=== PATIENT | female | born 1985 | race Hispanic/Latino ===

== ENCOUNTER 2019-06-25 11:54 | Emergency (ER) | payer OTHER ==
--- OUTSIDE RECORDS SUMMARY | 2019-06-25 11:56 | XMS REPORT | Summary of Care ---
:1985 Author Organization [facility] - [facility] Address [address] [place] [address] Care Team Providers Name Role Phone Doctor Unassigned, [place] Insurance Hmo Unavailable Ashley Calderon Primary Care Provider Encounter Details Date Type Department Care Team Description 10/22/2018 Orders Only [facility] Doctor Unassigned, No [address] [place] [address] Name [place] [phone] [place] [address] Allergies No Known Allergiesdocumented as of this encounter (statuses as of 10/22/2018) Medications Medication Sig Dispensed Refills Start Date End Date Status VIT Take by mouth. 0 A ctive W-CA,FE,FA,<1 MG, ( VITAMIN ORAL) ibuprofen (MOTRIN) Take 1 tablet by 60 tablet 1 01/06/2016 Active 600 mg tablet mouth every 6 (six) hours as needed for Pain (scale 1-3). Take with food or milk. terconazole (TERAZOL Insert 1 Applicator 20 g 0 6 Active 3) 0.8 % vaginal into vagina at creamIndications: bedtime. Vaginal yeast infection documented as of this encounter (statuses as of 10/22/2018) Active Problems Patient Care Coordination Note IOL 01-04-16 Problem Noted Date Well woman exam 02/18/2016 Other general counseling and advice for contraceptive management 02/18/2016 Obese 02/18/2016 Vaginal yeast infection 02/18/2016 documented as of this encounter (statuses as of 10/22/2018) Resolved Problems Problem Noted Date Resolved Date Routine follow-up 01/28/2016 02/18/2016 Obstetrical laceration, second degree 01/06/2016 Labor and delivery indication for care or intervention 01/0301/28/2016 39 weeks gestation of 01/04/2016 01/28/20 16 Flu vaccine need 12/14/2015 01/28/2016 Overview: Received flu vac today Round ligament pain 12/07/2015 01/28/2016 Nausea and vomiting during prior to 22 weeks 06/1801/28/2016 gestation History of miscarriage, currently 05/22/2015 01/28/2016 Supervision of high risk , antepartum 05/22/2015 01/28/2016 Overview: Delivery plan at 38w3d. Indications: elective by: labor inductio n at 39 weeks gestation approved by n/a. Other: n/a Vaginal bleeding during , antepartum 10/11/2014 05/22/2015 Obesity affecting 10/11/2014 01/28/2016 Overview: ICD10 Diagnosis Term Sizer Machine Utility documented as of this encounter (statuses as of 10/22/2018) Immunizations Name Administration Dates Next Due Influenza Virus Vaccine Quad IM 3+ YRS 12/14/2015, 6 Tdap 10/26/2015 documented as of this encounter Social History Tobacco Use Types Packs/Day Years Used Date Never Smoker Smokeless Tobacco: Never Used Alcohol Use Drinks/Week oz/Week Comments No Sex Assigned at Date Recorded Not on file Job Start Date Occupation Industry Not on file Not on file Not on file Travel History Travel Start Travel End No recent travel history available. documented as of this encounter Last Filed Vital Signs Not on filedocumented in this encounter Plan of Treatment Health Maintenance Due Date Last Done Comments PAP SMEAR 10/11/2017 10/11/2014 INFLUENZA VACCINE 11/14/2018 12/14/2015, 05/22/2015 DTaP,Tdap,and Td Vaccines (2 10/25/2025 10/26/2015 - Td) PNEUMOCOCCAL 0-64 YEARS Aged Out No longe r eligible based COMBINED SERIES on patient's age to complete this to [facility] documented as of this encounter Procedures Procedure Name Priority Date/Time Associated Diagnosis Comme nts ASSIGNMENT OF BENEFITS Routine 10/22/2018 9:07 AM CDT documented in this encounter Results Not on filedocumented in this encounter Insurance Payer Benefit Plan / Subscriber ID Effective Phone Address T ype Group Dates MEDICAID MEDICAID PENDING 2018-[address] Pending [place] [address] documented as of this encounter
--- OUTSIDE RECORDS SUMMARY | 2019-06-25 11:56 | XMS REPORT | Summary of Care ---
:1985 Author Organization [facility] Address [address] [place] [address] Care Team Providers Name Role Phone Doctor Unassigned, [place] Insurance Hmo Unavailable Ashley Calderon Primary Care Provider Reason for Visit Reason Comments New OB Visit Encounter Details Date Type Department Care Team Description 10/22/2018 [facility] Calderon gh-risk in first trimester (Primary Dx); Visit JUAN Marte BMI 36.0-36.9,adult; [address] Multiparity; [place], [place] Obesity affecting in first tri mester [address] [place], [place] [phone] [address] Allergies No Known Allergiesdocumented as of this encounter (statuses as of 10/22/2018) Medications Medication Sig Dispensed Refills Start Date End Date Status VIT Take by mouth. 0 A ctive W-CA,FE,FA,<1 MG, ( VITAMIN ORAL) ibuprofen Take 1 tablet by 60 tablet 1 01/06/2016 10/22/2018 D iscontinued (MOTRIN) 600 mg mouth every 6 tablet (six) hours as needed for Pain (scale 1-3). Take with food or milk. terconazole Insert 1 20 g 0 02/18/2016 10/22/2018 Discon tinued (TERAZOL 3) 0.8 % Applicator into vaginal vagina at creamIndications: bedtime. Vaginal yeast infection documented as of this encounter (statuses as of 10/22/2018) Active Problems Patient Care Coordination Note IOL 01-04-16 Problem Noted Date High risk , antepartum 10/22/2018 Obesity affecting in first trimester 019 Estimated Date of Delivery Comments Yes 06/12/2019 Based on last menstr ual period of 09/05/2018 (Approximate) documented as of this encounter (statuses as of 10/22/2018) Resolved Problems Problem Noted Date Resolved Date Well woman exam 02/18/2016 10/22/2018 Other general counseling and advice for contraceptive 201510/22/2018 management Obese 02/18/2016 10/22/2018 Vaginal yeast infection 02/18/2016 10/22/2018 Routine follow-up 01/28/2016 02/18/2016 Obstetrical laceration, second [...] affecting 10/11/2014 01/28/2016 Overview: ICD10 Diagnosis Term Stapler Machine Utility documented as of this encounter (statuses as of 10/22/2018) Immunizations Name Administration Dates Next Due Influenza Virus Vaccine Quad IM 3+ YRS 12/14/2015, 6 Tdap 10/26/2015 documented as of this encounter Social History Tobacco Use Types Packs/Day Years Used Date Never Smoker Smokeless Tobacco: Never Used Alcohol Use Drinks/Week oz/Week Comments No Estimated Date of Delivery Comments Yes 06/12/2019 Based on last menstr ual period of 09/05/2018 (Approximate) Sex Assigned at Date Recorded Not on file Job Start Date Occupation Industry Not on file Not on file Not on file Travel History Travel Start Travel End No recent travel history available. documented as of this encounter Last Filed Vital Signs Vital Sign Reading Time Taken Comments Blood Pressure 120/84 10/22/2018 9:35 AM CDT Pulse 67 10/22/2018 9:35 AM CDT Temperature 37.2 C (99 F) 10/22/2018 9:35 AM CDT Respiratory Rate 18 10/22/2018 9:35 AM CDT Oxygen Saturation - - Inhaled Oxygen Concentration - - Weight 97.1 kg (214 lb) 10/22/2018 9:35 AM CDT Height 162.6 cm (5' 4") 10/22/2018 9:35 AM CDT Body Mass Index 36.73 10/22/2018 9:35 AM CDT documented in this encounter Progress Notes Alicia Veliz RN - 10/22/2018 9:00 AM CDTPatient is 33 year old female here for current . Patient is . 1) Previous delivery methods Vaginal 2) Patient is experiencing cramping 3) Patient is not experiencing bleeding. 4) LMP 09/05/2018 5) Last Pap was:10/11/2014 Results: Negative 6) Have you had a flu vaccine this season? No 7) PPD candidate? No 8) Patient complains of Mild cramping 9) Patient denies history of physical, emotional, or sexual abuse. Patient states she currently feels safe at home. New ob packet given and and discussed with patient. ALICIA VELIZ RN 10/22/2018 9:45 AM Juani Calderon FNP - 10/22/2018 9:00 AM CDT Chief complaint: Chief Complaint Patient presents with New OB Visit CC: Initial Visit Suzanne Edwards is a 33 year old, , /White female. Patient's last menstrual period was09/05/2018 (approximate). She is 6w5d with a suspected intrauterine . Her Estimated Date of Delivery: 06/12/19. She is being seen today for her first obstetrical visit. She has no complaints today. Denies current physical, emotional or sexual abuse. Patient denies recent foreign travel. OB History T1 L1 SAB1 TAB0 Ectopic0 Multiple0 Live Births1 Name of Baby 1: Not recorded Date: 2014 GA: 4w0d Delivery: Not recorded Apgar1: Not recorded Apgar5: Not recorded Living: Not recorded Name of Baby 2: Not recorded Date: 01/05/16 GA: 39w1d Delivery: Vaginal Apgar1: 8 Apgar5: 9 Living: Living Name of Baby 3: Not recorded Date: Not recorded GA: Not recorded Delivery: Not recorded Apgar1: Not recorded Apgar5: Not recorded Living: Not recorded Histories OB History Para Term AB Living 3 1 1 0 1 1 SAB TAB Ectopic Multiple Live Births 1 0 0 0 1 # Outcome Date GA Lbr Zhen/2nd Weight Sex Delivery Anes PTL Lv 3 Current 2 Term 01/05/16 39w1d 8 lb 0.4 oz (3.64 kg) M VAGINAL EPI ASHLEY Comments: Maternal Age: 28; :2; Parity:1 Mother's Blood Type:O pos Baby's Blood Type:O pos Maternal Serological Test:normal Maternal Group B Strep Screening:negative; Adequate Treatment:not applicable Complications:no Labor Complications: thin meconium OAE: passed - 01/06/16 Hepatitis B Vaccine:yes - 01/05/16 Problems:no 1st screen collected on 01/06/16 showed normal. mg 1 2014 4w0d Past Medical History: Diagnosis Date Vaginal yeast infection 02/18/2016 Family History Problem Relation Age of Onset Diabetes Mother Hypertension Mother High cholesterol Mother Hypertension Sister Arthritis NoFHx Asthma NoFHx defects NoFHx Breast Cancer NoFHx Colon Cancer NoFHx Ovarian Cancer NoFHx Uterine Cancer NoFHx Cancer NoFHx Depression NoFHx Psychiatry NoFHx Genetic NoFHx Heart NoFHx Mental retardation NoFHx Neurological NoFHx Osteoporosis NoFHx Family Status Relation Name Status Mo Alive Fa Alive Sis (Not Specified) NoFHx (Not Specified) History reviewed. No pertinent surgical history. Social History Socioeconomic History Marital status: Spouse name: Not on file Number of children: 0 Years of education: 12+ Highest education level: Not on file Occupational History Occupation: Unemployed Social Needs Financial resource strain: Not on file Food insecurity: Worry: Not on file Inability: Not on file Transportation needs: Medical: Not on file Non-medical: Not on file Tobacco Use Smoking status: Never Smoker Smokeless tobacco: Never Used Substance and Sexual Activity Alcohol use: No Drug use: No Sexual activity: Yes control/protection: None Comment: last intercourse: Lifestyle Physical activity: Days per week: Not on file Minutes per session: Not on file Stress: Not on file Relationships Social connections: Talks on phone: Not on file Gets together: Not on file Attends taoism service: Not on file Active member of club or organization: Not on file Attends meetings of clubs or organizations: Not on file Relationship status: Not on file Intimate partner violence: Fear of current or ex partner: Not on file Emotionally abused: Not on file Physically abused: Not on file Forced sexual activity: Not on file Other Topics Concern Service Not Asked Blood Transfusions No Caffeine Concern Not Asked Occupational Exposure Not Asked Hobby Hazards Not Asked Sleep Concern Not Asked Stress Concern Not Asked Weight Concern Not Asked Special Diet Not Asked Back Care Not Asked Exercise Not Asked Bike Helmet Not Asked Seat Belt Not Asked Self-Exams Not Asked Social History Narrative Denies domestic violence or abuse No exposure to cats No taoism preference Social History Substance and Sexual Activity Sexual Activity Yes control/protection: None Comment: last intercourse: Genetic Screen Autism / Mental Retardation: No Meri Disease: No Congenital Heart Defect: No Cystic Fibrosis: No Down Syndrome: No Familial Dysautonomia: No Hemophilia or other Blood Disorders: No Herreid Chorea: No Maternal Metabolic Disorder--specify (eg. Type 1 Diabetes, PKU): No Muscular Dystrophy: No Neural Tube Defect: No Recurrent Loss or a Stillbirth: No Sickle Cell Disease or Trait: No Travon Sachs: No Teratological Substances (specify type & strength/dose) since LMP: No Thalassemia: No Other Inherited Genetic or Chromosomal Disorder (specify): No No Significant History of Genetic Disorders: No Significant History of Genetic Disorders Labs Labs are pending. Radiology Radiology pending. Allergies Suzanne has No Known Allergies. Medications Suzanne has a current medication list which includes the following prescription(s): vit calc,iron,folic. Review of Systems Constitutional: Negative. Negative for appetite change, fatigue and fever. HENT: Negative. Eyes: Negative. Negative for visual disturbance. Respiratory: Negative. Breasts: Negative. Cardiovascular: Negative. Negative for palpitations and leg swelling. Gastrointestinal: Negative. Negative for abdominal pain, constipation, diarrhea, nausea and vomiting. Genitourinary: Negative. Negative for dysuria, vaginal bleeding, vaginal discharge and pelvic pain. Musculoskeletal: Negative. Skin: Negative. Negative for rash. Neurological: Negative. Negative for dizziness, light-headedness and headaches. Psychiatric/Behavioral: Negative. Endocrine: Endocrine negative BP 120/84 (BP Location: Right arm, Patient Position: Sitting, BP CUFF SIZE: Adult Small) | Pulse 67 | Temp 37.2 C (99 F) (Oral) | Resp 18 | Ht 5' 4" (1.626 m) | Wt 214 lb (97.1 kg) | LMP 09/05/2018 (Approximate) | BMI 36.73 kg/m Pregravid BMI: 36.0 Physical Exam Vitals reviewed. Constitutional: She is oriented to person, place, and time. She appears well- developed and well-nourished. Her body habitus is normal. See flowsheet Neck: No thyroid nodules and no thyromegaly palpated. Cardiovascular: Regular rate and rhythm. No murmur auscultated. No peripheral edema present. Pulmonary/Chest: Breath sounds clear to auscultation. Normal inspiratory effort. Abdominal: Abdomen is soft. No mass palpated. No tenderness present. There is no hepatosplenomegaly. Neuro/Psychiatric: She has a normal mood and affect. She is oriented to person, place, and time. Skin: Skin normal. No lesion and no rash present. Breast: Right breast exhibits no mass, no nipple discharge and no tenderness. Left breast exhibits no mass, no nipple discharge and no tenderness. Normal left breast and normal right breast External genitalia: Normal external genitalia appropriate for age. No labial lesion. Bladder: No tenderness. Normal bladder Vagina:Normal vagina. No lesion inspected. No abnormal vaginal discharge found. Cervix: Normal cervix. No lesion. No tenderness and no discharge present. Uterus: Uterus is normal size, normal position and non-tender. Normal uterus Adnexa: Right adnexa without tenderness. Left adnexa without tenderness. Normal left adnexa and normal right adnexa PHYSICAL: General Exam: HEENT: Normal Thyroid: Normal Lymph Node: Normal Neurological: Normal Heart: Normal Lungs: Normal Breasts: Normal Abdomen: Normal Skin: Normal Extremities: Normal Pelvic Exam: Vulva: Normal Vagina: Normal Cervix: Normal SVE closed/thick/high Membrane status: Intact Uterus: 6 Weeks Adnexa: Normal Rectum: Normal Spines: Average Subpubic Arch: Normal Assessment/Plan 1. High-risk in first trimester 6w5d by LMP TWG discussed Discussed use of Deet Repellent Initiate Vitamins Increase Fluid Intake. Minimum of 8 water bottles daily. - POCT TEST - POCT URINALYSIS W/O SPECIFIC GRAVITY - GLUCOSE 1 HOUR POST PRANDIAL - CBC WITH DIFF - HEPATITIS B SURFACE ANTIGEN - HIV 1/2 AG-AB WITH REFLEX - WORKUP, BLOOD BANK - RUBELLA SCREEN ([place]UCIA[place]) IGG - GALV ONLY - SYPHILIS IGG/IGM - URINE CULTURE - VZV ANTIBODY SCREEN - POCT URINALYSIS W/O SPECIFIC GRAVITY; Standing - PAP Smear-Liquid Based - HIGH RISK HPV-THIN PREP - GC & CHLAMYDIA AMPLIFIED ASSAY - CBC WITH DIFFERENTIAL 2. BMI 36.0-36.9,adult The patient is asked to make an attempt to improve diet and exercise patterns to aid in medical management of this problem. 3. Multiparity 4. Obesity affecting in first trimester The patient is asked to make an attempt to improve diet and exercise patterns to aid in medical management of this problem. Return to clinic in 4 weeks. Discussed treatment options. Reviewed patient instructions and provided printed copy. at 6w5d This visit did not involve counseling and coordination that comprised more than 50% of the visit time. documented in this encounter Plan of Treatment Date Type Specialty Care Team Description 11/19/2018 Routine Visit OB Satellites Juani Calderon FNP [address] [place], [place] [address] [phone] Name Type Priority Associated Diagnoses Date/Ti me URINE CULTURE LAB Routine High-risk in 11/2018 10:15 AM CDT first trimester PAP Smear-Liquid Based LAB Routine High-risk pregnanc y in 10/22/2018 10:13 AM CDT first trimester HIGH RISK HPV-THIN PREP LAB Routine High-risk pregnan cy in 10/22/2018 10:13 AM CDT first trimester GC & CHLAMYDIA AMPLIFIED LAB Routine High-risk pregna ncy in 10/22/2018 10:13 AM CDT ASSAY first trimester Name Type Priority Associated Diagnoses Order S chedule GLUCOSE 1 HOUR POST LAB Routine High-risk i n Ordered: 10/22/2018 PRANDIAL first trimester CBC WITH DIFF LAB Routine High-risk in Orde red: 10/22/2018 first trimester HEPATITIS B SURFACE LAB Routine High-risk i n Ordered: 10/22/2018 ANTIGEN first trimester HIV 1/2 AG-AB WITH REFLEX LAB Routine High-risk pregn danielle in Ordered: 10/22/2018 first trimester WORKUP, BLOOD LAB Routine High-risk pregnanc y in Ordered: 10/22/2018 BANK first trimester RUBELLA SCREEN (LUCIANA) LAB Routine High-risk pregnanc y in Ordered: 10/22/2018 IGG first trimester GALV ONLY - SYPHILIS LAB Routine High-risk in Ordered: 10/22/2018 IGG/IGM first trimester VZV ANTIBODY SCREEN LAB Routine High-risk i n Ordered: 10/22/2018 first trimester POCT URINALYSIS W/O LAB Routine High-risk i n 20 Occurrences starting SPECIFIC GRAVITY first trimester 10/23/19 19 until 10/23/2019 CBC WITH DIFFERENTIAL LAB Routine High-risk in Ordered: 10/22/2018 first trimester Health Maintenance Due Date Last Done Comments PAP SMEAR 10/11/2017 10/11/2014 INFLUENZA VACCINE 11/14/2018 12/14/2015, 05/22/2015 DTaP,Tdap,and Td Vaccines (2 10/25/2025 10/26/2015 - Td) PNEUMOCOCCAL 0-64 YEARS Aged Out No longe r eligible based COMBINED SERIES on patient's age to complete this to [facility] documented as of this encounter Procedures Procedure Name Priority Date/Time Associated Comments Diagnosis POCT URINALYSIS W/O Routine 10/22/2018 9:29 AM High-risk preg divya Results for this SPECIFIC GRAVITY CDT in first trimester proce dure are in the results section. POCT TEST Routine 10/22/2018 9:29 AM High-risk preg divya Results for this CDT in first trimester procedure are in the results section. documented in this encounter Results POCT URINALYSIS W/O SPECIFIC GRAVITY (10/22/2018 9:29 AM CDT) Pathologist Sig nature POCT PH U 5 5 - 8 mg/dl POCT U LEUK EST 2+ Negative - Negative POCT U NIT neg Negative - Negative POCT U PROT trace Negative - Negative POCT U GLU neg Negative - Negative POCT U KETONE neg Negative - Negative POCT U BLD neg Negative - Negative Specimen Urine - URINE, CLEAN CATCH POCT TEST (10/22/2018 9:29 AM CDT) Pathologist Sig nature POCT PREG Positive On board controls acceptable Yes with C Line POCT PREG LOT # POCT PREG TEST DATE Specimen Urine - URINE, CLEAN CATCH documented in this encounter Visit Diagnoses Diagnosis High-risk in first trimester - Primary BMI 36.0-36.9,adult Body Mass Index 36.0-36.9, adult Multiparity Obesity affecting in first tri mester documented in this encounter Insurance Payer Benefit Plan / Subscriber ID Effective Phone Address T ype Group Dates MEDICAID MEDICAID PENDING 2018-[address]ending [place] [address] documented as of this encounter
--- OUTSIDE RECORDS SUMMARY | 2019-06-25 11:57 | XMS REPORT | Summary of Care ---
:1985 Author Organization [facility] Address [address] [place] [address] Care Team Providers Name Role Phone Doctor Unassigned, [place] Insurance Hmo Unavailable Ashley Calderon Primary Care Provider Reason for Visit Reason Comments Lab Results Encounter Details Date Type Department Care Team Description 10/25/2018 Telephone [facility] Juani Zazueta, JUAN Lab Results [address] [place] [address] [address] [phone] [place], [place] [address] [phone] Allergies No Known Allergiesdocumented as of this encounter (statuses as of 10/25/2018) Medications Medication Sig Dispensed Refills Start Date End Date Status VIT Take by mouth. 0 A ctive W-CA,FE,FA,<1 MG, ( VITAMIN ORAL) documented as of this encounter (statuses as of 10/25/2018) Active Problems Patient Care Coordination Note IOL 01-04-16 Problem Noted Date Abnormal maternal glucose tolerance, antepartum 2018 High risk , antepartum 10/22/2018 Obesity affecting in first trimester 019 Estimated Date of Delivery Comments Yes 06/12/2019 Based on last menstr ual period of 09/05/2018 (Approximate) documented as of this encounter (statuses as of 10/25/2018) Resolved Problems Problem Noted Date Resolved Date [...] affecting 10/11/2014 01/28/2016 Overview: ICD10 Diagnosis Term Systems Coordinator Utility documented as of this encounter (statuses as of 10/25/2018) Immunizations Name Administration Dates Next Due Influenza [...] filedocumented in this encounter Plan of Treatment Date Type Specialty Care Team Description 10/26/2018 Commodities Trader Visit [facility] 11/19/2018 Routine Visit OB Satellites Juani Calderon, NURSE WOUND CARE [address] [place], [place] [address] [phone] Name Type Priority Associated Diagnoses Order S chedule 3 HR GLUCOSE TOLERANCE LAB Routine Abnormal maternal 1 Occurrences starting PANEL glucose tolerance, 9 until antepartum 12/25/2018 Health Maintenance Due Date Last Done Comments PAP SMEAR 10/11/2017 10/11/2014 INFLUENZA VACCINE 11/14/2018 12/14/2015, 05/22/2015 DTaP,Tdap,and Td Vaccines (2 10/25/2025 10/26/2015 - Td) PNEUMOCOCCAL 0-64 YEARS Aged Out No longe r eligible based COMBINED SERIES on patient's age to complete this to [facility] documented as of this encounter Results Not on filedocumented in this encounter Visit Diagnoses Diagnosis Abnormal maternal glucose tolerance, ant epartum - Primary documented in this encounter Insurance Payer Benefit Plan / Subscriber ID Effective Phone Address T ype Group Dates MEDICAID MEDICAID PENDING 2018-[address] [place] [address] documented as of this encounter
--- OUTSIDE RECORDS SUMMARY | 2019-06-25 11:57 | XMS REPORT | Summary of Care ---
:1985 Author Organization [facility] Address [address] [place] [address] Care Team Providers Name Role Phone Doctor Unassigned, [place] Insurance Hmo Unavailable Ashley Calderon Primary Care Provider Reason for Visit Reason Comments LAB Encounter Details Date Type Department Care Team Description 10/27/2018 Assembler Bicycle Visit [facility]- Gale Calderon, INTEGRATION SPECIALIST [address] [place] [address] [phone] Supervision of high risk , ante ; [place] [facility], [facility] Abnormal maternal glucose tolerance, ant epartum [address] [place] [phone] Allergies No Known Allergiesdocumented as of this encounter (statuses as of 10/27/2018) Medications Medication Sig Dispensed Refills Start Date End Date Status VIT Take by mouth. 0 A ctive W-CA,FE,FA,<1 MG, ( VITAMIN ORAL) documented as of this encounter (statuses as of 10/27/2018) Active Problems Patient Care Coordination Note IOL 01-04-16 Problem Noted Date Abnormal maternal glucose tolerance, antepartum 2018 High risk , antepartum 10/22/2018 Obesity affecting in first trimester 019 Estimated Date of Delivery Comments Yes 06/12/2019 Based on last menstr ual period of 09/05/2018 (Approximate) documented as of this encounter (statuses as of 10/27/2018) Resolved Problems Problem Noted Date Resolved Date [...] affecting 10/11/2014 01/28/2016 Overview: ICD10 Diagnosis Term Sex Crimes Detective Utility documented as of this encounter (statuses as of 10/27/2018) Immunizations Name Administration Dates Next Due Influenza [...] Description 11/19/2018 Routine Visit OB Satellites Juani Calderon, INTEGRATION SPECIALIST [address] [place], [place] [address] [phone] Name Type Priority Associated Diagnoses Order S chedule GLUCOSE FASTING LAB Routine Abnormal maternal glucose Ordered: 10/27/2018 tolerance, antepartum 1 HR GLUCOSE TOLERANCE LAB Routine Abnormal maternal glucose Ordered: 10/27/2018 TEST tolerance, antepartum 2 HR GLUCOSE TOLERANCE LAB Routine Abnormal maternal glucose Ordered: 10/27/2018 TEST tolerance, antepartum 3 HR GLUCOSE TOLERANCE LAB Routine Abnormal maternal glucose Ordered: 10/27/2018 TEST tolerance, antepartum Health Maintenance Due Date Last Done Comments INFLUENZA VACCINE 11/14/2018 12/14/2015, 05/22/2015 PAP SMEAR 10/22/2021 10/22/2018, 10/11/2014 DTaP,Tdap,and Td Vaccines (2 10/25/2025 10/26/2015 - Td) PNEUMOCOCCAL 0-64 YEARS Aged Out No longe r eligible based COMBINED SERIES on patient's age to complete this to pic documented as of this encounter Results Not on filedocumented in this encounter Visit Diagnoses Diagnosis Supervision of high risk , ante Abnormal maternal glucose tolerance, ant epartum documented in this encounter Insurance Payer Benefit Plan / Subscriber ID Effective Phone Address T ype Group Dates MEDICAID MEDICAID PENDING 2018-[address] [place] [address] documented as of this encounter
--- OUTSIDE RECORDS SUMMARY | 2019-06-25 11:57 | XMS REPORT | Summary of Care ---
:1985 Author Organization [facility] Address [address] [place] [address] Care Team Providers Name Role Phone Doctor Unassigned, [place] Insurance Hmo Unavailable Aslhey Calderon Primary Care Provider Reason for Visit Reason Comments LAB Encounter Details Date Type Department Care Team Description 10/27/2018 Creche Attendant Visit [facility]- Gale Calderon, JUTE BAG SEWER [address] [place] [address] [phone] Supervision of high risk , ante ; [place] [facility], [facility] Abnormal maternal glucose tolerance, ant epartum [address] [place] [phone] Allergies No Known Allergiesdocumented as of this [...] affecting 10/11/2014 01/28/2016 Overview: ICD10 Diagnosis Term Woven Wood Shade Assembler Utility documented as of this encounter (statuses [...] 11/19/2018 Routine Visit OB Satellites Juani Calderon, JUTE BAG SEWER [address] [place], [place] [address] [phone] Name Type Priority Associated Diagnoses Order S [...] T ype Group Dates MEDICAID MEDICAID PENDING 2018-[address] [place] [address] documented as of this encounter
--- OUTSIDE RECORDS SUMMARY | 2019-06-25 11:57 | XMS REPORT | Summary of Care ---
:1985 Author Organization [facility] Address [address] [place] [address] Care Team Providers Name Role Phone Doctor Unassigned, [place] Insurance Hmo Unavailable Ashley Calderon Primary Care Provider Reason for Visit Reason Comments LAB Encounter Details Date Type Department Care Team Description 10/27/2018 Public Transit Bus Driver Visit [facility]- Gale Calderon, DEAN OF GRADUATE STUDIES [address] [place], [place] [address] Supervision of [facility], [facility] risk , [address] [facility] [place] [phone] Allergies No Known Allergiesdocumented as of this [...] affecting 10/11/2014 01/28/2016 Overview: ICD10 Diagnosis Term Coil Shaper Utility documented as of this encounter (statuses [...] 11/19/2018 Routine Visit OB Satellites Juani Calderon, DEAN OF GRADUATE STUDIES [address] [place], [place] [address] [phone] Health Maintenance Due Date Last Done Comments [...] Diagnosis Supervision of high risk , ante documented in this encounter Insurance Payer Benefit Plan / Subscriber ID Effective Phone Address T ype Group Dates MEDICAID MEDICAID PENDING 2018-[address] [place] [address] documented as of this encounter
--- OUTSIDE RECORDS SUMMARY | 2019-06-25 11:58 | XMS REPORT | Summary of Care ---
:1985 Author Organization [facility] Address [address] [place] [address] Care Team Providers Name Role Phone Doctor Unassigned, [place] Insurance Hmo Unavailable Ashley Calderon Primary Care Provider Reason for Visit Reason Comments LAB Encounter Details Date Type Department Care Team Description 10/27/2018 Tie Loader Visit [facility]- Gale Calderon, DIESEL AUTOMOTIVE TECHNICIAN [address] [place] [address] [phone] Supervision of high risk , ante ; [place] [facility], [facility] Abnormal maternal glucose tolerance, ant epartum [address] [place] [phone] Allergies No Known Allergiesdocumented as of this [...] affecting 10/11/2014 01/28/2016 Overview: ICD10 Diagnosis Term Director Of Employer Services Utility documented as of this encounter (statuses [...] 11/19/2018 Routine Visit OB Satellites Juani Calderon, DIESEL AUTOMOTIVE TECHNICIAN [address] [place], [place] [address] [phone] Name Type Priority Associated Diagnoses Order S [...] T ype Group Dates MEDICAID MEDICAID PENDING 2018-[address] [place] [address] documented as of this encounter
--- OUTSIDE RECORDS SUMMARY | 2019-06-25 11:58 | XMS REPORT | Summary of Care ---
:1985 Author Organization [facility] Address [address] [place] [address] Care Team Providers Name Role Phone Doctor Unassigned, [place] Insurance Hmo Unavailable Ashley Calderon Primary Care Provider Reason for Referral (Routine) Status Reason Specialty Diagnoses / Referred By Referred To Procedures Contact Contact New Request Maternal Diagnoses High risk , antepartum Juani Calderon Medicine Procedures CONSULT MATERNAL MEDICINE ULTRASOUND Preferred Location: JUAN Marte [address] [place] [address] Reason for Visit Reason Comments Talk To Nurse Pt calling stating she recei dami Medicaid Encounter Details Date Type Department Care Team Description 11/08/2018 [facility] Tal k To Nurse (Pt [facility] calling stating she [address] received Medicaid) [facility] [place] [address] [place] [address] [phone] Allergies No Known Allergiesdocumented as of this encounter (statuses as of 11/08/2018) Medications Medication Sig Dispensed Refills Start Date End Date Status PNV 67-iron Take 1 capsule 30 capsule 11 11/08/2018 A ctive ps-folate by mouth no.1-dha (VITAFOL daily. ULTRA) 29 mg iron- 1 mg-200 mg CapIndications: High risk , antepartum VIT Take by 0 11/08/2018 Discon tinued W-CA,FE,FA,<1 MG, mouth. ( VITAMIN ORAL) documented as of this encounter (statuses as of 11/08/2018) Active Problems Patient Care Coordination Note IOL 01-04-16 Problem Noted Date Abnormal maternal glucose tolerance, antepartum 2018 High risk , antepartum 10/22/2018 Obesity affecting in first trimester 019 Estimated Date of Delivery Comments Yes 06/12/2019 Based on last menstr ual period of 09/05/2018 (Approximate) documented as of this encounter (statuses as of 11/08/2018) Resolved Problems Problem Noted Date Resolved Date [...] affecting 10/11/2014 01/28/2016 Overview: ICD10 Diagnosis Term Field Technical Specialist Utility documented as of this encounter (statuses as of 11/08/2018) Immunizations Name Administration Dates Next Due Influenza [...] 11/19/2018 Routine Visit OB Satellites Juani Calderon, CHILD CARE GROUP LEADER [address] [place], [place] [address] [phone] Health Maintenance Due Date Last Done Comments INFLUENZA VACCINE (#1) 2018 12/14/2015, 05/22/2015 PAP SMEAR 10/22/2021 10/22/2018, 10/11/2014 DTaP,Tdap,and Td Vaccines (2 10/25/2025 10/26/2015 - Td) PNEUMOCOCCAL 0-64 YEARS Aged Out No longe r eligible based COMBINED SERIES on patient's age [facility] documented as of this encounter Results Not on filedocumented in this encounter Visit Diagnoses Diagnosis High risk , antepartum - Primar y documented in this encounter Insurance Payer Benefit Plan / Subscriber ID Effective Dates Phone Addre ss Type Group [employer] MEDICAID OF xxxxxxxxx 2018-Present [phone] [address] Medicaid [place] [id number] [place] [phone] documented as of this encounter
--- OUTSIDE RECORDS SUMMARY | 2019-06-25 11:58 | XMS REPORT | Summary of Care ---
:1985 Author Organization [facility] Address [address] [place] [address] Care Team Providers Name Role Phone Doctor Unassigned, [place] Insurance Hmo Unavailable Ashley Calderon Primary Care Provider Reason for Visit Reason Comments Care Encounter Details Date Type Department Care Team Description 11/19/2018 Routine [facility]- Juani Calderon gh-risk in first trimester (Primary Dx); Visit JUAN Marte Obesity affecting in first tri mester; [address] Abnormal maternal glucose tolerance, ant epartum [place] [address] [address] [place], [place] [phone] [address] Allergies No Known Allergiesdocumented as of this encounter (statuses as of 11/19/2018) Medications Medication Sig Dispensed Refills Start Date End Date Status PNV 67-iron ps-folate Take 1 capsule by 30 capsule 11 9 Active no.1-dha (VITAFOL mouth daily. ULTRA) 29 mg iron- 1 mg-200 mg CapIndications: High risk , antepartum documented as of this encounter (statuses as of 11/19/2018) Active Problems Patient Care Coordination Note IOL 01-04-16 Problem Noted Date Abnormal maternal glucose tolerance, antepartum 2018 High risk , antepartum 10/22/2018 Obesity affecting in first trimester 019 Estimated Date of Delivery Comments Yes 06/12/2019 Based on last menstr ual period of 09/05/2018 (Approximate) documented as of this encounter (statuses as of 11/19/2018) Resolved Problems Problem Noted Date Resolved Date [...] affecting 10/11/2014 01/28/2016 Overview: ICD10 Diagnosis Term Cloud Architect Utility documented as of this encounter (statuses as of 11/19/2018) Immunizations Name Administration Dates Next Due Influenza [...] Sign Reading Time Taken Comments Blood Pressure 128/89 11/19/2018 9:00 AM CDT Pulse 64 11/19/2018 9:00 AM CDT Temperature 36.8 C (98.2 F) 11/19/2018 9:00 AM CDT Respiratory Rate 16 11/19/2018 9:00 AM CDT Oxygen Saturation - - Inhaled Oxygen Concentration - - Weight 94.8 kg (209 lb 1 oz) 11/19/2018 9:00 AM CDT Height 162.6 cm (5' 4") 11/19/2018 9:00 AM CDT Body Mass Index 35.89 11/19/2018 9:00 AM CDT documented in this encounter Progress Notes Juani Calderon, NURSE RN BSN - 11/19/2018 8:30 AM CDT Chief complaint: Chief Complaint Patient presents with Care HPI Suzanne Edwards is a 33 year old female is a @ 10w5d here for visit. Patient's last menstrual period was 09/05/2018 (approximate). Estimated Date of Delivery: 06/12/19 Today she denies any complaints or concerns. She is taking PNV. She does not yet endorse FM. She denies any ctx/cramping, VB, LOF, DICKSON, visual disturbance, vaginal discharge or dysuria. She denies any foreign travel. She also denies any physical, sexual or emotional abuse. Histories OB History Para Term AB Living [...] collected on 01/06/16 showed normal. mg 1 SAB 2014 4w0d Past Medical History: Diagnosis Date Abnormal maternal glucose tolerance, antepartum 10/25/2018 Vaginal yeast infection 02/18/2016 Family History Problem [...] Alive Sis (Not Specified) NoFHx (Not Specified) No past surgical history on file. Social History Socioeconomic History Marital status: Spouse [...] Sexual activity: Yes control/protection: None Comment: last intercourse:10/18/2018 Lifestyle Physical activity: Days per week: Not on file Minutes per session: Not on file Stress: Not on file Relationships Social connections: Talks on phone: Not on file Gets together: Not on file Attends islam service: Not on file Active member of [...] Social History Narrative Denies domestic violence or abuse, patient feels safe at home. No exposure to cats No islam preference Social History Substance and Sexual Activity Sexual Activity Yes control/protection: None Comment: last intercourse:10/18/2018 Labs No new labs and I have reviewed the patient's labs. Radiology Radiology pending. Allergies Suzanne has No Known Allergies. Medications Suzanne has a current medication list which includes the following prescription(s): pnv 67-iron ps-folate no.1-dha. Review of Systems Constitutional: Negative for appetite change, fatigue and fever. Eyes: Negative for visual disturbance. Respiratory: Negative. Cardiovascular: Negative for palpitations and leg swelling. Gastrointestinal: Negative for abdominal pain, constipation, diarrhea, nausea and vomiting. Genitourinary: Negative. Negative for dysuria, vaginal bleeding, vaginal discharge and pelvic pain. Musculoskeletal: Negative. Skin: Negative for rash. Neurological: Negative for dizziness, light-headedness and headaches. Psychiatric/Behavioral: Negative. BP 128/89 (BP Location: Right arm, Patient Position: Sitting, BP CUFF SIZE: Adult Large) | Pulse 64 | Temp 36.8 C (98.2 F) (Oral) | Resp 16 | Ht 5' 4" (1.626 m) | Wt 209 lb 1 oz (94.8 kg) | LMP 09/05/2018 (Approximate) | BMI 35.89 kg/m Pregravid BMI: 36.0 Physical Exam Vitals reviewed. Constitutional: She is oriented to person, place, and time. She appears well- developed and well-nourished. See flowsheet Cardiovascular: No peripheral edema present. Pulmonary/Chest: Normal inspiratory effort. Abdominal: Abdomen is soft. Neuro/Psychiatric: She has a normal mood and affect. She is oriented to person, place, and time. Skin: Skin normal. Assessment/Plan 1. High-risk in first trimester 10w5d Dating US scheduled for 11/23 - POCT URINALYSIS W/O SPECIFIC GRAVITY 2. Obesity affecting in first trimester The patient is asked to make an attempt to improve diet and exercise patterns to aid in medical management of this problem. 3. Abnormal maternal glucose tolerance, antepartum Early 1hr GTT 166, passed 3 hr GTT. Repeat 3hr GTT at 26w Return to clinic in 4 weeks. Reviewed patient instructions and provided printed copy. at 10w5d This visit did not involve counseling and coordination that comprised more than 50% of the visit time. documented in this encounter Plan of Treatment Date Type Specialty Care Team Description 11/23/2018 Sports Attorney Visit Maternal Medicine 12/17/2018 Routine Visit OB Satellites Juani Calderon FNP [address] [place], [place] [address] Health Maintenance Due Date Last Done Comments INFLUENZA VACCINE (#1) 2018 12/14/2015, 05/22/2015 PAP SMEAR 10/22/2021 10/22/2018, 10/11/2014 DTaP,Tdap,and Td Vaccines (2 10/25/2025 10/26/2015 - Td) PNEUMOCOCCAL 0-64 YEARS Aged Out No longe r eligible based COMBINED SERIES on patient's age to complete this to [facility] documented as of this encounter Procedures Procedure Name Priority Date/Time Associated Comments Diagnosis POCT URINALYSIS W/O Routine 11/19/2018 11:31 AM High-risk preg divya Results for this SPECIFIC GRAVITY CDT in first trimester proce dure are in the results section. documented in this encounter Results POCT URINALYSIS W/O SPECIFIC GRAVITY (11/19/2018 11:31 AM CDT) Pathologist Sig nature POCT PH U . 5 - 8 mg/dl POCT U LEUK EST . Negative - Negative POCT U NIT . Negative - Negative POCT U PROT Trace Negative - Negative POCT U GLU Neg Negative - Negative POCT U KETONE . Negative - Negative POCT U BLD . Negative - Negative Specimen Urine - URINE, CLEAN CATCH documented in this encounter Visit Diagnoses Diagnosis High-risk in first trimester - Primary Obesity affecting in first tri mester Abnormal maternal glucose tolerance, ant epartum documented in this encounter Insurance Payer Benefit Plan / Subscriber ID Effective Dates Phone Addre ss Type Group [facility] MEDICAID OF xxxxxxxxx 2018-Present [phone] [address] Medicaid [place] [id number] [place] [phone] documented as of this encounter
--- OUTSIDE RECORDS SUMMARY | 2019-06-25 11:58 | XMS REPORT | Summary of Care ---
:1985 Author Organization [facility] Address [address] [place] [address] Care Team Providers Name Role Phone Doctor Unassigned, [place] Insurance Hmo Unavailable Ashley Calderon Primary Care Provider Reason for Visit Reason Comments ULTRASOUND (Routine) Status Reason Specialty Diagnoses / Referred By Referred To Procedures Contact Contact Closed Maternal Diagnoses High risk , antepartum Juani Calderon Medicine Procedures CONSULT MATERNAL MEDICINE ULTRASOUND Preferred Location: JUAN Marte [address] [place] [address] Encounter Details Date Type Department Care Team Description 11/23/2018 Field Contact Technician Visit [facility] RMP Remy Puente Uterine size-date Ultrasound- [address] discrepancy in first [id number] [place] [phone] Allergies No Known Allergiesdocumented as of this encounter (statuses as of 11/23/2018) Medications Medication Sig Dispensed Refills Start Date End Date Status PNV 67-iron ps-folate Take 1 capsule by 30 capsule 9 Active no.1-dha (VITAFOL mouth daily. ULTRA) 29 mg iron- 1 mg-200 mg CapIndications: High risk , antepartum documented as of this encounter (statuses as of 11/23/2018) Active Problems Patient Care Coordination Note IOL 01-04-16 Problem Noted Date Abnormal maternal glucose tolerance, antepartum 2018 High risk , antepartum 10/22/2018 Obesity affecting in first trimester 019 Estimated Date of Delivery Comments Yes 06/12/2019 Based on last menstr ual period of 09/05/2018 (Approximate) documented as of this encounter (statuses as of 11/23/2018) Resolved Problems Problem Noted Date Resolved Date [...] affecting 10/11/2014 01/28/2016 Overview: ICD10 Diagnosis Term [place] Utility documented as of this encounter (statuses as of 11/23/2018) Immunizations Name Administration Dates Next Due Influenza [...] Treatment Date Type Specialty Care Team Description 12/17/2018 Routine Visit OB Satellites Juani Calderon, CONTACT LENS POLISHER [address] [place], [place] [address] [phone] Health Maintenance Due Date Last Done Comments INFLUENZA VACCINE (#1) 2018 12/14/2015, 05/22/2015 PAP SMEAR 10/22/2021 10/22/2018, 10/11/2014 DTaP,Tdap,and Td Vaccines (2 10/25/2025 10/26/2015 - Td) PNEUMOCOCCAL 0-64 YEARS Aged Out No longe r eligible based COMBINED SERIES on patient's age to complete this to [facility] documented as of this encounter Results Not on filedocumented in this encounter Visit Diagnoses Diagnosis Uterine size-date discrepancy in first t rimester Uterine size date discrepancy, antepartu m condition or complication documented in this encounter Insurance Payer Benefit Plan / Subscriber ID Effective Dates Phone Addre ss Type Group [facility] MEDICAID OF xxxxxxxxx 2018-Present [phone] [address] Medicaid [place] [id number] [place] [phone] documented as of this encounter
--- OUTSIDE RECORDS SUMMARY | 2019-06-25 11:58 | XMS REPORT | Summary of Care ---
:[address] [facility] Address [address] [place] [address] Care Team Providers Name Role Phone Doctor Unassigned, [place] Insurance Hmo Unavailable Ashley Calderon Primary Care Provider Reason for Visit Reason Comments LAB Encounter Details Date Type Department Care Team Description 10/27/2018 Charge Gang Weigher Visit [facility]- Gale Calderon, DE IONIZER OPERATOR [address] [place] [address] [phone] Supervision of high risk , ante ; [facility], [facility] Abnormal maternal glucose tolerance, ant epartum [address] [place] [phone] Allergies No Known Allergiesdocumented as of this [...] affecting 10/11/2014 01/28/2016 Overview: ICD10 Diagnosis Term Podiatric Technician Utility documented as of this encounter (statuses [...] 11/19/2018 Routine Visit OB Satellites Juani Calderon, DE IONIZER OPERATOR [address] [place], [place] [address] [phone] Name Type Priority Associated Diagnoses Date/Ti me 3 HR GLUCOSE TOLERANCE LAB Routine Abnormal maternal 10/27/2018 8:00 AM CDT PANEL glucose tolerance, antepartum GLUCOSE FASTING LAB Routine Abnormal maternal 019 8:00 AM CDT glucose tolerance, antepartum Name Type Priority Associated Diagnoses Order S chedule 1 HR GLUCOSE TOLERANCE LAB Routine Abnormal [...] on patient's age to complete this to [facility] documented as of this encounter Results Not on filedocumented in this encounter Visit Diagnoses Diagnosis Supervision of high risk , ante Abnormal maternal glucose tolerance, ant epartum documented in this encounter Insurance Payer Benefit Plan / Subscriber ID Effective Phone Address T ype Group Dates MEDICAID MEDICAID PENDING 2018-[address] [place] [address] documented as of this encounter
--- OUTSIDE RECORDS SUMMARY | 2019-06-25 11:59 | XMS REPORT | Summary of Care ---
:1985 Author Organization [facility] Address [address] [place] [address] Care Team Providers Name Role Phone Doctor Unassigned, [place] Insurance Hmo Unavailable Ashley Calderon Primary Care Provider Reason for Visit Reason Comments ULTRASOUND Encounter Details Date Type Department Care Team Description 11/23/2018 Case Management [facility]- Juani Calderon, ULTRASOUND [facility] [address] [place], [place] [address] [place] [address] [phone] Allergies No Known Allergiesdocumented as of this [...] 019 Estimated Date of Delivery Comments Yes 06/22/2019 Based on Ultrasound documented as of this encounter (statuses as of 11/23/2018) Resolved Problems Problem Noted Date Resolved Date Well woman exam 02/18/2016 10/22/2018 Other general counseling and advice for contraceptive 12/05/ 2016 10/22/2018 management Obese 02/18/2016 10/22/2018 Vaginal yeast infection [...] affecting 10/11/2014 01/28/2016 Overview: ICD10 Diagnosis Term Frame Trimmer Utility documented as of this encounter (statuses as of 11/23/2018) Immunizations Name Administration Dates Next Due Influenza Virus Vaccine Quad IM 3+ YRS 12/14/2015, 6 Tdap 10/26/2015 documented as of this encounter Social History Tobacco Use Types Packs/Day Years Used Date Never Smoker Smokeless Tobacco: Never Used Alcohol Use Drinks/Week oz/Week Comments No Estimated Date of Delivery Comments Yes 06/22/2019 Based on Ultrasound Sex Assigned at Date Recorded Not on [...] 12/17/2018 Routine Visit OB Satellites Juani Calderon, COURT ADVOCATE [address] [place], [place] [address] [phone] Health Maintenance Due Date Last Done Comments [...] Type Group TMHP MEDICAID OF xxxxxxxxx 2018-Present [phone] [address] Medicaid [place] [id number] [place] [phone] documented as of this encounter
--- OUTSIDE RECORDS SUMMARY | 2019-06-25 11:59 | XMS REPORT ---
:1985 Author Organization [facility] t Address [address] [place] [address] [place] [address] Care Team Providers Name Role Phone Unavailable Unavailable Unavailable Problems This patient has no known problems. Allergies, Adverse Reactions, Alerts This patient has no known allergies or adverse reactions. Medications This patient has no known medications.
--- OUTSIDE RECORDS SUMMARY | 2019-06-25 11:59 | XMS REPORT | Summary of Care ---
:1985 Author Organization [facility] Address [address] [place] [address] Care Team Providers Name Role Phone Doctor Unassigned, [place] Insurance Hmo Unavailable Ashley Calderon Primary Care Provider Reason for Visit Reason Comments ULTRASOUND (Routine) Status Reason Specialty Diagnoses / Referred By Referred To Procedures Contact Contact Closed Maternal Diagnoses High risk , antepartum Juani Calderon Medicine Procedures CONSULT MATERNAL MEDICINE ULTRASOUND Preferred Location: JUAN Marte [address] [place] [address] Encounter Details Date Type Department Care Team Description 11/23/2018 Public Health Policy Analyst Visit [facility] RMP Remy Puente Uterine size-date Ultrasound- [address] discrepancy in first [id number] [place] [address] [id number] Allergies No Known Allergiesdocumented as of this [...] affecting 10/11/2014 01/28/2016 Overview: ICD10 Diagnosis Term Utility Locate Technician Utility documented as of this encounter [...] 12/17/2018 Routine Visit OB Satellites Juani Calderon, FAMILY SERVICES COORDINATOR [address] [place], [place] [address] [phone] Health Maintenance Due Date Last Done Comments INFLUENZA VACCINE (#1) 2018 12/14/2015, 05/22/2015 PAP SMEAR 10/22/2021 10/22/2018, 10/11/2014 DTaP,Tdap,and Td Vaccines (2 10/25/2025 10/26/2015 - Td) PNEUMOCOCCAL 0-64 YEARS Aged Out No longe r eligible based COMBINED SERIES on patient's age to complete this to [facility] documented as of this encounter Results Not on filedocumented in this encounter Visit Diagnoses Diagnosis Uterine size-date discrepancy in first t rimester Uterine size date discrepancy, antepartu m condition or complication documented in this encounter Insurance Payer Benefit Plan / Subscriber ID Effective Dates Phone Addre ss Type Group [facility] MEDICAID OF xxxxxxxxx 2018-Present [phone] [address] Medicaid [place] [id number] [place] [phone] documented as of this encounter
--- OUTSIDE RECORDS SUMMARY | 2019-06-25 11:59 | XMS REPORT | Summary of Care ---
:1985 Author Organization [facility] Address [address] [place] [address] Care Team Providers Name Role Phone Doctor Unassigned, [place] Insurance Hmo Unavailable Ashley Calderon Primary Care Provider Reason for Visit Reason Comments Assessment Encounter Details Date Type Department Care Team Description 11/30/2018 Telephone [facility]- A Juani Zazueta, SUPERVISOR INTERNATIONAL RESERVATIONS Assessment [address] [place] [address] [facility] A [phone] [place], [place] [address] Allergies No Known Allergiesdocumented as of this encounter (statuses as of 11/30/2018) Medications Medication Sig Dispensed Refills Start Date End Date Status PNV 67-iron ps-folate Take 1 capsule by 30 capsule 11 9 Active no.1-dha (VITAFOL mouth daily. ULTRA) 29 mg iron- 1 mg-200 mg CapIndications: High risk , antepartum documented as of this encounter (statuses as of 11/30/2018) Active Problems Patient Care Coordination Note IOL 01-04-16 Problem Noted Date Abnormal maternal glucose tolerance, antepartum 2018 High risk , antepartum 10/22/2018 Obesity affecting in first trimester 019 Estimated Date of Delivery Comments Yes 06/22/2019 Based on Ultrasound documented as of this encounter (statuses as of 11/30/2018) Resolved Problems Problem Noted Date Resolved Date [...] affecting 10/11/2014 01/28/2016 Overview: ICD10 Diagnosis Term Child Specialist Utility documented as of this encounter (statuses as of 11/30/2018) Immunizations Name Administration Dates Next Due Influenza [...] 12/17/2018 Routine Visit OB Satellites Juani Calderon, SUPERVISOR INTERNATIONAL RESERVATIONS [address] [place], [place] [address] [phone] Health Maintenance Due Date Last Done Comments [...] Type Group TMHP MEDICAID OF xxxxxxxxx 2018-Present [phone] [address] Medicaid [place] [id number] [place] [phone] documented as of this encounter
--- OUTSIDE RECORDS SUMMARY | 2019-06-25 11:59 | XMS REPORT | Summary of Care ---
:1985 Author Organization [facility] Address [address] [place] [address] Care Team Providers Name Role Phone Doctor Unassigned, [place] Insurance Hmo Unavailable Ashley Calderon Primary Care Provider Reason for Visit Reason Comments Talk To Nurse Encounter Details Date Type Department Care Team Description 04/07/2019 Telephone [facility]- Lee Ann Alatorre, Talk To Nurse [facility] [address] [facility] [address] [place] [address] [facility] [phone] [place], [place] [address] [phone] Allergies No Known Allergiesdocumented as of this encounter (statuses as of 04/07/2019) Medications Medication Sig Dispensed Refills Start Date End Date Status PNV 67-iron ps-folate Take 1 capsule by 30 capsule 11 9 Active no.1-dha (VITAFOL mouth daily. ULTRA) 29 mg iron- 1 mg-200 mg CapIndications: High risk , antepartum documented as of this encounter (statuses as of 04/07/2019) Active Problems Patient Care Coordination Note IOL 01-04-16 Problem Noted Date Nausea and vomiting in prior to 22 weeks ges tation 12/17/2018 Abnormal maternal glucose tolerance, antepartum 2018 High risk , antepartum 10/22/2018 Obesity affecting in second trimester 2018 Estimated Date of Delivery Comments Yes 06/22/2019 Based on Ultrasound documented as of this encounter (statuses as of 04/07/2019) Resolved Problems Problem Noted Date Resolved Date [...] affecting 10/11/2014 01/28/2016 Overview: ICD10 Diagnosis Term Reinforced Concrete Inspector Utility documented as of this encounter (statuses as of 04/07/2019) Immunizations Name Administration Dates Next Due Influenza Virus Vaccine Quad .5 mL IM 6+ MO 04/06/2019 Influenza Virus Vaccine Quad IM 3+ YRS 12/14/2015, 6 Tdap 04/06/2019, 10/26/2015 documented as of this encounter Social [...] Treatment Date Type Specialty Care Team Description 04/20/2019 Routine Visit OB Satellites Celi, Christine cartwright C, WHCNP [address] [place], [place] [address] [phone] Health Maintenance Due Date Last Done Comments PAP SMEAR 10/22/2021 10/22/2018, 10/11/2014 DTaP,Tdap,and Td Vaccines (3 04/06/2029 04/06/2019, - Td) 10/26/2015 INFLUENZA VACCINE Completed 04/06/2019, 12/14/2015, 05/22/2015 PNEUMOCOCCAL 0-64 YEARS Aged Out No longe r eligible based COMBINED SERIES on patient's age to complete this to [facility] documented as of this encounter Results Not on filedocumented in this encounter Insurance Payer Benefit Plan / Subscriber ID Effective Phone Address T [facility] Group [facility] xxxxxxxxx 2018-Pres [address] Medic aid HEALTH CHOICE - HEALTH CHOICE ent [id number] [facility] MEDICAID [place], [place] MEDICAID [phone] documented as of this encounter
--- OUTSIDE RECORDS SUMMARY | 2019-06-25 11:59 | XMS REPORT | Summary of Care ---
:1985 Author Organization [facility] Address [address] [place] [address] Care Team Providers Name Role Phone Doctor Unassigned, [place] Insurance Hmo Unavailable Ashley Calderon Primary Care Provider Reason for Visit Reason Comments Care Encounter Details Date Type Department Care Team Description 04/06/[address] [facility]- [place], High- risk in second trimester (Primary Dx); Visit [place] KARON Mathias Need for Tdap vaccination; [address] Obesity affecting in second trimester; [facility] Need for influenza vaccination [phone] [facility] A [phone] [place], [place] [phone] Allergies No Known Allergiesdocumented as of this encounter (statuses as of 04/06/2019) Medications Medication Sig Dispensed Refills Start Date End Date Status PNV 67-iron ps-folate Take 1 capsule by 30 capsule 9 Active no.1-dha (VITAFOL mouth daily. ULTRA) 29 mg iron- 1 mg-200 mg CapIndications: High risk , antepartum documented as of this encounter (statuses as of 04/06/2019) Active Problems Patient Care Coordination Note IOL 01-04-16 Problem Noted Date Nausea and vomiting in prior to 22 weeks ges tation 12/17/2018 Abnormal maternal glucose tolerance, antepartum 2018 High risk , antepartum 10/22/2018 Obesity affecting in second trimester 2018 Estimated Date of Delivery Comments Yes 06/22/2019 Based on Ultrasound documented as of this encounter (statuses as of 04/06/2019) Resolved Problems Problem Noted Date Resolved Date [...] affecting 10/11/2014 01/28/2016 Overview: ICD10 Diagnosis Term Project Landscape Architect Utility documented as of this encounter (statuses as of 04/06/2019) Immunizations Name Administration Dates Next Due Influenza [...] Sign Reading Time Taken Comments Blood Pressure 118/71 04/06/2019 8:49 AM ARCHITECTURAL INTERN Pulse 74 04/06/2019 8:49 AM ARCHITECTURAL INTERN Temperature 36.2 C (97.1 F) 04/06/2019 8:49 AM ARCHITECTURAL INTERN Respiratory Rate 16 04/06/2019 8:49 AM ARCHITECTURAL INTERN Oxygen Saturation - - Inhaled Oxygen Concentration - - Weight 92.8 kg (204 lb 9 oz) 04/06/2019 8:49 AM ARCHITECTURAL INTERN Height 162.6 cm (5' 4") 04/06/2019 8:49 AM ARCHITECTURAL INTERN Body Mass Index 35.11 04/06/2019 8:49 AM ARCHITECTURAL INTERN documented in this encounter Progress Notes Lee Ann Alatorre, WHCNP - 04/06/2019 8:15 AM CST Chief complaint: No chief complaint on file. HPI CC: Follow Up Visit Suzanne Edwards is a 34 year old, , /White female. Patient's last menstrual period was09/05/2018 (approximate). She is 29w0d with an intrauterine . Her estimated date of delivery is 06/22/2019, by Ultrasound. She has no complaints today. She reports +FM and denies contractions, LOF and bleeding today. Histories OB History Para Term AB Living [...] file Gets together: Not on file Attends gnosticism service: Not on file Active member of [...] at home. No exposure to cats No gnosticism preference Social History Substance and Sexual Activity Sexual Activity Yes control/protection: None Comment: last intercourse:10/18/2018 Labs Labs are pending. and Routine Visit on 03/21/2019 Component Date Value WBC 03/21/2019 7.18 RBC 03/21/2019 4.17 HGB 03/21/2019 11.2* HCT 03/21/2019 35.0* MCV 03/21/2019 83.9 MCH 03/21/2019 26.9 MCHC 03/21/2019 32.0 RDW-SD 03/21/2019 41.7 RDW-CV 03/21/2019 13.6 PLT 03/21/2019 214 MPV 03/21/2019 11.7 NRBC/100 WBC 03/21/2019 0.0 NRBC x10^3 03/21/2019 <0.01 GRAN MAT (NEUT) % 03/21/2019 72.2 IMM GRAN % 03/21/2019 0.30 LYMPH % 03/21/2019 20.5 MONO % 03/21/2019 5.2 EOS % 03/21/2019 1.5 BASO % 03/21/2019 0.3 GRAN MAT x10^3(ANC) 03/21/2019 5.19 IMM GRAN x10^3 03/21/2019 <0.03 LYMPH x10^3 03/21/2019 1.47 MONO x10^3 03/21/2019 0.37 EOS x10^3 03/21/2019 0.11 BASO x10^3 03/21/2019 <0.03 GLU FASTNG 03/21/2019 80 GLUC 1 HR 03/21/2019 78* GLUC 2 HR 03/21/2019 86 GLUC 3 HR 03/21/2019 84 POCT PH U 03/21/2019 . POCT U LEUK EST 03/21/2019 . POCT U NIT 03/21/2019 . POCT U PROT 03/21/2019 Trace POCT U GLU 03/21/2019 Neg POCT U KETONE 03/21/2019 . POCT U BLD 03/21/2019 . Routine Visit on 02/14/2019 Component Date Value POCT PH U 02/14/2019 . POCT U LEUK EST 02/14/2019 . POCT U NIT 02/14/2019 . POCT U PROT 02/14/2019 1+ POCT U GLU 02/14/2019 Neg POCT U KETONE 02/14/2019 . POCT U BLD 02/14/2019 . Routine Visit on 01/14/2019 Component Date Value POCT PH U 01/14/2019 . POCT U LEUK EST 01/14/2019 . POCT U NIT 01/14/2019 . POCT U PROT 01/14/2019 1+ POCT U GLU 01/14/2019 neg POCT U KETONE 01/14/2019 . POCT U BLD 01/14/2019 . RACE 01/14/2019 WEIGHT 01/14/2019 205.125 GEST. AGE 1101/14[birth year]2019 17,2 INS. DEP 01/14/2019 No US DATE 01/14/201920181123 METHOD 01/14/2019 US MULT GEST 01/14/2019 No NTD HX 01/14/2019 No INITAL OR REPEAT 01/14/2019 Initial Testing SMOKER 01/14/2019 No INHIBIN 01/14/2019 116.5 AFP-MS 01/14/2019 22.1 ESTRIOL 01/14/2019 1.16 BHCG DOWNS 01/14/2019 27,616.0 AFP-MS MoM 01/14/2019 0.80 BHCG MoM 01/14/2019 1.13 INHIBIN MoM 01/14/2019 0.73 E3 MoM 01/14/2019 1.03 EQ AGE RSK 01/14/2019 < 15.0 DS APR 01/14/2019 1:547 DS INTERP 01/14/2019 See Note DS RSK 01/14/2019 1:4940 DS SCRN 01/14/2019 Negative TRISOMY 18 01/14/2019 See Note ES RSK 01/14/2019 1:30623 ES SCRN 01/14/2019 Negative OSB INTERP 01/14/2019 See Note OSB RSK 01/14/2019 1:34297 OSB SCRN 01/14/2019 Negative INTERPRETATION 01/14/2019 N Radiology No new radiology. Allergies Suzanne has No Known Allergies. Medications Suzanne has a current medication list which includes the following prescription(s): pnv 67-iron ps-folate no.1-dha. Review of Systems Constitutional: Negative. HENT: Negative. Eyes: Negative. Respiratory: Negative. Breasts: Negative. Cardiovascular: Negative. Gastrointestinal: Negative. Genitourinary: Negative. Musculoskeletal: Negative. Skin: Negative. Neurological: Negative. Psychiatric/Behavioral: Negative. Endocrine: Endocrine negative BP 118/71 (BP Location: Right arm, Patient Position: Sitting, BP CUFF SIZE: Adult Medium) | Pulse 74 | Temp 36.2 C (97.1 F) (Oral) | Resp 16 | Ht 5' 4" (1.626 m) | Wt 204 lb 9 oz (92.8 kg) | LMP 09/05/2018 (Approximate) | BMI 35.11 kg/m Pregravid BMI: 36.0 Physical Exam PHYSICAL: General Exam: Neurological: Normal Abdomen: Normal gravid Extremities: Normal Assessment/Plan Return to clinic in 2 weeks. Denies zika virus risk, signs and symptoms such as fever,rash,joint pain, conjunctivitis (red eyes),muscle pain, headaches; outside [place] travel to areas affected by zika, and FOB exposure to zika. Educated on use of mosquito repellent. High-risk in second trimester (primary encounter diagnosis) Comment: routine Plan: GALV ONLY - SYPHILIS IGG/IGM, HIV 1/2 AG-AB WITH REFLEX, POCT URINALYSIS W/O SPECIFIC GRAVITy Need for Tdap vaccination Comment: as ordered Plan: TDAP VACCINE, >11 YRS, IM (Do not give before 20 weeks) Obesity affecting in second trimester Comment: see bmi Plan: limit weight gain and sensible diet. This visit did not involve counseling and coordination that comprised more than 50% of the visit time KARON Pruitt 04/06/2019 8:55 AM . ITECTURAL INTERN documented in this encounter Plan of Treatment Date Type Specialty Care Team Description 04/20/2019 Routine Visit OB Satellites Christine Alatorre WHCNP [address] [place], [place] [address] [phone] Name Type Priority Associated Diagnoses Date/Ti me GALV ONLY - SYPHILIS LAB Routine High-risk in 04/06/2019 8:46 AM ARCHITECTURAL INTERN IGG/IGM second trimester HIV 1/2 AG-AB WITH LAB Routine High-risk in 04/06/2019 8:46 AM ARCHITECTURAL INTERN REFLEX second trimester Health Maintenance Due Date Last Done Comments PAP SMEAR 10/22/2021 10/22/2018, 10/11/2014 DTaP,Tdap,and Td Vaccines (3 04/06/2029 04/06/2019, - Td) 10/26/2015 INFLUENZA VACCINE Completed 04/06/2019, 12/14/2015, 05/22/2015 PNEUMOCOCCAL 0-64 YEARS Aged Out No longe r eligible based COMBINED SERIES on patient's age to complete this to pic documented as of this encounter Procedures Procedure Name Priority Date/Time Associated Diagnosis Comme nts FLU VACC Routine 04/06/2019 9:00 Need for influenza ([id number]), 6+ AM ARCHITECTURAL INTERN vaccination MONTHS, IM, QUAD POCT URINALYSIS W/O Routine 04/06/2019 8:51 High-risk pregnan cy Results for this SPECIFIC GRAVITY AM ARCHITECTURAL INTERN in second trimester proc edure are in the results section. TDAP VACCINE, >11 Routine 04/06/2019 8:43 Need for Tdap YRS, IM AM ARCHITECTURAL INTERN vaccination documented in this encounter Results POCT URINALYSIS W/O SPECIFIC GRAVITY (04/06/2019 8:51 AM ARCHITECTURAL INTERN) Pathologist Sig nature POCT PH U . [...] this encounter Visit Diagnoses Diagnosis High-risk in second trimester - Primary Need for Tdap vaccination Need for prophylactic vaccination with c ombined gubabkttaq-qwriqkg-yueosamxr (DTP) vaccine Obesity affecting in second tr imester Need for influenza vaccination Need for prophylactic vaccination and in oculation against influenza documented in this encounter Insurance Payer Benefit Plan / Subscriber ID Effective Phone Address T [facility] xxxxxxxxx 2018-Pres [address] Medic aid HEALTH CHOICE - HEALTH CHOICE ent [id number] MANAGED MEDICAID [place], [place] MED[place]ID [phone] documented as of this encounter
--- OUTSIDE RECORDS SUMMARY | 2019-06-25 12:00 | XMS REPORT | Summary of Care ---
:1985 Author Organization [facility] Address [address] [place] [address] Care Team Providers Name Role Phone Doctor Unassigned, [place] Insurance Hmo Unavailable Ashley Calderon Primary Care Provider Reason for Visit Reason Comments Care Bleeding Since 04/07 Encounter Details Date Type Department Care Team Description 04/11/2019 Routine [facility]- [place], High- risk in third trimester (Primary Dx); Visit [place] Lee Ann Swenson WHCNP Obesity affecting in third tri mester; [address] Vaginal bleeding [place] [address] [facility] A [phone] [place] [address] Allergies No Known Allergiesdocumented as of this encounter (statuses as of 04/11/2019) Medications Medication Sig Dispensed Refills Start Date End Date Status PNV 67-iron ps-folate Take 1 capsule by 30 capsule 11 9 Active no.1-dha (VITAFOL mouth daily. ULTRA) 29 mg iron- 1 mg-200 mg CapIndications: High risk , antepartum documented as of this encounter (statuses as of 04/11/2019) Active Problems Patient Care Coordination Note IOL 01-04-16 Problem Noted Date Vaginal bleeding in 04/11/2019 Nausea and vomiting in prior to 22 weeks ges tation 12/17/2018 Abnormal maternal glucose tolerance, antepartum 2018 High risk , antepartum 10/22/2018 Obesity affecting in second trimester 2018 Estimated Date of Delivery Comments Yes 06/22/2019 Based on Ultrasound documented as of this encounter (statuses as of 04/11/2019) Resolved Problems Problem Noted Date Resolved Date [...] affecting 10/11/2014 01/28/2016 Overview: ICD10 Diagnosis Term Hose Tubing Backer Utility documented as of this encounter (statuses as of 04/11/2019) Immunizations Name Administration Dates Next Due Influenza [...] Sign Reading Time Taken Comments Blood Pressure 109/71 04/11/2019 1:52 PM CYLINDER LOADER Pulse 69 04/11/2019 1:52 PM CYLINDER LOADER Temperature 36.8 C (98.3 F) 04/11/2019 1:52 PM CYLINDER LOADER Respiratory Rate 16 04/11/2019 1:52 PM CYLINDER LOADER Oxygen Saturation - - Inhaled Oxygen Concentration - - Weight 93 kg (205 lb) 04/11/2019 1:52 PM CYLINDER LOADER Height 162.6 cm (5' 4") 04/11/2019 1:52 PM CYLINDER LOADER Body Mass Index 35.19 04/11/2019 1:52 PM CYLINDER LOADER documented in this encounter Progress Notes Lee Ann Alatorre, WHCNP - 04/11/2019 3:45 PM CST Chief complaint: Chief Complaint Patient presents with Care Bleeding Since 04/07 HPI CC: Follow Up Visit Suzanne Edwards is a 34 year old, , /White female. Patient's last menstrual period was09/05/2018 (approximate). She is 29w5d with an intrauterine . Her estimated date of delivery is 06/22/2019, by Ultrasound. She complains today of: Vaginal bleeding. She describes bleeding as old blood. She reports EBL as scant. She is using 0 pads per day. Bleeding has been occurring for 3 days, when she uses the restroom. Associated orthostatic symptoms include none. Other associated symptoms include denies . Symptoms are worse with none.. She reports +FM and denies contractions, LOF today. Histories OB History Para Term AB Living 3 1 1 0 1 1 SAB TAB Ectopic Multiple Live Births 1 0 0 0 1 # Outcome Date GA Lbr Zhen/2nd Weight Sex Delivery Anes PTL Lv 3 Current 2 Term 01/05/16 39w1d 8 lb 0.4 oz (3.64 kg) M VAGINAL EPI ASHLYE Comments: Maternal Age: 28; :2; Parity:1 Mother's [...] file Gets together: Not on file Attends episcopalian service: Not on file Active member of [...] at home. No exposure to cats No episcopalian preference Social History Substance and Sexual Activity Sexual Activity Yes control/protection: None Comment: last intercourse:10/18/2018 Labs No new labs and Routine Visit on 04/06/2019 Component Date Value Syphilis IgG/IgM 04/06/2019 Non-reactive HIV 1/2 Ag-Ab with Reflex 04/06/2019 Negative HIV Semi-quantitative 04/06/2019 0.07 POCT PH U 04/06/2019 . POCT U LEUK EST 04/06/2019 . POCT U NIT 04/06/2019 . POCT U PROT 04/06/2019 Trace POCT U GLU 04/06/2019 Neg POCT U KETONE 04/06/2019 . POCT U BLD 04/06/2019 . Routine Visit on 03/21/2019 Component Date Value [...] 17,2 INS. DEP 01/14/2019 No US DATE 01/14/201949488791 METHOD 01/14/2019 US MULT GEST 01/14/2019 No [...] 18 01/14/2019 See Note ES RSK 01/14/2019 1:[id number] ES SCRN 01/14/2019 Negative OSB INTERP 01/14/2019 See Note OSB RSK 01/14/2019 1:[id number] OSB SCRN 01/14/2019 Negative INTERPRETATION 01/14/2019 N Radiology No new radiology. Allergies Suzanne has No Known Allergies. Medications Suznane has a current medication list which includes the following prescription(s): pnv 67-iron ps-folate no.1-dha. Review of Systems Constitutional: Negative. HENT: Negative. Eyes: Negative. Respiratory: Negative. Breasts: Negative. Cardiovascular: Negative. Gastrointestinal: Negative. Genitourinary: Negative. Musculoskeletal: Negative. Skin: Negative. Neurological: Negative. Psychiatric/Behavioral: Negative. Endocrine: Endocrine negative BP 109/71 (BP Location: Right arm, Patient Position: Sitting, BP CUFF SIZE: Adult Medium) | Pulse 69 | Temp 36.8 C (98.3 F) | Resp 16 | Ht 5' 4" (1.626 m) | Wt 205 lb (93 kg) | LMP 09/05/2018(Approximate) | BMI 35.19 kg/m Pregravid BMI: 36.0 Physical Exam Vitals reviewed. Constitutional: She is oriented to person, place, and time. She appears well- developed and well-nourished. Her body habitus is normal. Cardiovascular: Regular rate and rhythm. Pulmonary/Chest: Normal inspiratory effort. Neuro/Psychiatric: She has a normal mood and affect. She is oriented to person, place, and time. External genitalia: Normal external genitalia appropriate for age. Normal hair distribution. No labial lesion. Urethral meatus: Normal urethral meatus size, location and no lesion. No prolapse present. Normal urethral meatus Urethra: Normal urethra. No urethral tenderness, no mass and no urethral scarring palpated. Bladder: Bladder has no fullness, no mass palpated and no tenderness. Normal bladder Vagina:No lesion inspected. Normal estrogen effect. Normal support. No abnormal vaginal discharge found. No blood noted on vaginal exam Cervix: Normal cervix. No lesion. No tenderness and no discharge present. Cervix is closed and thick Uterus: Uterus is normal size, normal contour, normal position and non-tender. Normal uterus Adnexa: Right adnexa without tenderness, ovary enlargement or mass. Left adnexa without tenderness, ovary enlargement or mass. Normal left adnexa and normal right adnexa Assessment/Plan Return to clinic in 2 weeks. Denies zika virus risk, signs and symptoms such as fever,rash,joint pain, conjunctivitis (red eyes),muscle pain, headaches; outside [place] travel to areas affected by zika, and FOB exposure to zika. Educated on use of mosquito repellent. High-risk in third trimester (primary encounter diagnosis) Comment: routine Plan: POCT URINALYSIS W/O SPECIFIC GRAVITY Obesity affecting in third trimester Comment: see bmi Plan: limit weight gain and sensible diet. Vaginal bleeding in Comment: reports Plan: patient advised on pelvic rest, lick counts, she verbalized understanding This visit did not involve counseling and coordination that comprised more than 50% of the visit time. KARON Pruitt 04/11/2019 2:42 PM NDER LOADER documented in this encounter Plan of Treatment Date Type Specialty Care Team Description 04/20/2019 Routine Visit OB Satellites Christine Alatorre WHCNP [address] [place], [place] [address] [phone] Health Maintenance Due Date Last Done Comments PAP SMEAR 10/22/2021 10/22/2018, 10/11/2014 DTaP,Tdap,and Td Vaccines (3 04/06/2029 04/06/2019, - Td) 10/26/2015 INFLUENZA VACCINE Completed 04/06/2019, 12/14/2015, 05/22/2015 PNEUMOCOCCAL 0-64 YEARS Aged Out No longe r eligible based COMBINED SERIES on patient's age to complete this to [facility] documented as of this encounter Procedures Procedure Name Priority Date/Time Associated Comments Diagnosis POCT URINALYSIS W/O Routine 04/11/2019 2:43 PM High-risk preg divya Results for this SPECIFIC GRAVITY CYLINDER LOADER in third trimester proce dure are in the results section. documented in this encounter Results POCT URINALYSIS W/O SPECIFIC GRAVITY (04/11/2019 2:43 PM CYLINDER LOADER) Pathologist Sig nature POCT PH U . [...] this encounter Visit Diagnoses Diagnosis High-risk in third trimester - Primary Obesity affecting in third tri mester Vaginal bleeding in Unspecified antepartum hemorrhage, unspe cified as to episode of care documented in this encounter Insurance Payer Benefit Plan / Subscriber ID Effective Phone Address T ype Group Dates [facility] xxxxxxxxx 2018-Pres [address] Medic aid HEALTH CHOICE - HEALTH CHOICE ent [id number] 1 MANAGED MEDICAID [place], [place] MEDICAID [phone] documented as of this encounter
--- OUTSIDE RECORDS SUMMARY | 2019-06-25 12:00 | XMS REPORT | Summary of Care ---
:1985 Author Organization [facility] Address [address] [place] [address] Care Team Providers Name Role Phone Doctor Unassigned, [place] Insurance Hmo Unavailable Ashley Calderon Primary Care Provider Reason for Visit Reason Comments Talk To Nurse Encounter Details Date Type Department Care Team Description 04/11/2019 Telephone [facility]- Lee Ann Alatorre, Talk To Nurse [facility] [address] [facility] [address] [place] [address] [facility] [phone] [place], [place] [address] [phone] Allergies No Known Allergiesdocumented as of this [...] affecting 10/11/2014 01/28/2016 Overview: ICD10 Diagnosis Term Ear Pull Machine Operator Utility documented as of this encounter (statuses [...] Celi, Christine cartwright C, WHCNP [address] [place], [place] [address] [phone] Health Maintenance Due Date Last Done Comments PAP SMEAR 10/22/2021 10/22/2018, 10/11/2014 DTaP,Tdap,and Td Vaccines (3 04/06/2029 04/06/2019, - Td) 10/26/2015 INFLUENZA VACCINE Completed 04/06/2019, 12/14/2015, 05/22/2015 PNEUMOCOCCAL 0-64 YEARS Aged Out No longe r eligible based COMBINED SERIES on patient's age to complete this to [facility] documented as of this encounter Results Not on filedocumented in this encounter Insurance Payer Benefit Plan / Subscriber ID Effective Phone Address T [facility] xxxxxxxxx 2018-Pres [address] Medic aid HEALTH CHOICE - HEALTH CHOICE ent [id number] 1 [facility] MEDICAID [place], [place] MEDICAID [phone] documented as of this encounter
--- OUTSIDE RECORDS SUMMARY | 2019-06-25 12:01 | XMS REPORT | Summary of Care ---
:1985 Author Organization [facility] Address [address] [place] [address] Care Team Providers Name Role Phone Doctor Unassigned, [place] Insurance Hmo Unavailable Ashley Calderon Primary Care Provider Reason for Visit Reason Comments Care Encounter Details Date Type Department Care Team Description 04/20/2019 Routine [facility]- [place], High- risk in third trimester (Primary Dx); Visit [place] [facility] Swenson[facility] Obesity affecting in third tri mester; [address] [place] [address] Vaginal bleeding [place] [address] [facility] A [phone] [place] [phone] Allergies No Known Allergiesdocumented as of this encounter (statuses as of 04/20/2019) Medications Medication Sig Dispensed Refills Start Date End Date Status PNV 67-iron ps-folate Take 1 capsule by 30 capsule 11 9 Active no.1-dha (VITAFOL mouth daily. ULTRA) 29 mg iron- 1 mg-200 mg CapIndications: High risk , antepartum documented as of this encounter (statuses as of 04/20/2019) Active Problems Patient Care Coordination Note IOL 01-04-16 Problem Noted Date Vaginal bleeding in 04/11/2019 Nausea and vomiting in prior to 22 weeks ges tation 12/17/2018 Abnormal maternal glucose tolerance, antepartum 2018 High risk , antepartum 10/22/2018 Obesity affecting in second trimester 2018 Estimated Date of Delivery Comments Yes 06/22/2019 Based on Ultrasound documented as of this encounter (statuses as of 04/20/2019) Resolved Problems Problem Noted Date Resolved Date [...] affecting 10/11/2014 01/28/2016 Overview: ICD10 Diagnosis Term Marketing 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 Utility documented as of this encounter (statuses as of 04/20/2019) Immunizations Name Administration Dates Next Due Influenza [...] Sign Reading Time Taken Comments Blood Pressure 108/67 04/20/2019 9:37 AM VALVE MECHANIC Pulse 71 04/20/2019 9:37 AM VALVE MECHANIC Temperature 36.3 C (97.4 F) 04/20/2019 9:37 AM VALVE MECHANIC Respiratory Rate 16 04/20/2019 9:37 AM VALVE MECHANIC Oxygen Saturation - - Inhaled Oxygen Concentration - - Weight 92.7 kg (204 lb 7 oz) 04/20/2019 9:37 AM VALVE MECHANIC Height 162.6 cm (5' 4") 04/20/2019 9:37 AM VALVE MECHANIC Body Mass Index 35.09 04/20/2019 9:37 AM VALVE MECHANIC documented in this encounter Progress Notes Lee Ann Alatorre, WHCNP - 04/20/2019 9:15 AM CST Chief complaint: Chief Complaint Patient presents with Care HPI CC: Follow Up Visit Suzanne Edwards is a 34 year old, , /White female. Patient's last menstrual period was09/05/2018 (approximate). She is 31w0d with an intrauterine . Her estimated date [...] file Gets together: Not on file Attends mormon service: Not on file Active member of [...] at home. No exposure to cats No mormon preference Social History Substance and Sexual Activity Sexual Activity Yes control/protection: None Comment: last intercourse:10/18/2018 Labs No new labs and Routine Visit on 04/11/2019 Component Date Value POCT PH U 04/11/2019 . POCT U LEUK EST 04/11/2019 . POCT U NIT 04/11/2019 . POCT U PROT 04/11/2019 Trace POCT U GLU 04/11/2019 Neg POCT U KETONE 04/11/2019 . POCT U BLD 04/11/2019 . Routine Visit on 04/06/2019 Component Date Value [...] 02/14/2019 . POCT U BLD 02/14/2019 . Radiology No new radiology. Allergies Suzanne has No Known Allergies. Medications Suzanne has a current medication list which includes the following prescription(s): pnv 67-iron ps-folate no.1-dha. Review of Systems Constitutional: Negative. HENT: Negative. Eyes: Negative. Respiratory: Negative. Breasts: Negative. Cardiovascular: Negative. Gastrointestinal: Negative. Genitourinary: Negative. Musculoskeletal: Negative. Skin: Negative. Neurological: Negative. Psychiatric/Behavioral: Negative. Endocrine: Endocrine negative BP 108/67 (BP Location: Right arm, Patient Position: Sitting, BP CUFF SIZE: Adult Medium) | Pulse 71 | Temp 36.3 C (97.4 F) (Oral) | Resp 16 | Ht 5' 4" (1.626 m) | Wt 204 lb 7 oz (92.7 kg) | LMP 09/05/2018 (Approximate) | BMI 35.09 kg/m Pregravid BMI: 36.0 Physical Exam PHYSICAL: General Exam: Neurological: Normal Abdomen: Normal gravid Extremities: Normal Pelvic Exam: Uterus: 33 Weeks Assessment/Plan Return to clinic in 2 weeks. [...] sensible diet. Vaginal bleeding in Comment: reports now resolved Plan: as needed mgmt This visit did not involve counseling and coordination that comprised more than 50% of the visit time KARON Pruitt 04/20/2019 9:56 AM . E MECHANIC documented in this encounter Plan of Treatment Date Type Specialty Care Team Description 05/04/2019 Routine Visit OB Satellites Christine Alatorre WHCNP [address] [place], [place] [address] [phone] Health Maintenance Due Date Last Done Comments PAP SMEAR 10/22/2021 10/22/2018, 10/11/2014 DTaP,Tdap,and Td Vaccines (3 04/06/2029 04/06/2019, - Td) 10/26/2015 INFLUENZA VACCINE Completed 04/06/2019, 12/14/2015, 05/22/2015 PNEUMOCOCCAL 0-64 YEARS Aged Out No longe r eligible based COMBINED SERIES on patient's age to complete this to [facility] documented as of this encounter Procedures Procedure Name Priority Date/Time Associated Comments Diagnosis POCT URINALYSIS W/O Routine 04/20/2019 9:39 AM High-risk preg divya Results for this SPECIFIC GRAVITY VALVE MECHANIC in third trimester proce dure are in the results section. documented in this encounter Results POCT URINALYSIS W/O SPECIFIC GRAVITY (04/20/2019 9:39 AM VALVE MECHANIC) Pathologist Sig nature POCT PH U . [...] / Subscriber ID Effective Phone Address T [facility] xxxxxxxxx 2018-Pres [address]OX Medic aid HEALTH CHOICE - HEALTH CHOICE ent [id number] 1 MANAGED MEDICAID [place], [place] MEDICAID [phone] documented as of this encounter
--- OUTSIDE RECORDS SUMMARY | 2019-06-25 12:01 | XMS REPORT | Summary of Care ---
:1985 Author Organization [facility] Address [address] [place] [address] Care Team Providers Name Role Phone Doctor Unassigned, [place] Insurance Hmo Unavailable Ashley Calderon Primary Care Provider Reason for Referral (Routine) Status Reason Specialty Diagnoses / Referred By Referred To Procedures Contact Contact New Request Maternal Diagnoses High-risk in third trimester [place], Medicine Procedures CONSULT MATERNAL MEDICINE ULTRASOUND Preferred Location: [facility] Swenson [facility]INA [address] [place] [phone] Reason for Visit Reason Comments Care Encounter Details Date Type Department Care Team Description 05/04/2019 [facility] [place], High- risk in third trimester (Primary Dx); Visit [facility] Swenson ROMINA [facility] in [facility] [address] [facility] [address] [place] [phone] [facility] [phone] [place] [phone] Allergies No Known Allergiesdocumented as of this encounter (statuses as of 05/04/2019) Medications Medication Sig Dispensed Refills Start Date End Date Status PNV 67-iron ps-folate Take 1 capsule by 30 capsule 11 9 Active no.1-dha (VITAFOL mouth daily. ULTRA) 29 mg iron- 1 mg-200 mg CapIndications: High risk , antepartum documented as of this encounter (statuses as of 05/04/2019) Active Problems Patient Care Coordination Note IOL 01-04-16 Problem Noted Date Vaginal bleeding in 04/11/2019 Nausea and vomiting in prior to 22 weeks ges tation 12/17/2018 Abnormal maternal glucose tolerance, antepartum 2018 High risk , antepartum 10/22/2018 Obesity affecting in third trimester 019 Estimated Date of Delivery Comments Yes 06/22/2019 Based on Ultrasound documented as of this encounter (statuses as of 05/04/2019) Resolved Problems Problem Noted Date Resolved Date [...] affecting 10/11/2014 01/28/2016 Overview: ICD10 Diagnosis Term Tank Charger Utility documented as of this encounter (statuses as of 05/04/2019) Immunizations Name Administration Dates Next Due Influenza [...] Sign Reading Time Taken Comments Blood Pressure 100/65 05/04/2019 9:27 AM STATE GAME PROTECTOR Pulse 78 05/04/2019 9:27 AM STATE GAME PROTECTOR Temperature 36.3 C (97.3 F) 05/04/2019 9:27 AM STATE GAME PROTECTOR Respiratory Rate 16 05/04/2019 9:27 AM STATE GAME PROTECTOR Oxygen Saturation - - Inhaled Oxygen Concentration - - Weight 93.6 kg (206 lb 7 oz) 05/04/2019 9:27 AM STATE GAME PROTECTOR Height 162.6 cm (5' 4") 05/04/2019 9:27 AM STATE GAME PROTECTOR Body Mass Index 35.43 05/04/2019 9:27 AM STATE GAME PROTECTOR documented in this encounter Progress Notes Lee Ann Alatorre, WHCNP - 05/04/2019 9:00 AM CST Chief complaint: Chief Complaint Patient presents with Care HPI CC: Follow Up Visit Suzanne Edwards is a 34 year old, , /White female. Patient's last menstrual period was09/05/2018 (approximate). She is 33w0d with an intrauterine . Her estimated date [...] file Gets together: Not on file Attends christianity service: Not on file Active member of [...] at home. No exposure to cats No christianity preference Social History Substance and Sexual Activity Sexual Activity Yes control/protection: None Comment: last intercourse:10/18/2018 Labs No new labs and Routine Visit on 04/20/2019 Component Date Value POCT PH U 04/20/2019 . POCT U LEUK EST 04/20/2019 . POCT U NIT 04/20/2019 . POCT U PROT 04/20/2019 Trace POCT U GLU 04/20/2019 Neg POCT U KETONE 04/20/2019 . POCT U BLD 04/20/2019 . Routine Visit on 04/11/2019 Component Date Value [...] . POCT U BLD 02/14/2019 . Radiology Radiology pending. Allergies Suzanne has No Known Allergies. Medications Suzanne has a current medication list which includes the following prescription(s): pnv 67-iron ps-folate no.1-dha. Review of Systems Constitutional: Negative. HENT: Negative. Eyes: Negative. Respiratory: Negative. Breasts: Negative. Cardiovascular: Negative. Gastrointestinal: Negative. Genitourinary: Negative. Musculoskeletal: Negative. Skin: Negative. Neurological: Negative. Psychiatric/Behavioral: Negative. Endocrine: Endocrine negative BP 100/65 (BP Location: Right arm, Patient Position: Sitting, BP CUFF SIZE: Adult Large) | Pulse 78 | Temp 36.3 C (97.3 F) (Oral) | Resp 16 | Ht 5' 4" (1.626 m) | Wt 206 lb 7 oz (93.6 kg) | LMP 09/05/2018 (Approximate) | BMI 35.43 kg/m Pregravid BMI: 36.0 Physical Exam PHYSICAL: General Exam: Neurological: Normal Abdomen: Normal gravid Extremities: Normal Pelvic Exam: Uterus: 36 Weeks Assessment/Plan Return to clinic in 2 weeks. Denies zika virus risk, signs and symptoms such as fever,rash,joint pain, conjunctivitis (red eyes),muscle pain, headaches; outside [place] travel to areas affected by zika, and FOB exposure to zika. Educated on use of mosquito repellent. High-risk in third trimester (primary encounter diagnosis) Comment:routine Plan: POCT URINALYSIS W/O SPECIFIC GRAVITY, CONSULT MATERNAL MEDICINE ULTRASOUND Preferred Location: [place] Obesity affecting in third trimester Comment: see bmi Plan: BMI discussed, appropriate weight gain, sensible diet, and exercise This visit did not involve counseling and coordination that comprised more than 50% of the visit time. KARON Pruitt 05/04/2019 9:53 AM E GAME PROTECTOR documented in this encounter Plan of Treatment Date Type Specialty Care Team Description 05/18/2019 Routine Visit OB Satellites Christine Alatorre WHCNP [address] [place], [place] [address] [phone] Health Maintenance Due Date Last Done Comments PAP SMEAR 10/22/2021 10/22/2018, 10/11/2014 DTaP,Tdap,and Td Vaccines (3 04/06/2029 04/06/2019, - Td) 10/26/2015 INFLUENZA VACCINE Completed 04/06/2019, 12/14/2015, 05/22/2015 PNEUMOCOCCAL 0-64 YEARS Aged Out No longe r eligible based COMBINED SERIES on patient's age to complete this to [facility] documented as of this encounter Procedures Procedure Name Priority Date/Time Associated Comments Diagnosis POCT URINALYSIS W/O Routine 05/04/2019 11:18 AM High-risk preg divya Results for this SPECIFIC GRAVITY STATE GAME PROTECTOR in third trimester proce dure are in the results section. documented in this encounter Results POCT URINALYSIS W/O SPECIFIC GRAVITY (05/04/2019 11:18 AM STATE GAME PROTECTOR) Pathologist Sig nature POCT PH U . [...] Primary Obesity affecting in third tri mester documented in this encounter Insurance Payer Benefit Plan / Subscriber ID Effective Phone Address T ype Group [facility] xxxxxxxxx 2018-Pres [address]. [address]OX Medic aid HEALTH CHOICE - HEALTH CHOICE ent [id number] 1 MANAGED MEDICAID [place], [place] MED[place]ID [phone] documented as of this encounter
--- OUTSIDE RECORDS SUMMARY | 2019-06-25 12:01 | XMS REPORT | Summary of Care ---
:1985 Author Organization [facility] Address [address] [place] [address] Care Team Providers Name Role Phone Doctor Unassigned, [place] Insurance Hmo Unavailable Ashley Calderon Primary Care Provider Reason for Visit Reason Comments ULTRASOUND (Routine) Status Reason Specialty Diagnoses / Referred By Referred To Procedures Contact Contact Closed Maternal Diagnoses High-risk in third trimester [place], Medicine Procedures CONSULT MATERNAL MEDICINE ULTRASOUND Preferred Location: [place] [facility] [address] [place] [address] Encounter Details Date Type Department Care Team Description 05/11/2019 Physical Laboratory Assistant Visit [facility] Vickey Celestin, Vt shawn size-date discrepancy in third trimester; Ultrasound- [place] Obesity complicating in third trimester [address] [place] [phone] Allergies No Known Allergiesdocumented as of this encounter (statuses as of 05/11/2019) Medications Medication Sig Dispensed Refills Start Date End Date Status PNV 67-iron ps-folate Take 1 capsule by 30 capsule 11 9 Active no.1-dha (VITAFOL mouth daily. ULTRA) 29 mg iron- 1 mg-200 mg CapIndications: High risk , antepartum documented as of this encounter (statuses as of 05/11/2019) Active Problems Patient Care Coordination Note IOL 01-04-16 Problem Noted Date Vaginal bleeding in 04/11/2019 Nausea and vomiting in prior to 22 weeks ges tation 12/17/2018 Abnormal maternal glucose tolerance, antepartum 2018 High risk , antepartum 10/22/2018 Obesity affecting in third trimester 019 Estimated Date of Delivery Comments Yes 06/22/2019 Based on Ultrasound documented as of this encounter (statuses as of 05/11/2019) Resolved Problems Problem Noted Date Resolved Date [...] affecting 10/11/2014 01/28/2016 Overview: ICD10 Diagnosis 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 documented as of this encounter (statuses as of 05/11/2019) Immunizations Name Administration Dates Next Due Influenza [...] Team Description 05/18/2019 Routine Visit OB Satellites Celi, Christine Swenson, WHCNP [address] [place], [place] [address] [phone] Health Maintenance Due Date Last Done Comments PAP SMEAR 10/22/2021 10/22/2018, 10/11/2014 DTaP,Tdap,and Td Vaccines (3 04/06/2029 04/06/2019, - Td) 10/26/2015 INFLUENZA VACCINE Completed 04/06/2019, 12/14/2015, 05/22/2015 PNEUMOCOCCAL 0-64 YEARS Aged Out No longe r eligible based COMBINED SERIES on patient's age to complete this to [facility] documented as of this encounter Results Not on filedocumented in this encounter Visit Diagnoses Diagnosis Uterine size-date discrepancy in third t rimester Uterine size date discrepancy, antepartu m condition or complication Obesity complicating in third trimester Obesity complicating , childbir th, or the puerperium, antepartum condition or complication documented in this encounter Insurance Payer Benefit Plan / Subscriber ID Effective Phone Address [facility] xxxxxxxxx 2018-Pres [address] Medic aid HEALTH CHOICE - HEALTH CHOICE ent [id number] 1 MANAGED MEDICAID [place], [place] MEDICAID [address] documented as of this encounter
--- OUTSIDE RECORDS SUMMARY | 2019-06-25 12:02 | XMS REPORT | Summary of Care ---
:1985 Author Organization [facility] Address [address] [place] [address] Care Team Providers Name Role Phone Doctor Unassigned, [place] Insurance Hmo Unavailable Ashley Calderon Primary Care Provider Reason for Visit Reason Comments Care Encounter Details Date Type Department Care Team Description 06/01/2019 Routine [facility]CHP- [place], High- risk in third trimester (Primary Dx); Visit [place] [facility] Sw[facility], [facility]; [address] Obesity affecting in third trimester [facility] [id number] [facility] [phone] [place] [address] Allergies No Known Allergiesdocumented as of this encounter (statuses as of 06/01/2019) Medications Medication Sig Dispensed Refills Start Date End Date Status PNV 67-iron ps-folate Take 1 capsule by 30 capsule 11 9 Active no.1-dha (VITAFOL mouth daily. ULTRA) 29 mg iron- 1 mg-200 mg CapIndications: High risk , antepartum documented as of this encounter (statuses as of 06/01/2019) Active Problems Patient Care Coordination Note IOL 01-04-16 Problem Noted Date Multiparity 05/18/2019 Vaginal bleeding in 04/11/2019 Nausea and vomiting in prior to 22 weeks ges tation 12/17/2018 Abnormal maternal glucose tolerance, antepartum 2018 High risk , antepartum 10/22/2018 Obesity affecting in third trimester 019 Estimated Date of Delivery Comments Yes 06/22/2019 Based on Ultrasound documented as of this encounter (statuses as of 06/01/2019) Resolved Problems Problem Noted Date Resolved Date [...] affecting 10/11/2014 01/28/2016 Overview: ICD10 Diagnosis 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 documented as of this encounter (statuses as of 06/01/2019) Immunizations Name Administration Dates Next Due Influenza [...] Sign Reading Time Taken Comments Blood Pressure 107/73 06/01/2019 8:36 AM CDT Pulse 73 06/01/2019 8:36 AM CDT Temperature 36.6 C (97.8 F) 06/01/2019 8:36 AM CDT Respiratory Rate 16 06/01/2019 8:36 AM CDT Oxygen Saturation - - Inhaled Oxygen Concentration - - Weight 94.5 kg (208 lb 4 oz) 06/01/2019 8:36 AM CDT Height 162.6 cm (5' 4") 06/01/2019 8:36 AM CDT Body Mass Index 35.75 06/01/2019 8:36 AM CDT documented in this encounter Progress Notes Lee Ann Alatorre, WHCNP - 06/01/2019 8:15 AM CDT Chief complaint: Chief Complaint Patient presents with Care HPI CC: Follow Up Visit Suzanne Edwards is a 34 year old, , /White female. Patient's last menstrual period was09/05/2018 (approximate). She is 37w0d with an intrauterine . Her estimated date [...] file Gets together: Not on file Attends adventism service: Not on file Active member of [...] at home. No exposure to cats No adventism preference Social History Substance and Sexual Activity Sexual Activity Yes control/protection: None Comment: last intercourse:10/18/2018 Labs No new labs and Routine Visit on 05/25/2019 Component Date Value Group B Streptococcus by* 05/25/2019 Negative WBC 05/25/2019 8.11 RBC 05/25/2019 4.41 HGB 05/25/2019 11.5* HCT 05/25/2019 35.7 MCV 05/25/2019 81.0 MCH 05/25/2019 26.1 MCHC 05/25/2019 32.2 RDW-SD 05/25/2019 40.0 RDW-CV 05/25/2019 13.7 PLT 05/25/2019 204 MPV 05/25/2019 11.9 NRBC/100 WBC 05/25/2019 0.0 NRBC x10^3 05/25/2019 <0.01 GRAN MAT (NEUT) % 05/25/2019 70.8 IMM GRAN % 05/25/2019 0.40 LYMPH % 05/25/2019 22.1 MONO % 05/25/2019 5.4 EOS % 05/25/2019 0.9 BASO % 05/25/2019 0.4 GRAN MAT x10^3(ANC) 05/25/2019 5.75 IMM GRAN x10^3 05/25/2019 0.03 LYMPH x10^3 05/25/2019 1.79 MONO x10^3 05/25/2019 0.44 EOS x10^3 05/25/2019 0.07 BASO x10^3 05/25/2019 0.03 POCT PH U 05/25/2019 . POCT U LEUK EST 05/25/2019 . POCT U NIT 05/25/2019 . POCT U PROT 05/25/2019 Trace POCT U GLU 05/25/2019 Neg POCT U KETONE 05/25/2019 . POCT U BLD 05/25/2019 . Routine Visit on 05/18/2019 Component Date Value POCT PH U 05/18/2019 . POCT U LEUK EST 05/18/2019 . POCT U NIT 05/18/2019 . POCT U PROT 05/18/2019 Trace POCT U GLU 05/18/2019 Neg POCT U KETONE 05/18/2019 . POCT U BLD 05/18/2019 . Routine Visit on 05/04/2019 Component Date Value POCT PH U 05/04/2019 . POCT U LEUK EST 05/04/2019 . POCT U NIT 05/04/2019 . POCT U PROT 05/04/2019 Trace POCT U GLU 05/04/2019 Neg POCT U KETONE 05/04/2019 . POCT U BLD 05/04/2019 . Routine Visit on 04/20/2019 Component Date Value [...] 03/21/2019 . POCT U BLD 03/21/2019 . Radiology No new radiology. Allergies Suzanne has No Known Allergies. Medications Suzanne has a current medication list which includes the following prescription(s): pnv 67-iron ps-folate no.1-dha. Review of Systems Constitutional: Negative. HENT: Negative. Eyes: Negative. Respiratory: Negative. Breasts: Negative. Cardiovascular: Negative. Gastrointestinal: Negative. Genitourinary: Negative. Musculoskeletal: Negative. Skin: Negative. Neurological: Negative. Psychiatric/Behavioral: Negative. Endocrine: Endocrine negative BP 107/73 (BP Location: Right arm, Patient Position: Sitting, BP CUFF SIZE: Adult Large) | Pulse 73 | Temp 36.6 C (97.8 F) (Oral) | Resp 16 | Ht 5' 4" (1.626 m) | Wt 208 lb 4 oz (94.5 kg) | LMP 09/05/2018 (Approximate) | BMI 35.75 kg/m Pregravid BMI: 36.0 Physical Exam PHYSICAL: General Exam: Neurological: Normal Abdomen: Normal gravid Extremities: Normal Pelvic Exam: Uterus: 39 Weeks Assessment/Plan Return to clinic in 1 weeks. Denies zika virus risk, signs and symptoms such as fever,rash,joint pain, conjunctivitis (red eyes),muscle pain, headaches; outside [place] travel to areas affected by zika, and FOB exposure to zika. Educated on use of mosquito repellent. High-risk in third trimester (primary encounter diagnosis) Multiparity Comment: routine Plan: POCT URINALYSIS W/O SPECIFIC GRAVITY Obesity affecting in third trimester Comment: see bmi Plan: BMI discussed, appropriate weight gain, sensible diet, and exercise This visit did not involve counseling and coordination that comprised more than 50% of the visit time. KARON Pruitt 06/01/2019 8:54 AM . documented in this encounter Plan of Treatment Date Type Specialty Care Team Description 06/08/2019 Routine Visit OB Satellites Christine Alatorre WHCNP [address], [place] [address] [phone] Health Maintenance Due Date Last Done Comments [...] Associated Comments Diagnosis POCT URINALYSIS W/O Routine 06/01/2019 9:07 AM High-risk preg divya Results for this SPECIFIC GRAVITY CDT in third trimester [facility] are in the results section. documented in this encounter Results POCT URINALYSIS W/O SPECIFIC GRAVITY (06/01/2019 9:07 AM CDT) Pathologist Sig nature POCT PH U . 5 - 8 mg/dl POCT U LEUK EST . Negative - Negative POCT U NIT . Negative - Negative POCT U PROT Trace Negative - Negative POCT U GLU Neg Negative - Negative POCT U KETONE . Negative - Negative POCT U BLD .. Negative - Negative Specimen Urine - URINE, CLEAN CATCH documented in this encounter Visit Diagnoses Diagnosis High-risk in third trimester - Primary Multiparity Obesity affecting in third tri [facility] documented in this encounter Insurance Payer Benefit Plan / Subscriber ID Effective Phone Address [facility] xxxxxxxxx 2018-Pres [address] Medic aid HEALTH CHOICE - HEALTH CHOICE ent [id number] 1 MANAGED MEDICAID [place], [place] MEDICAID [phone] documented as of this encounter
--- OUTSIDE RECORDS SUMMARY | 2019-06-25 12:02 | XMS REPORT | Summary of Care ---
:1985 Author Organization [facility] Address [address] [place] [address] Care Team Providers Name Role Phone Doctor Unassigned, [place] Insurance Hmo Unavailable Ashley Calderon Primary Care Provider Reason for Visit Reason Comments Care Encounter Details Date Type Department Care Team Description 05/25/2019 Routine [facility] RMCHP- [place], High- risk in third trimester (Primary Dx); Visit [place] [facility] Swenson, [facility] Mult[facility]arity; [address] [place] [address] Obesity affecting in third trimester [facility] [address] [facility] [phone] [place] [address] Allergies No Known Allergiesdocumented as of this encounter (statuses as of 05/25/2019) Medications Medication Sig Dispensed Refills Start Date End Date Status PNV 67-iron ps-folate Take 1 capsule by 30 capsule 9 Active no.1-dha (VITAFOL mouth daily. ULTRA) 29 mg iron- 1 mg-200 mg CapIndications: High risk , antepartum documented as of this encounter (statuses as of 05/25/2019) Active Problems Patient Care Coordination Note IOL 01-04-16 Problem Noted Date Multiparity 05/18/2019 Vaginal bleeding in 04/11/2019 Nausea and vomiting in prior to 22 weeks ges tation 12/17/2018 Abnormal maternal glucose tolerance, antepartum 2018 High risk , antepartum 10/22/2018 Obesity affecting in third trimester 019 Estimated Date of Delivery Comments Yes 06/22/2019 Based on Ultrasound documented as of this encounter (statuses as of 05/25/2019) Resolved Problems Problem Noted Date Resolved Date [...] affecting 10/11/2014 01/28/2016 Overview: ICD10 Diagnosis 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 documented as of this encounter (statuses as of 05/25/2019) Immunizations Name Administration Dates Next Due Influenza [...] Sign Reading Time Taken Comments Blood Pressure 105/71 05/25/2019 9:29 AM CDT Pulse 67 05/25/2019 9:29 AM CDT Temperature 36.8 C (98.3 F) 05/25/2019 9:29 AM CDT Respiratory Rate 16 05/25/2019 9:29 AM CDT Oxygen Saturation - - Inhaled Oxygen Concentration - - Weight 94.4 kg (208 lb 1 oz) 05/25/2019 9:29 AM CDT Height 162.6 cm (5' 4") 05/25/2019 9:29 AM CDT Body Mass Index 35.71 05/25/2019 9:29 AM CDT documented in this encounter Progress Notes Lee Ann Alatorre, WHCNP - 05/25/2019 9:15 AM CDT Chief complaint: Chief Complaint Patient presents with Care HPI CC: Follow Up Visit Suzanne Edwards is a 34 year old, , /White female. Patient's last menstrual period was09/05/2018 (approximate). She is 36w0d with an intrauterine . Her estimated date [...] file Gets together: Not on file Attends congregational service: Not on file Active member of [...] at home. No exposure to cats No congregational preference Social History Substance and Sexual Activity Sexual Activity Yes control/protection: None Comment: last intercourse:10/18/2018 Labs No new labs and Routine Visit on 05/18/2019 Component Date Value [...] Neurological: Negative. Psychiatric/Behavioral: Negative. Endocrine: Endocrine negative LMP 09/05/2018 (Approximate) Pregravid BMI: 36.0 Physical Exam PHYSICAL: General Exam: Neurological: Normal Abdomen: Normal gravid Extremities: Normal Pelvic Exam: Uterus: 37 Weeks Assessment/Plan Return to clinic in 1 weeks. Denies zika virus risk, signs and symptoms such as fever,rash,joint pain, conjunctivitis (red eyes),muscle pain, headaches; outside [place] travel to areas affected by zika, and FOB exposure to zika. Educated on use of mosquito repellent. High-risk in third trimester (primary encounter diagnosis) Multiparity Comment: routine Plan: CBC WITH DIFF, GROUP B STREPTOCOCCUS BY PCR, CBC WITH DIFFERENTIAL Obesity affecting in third trimester Comment: see bmi Plan: BMI discussed, appropriate weight gain, sensible diet, and exercise This visit did not involve counseling and coordination that comprised more than 50% of the visit time. KARON Pruitt 05/25/2019 9:33 AM documented in this encounter Plan of Treatment Name Type Priority Associated Diagnoses Date/Ti me CBC WITH DIFF LAB Routine High-risk in 05/14 9:28 AM third trimester CDT GROUP B STREPTOCOCCUS BY LAB Routine High-risk pregna ncy in 05/25/2019 9:28 AM PCR third trimester CDT CBC WITH DIFFERENTIAL LAB Routine High-risk in 05/25/2019 9:28 AM third trimester CDT Health Maintenance Due Date Last Done Comments [...] Associated Comments Diagnosis POCT URINALYSIS W/O Routine 05/25/2019 9:38 AM High-risk preg divya Results for this SPECIFIC GRAVITY CDT in third trimester proce dure are in the results section. documented in this encounter Results POCT URINALYSIS W/O SPECIFIC GRAVITY (05/25/2019 9:38 AM CDT) Pathologist Sig nature POCT PH [...] Primary Multiparity Obesity affecting in third tri mester documented in this encounter Insurance Payer Benefit Plan / Subscriber ID Effective Phone Address T ype [facility] xxxxxxxxx 2018- [address] Medic aid HEALTH CHOICE - HEALTH CHOICE ent [id number] 1 MANAGED MEDICAID [place], [place]ID [phone] documented as of this encounter
--- OUTSIDE RECORDS SUMMARY | 2019-06-25 12:02 | XMS REPORT | Summary of Care ---
:1985 Author Organization [facility] Address [address] [place] [address] Care Team Providers Name Role Phone Doctor Unassigned, [place] Insurance Hmo Unavailable Ashley Calderon Primary Care Provider Reason for Visit Reason Comments Care Encounter Details Date Type Department Care Team Description 06/08/2019 Routine [facility] RMCHP- [place], High- risk in third trimester (Primary Dx); Visit [place] [facility]; [address] [place] [address] Obesity affecting in third trimester [facility] [address] [facility] [phone] [place] [address] Allergies No Known Allergiesdocumented as of this encounter (statuses as of 06/08/2019) Medications Medication Sig Dispensed Refills Start Date End Date Status PNV 67-iron ps-folate Take 1 capsule by 30 capsule 11 9 Active no.1-dha (VITAFOL mouth daily. ULTRA) 29 mg iron- 1 mg-200 mg CapIndications: High risk , antepartum documented as of this encounter (statuses as of 06/08/2019) Active Problems Patient Care Coordination Note IOL 01-04-16 Problem Noted Date Multiparity 05/18/2019 Vaginal bleeding in 04/11/2019 Nausea and vomiting in prior to 22 weeks ges tation 12/17/2018 Abnormal maternal glucose tolerance, antepartum 2018 High risk , antepartum 10/22/2018 Obesity affecting in third trimester 019 Estimated Date of Delivery Comments Yes 06/22/2019 Based on Ultrasound documented as of this encounter (statuses as of 06/08/2019) Resolved Problems Problem Noted Date Resolved Date [...] affecting 10/11/2014 01/28/2016 Overview: ICD10 Diagnosis 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 documented as of this encounter (statuses as of 06/08/2019) Immunizations Name Administration Dates Next Due Influenza [...] Sign Reading Time Taken Comments Blood Pressure 119/65 06/08/2019 9:31 AM CDT Pulse 68 06/08/2019 9:31 AM CDT Temperature 36.8 C (98.2 F) 06/08/2019 9:31 AM CDT Respiratory Rate 16 06/08/2019 9:31 AM CDT Oxygen Saturation - - Inhaled Oxygen Concentration - - Weight 94.4 kg (208 lb 2 oz) 06/08/2019 9:31 AM CDT Height 162.6 cm (5' 4") 06/08/2019 9:31 AM CDT Body Mass Index 35.72 06/08/2019 9:31 AM CDT documented in this encounter Progress Notes Lee Ann Alatorre, WHCNP - 06/08/2019 9:30 AM CDT Chief complaint: Chief Complaint Patient presents with Care HPI CC: Follow Up Visit Suzanne Edwards is a 34 year old, , /White female. Patient's last menstrual period was09/05/2018 (approximate). She is 38w0d with an intrauterine . Her estimated date [...] file Gets together: Not on file Attends catholic service: Not on file Active member of [...] at home. No exposure to cats No catholic preference Social History Substance and Sexual Activity Sexual Activity Yes control/protection: None Comment: last intercourse:10/18/2018 Labs No new labs and Routine Visit on 06/01/2019 Component Date Value POCT PH U 06/01/2019 . POCT U LEUK EST 06/01/2019 . POCT U NIT 06/01/2019 . POCT U PROT 06/01/2019 Trace POCT U GLU 06/01/2019 Neg POCT U KETONE 06/01/2019 . POCT U BLD 06/01/2019 .. Routine Visit on 05/25/2019 Component Date Value [...] Negative. Psychiatric/Behavioral: Negative. Endocrine: Endocrine negative BP 119/65 (BP Location: Right arm, Patient Position: Sitting, BP CUFF SIZE: Adult Medium) | Pulse 68 | Temp 36.8 C (98.2 F) (Oral) | Resp 16 | Ht 5' 4" (1.626 m) | Wt 208 lb 2 oz (94.4 kg) | LMP 09/05/2018 (Approximate) | BMI 35.72 kg/m Pregravid BMI: 36.0 Physical Exam PHYSICAL: General Exam: Neurological: Normal Abdomen: Normal gravid Extremities: Normal Pelvic Exam: Uterus: 39 Weeks Assessment/Plan Return to clinic in 1 weeks. IOL schedule for 06-15-19 at 1900. Patient desires induction all paperwork given. Induction risk and benefits discussed. Patient verbalized understanding. Labor warning given, patient verbalized understanding Denies zika virus risk, signs and symptoms [...] 50% of the visit time. KARON Pruitt 06/08/2019 10:01 AM documented in this encounter Plan of Treatment Health Maintenance Due Date Last Done Comments PAP SMEAR 10/22/2021 10/22/2018, 10/11/2014 DTaP,Tdap,and Td Vaccines (3 04/06/2029 04/06/2019, - Td) 10/26/2015 INFLUENZA VACCINE Completed 04/06/2019, 12/14/2015, 05/22/2015 PNEUMOCOCCAL 0-64 YEARS Aged Out No longe r eligible based COMBINED SERIES on patient's age to complete this to [facility] documented as of this encounter Procedures Procedure Name Priority Date/Time Associated Comments Diagnosis POCT URINALYSIS W/O Routine 06/08/2019 10:09 AM High-risk preg divya Results for this SPECIFIC GRAVITY CDT in third trimester proce dure are in the results section. documented in this encounter Results POCT URINALYSIS W/O SPECIFIC GRAVITY (06/08/2019 10:09 AM CDT) Pathologist Sig nature POCT PH [...] Subscriber ID Effective Phone Address T ype [facility] xxxxxxxxx 2018- [address] Medic aid HEALTH CHOICE - HEALTH CHOICE ent [id number] 1 MANAGED MEDICAID [place], [place] [phone] documented as of this encounter
--- OUTSIDE RECORDS SUMMARY | 2019-06-25 12:02 | XMS REPORT | Summary of Care ---
:1985 Author Organization [facility] Address [address] [place] [address] Care Team Providers Name Role Phone Doctor Unassigned, [place] Insurance Hmo Unavailable Ashley Calderon Primary Care Provider Reason for Visit Reason Comments Care Encounter Details Date Type Department Care Team Description 06/08/2019 Routine [facility] RMCHP- Akins[place], High- risk in third trimester (Primary Dx); Visit [place] [facility]; [address] [place] [address] Obesity affecting in third trimester [facility] [address] [facility] [phone] [place] [address] Allergies No Known Allergiesdocumented as of this encounter (statuses as of 06/14/2019) Medications Medication Sig Dispensed Refills Start Date End Date Status PNV 67-iron ps-folate Take 1 capsule by 30 capsule 11 9 Active no.1-dha (VITAFOL mouth daily. ULTRA) 29 mg iron- 1 mg-200 mg CapIndications: High risk , antepartum documented as of this encounter (statuses as of 06/14/2019) Active Problems Patient Care Coordination Note IOL 01-04-16 Problem Noted Date Multiparity 05/18/2019 Vaginal bleeding in 04/11/2019 Nausea and vomiting in prior to 22 weeks ges tation 12/17/2018 Abnormal maternal glucose tolerance, antepartum 2018 High risk , antepartum 10/22/2018 Obesity affecting in third trimester 019 Estimated Date of Delivery Comments Yes 06/22/2019 Based on Ultrasound documented as of this encounter (statuses as of 06/14/2019) Resolved Problems Problem Noted Date Resolved Date [...] affecting 10/11/2014 01/28/2016 Overview: ICD10 Diagnosis Term Boat 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 No exposure to cats No rastafari preference Social History Substance and Sexual Activity [...] on patient's age to complete this to [facility] documented as of this encounter Procedures [...] Subscriber ID Effective Phone Address T ype [facility] xxxxxxxxx 2018- [address] Medic aid HEALTH CHOICE - HEALTH CHOICE ent [id number] 1 MANAGED MEDICAID [place], [place] [phone] documented as of this encounter
--- OUTSIDE RECORDS SUMMARY | 2019-06-25 12:02 | XMS REPORT | Summary of Care ---
:1985 Author Organization [facility] Address [address] [place] [address] Care Team Providers Name Role Phone Doctor Unassigned, [place] Insurance Hmo Unavailable Ashley Calderon Primary Care Provider Reason for Visit Reason Comments Care Encounter Details Date Type Department Care Team Description 05/18/2019 Routine [facility]- [place], High- risk in third trimester (Primary Dx); Visit Elrama Lee Ann Swenson, [facility] Mult[facility]; [address] Obesity affecting in third trimester [facility] [address] [facility] [phone] [place] [address] Allergies No Known Allergiesdocumented as of this encounter (statuses as of 05/18/2019) Medications Medication Sig Dispensed Refills Start Date End Date Status PNV 67-iron ps-folate Take 1 capsule by 30 capsule 11 9 Active no.1-dha (VITAFOL mouth daily. ULTRA) 29 mg iron- 1 mg-200 mg CapIndications: High risk , antepartum documented as of this encounter (statuses as of 05/18/2019) Active Problems Patient Care Coordination Note IOL 01-04-16 Problem Noted Date Multiparity 05/18/2019 Vaginal bleeding in 04/11/2019 Nausea and vomiting in prior to 22 weeks ges tation 12/17/2018 Abnormal maternal glucose tolerance, antepartum 2018 High risk , antepartum 10/22/2018 Obesity affecting in third trimester 019 Estimated Date of Delivery Comments Yes 06/22/2019 Based on Ultrasound documented as of this encounter (statuses as of 05/18/2019) Resolved Problems Problem Noted Date Resolved Date [...] affecting 10/11/2014 01/28/2016 Overview: ICD10 Diagnosis Term Check Writer Utility documented as of this encounter (statuses as of 05/18/2019) Immunizations Name Administration Dates Next Due Influenza [...] Reading Time Taken Comments Blood Pressure 109/71 05/18/2019 9:39 AM CASINO INVESTIGATOR Pulse 69 05/18/2019 9:39 AM CASINO INVESTIGATOR Temperature 36.2 C (97.2 F) 05/18/2019 9:39 AM CASINO INVESTIGATOR Respiratory Rate 16 05/18/2019 9:39 AM CASINO INVESTIGATOR Oxygen Saturation - - Inhaled Oxygen Concentration - - Weight 94.9 kg (209 lb 2 oz) 05/18/2019 9:39 AM CASINO INVESTIGATOR Height 162.6 cm (5' 4") 05/18/2019 9:39 AM CASINO INVESTIGATOR Body Mass Index 35.9 05/18/2019 9:39 AM CASINO INVESTIGATOR documented in this encounter Progress Notes Lee Ann Alatorre, WHCNP - 05/18/2019 9:30 AM CST Chief complaint: Chief Complaint Patient presents with Care HPI CC: Follow Up Visit Suzanne Edwards is a 34 year old, , /White female. Patient's last menstrual period was09/05/2018 (approximate). She is 35w0d with an intrauterine . Her estimated date [...] file Gets together: Not on file Attends yazidi service: Not on file Active member of [...] at home. No exposure to cats No yazidi preference Social History Substance and Sexual Activity Sexual Activity Yes control/protection: None Comment: last intercourse:10/18/2018 Labs No new labs and Routine Visit on 05/04/2019 Component Date Value [...] Adult Medium) | Pulse 69 | Temp 36.2 C (97.2 F) (Oral) | Resp 16 | Ht 5' 4" (1.626 m) | Wt 209 lb 2 oz (94.9 kg) | LMP 09/05/2018 (Approximate) | BMI 35.90 kg/m Pregravid BMI: 36.0 Physical Exam PHYSICAL: General Exam: Neurological: Normal Abdomen: Normal gravid Extremities: Normal Pelvic Exam: Uterus: 36 Weeks Assessment/Plan Return to clinic in 1 weeks. Denies zika virus risk, signs and symptoms such as fever,rash,joint pain, conjunctivitis (red eyes),muscle pain, headaches; outside [place] travel to areas affected by zika, and FOB exposure to zika. Educated on use of mosquito repellent. High-risk in third trimester (primary encounter diagnosis) Multiparity Comment: routine Plan: POCT URINALYSIS W/O SPECIFIC GRAVITY, CBC WITH DIFF, GROUP B STREPTOCOCCUS BY PCR Obesity affecting in third trimester Comment: see bmi Plan: BMI discussed, appropriate weight gain, sensible diet, and exercise This visit did not involve counseling and coordination that comprised more than 50% of the visit time. KARON Pruitt 05/18/2019 9:58 AM NO INVESTIGATOR documented in this encounter Plan of Treatment Date Type Specialty Care Team Description 05/25/2019 Routine Visit OB Satellites Christine Alatorre WHCNP [address], [place] [address] [phone] Name Type Priority Associated Diagnoses Order S chedule CBC WITH DIFF LAB Routine High-risk in Expe cted: 05/25/2019, third trimester Expires: 06/2020 GROUP B STREPTOCOCCUS BY LAB Routine High-risk pregna ncy in Expected: 05/25/2019, PCR third trimester Expires: 06/2020 Health Maintenance Due Date Last Done Comments PAP SMEAR 10/22/2021 10/22/2018, 10/11/2014 DTaP,Tdap,and Td Vaccines (3 04/06/2029 04/06/2019, - Td) 10/26/2015 INFLUENZA VACCINE Completed 04/06/2019, 12/14/2015, 05/22/2015 PNEUMOCOCCAL 0-64 YEARS Aged Out No longe r eligible based COMBINED SERIES on patient's age to complete this to psychiatric documented as of this encounter Procedures Procedure Name Priority Date/Time Associated Comments Diagnosis POCT URINALYSIS W/O Routine 05/18/2019 11:04 AM High-risk preg divya Results for this SPECIFIC GRAVITY CASINO INVESTIGATOR in third trimester proce dure are in the results section. documented in this encounter Results POCT URINALYSIS W/O SPECIFIC GRAVITY (05/18/2019 11:04 AM CASINO INVESTIGATOR) Pathologist Sig nature POCT PH U . [...] Primary Multiparity Ob[facility] in [facility] documented in this encounter Insurance Payer Benefit Plan / Subscriber ID Effective Phone Address T e Group [facility] xxxxxxxxx 2018-Pres [address] Medic aid HEALTH CHOICE - HEALTH CHOICE ent [id number] 1 MANAGED MEDICAID [place], [place] MEDICAID [phone] documented as of this encounter
--- OUTSIDE RECORDS SUMMARY | 2019-06-25 12:04 | XMS REPORT | Summary of Care ---
:1985 Author Organization [facility] - [facility] Address [address] [place] [address] Care Team Providers Name Role Phone Doctor Unassigned, [place] Insurance Hmo Unavailable Ashley Calderon Primary Care Provider Reason for Visit Reason Comments Vaginal Problem rash Encounter Details Date Type Department Care Team Description 06/18/2019 Nurse Triage [facility] Jacob Pearsonaint, Vaginal Problem [address] [place] [address] RN (rash) [place] [address] [place] [address] [facility] [phone] [place] [address] Allergies No Known Allergiesdocumented as of this encounter (statuses as of 06/18/2019) Medications Medication Sig Dispensed Refills Start Date End Date Status docusate calcium 240 Take 1 capsule by 60 capsule 1 06/16/2019 Active mg mouth once daily capsuleIndications: as needed for 39 weeks gestation of Constipation. , Multiparity, (spontaneous vaginal delivery), Laceration, obstetrical, first degree ibuprofen 600 mg Take 1 tablet by 60 tablet 1 06/16/2019 Active tabletIndications: 39 mouth every 6 weeks gestation of (six) hours as , needed (Pain). Multiparity, Take with food or (spontaneous vaginal milk. delivery), Laceration, obstetrical, first degree Iron Fum & P-FA-Vit B Take 1 capsule by 30 capsule 2 0 Active & C No.9 (INTEGRA mouth daily. PLUS) 125 mg iron- 1 mg CapIndications: 39 weeks gestation of , Multiparity, (spontaneous vaginal delivery) documented as of this encounter (statuses as of 06/18/2019) Active Problems Patient Care Coordination Note IOL 01-04-16 Problem Noted Date (spontaneous vaginal delivery) 06/16/2019 Single live 06/16/2019 Laceration, obstetrical, minor 06/16/2019 Indication for care in labor or delivery 06/15/2019 Multiparity 05/18/2019 Vaginal bleeding in 04/11/2019 Nausea and vomiting in prior to 22 weeks ges tation 12/17/2018 Abnormal maternal glucose tolerance, antepartum 2018 High-risk in third trimester 10/22/2018 Obesity affecting in third trimester 019 39 weeks gestation of 01/04/2016 documented as of this encounter (statuses as of 06/18/2019) Resolved Problems Problem Noted Date Resolved Date Well woman exam 02/18/2016 10/22/2018 Other general counseling and advice for contraceptive 201510/22/2018 management Obese 02/18/2016 10/22/2018 Vaginal yeast infection 02/18/2016 10/22/2018 Routine follow-up 01/28/2016 02/18/2016 Obstetrical laceration, second degree 01/06/2016 Labor and delivery indication for care or intervention 01/0301/28/2016 Flu vaccine need 12/14/2015 01/28/2016 Overview: Received [...] affecting 10/11/2014 01/28/2016 Overview: ICD10 Diagnosis Term Sas Clinical Programmer Utility documented as of this encounter (statuses as of 06/18/2019) Immunizations Name Administration Dates Next Due Influenza [...] Treatment Date Type Specialty Care Team Description 06/22/2019 Nurse Visit OB Satellites Juani Calderon, SKI BASE TRIMMER [address] [place] [address] [phone] Visit, [place] Nurse 07/07/2019 Routine Visit [facility] Satell[facility] Christine Alatorre, WHCNP [address] [place], [place] [address] [phone] Health Maintenance Due Date Last Done Comments [...] Plan / Subscriber ID Effective Phone Address [facility] xxxxxxxxx 2018-Pres [address] Medic aid HEALTH CHOICE - HEALTH CHOICE ent [id number] 1 MANAGED MEDICAID [place], [place] MEDICAID [phone] documented as of this encounter
--- OUTSIDE RECORDS SUMMARY | 2019-06-25 12:04 | XMS REPORT | Summary of Care ---
:1985 Author Organization [facility] - [facility] Address [address] [place] [address] Care Team Providers Name Role Phone Doctor Unassigned, [place] Insurance Hmo Unavailable Ashley Calderon Primary Care Provider Reason for Referral (Routine) Status Reason Specialty Diagnoses / Referred By Referred To Procedures Contact Contact New Request OB Satellites Diagnoses 39 weeks gestation of High-risk in third trimester Obesity affecting in third trimester Abnormal maternal glucose tolerance, antepartum Multiparity Indication for care in labor or delivery Fidelina Blackmon FNP (spontaneous vaginal delivery) Single live Laceration, obstetrical, first degree Nausea and vomiting in prior to 22 weeks gestation Vaginal bleeding in [address] Procedures DISCHARGE FOLLOW-UP: [place] [address] Reason for Visit Auth/Cert Status Reason Specialty Diagnoses / Referred By Contact Refe rred To Contact Procedures Obstetrics Diagnoses labor J3c [address] [place] [phone] Phone: Fax: Encounter Details Date Type Department Care Team Description 06/15/2019 - Hospital Encounter Mother Baby Unit Last ( spontaneous 06/17/2019 (J8C) [place], vaginal delivery) [address] [place] [address] MD Maricel Darlington [address] [place], [place] [phone] [place], [place] [phone] [id number] Allergies No Known Allergiesdocumented as of this encounter (statuses as of 06/17/2019) Medications Medication Sig Dispensed Refills Start Date End Date Status docusate calcium Take 1 capsule 60 capsule 1 06/16/2019 Active 240 mg by mouth once capsuleIndication daily as s: 39 weeks needed for gestation of Constipation. , Multiparity, (spontaneous vaginal delivery), Laceration, obstetrical, first degree ibuprofen 600 mg Take 1 tablet 60 tablet 1 06/16/2019 Active tabletIndications by mouth every : 39 weeks 6 (six) hours gestation of as needed , (Pain). Take Multiparity, with food or (spontaneous milk. vaginal delivery), Laceration, obstetrical, first degree Iron Fum & Take 1 capsule 30 capsule 2 06/16/2019 Ac tive P-FA-Vit B & C by mouth No.9 (INTEGRA daily. PLUS) 125 mg iron- 1 mg CapIndications: 39 weeks gestation of , Multiparity, (spontaneous vaginal delivery) PNV 67-iron Take 1 capsule 30 capsule 11 11/08/2018 06/16/2019 Discontinued ps-folate by mouth no.1-dha (VITAFOL daily. ULTRA) 29 mg iron- 1 mg-200 mg CapIndications: High risk , antepartum documented as of this encounter (statuses as of 06/17/2019) Active Problems Patient Care Coordination Note IOL [...] as of this encounter (statuses as of 06/17/2019) Resolved Problems Problem Noted Date Resolved Date [...] affecting 10/11/2014 01/28/2016 Overview: ICD10 Diagnosis Term Production Quality Analyst Utility documented as of this encounter (statuses as of 06/17/2019) Immunizations Name Administration Dates Next Due Influenza [...] Sign Reading Time Taken Comments Blood Pressure 126/74 06/17/2019 8:00 AM CDT Pulse 61 06/17/2019 8:00 AM CDT Temperature 36.8 C (98.3 F) 06/17/2019 8:00 AM CDT Respiratory Rate 18 06/17/2019 8:00 AM CDT Oxygen Saturation 100% 06/17/2019 8:00 AM CDT Inhaled Oxygen Concentration - - Weight 95 kg (209 lb 7 oz) 06/15/2019 8:55 AM CDT Height 162.6 cm (5' 4") 06/15/2019 7:21 AM CDT Body Mass Index 35.95 06/15/2019 7:21 AM CDT documented in this encounter Discharge Instructions Snehal Metzger RN - 06/17/2019Multidisciplinary Discharge Instructions (may include diet, dressing changes, activity limits, written materials given to patient: DIET: Eat a well balanced diet; drink 6-8 glasses of fluids daily; eat fruits and green, leafy vegetables. DAILY ACTIVITIES: 1. As much as you feel able to do. Rest when you are tired. 2. Limitations: Specify; No heavy lifting other than your baby for 4 weeks if you had surgery. TREATMENT AT HOME 1. Use a well-fitting bra to prevent breast engorgement 2. Resume intercourse as instructed by your physician. 3. Do not use douches or tampons for four weeks. 4. To help prevent urinary tract infection; after each urination and bowel movement, wipe and dry from front to back and change bhakti pad. 5. Follow discharge instructions regarding baby care. 6. Follow family planning instructions. IMMEDIATE TREATMENT - Call Clinic or Your Physician 1. Increase in pain and tenderness of uterus. 2. Increased vaginal bleeding (bright red blood which soaks 2 pads in 1 hour or pass large clots). 3. Foul smelling vaginal discharge. 4. Burning in the tube that empties the urine from the bladder. 5. Painful breast engorgement or cracked nipples. 6. Pain, discharges, or gaping incision. 7. Temperature greater than 38.0C or 100.4F 8. Pain and tenderness of calf or thigh muscles. 9. No bowel movements in 4 days. For Problems or Questions Call: OB Clinic Family Planning [phone] or Emergency: Go to the closest emergency room or call 911 documented in this encounter Plan of Treatment Date Type Specialty Care Team Description 06/22/2019 [facility] Juani Calderon, SKIN TOGGLER [address] [place] [address] [phone] [facility] 07/07[facility]2019 [facility]ine [facility] Christine Alatorre WHCNP [address] [place], [place] [address] [phone] Health Maintenance Due Date Last Done Comments PAP SMEAR 10/22/2021 10/22/2018, 10/11/2014 DTaP,Tdap,and Td Vaccines (3 04/06/2029 04/06/2019, - Td) 10/26/2015 INFLUENZA VACCINE Completed 04/06/2019, 12/14/2015, 05/22/2015 PNEUMOCOCCAL 0-64 YEARS Aged Out No longe r eligible based COMBINED SERIES on patient's age to complete this to pic documented as of this encounter Procedures Procedure Name Priority Date/Time Associated Comments Diagnosis CBC WITH DIFFERENTIAL Routine 06/16/2019 3:13 Re sults for this AM CDT procedure are i n the results section. CBC WITH DIFFERENTIAL Routine 06/16/2019 3:13 Re sults for this AM CDT procedure are i n the results section. GALV ONLY - SYPHILIS ZAID 06/15/2019 8:22 Res ults for this IGG/IGM AM CDT procedure are i n the results section. HIV 1/2 AG-AB WITH ZAID 06/15/2019 8:22 Resul ts for this REFLEX AM CDT procedure are i n the results section. HEPATITIS B SURFACE ZAID 06/15/2019 8:22 Resu lts for this ANTIGEN AM CDT procedure are i n the results section. RHO (D) IMMUNE Routine 06/15/2019 8:20 Results f or this GLOBULIN AM CDT procedure are i n the results section. HB ABO GROUPING ZAID 06/15/2019 8:20 Results for this AM CDT procedure are i n the results section. documented in this encounter Results CBC WITH DIFFERENTIAL (06/16/2019 3:13 AM CDT) Pathologist Sig nature WBC 10.63 4.30 - 11.10 [facility] 10*3/L SERVICES RBC 4.05 3.93 - 5.25 [facility] 10*6/L SERVICES HGB 10.5 (L) 11.6 - 15.0 [facility] g/dL SERVICES HCT 33.4 (L) 35.7 - 45.2 % [facility] SERVICES MCV 82.5 80.6 - 95.5 fL [facility] SERVICES MCH 25.9 25.9 - 32.8 pg [facility] SERVICES MCHC 31.4 (L) 31.6 - 35.1 [facility] g/dL SERVICES RDW-SD 43.3 39.0 - 49.9 fL [facility] RDW-CV 14.6 12.0 - 15.5 % [facility] PLT 160 (L) 166 - 358 [facility] 10*3/L SERVICES MPV 11.4 9.5 - 12.9 fL [facility] NRBC/100 WBC 0.0 0.0 - 10.0 /100 [facility] WBCs SERVICES NRBC x10^3 <0.01 10*3/L [facility] GRAN MAT (NEUT) % 82.2 % [facility] IMM GRAN % 0.50 % [facility] LYMPH % 12.5 % [facility] MONO % 4.1 % [facility] SERVICES EOS % 0.6 % [facility] SERVICES BASO % 0.1 % [facility] GRAN MAT x10^3(ANC) 8.74 (H) 1.88 - 7.09 [facility] 10*3/uL SERVICES IMM GRAN x10^3 0.05 0.00 - 0.06 [facility] 10*3/uL SERVICES LYMPH x10^3 1.33 1.32 - 3.29 [facility] 10*3/uL SERVICES MONO x10^3 0.44 0.33 - 0.92 [facility] 10*3/uL SERVICES EOS x10^3 0.06 0.03 - 0.39 [facility] 10*3/uL SERVICES BASO x10^3 <0.03 0.01 - 0.07 [facility] 10*3/uL SERVICES Specimen Blood - ARM, RIGHT Performing Organization Address City/State/Zipcode Phone Number [facility] CLIA: [id number], [address] [address] [address] [facility] HIV 1/2 AG-AB WITH REFLEX (06/15/2019 8:22 AM CDT) Pathologist Sig nature HIV 1/2 Ag-Ab with Negative Negative [facility] Reflex SERVICES HIV Semi-quantitative 0.06 [facility] Specimen Blood - VENOUS Narrative Performed At Non-reactive for HIV-1 antigen and HIV-1/HIV-2 antibod ies. [facility] No laboratory evidence of HIV infection. Repeat in 2-4 weeks if acute HIV infection is suspected. Performing Organization Address City/State/Zipcode Phone Number [facility] CLIA: [id number], [address] [place] [address] [address] [facility] GALV ONLY - SYPHILIS IGG/IGM (06/15/2019 8:22 AM CDT) Pathologist Sig [facility] Syphilis IgG/IgM Non-reactive Non-reactive [facility] Specimen Blood - VENOUS Narrative Performed At [facility] Non-reactive - No serologic evidence of T. pallidum infection. Cannot exclude incubating or early syphilis . Submit a second specimen in 2-4 weeks if syphilis is clinically suspected. Equivocal - Further testing to follow. Reactive - Further testing to follow. Performing Organization Address City[facility] Phone Number [facility] CLIA: [id number], [address] [place] [address] [address] [facility] Hepatitis B Surface Antigen (06/15/2019 8:22 AM CDT) Pathologist [facility] HBsAg Negative Negative [facility] HBsAg 0.05 [facility] Semi-Quantitative SERVICES Specimen Blood - VENOUS Performing Organization Address City/[facility] Phone Number [facility] CLIA: [id number], [address] [place] [address] [address] [facility] RHO (D) IMMUNE GLOBULIN (06/15/2019 8:20 AM CDT) Pathologist Sig [facility] RHIG CANDIDATE? No- see comment LAB Comment: Patient is not a candidate for RhIg- Patient is Rh Pos itive. Performed at [facility] Laboratory Services - [facility] Blood Bank [address] [place] [address] Toll Free: [phone] CLIA No. [id number] Specimen Blood - VENOUS Performing Organization Address City[facility] Phone Number [facility] LAB Type and Screen - ONCE ZAID (06/15/2019 8:20 AM CDT) Pathologist Sig nature ABO & RH O POSITIVE LAB Comment: Performed at [facility] Laboratory Services - [facility] Blood Bank [address] [place] [address] Toll Free: [phone] CLIA No. [id number] IAT Negative LAB Comment: Performed at [facility] Laboratory Services - [facility] Blood Bank [address] [place] [address] Toll Free: [phone] CLIA No. [id number] Specimen Blood - VENOUS Performing Organization Address City/State/Zipcode Phone Number [facility] documented in this encounter Visit Diagnoses Diagnosis (spontaneous vaginal delivery) - Nichelle garcia Normal delivery 39 weeks gestation of state, incidental High-risk in third trimester Obesity affecting in third tri mester Abnormal maternal glucose tolerance, ant epartum Multiparity Indication for care in labor or delivery Unspecified indication for care or inter vention related to labor and delivery, unspecified as to episode of care Single live Outcome of delivery, single liveborn Laceration, obstetrical, minor First-degree perineal laceration, unspec ified as to episode of care in Nausea and vomiting in prior t o 22 weeks gestation Mild hyperemesis gravidarum, unspecified as to episode of care Vaginal bleeding in Unspecified antepartum hemorrhage, unspe cified as to episode of care documented in this encounter Administered Medications Medication Order MAR Action Action Date Dose Rate Site benzocaine-menthol (DERMOPLAST) Given 06/16/2019 2:14 AM CDT 20-0.5 % topical spray Topical, PRN, Starting Thu06/16/19 at 0029, Until Discontinued, Routine, Perineum discomfort ibuprofen (IBU) tablet 600 mg Given 06/17/2019 4:00 AM CDT 600 mg 600 mg, Oral, Q6HPRN, Starting Thu06/16/19 at 0029, Until Discontinued, Routine, Pain (scale 4-6) Given 06/16/2019 2:14 AM CDT 600 mg Medication Order MAR Action Action Date Dose Rate Site acetaminophen (TYLENOL) tablet Given 06/15/2019 11:22 PM CDT 650 mg 650 mg 650 mg, Oral, Q6HPRN, Starting Thu06/15/19 at 2149, Until Thu06/16/19 at 0030, Routine, Pain (scale 1-3), Temp > 38.5 C [id number]-LR IV infusion 1,000 mL New Bag 06/15/2019 5:49 PM CDT 1,000 mL 125 mL/hr at 125 mL/hr, IV Infusion, CONTINUOUS, Starting Thu06/15/19 at 0800, Until Rosa Maria 06/16/19 at 0030, Routine New Bag 06/15/2019 8:00 AM CDT 1,000 mL 125 mL/hr lactated ringers IV infusion 500 New Bag 06/15/2019 5:02 PM C DT 500 mL 999 mL/hr mL at 999 mL/hr, 500 mL, IV Infusion, ONCE, 1 dose, Thu06/15/19 at 0900, Routine LR 1000 mL + oxytocin 20 New Bag 06/15/2019 10:48 41.667 lila -units/min 125 mL/hr units IV Solution PM CDT 2-40 lila-units/min (6-120 mL/hr), IV Infusion, TITRATE, Oxytocin Induction / Augmentation of Labor, Starting Thu06/15/19 at 0748, Infuse IV through a controlled infusion pump at a proximal port on the peripheral IV line. Start at 2 lila-units/min and increase by 2 lila-units/min every 20 minutes according to oxytocin policy 7.11.52. Going over 20 lila-units/min requires faculty approval. Max 40 lila-units/min., Rate Change 06/15/2019 7:00 PM CDT 20 lila-units/min 60 mL/hr Rate Change 06/15/2019 6:30 PM CDT 18 lila-units/min 54 mL/hr sodium citrate-citric acid (BICITRA) 500-334 Given 03/2019 5:15 PM CDT 30 mL mg/5 mL solution 30 mL 30 mL, Oral, PRE-PROCEDURE ONCE, 1 dose, Starting Thu06/15/19 at 0748, Until Thu06/15/19 at 1715, Routine, Surgery/Procedure documented in this encounter Insurance Payer Benefit Plan / Subscriber ID Effective Phone Address T [facility] xxxxxxxxx 2018-Pres [address] Medic aid HEALTH CHOICE - HEALTH CHOICE ent [id number] 1 MANAGED MEDICAID [place], [place] MEDICAID [phone] documented as of this encounter
--- OUTSIDE RECORDS SUMMARY | 2019-06-25 12:04 | XMS REPORT | Summary of Care ---
:1985 Author Organization [facility] - Health Address [address] [place] [address] Care Team Providers Name Role Phone Doctor Unassigned, [place] Insurance Hmo Unavailable Ashley Calderon Primary Care Provider Reason for Visit Reason Comments Rash Auth/Cert Status Reason Specialty Diagnoses / Referred By Referred To Procedures Contact Contact Emergency Medicine Adc Em ergency Dept [address] [place] [address] [place] [address] Fax: Encounter Details Date Type Department Care Team Description 06/18/2019 Emergency ADC-Emergency Juancho, Lisa Mendoza, Skin rai watts infection Department 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 Multiparity, (spontaneous vaginal delivery), Laceration, obstetrical, first degree ibuprofen 600 mg Take 1 tablet by 60 tablet 1 06/16/2019 Active tabletIndications: 39 mouth every 6 weeks gestation of (six) hours as , needed (Pain). Multiparity, Take with food (spontaneous vaginal or milk. delivery), Laceration, obstetrical, first degree Iron Fum & P-FA-Vit B Take 1 capsule 30 capsule 2 06/16/2019 Active & C No.9 (INTEGRA by mouth daily. PLUS) 125 mg iron- 1 mg CapIndications: 39 weeks gestation of , Multiparity, (spontaneous vaginal delivery) ketoconazole 2 % Apply to 30 g 0 06/18/2019 07/18/2019 A ctive creamIndications: area(s) daily Skin yeast infection for 30 days. 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 documented as of this encounter (statuses [...] Sign Reading Time Taken Comments Blood Pressure 133/82 06/18/2019 5:23 AM CDT Pulse 77 06/18/2019 5:23 AM CDT Temperature 36.7 C (98.1 F) 06/18/2019 5:23 AM CDT Respiratory Rate 12 06/18/2019 5:23 AM CDT Oxygen Saturation 99% 06/18/2019 5:23 AM CDT Inhaled Oxygen Concentration - - Weight 90.7 kg (200 lb) 06/18/2019 5:23 AM CDT Height 162.6 cm (5' 4") 06/18/2019 5:23 AM CDT Body Mass Index 34.33 06/18/2019 5:23 AM CDT documented in this encounter Discharge Instructions Lisa Joshua NP - 06/18/2019Diagnosis: Skin yeast infection Use cream once a day until cleared Prescription for ketoconazole sent to your pharmacy Follow up with your OB. AttachmentsThe following attachments cannot be sent through Care Everywhere. Magdalena Skin Infection (Adult) (Fijian)documented in this encounter Plan of Treatment Date Type Specialty Care Team Description 06/22/2019 Nurse Visit [facility] Juani Calderon FNP [address] [place] [address] [phone] Visit, [place] Nurse 07/07/2019 Routine Visit [facility] [address] [place], [place] [address] [phone] Health Maintenance Due Date Last Done Comments PAP SMEAR 10/22/2021 10/22/2018, 10/11/2014 DTaP,Tdap,and Td Vaccines (3 04/06/2029 04/06/2019, - Td) 10/26/2015 INFLUENZA VACCINE Completed 04/06/2019, 12/14/2015, 05/22/2015 PNEUMOCOCCAL 0-64 YEARS Aged Out No longe r eligible based COMBINED SERIES on patient's age to complete this to [facility] documented as of this encounter Procedures Procedure Name Priority Date/Time Associated Diagnosis Comme nts ASSIGNMENT OF BENEFITS Routine 06/18/2019 5:16 AM CDT documented in this encounter Results Not on filedocumented in this encounter Visit Diagnoses Diagnosis Skin yeast infection - Primary Candidiasis of skin and nails documented in this encounter Administered Medications Medication Order MAR Action Action Date Dose Rate Site fluconazole (DIFLUCAN) tablet 150 Given 06/18/2019 5:54 AM CDT 150 mg mg 150 mg, Oral, ONCE NOW, 1 dose, 06/18/19 at 0645, ZAID, Reason for Anti-Infective: Documented Infection, Documented Infection Site: Skin / Soft Tissue, Duration of Therapy: 7 days documented in this encounter Insurance Payer Benefit Plan / Subscriber ID Effective Phone Address [facility] xxxxxxxxx 2018-Pres [address] Medic aid HEALTH CHOICE - HEALTH CHOICE ent [id number] 1 MANAGED MEDICAID [place], [place]ICAID [phone] documented as of this encounter
--- OUTSIDE RECORDS SUMMARY | 2019-06-25 12:04 | XMS REPORT | Summary of Care ---
:1985 Author Organization [facility] Address [address] [place] [address] Care Team Providers Name Role Phone Doctor Unassigned, [place] Insurance Hmo Unavailable Ashley Calderon Primary Care Provider Reason for Visit Reason Comments Assessment Encounter Details Date Type Department Care Team Description [facility]2019 [facility], Assessment [address] [place] [address] [phone] [place], [place] [address] [phone] Allergies No Known Allergiesdocumented as of this encounter (statuses as of 06/20/2019) Medications Medication Sig Dispensed Refills Start Date [...] daily Skin yeast infection for 30 days. fluconazole Take 1 tablet by 1 tablet 0 06/20/2019 06/20/2019 Active (DIFLUCAN) 150 mg mouth once now tabletIndications: for 1 dose. 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 documented as of this encounter (statuses as of 06/20/2019) Immunizations Name Administration Dates Next Due Influenza [...] 06/22/2019 Nurse Visit [facility] Juani Calderon, BRICK PICKER [address] [place] [address] [phone] [facility] 07/07[facility]2019 Routine Visit [facility] Christine Alatorre, CNP [address] [place], [place] [address] [phone] Health Maintenance Due Date Last Done Comments PAP SMEAR 10/22/2021 10/22/2018, 10/11/2014 DTaP,Tdap,and Td Vaccines (3 04/06/2029 04/06/2019, - Td) 10/26/2015 INFLUENZA VACCINE Completed 04/06/2019, 12/14/2015, 05/22/2015 PNEUMOCOCCAL 0-64 YEARS Aged Out No longe r eligible based COMBINED SERIES on patient's age to complete this to the medical center documented as of this encounter Results Not on filedocumented in this encounter Visit Diagnoses Diagnosis Vagina itching - Primary Pruritus of genital organs documented in this encounter Insurance Payer Benefit Plan / Subscriber ID Effective Phone Address [facility] xxxxxxxxx 2018-Pres [address]OX Medic aid HEALTH CHOICE - HEALTH CHOICE ent [id number] 1 MANAGED MEDICAID [place], [place] MEDICAID [phone] documented as of this encounter
--- OUTSIDE RECORDS SUMMARY | 2019-06-25 12:04 | XMS REPORT | Summary of Care ---
:1985 Author Organization [facility] Address [address] [place] [address] Care Team Providers Name Role Phone Doctor Unassigned, [place] Insurance Hmo Unavailable Ashley Calderon Primary Care Provider Reason for Visit Reason Comments Assessment Rash for 2 days VAGINAL ITCHING for 2 days Encounter Details Date Type Department Care Team Description 06/19/2019 Nurse Triage [facility]- Lee Ann Alatorre Ass essment; Rash (for Hinton C, WHCNP 2 days); VAGINAL [address] [place] [address] ITCHING (for 2 days) [place], [place] [phone] [place], [place] [address] Allergies No Known Allergiesdocumented as of this encounter (statuses as of 06/19/2019) Medications Medication Sig Dispensed Refills Start Date [...] as of this encounter (statuses as of 06/19/2019) Active Problems Patient Care Coordination Note IOL [...] as of this encounter (statuses as of 06/19/2019) Resolved Problems Problem Noted Date Resolved Date [...] affecting 10/11/2014 01/28/2016 Overview: ICD10 Diagnosis 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 Nurse 07/07/2019 Routine Visit [facility] Christine Alatorre, WHCNP [address] [place], [place] [address] [phone] Health Maintenance Due Date Last Done Comments [...] Subscriber ID Effective Phone Address T [facility] xxxxxxxxx 2018-Pres [address]OX Medic aid HEALTH CHOICE - HEALTH CHOICE ent [id number] 1 MANAGED MEDICAID [place], [place] MEDICAID [phone] documented as of this encounter
--- OUTSIDE RECORDS SUMMARY | 2019-06-25 12:05 | XMS REPORT | Summary of Care ---
:1985 Author Organization [facility] Address [address] [place] [address] Care Team Providers Name Role Phone Doctor Unassigned, [place] Insurance Hmo Unavailable Ashley Calderon Primary Care Provider Reason for Visit Reason Comments Assessment Encounter Details Date Type Department Care Team Description [facility], Assessment [address] [place] [address] [phone] [place], [place] [address] [phone] Allergies No Known Allergiesdocumented as of this [...] affecting 10/11/2014 01/28/2016 Overview: ICD10 Diagnosis Term 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 documented as of this encounter (statuses [...] 06/22/2019 Nurse Visit [facility] Juani Calderon, CHAIN PEGGER [address] [place] [address] [phone] [facility] 07/07/2019 Routine Visit [facility] Christine Alatorre, CNP [address] [place], [place] [address] [phone] Health Maintenance Due Date Last Done Comments PAP SMEAR 10/22/2021 10/22/2018, 10/11/2014 DTaP,Tdap,and Td Vaccines (3 04/06/2029 04/06/2019, - Td) 10/26/2015 INFLUENZA VACCINE Completed 04/06/2019, 12/14/2015, 05/22/2015 PNEUMOCOCCAL 0-64 YEARS Aged Out No longe r eligible based COMBINED SERIES on patient's age to complete this to [facility] documented as of this encounter Results Not on filedocumented in this encounter Visit Diagnoses Diagnosis Vagina itching - Primary Pruritus of genital organs documented in this encounter Insurance Payer Benefit Plan / Subscriber ID Effective Phone Address T [facility] xxxxxxxxx 2018-Pres [address]OX Medic aid HEALTH CHOICE - HEALTH CHOICE ent [id number] 1 MANAGED MEDICAID [place], [place] [phone] documented as of this encounter
[2019-06-25] MEDS ORDERED: METHYLPREDNISOLONE 125 MG INJ ONE (12:49)
[2019-06-25] MEDS ORDERED: FAMOTIDINE 20 MG TAB ONE (12:50)
--- NOTE | 2019-06-25 12:50 | EDPHYS ---
Physician Documentation [facility] Name: Suzanne Edwards Age: 34 yrs Sex: Female : 1985 Arrival Date: 06/25/2019 Time: 11:58 Bed 6 Private MD: ED Physician Peter Pelayo HPI: 06/24 12:39 This 34 yrs old Female presents to ER via Ambulatory with complaints of Rash. cp 12:39 The patient's rash thought to be caused by an unknown cause. The rash is located on the cp back, chest, abdomen, pelvis, right arm and left arm. The rash can be described as erythematous. 12:40 Onset: The symptoms/episode began/occurred 1 week(s) ago. Associated signs and cp symptoms: Pertinent positives: itching, Pertinent negatives: difficulty breathing, fever, swelling of lips, swelling of throat, swelling of tongue. Severity of symptoms: in the emergency department the symptoms are worse. Treatment given at home: prescribed antifungal cream and oral tablet. Historical: - Allergies: 12:08 No Known Allergies; bp - Home Meds: 12:08 None [Active]; bp - PMHx: 12:08 None; bp - Immunization history:: Adult Immunizations up to date. - Social history:: Smoking status: Patient denies any tobacco usage or history of. ROS: 12:42 Eyes: Negative for injury, pain, redness, and discharge. cp 12:42 Constitutional: Negative for body aches, chills, fever, poor PO intake. 12:42 ENT: Negative for drainage from ear(s), ear pain, sore throat, difficulty swallowing, difficulty handling secretions. 12:42 Cardiovascular: Negative for chest pain. 12:42 Respiratory: Negative for cough, shortness of breath, wheezing. 12:42 Abdomen/GI: Negative for abdominal pain, nausea, vomiting, and diarrhea. 12:42 Skin: Positive for rash, of the back, chest, abdomen, pelvis, right arm and left arm. 12:42 All other systems are negative. Exam: 12:45 Head/Face: Normocephalic, atraumatic. cp 12:45 Constitutional: The patient appears in no acute distress, alert, awake, non-toxic, well developed, well nourished, obese. 12:45 Cardiovascular: Rate: normal. 12:45 Respiratory: the patient does not display signs of respiratory distress, Respirations: normal. 12:45 Skin: rash can be described as erythematous, consistent with hives, on the back, chest, abdomen, pelvis, right arm and left arm. Vital Signs: 12:06 BP 129 / 90; Pulse 65; Resp 19; Temp 98.3; Pulse Ox 100% ; Weight 95.25 kg; Height 5 bp ft. 4 in. (162.56 cm); 12:55 BP 117 / 85; Pulse 71; Resp 17; Pulse Ox 100% ; bp 12:06 Body Mass Index 36.05 (95.25 kg, 162.56 cm) bp MDM: 12:08 Patient medically screened. cp 12:45 Differential diagnosis: allergic reaction, cellulitis, tinea. cp 12:49 Data reviewed: vital signs, nurses notes, and as a result, I will discharge patient. cp Administered Medications: 12:48 Drug: Pepcid 20 mg Route: PO; bp 12:56 Follow up: Response: No adverse reaction bp 12:49 Drug: SOLU-Medrol 125 mg Route: IM; Site: right gluteus; bp 12:56 Follow up: Response: No adverse reaction bp Disposition: 18:49 Co-signature as Attending Physician, Peter Pelayo MD I agree with the assessment and kdr plan of care. Disposition: 06/25/19 12:49 Discharged to Home. Impression: Urticaria, unspecified - hives. - Condition is Stable. - Discharge Instructions: Hives. - Prescriptions for prednisone 50 mg Oral tablet - take 1 tablet by ORAL route once daily for 5 days; 5 tablet. Pepcid 20 mg Oral Tablet - take 1 tablet by ORAL route every 12 hours for 5 days; 10 tablet. - Medication Reconciliation Form, Thank You Letter, Antibiotic Education, Prescription Opioid Use form. - Follow up: Private Physician; When: 1 week; Reason: symptoms continue. - Problem is an ongoing problem. - Symptoms are unchanged. Signatures: Peter Pelayo MD MD kdr Peng Givens PA PA cp Ruben Epstein, RN RN bp Corrections: (The following items were deleted from the chart) 12:57 12:49 06/25/2019 12:49 Discharged to Home. Impression: Urticaria, unspecified - hives. bp Condition is Stable. Forms are Medication Reconciliation Form, Thank You Letter, Antibiotic Education, Prescription Opioid Use. Follow up: Private Physician; When: 1 week; Reason: symptoms continue. Problem is an ongoing problem. Symptoms are unchanged. cp
--- NOTE | 2019-06-25 12:50 | ER ---
Nurse's Notes [facility] Name: Suzanne Edwards Age: 34 yrs Sex: Female : 1985 Arrival Date: 06/25/2019 Time: 11:58 Bed 6 Private MD: Diagnosis: Urticaria, unspecified-hives Presentation: 06/24 12:06 Chief complaint: Patient states: I HAD A BABY A WEEK AGO AND I GOT THIS RASH ON MY bp PRIVATES. I WENT TO [facility] FOR IT AND THEY GAVE ME A CREAM, BUT I SCRATCH MYSELF AND NOW IT'S ON MY HANDS TOO. Coronavirus screen: Proceed with normal triage. Ebola Screen: No symptoms or risks identified at this time. Initial Sepsis Screen: Does the patient meet any 2 criteria? No. Patient's initial sepsis screen is negative. Does the patient have a suspected source of infection? No. Patient's initial sepsis screen is negative. Risk Assessment: Do you want to hurt yourself or someone else? Patient reports no desire to harm self or others. Onset of symptoms is unknown. 12:06 Method Of Arrival: Ambulatory bp 12:06 Acuity: BING 4 bp Triage Assessment: 12:08 General: Appears in no apparent distress. comfortable, obese, Behavior is cooperative, bp appropriate for age, anxious. Pain: Complains of pain in pelvis, right hand and left hand. EENT: No deficits noted. Neuro: No deficits noted. Cardiovascular: No deficits noted. Respiratory: No deficits noted. GI: No signs and/or symptoms were reported involving the gastrointestinal system. : No signs and/or symptoms were reported regarding the genitourinary system. Derm: Rash noted that is itchy, red. Musculoskeletal: No deficits noted. Historical: - Allergies: 12:08 No Known Allergies; bp - Home Meds: 12:08 None [Active]; bp - PMHx: 12:08 None; bp - Immunization history:: Adult Immunizations up to date. - Social history:: Smoking status: Patient denies any tobacco usage or history of. Screenin:08 Abuse screen: Denies threats or abuse. Denies injuries from another. Nutritional bp screening: No deficits noted. Tuberculosis screening: No symptoms or risk factors identified. Fall Risk None identified. Assessment: 12:08 General: SEE TRIAGE NOTE. bp 12:54 Reassessment: PT D/C HOME AMBULATORY, DX WITH URTICARIA. Respiratory: Airway is patent. bp Vital Signs: 12:06 BP 129 / 90; Pulse 65; Resp 19; Temp 98.3; Pulse Ox 100% ; Weight 95.25 kg; Height 5 bp ft. 4 in. (162.56 cm); 12:55 BP 117 / 85; Pulse 71; Resp 17; Pulse Ox 100% ; bp 12:06 Body Mass Index 36.05 (95.25 kg, 162.56 cm) bp ED Course: 11:58 Patient arrived in ED. mr 12:00 Peng Givens PA is PHCP. cp 12:00 Peter Pelayo MD is Attending Physician. cp 12:06 Ruben Epstein, RN is Primary Nurse. bp 12:07 Triage completed. bp 12:08 Arm band placed on. bp 12:08 Patient has correct armband on for positive identification. Bed in low position. Call bp light in reach. Side rails up X2. 12:55 No provider procedures requiring assistance completed. Patient did not have IV access bp during this emergency room visit. Administered Medications: 12:48 Drug: Pepcid 20 mg Route: PO; bp 12:56 Follow up: Response: No adverse reaction bp 12:49 Drug: SOLU-Medrol 125 mg Route: IM; Site: right gluteus; bp 12:56 Follow up: Response: No adverse reaction bp Outcome: 12:49 Discharge ordered by MD. cp 12:55 Discharged to home ambulatory. bp 12:55 Condition: stable 12:55 Discharge instructions given to patient, Instructed on discharge instructions, follow up and referral plans. medication usage, Demonstrated understanding of instructions, follow-up care, medications, Prescriptions given X 2. 12:57 Patient left the ED. bp Signatures: Tara Rivers Peng Givens PA PA cp Ruben Epstein, RN RN bp
[2019-06-25 13:03] VITALS: TEMP 98.3; O2SAT 100
[2019-06-25 13:04] VITALS: BP 117/85
== END 2019-06-25 12:57 | disposition home or self-care (01) ==
LOC: ER 11:54
DX: L50.9 Urticaria, unspecified (principal)
CPT/HCPCS: 96372; 99283; J2930

== ENCOUNTER 2020-10-21 04:41 | Emergency (ER) | payer OTHER ==
--- OUTSIDE RECORDS SUMMARY | 2020-10-21 04:44 | XMS REPORT | Continuity of Care Document ---
:1985 Author Organization [facility] t Address [address] [place] [address] Care Team Providers Name Role Phone Messi Mendez Attending Clinician Problems This patient has no known problems. Allergies, Adverse Reactions, Alerts This patient has no known allergies or adverse reactions. Medications This patient has no known medications. Procedures This patient has no known procedures. Encounters Start End Encounter Admission Attending Care Care Encounter Source Date/Time Date/Time Type Type Clinicians Facility Department ID 2019-07-14 2019-07-14 Telephone Celi [facility] [id number] 00:00:00 00:00:00 Lee Ann Swenson SHEET METAL ERECTOR [id number] REGIONAL [id number] MATERNAL [id number] & CHILD [address] [facility] 2019-07-06 2019-07-06 Telephone Celi [facility] [id number] 00:00:00 00:00:00 Lee Ann Messi SHEET METAL ERECTOR [id number] REGIONAL [id number] MATERNAL [id number] & CHILD [address] [facility] 2019-06-20 2019-06-20 Telephone Celi [facility] [id number] 00:00:00 00:00:00 Lee Ann C SHEET METAL ERECTOR [id number] REGIONAL [id number] MATERNAL [id number] & CHILD [address] [facility] Results This patient has no known results.
[2020-10-21 05:44] LABS: Urine Blood Negative (Negative); Urine Glucose Negative (Negative); Urine Protein Negative (Negative); Urine Specific Gravity <=1.005 (1.005-1.030); Urine pH 6.5 (5.0-7.0)
[2020-10-21 06:50] LABS: Urine Specific Gravity/Preg <1.005 (1.005-1.030)
[2020-10-21] MEDS ORDERED: ONDANSETRON 4 MG/2 ML VIAL ONE ×2 (07:51→08:48)
[2020-10-21] MEDS ORDERED: NA CHLORIDE 0.9% 1,000 ML ONE (07:51)
[2020-10-21] MEDS ORDERED: KETOROLAC 30 MG/ML INJ ONE (07:51)
[2020-10-21 08:10] LABS: Absolute Lymphocytes (CBC) 1.8 K/uL (0.7-4.9); Basophils % 1.1 % (0-1.3); Hematocrit 40.4 % (36.0-45.0); Lymphocytes % 22.9 % (15.3-44.8); MPV 9.4 fL (7.6-11.3); RBC Red Blood Cell Count 5.07 M/uL (3.86-4.86)
[2020-10-21 08:43] LABS: ALT/SGPT 193 U/L (12-78); AST/SGOT 86 U/L (15-37); Albumin 3.9 g/dL (3.4-5.0); Alkaline Phosphatase 165 U/L (45-117); BUN Blood Urea Nitrogen 11 mg/dL (7-18); Bicarbonate 30 mmol/L (21-32); Bilirubin Direct 0.1 mg/dL (0-0.2); Bilirubin Total 0.5 mg/dL (0.2-1.0); Glucose Level 92 mg/dL (74-106); Lipase 52 U/L (73-393); Protein, Total 8.1 g/dL (6.4-8.2); Sodium Level 139 mmol/L (136-145)
--- NOTE | 2020-10-21 09:24 | RAD REPORT ---
EXAM DESCRIPTION: US - Abdomen Exam Limited - 10/21/2020 9:08 am CLINICAL HISTORY: ABD PAIN COMPARISON: <Comparisons> FINDINGS: Cholelithiasis noted. The gallbladder is full of shadowing gallstones. The gallbladder wal l is nonthickened and measures 2 millimeters. The sonographic Cooper sign is negative. No biliary celia t dilatation. The common bile duct measures 4 millimeters. IMPRESSION: Cholelithiasis without sonographic evidence acute cholecystitis.
--- NOTE | 2020-10-21 09:36 | ER ---
Nurse's Notes [facility] Name: Suzanne Edwards Age: 35 yrs Sex: Female : 1985 Arrival Date: 10/21/2020 Time: 04:44 Bed 19 Private MD: Diagnosis: Other cholelithiasis without obstruction;Abnormal results of liver function studies Presentation: 10/21 05:12 Chief complaint: Patient states: she has been having epigastric pain intermittently x 1 bb month the pain will radiate to her right side and she feels it in her back she is nauseous but denies vomiting. Coronavirus screen: At this time, the client does not indicate any symptoms associated with coronavirus-19. Ebola Screen: No symptoms or risks identified at this time. Initial Sepsis Screen: Does the patient meet any 2 criteria? No. Patient's initial sepsis screen is negative. Does the patient have a suspected source of infection? No. Patient's initial sepsis screen is negative. Risk Assessment: Do you want to hurt yourself or someone else? Patient reports no desire to harm self or others. Onset of symptoms was September 2020. 05:12 Method Of Arrival: Ambulatory bb 05:12 Acuity: BING 3 bb Triage Assessment: 05:14 General: Appears in no apparent distress. uncomfortable, Behavior is calm, cooperative. bb Pain: Complains of pain in abdomen. Neuro: Level of Consciousness is awake, alert, obeys commands, Oriented to person, place, time, situation. Cardiovascular: Capillary refill < 3 seconds Patient's skin is warm and dry. Respiratory: Respiratory effort is even, unlabored, Respiratory pattern is regular. GI: Abdomen is round Reports upper abdominal pain, nausea. Derm: Skin is pink, warm \T\ dry. Musculoskeletal: Circulation, motion, and sensation intact. 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 - Social history:: Smoking status: Patient denies any tobacco usage or history of. Patient uses alcohol, occasionally. Patient/guardian denies using street drugs. Screenin:20 Abuse screen: Denies threats or abuse. Nutritional screening: No deficits noted. rb3 Tuberculosis screening: No symptoms or risk factors identified. Fall Risk None identified. Assessment: 07:20 General: Appears in no apparent distress. comfortable, Behavior is calm, cooperative, rb3 Denies fever. Pain: Complains of pain in abdomen. Neuro: Level of Consciousness is awake, alert, obeys commands, Oriented to person, place, time, situation. Cardiovascular: Patient's skin is warm and dry. Respiratory: Airway is patent Respiratory effort is even, unlabored, Respiratory pattern is regular, symmetrical. GI: Reports diarrhea, nausea. : No signs and/or symptoms were reported regarding the genitourinary system. 08:20 Reassessment: Patient appears in no apparent distress at this time. No changes from rb3 previously documented assessment. 09:19 Reassessment: Patient appears in no apparent distress at this time. Patient and/or rb3 family updated on plan of care and expected duration. Pain level reassessed. Patient is alert, oriented x 3, equal unlabored respirations, skin warm/dry/pink. 09:53 Reassessment: Discharge pending due to Zosyn infusing. rb3 10:31 Reassessment: Patient appears in no apparent distress at this time. No changes from rb3 previously documented assessment. Waiting for infusion to complete. Vital Signs: 05:12 BP 113 / 78; Pulse 69; Resp 16 S; Temp 98.5(O); Pulse Ox 100% on R/A; Weight 96.16 kg bb (R); Height 5 ft. 4 in. (162.56 cm) (R); Pain 9/10; 08:30 BP 113 / 86; Pulse 68; Resp 17; Pulse Ox 100% ; rb3 09:28 BP 116 / 84; Pulse 56; Resp 16; Pulse Ox 100% ; rb3 10:30 BP 122 / 74; Pulse 57; Resp 17; Pulse Ox 100% ; rb3 05:12 Body Mass Index 36.39 (96.16 kg, 162.56 cm) bb ED Course: 04:44 Patient arrived in ED. bp1 05:14 Triage completed. bb 05:14 Arm band placed on Patient placed in waiting room, Patient notified of wait time. bb 07:16 Kelly Miranda FNP-C is [facility]. kb 07:16 Peng Triana MD is Attending Physician. kb 07:19 Cassie Mar, RN is Primary Nurse. rb3 07:20 Patient has correct armband on for positive identification. Bed in low position. Call rb3 light in reach. Side rails up X 1. Pulse ox on. NIBP on. Warm blanket given. 07:51 Inserted saline lock: 20 gauge in left antecubital area, using aseptic technique. Blood rb3 collected. 09:07 US Abdomen Limited In Process Unspecified. EDMS 09:37 Yordan Roland MD is Referral Physician. kb 10:55 No provider procedures requiring assistance completed. IV discontinued, intact, rb3 bleeding controlled, No redness/swelling at site. Pressure dressing applied. Administered Medications: 07:52 Drug: NS 0.9% 1000 ml Route: IV; Rate: 1000 ml; Site: left antecubital; rb3 09:00 Follow up: IV Status: Completed infusion rb3 07:59 Not Given (Patient Refused): Zofran (Ondansetron) 4 mg IVP once; over 2 minutes rb3 07:59 Not Given (Patient Refused): Ketorolac 15 mg IVP once rb3 08:37 Drug: Zofran (Ondansetron) 4 mg Route: IVP; Site: left antecubital; rb3 08:53 Follow up: Response: No adverse reaction; Nausea is decreased rb3 09:50 Drug: Zosyn (piperacillin-tazobactam) 3.375 grams Route: IVPB; Infused Over: 60 mins; rb3 Site: left antecubital; 10:50 Follow up: Response: No adverse reaction; IV Status: Completed infusion rb3 Outcome: 09:36 Discharge ordered by . kb 10:55 Patient left the ED. rb3 10:55 Discharged to home ambulatory. rb3 10:55 Condition: stable 10:55 Discharge instructions given to patient, Instructed on discharge instructions, follow up and referral plans. medication usage, Demonstrated understanding of instructions, follow-up care, medications, Prescriptions given X 3. Signatures: Dispatcher [employer] EDNY Kelly Miranda FNP-C FNP-Vanna Sloan RN RN Shawna Brown [facility] Mar, Cassie, RN RN rb3
--- NOTE | 2020-10-21 09:36 | EDPHYS ---
Physician Documentation [facility] Name: Suzanne Edwards Age: 35 yrs Sex: Female : 1985 Arrival Date: 10/21/2020 Time: 04:44 Bed 19 Private MD: URIEL Physician Peng Triana HPI: 10/21 07:43 This 35 yrs old Female presents to ER via Ambulatory with complaints of kb Abdominal Pain. 07:43 The patient presents with abdominal pain in the epigastric area, in the right upper kb quadrant. Onset: The symptoms/episode began/occurred 1.5 month(s) ago. The symptoms do not radiate. Associated signs and symptoms: Pertinent positives: diarrhea, nausea. The symptoms are described as intermittent. Modifying factors: The symptoms are alleviated by nothing, the symptoms are aggravated by nothing. Severity of pain: At its worst the pain was moderate in the emergency department the pain is unchanged. The patient has not experienced similar symptoms in the past. The patient has not recently seen a physician. Pt reports epigastric pain that started 1.5 months ago. States the pain has traveled to [facility] since onset. Pain is intermittent. States she feels bloated and has diarrhea after eating. . 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 - Social history:: Smoking status: Patient denies any tobacco usage or history of. Patient uses alcohol, occasionally. Patient/guardian denies using street drugs. ROS: 07:42 Constitutional: Negative for fever, chills, and weight loss. kb 07:42 Abdomen/GI: Positive for abdominal pain, nausea, diarrhea, Negative for vomiting. 07:42 All other systems are negative. Exam: 07:42 Constitutional: This is a well developed, well nourished patient who is awake, alert, kb and in no acute distress. Head/Face: Normocephalic, atraumatic. ENT: Moist Mucous membranes Cardiovascular: Regular rate and rhythm with a normal S1 and S2. No gallops, murmurs, or rubs. No pulse deficits. Respiratory: Respirations even and unlabored. No increased work of breathing, no retractions or nasal flaring. Skin: Warm, dry with normal turgor. Normal color. MS/ Extremity: Pulses equal, no cyanosis. Neurovascular intact. Full, normal range of motion. Neuro: Awake and alert, GCS 15, oriented to person, place, time, and situation. Moves all extremities. Normal gait. Psych: Awake, alert, with orientation to person, place and time. Behavior, mood, and affect are within normal limits. 07:42 Abdomen/GI: Inspection: abdomen appears normal, Bowel sounds: normal, in all quadrants, Palpation: soft, in all quadrants, mild abdominal tenderness, in the epigastric area and right upper quadrant. Vital Signs: 05:12 BP 113 / 78; Pulse 69; Resp 16 S; Temp 98.5(O); Pulse Ox 100% on R/A; Weight 96.16 kg bb (R); Height 5 ft. 4 in. (162.56 cm) (R); Pain 9/10; 08:30 BP 113 / 86; Pulse 68; Resp 17; Pulse Ox 100% ; rb3 09:28 BP 116 / 84; Pulse 56; Resp 16; Pulse Ox 100% ; rb3 10:30 BP 122 / 74; Pulse 57; Resp 17; Pulse Ox 100% ; rb3 05:12 Body Mass Index 36.39 (96.16 kg, 162.56 cm) bb MDM: 07:16 Patient medically screened. 07:43 Data reviewed: vital signs, nurses notes. Data interpreted: Pulse oximetry: on room air kb is 100 %. Interpretation: normal. 09:35 Counseling: I had a detailed discussion with the patient and/or guardian regarding: the kb historical points, exam findings, and any diagnostic results supporting the discharge/admit diagnosis, lab results, radiology results, the need for outpatient follow up, a general surgeon, to return to the emergency department if symptoms worsen or persist or if there are any questions or concerns that arise at home. Physician consultation: Yordan Roland MD was contacted at 09:35, regarding consult, patient's condition, and will see patient in office, tomorrow. 10/21 05:44 Order name: Urine Dipstick-Ancillary EDMS 10/21 05:44 Order name: Urine --Ancillary (enter results); Complete Time: 07:16 tt3 10/21 07:22 Order name: Basic Metabolic Panel kb 10/21 07:22 Order name: CBC with Diff; Complete Time: 08:15 kb 10/21 07:22 Order name: Hepatic Function; Complete Time: 08:48 kb 10/21 07:22 Order name: Lipase; Complete Time: 08:48 kb 10/21 05:44 Order name: Urine Test (obtain specimen); Complete Time: 05:44 tt3 10/21 07:22 Order name: US Abdomen Limited; Complete Time: 09:28 kb 10/21 07:22 Order name: Basic Metabolic Panel; Complete Time: 08:48 EDMS 10/21 07:22 Order name: IV Saline Lock; Complete Time: 07:59 kb 10/21 07:22 Order name: Labs collected and sent; Complete Time: 07:59 kb Administered Medications: 07:52 Drug: NS 0.9% 1000 ml Route: IV; Rate: 1000 ml; Site: left antecubital; rb3 09:00 Follow up: IV Status: Completed infusion rb3 07:59 Not Given (Patient Refused): Zofran (Ondansetron) 4 mg IVP once; over 2 minutes rb3 07:59 Not Given (Patient Refused): Ketorolac 15 mg IVP once rb3 08:37 Drug: Zofran (Ondansetron) 4 mg Route: IVP; Site: left antecubital; rb3 08:53 Follow up: Response: No adverse reaction; Nausea is decreased rb3 09:50 Drug: Zosyn (piperacillin-tazobactam) 3.375 grams Route: IVPB; Infused Over: 60 mins; rb3 Site: left antecubital; 10:50 Follow up: Response: No adverse reaction; IV Status: Completed infusion rb3 Disposition: 10/22 07:39 Co-signature as Attending Physician, Peng Triana MD I agree with the assessment and steffany plan of care. Disposition Summary: 10/21/20 09:36 Discharge Ordered Location: Home kb Condition: Stable kb Diagnosis - Other cholelithiasis without obstruction kb - Abnormal results of liver function studies kb Followup: kb - With: Private Physician - When: 2 - 3 days - Reason: Recheck today's complaints, Continuance of care, Re-evaluation by your physician Followup: kb - With: Emergency Department - When: As needed - Reason: Worsening of condition Followup: kb - With: Yordan Roland MD - When: Tomorrow - Reason: Recheck today's complaints Discharge Instructions: - Discharge Summary Sheet kb - Cholelithiasis, [id number] kb Forms: - Medication Reconciliation Form kb - Thank You Letter kb - Antibiotic Education kb - Prescription Opioid Use kb Prescriptions: - Augmentin 875-125 mg Oral Tablet - take 1 tablet by ORAL route every 12 hours for 10 days; 20 tablet; Refills: 0, kb Product Selection Permitted - Zofran 4 mg Oral Tablet - take 1 tablet by ORAL route every 6 hours As needed; 20 tablet; Refills: 0, kb Product Selection Permitted - Diclofenac Sodium 75 mg Oral tablet,delayed release (DR/EC) - take 1 tablet by ORAL route 2 times per day As needed; 30 tablet; Refills: 0, kb Product Selection Permitted Signatures: Dispatcher [employer] Kelly Bautista, PHOTOGRAPHS CURATOR-C PHOTOGRAPHS CURATOR-Kevinb Peng Triana MD MD cha Ballard, Brenda, RN RN [place] tt3 Cassie Mar, RN RN rb3
[2020-10-21] MEDS ORDERED: PIPER/TAZO/NS 3.375gm 3.375 GM/100 ML BAG ONE (10:08)
[2020-10-21 11:05] VITALS: TEMP 98.5; O2SAT 100
[2020-10-21 11:08] VITALS: BP 116/84
== END 2020-10-21 10:55 | disposition home or self-care (01) ==
LOC: ER 04:41
DX: K80.80 Other cholelithiasis without obstruction (principal); R94.5 Abnormal results of liver function studies
CPT/HCPCS: 96365; 96361; 85025; 80048; 36415; 81025; 80076; 81003; 83690; 76705; 96375; 99284; J2543; J7030; J2405 ×2

== ENCOUNTER 2020-12-05 08:47 | Day surgery (SDC) | payer OTHER ==
[2020-12-05 09:34] LABS: Absolute Lymphocytes (CBC) 1.8 K/uL (0.7-4.9); Basophils % 0.5 % (0-1.3); Hematocrit 38.6 % (36.0-45.0); MPV 9.4 fL (7.6-11.3); RBC Red Blood Cell Count 4.82 M/uL (3.86-4.86)
[2020-12-05 09:52] LABS: ALT/SGPT 118 U/L (12-78); AST/SGOT 64 U/L (15-37); Albumin 3.6 g/dL (3.4-5.0); Alkaline Phosphatase 142 U/L (45-117); Amylase 29 U/L (25-115); BUN Blood Urea Nitrogen 10 mg/dL (7-18); Bicarbonate 26 mmol/L (21-32); Bilirubin Direct 0.1 mg/dL (0-0.2); Bilirubin Total 0.5 mg/dL (0.2-1.0); Glucose Level 94 mg/dL (74-106); Lipase 45 U/L (73-393); Potassium 3.8 mmol/L (3.5-5.1); Protein, Total 7.8 g/dL (6.4-8.2); Sodium Level 142 mmol/L (136-145)
[2020-12-05] MEDS ORDERED: CEFAZOLIN/SWI 1gm 0 GM/0 ML SYR ONE (10:41)
[2020-12-05] MEDS ORDERED: Ringers Lactate 1,000 ML IV ONE (10:41)
[2020-12-05] MEDS ORDERED: propofoL 200 MG/20 ML VIAL IV ONE (11:07)
[2020-12-05] MEDS ORDERED: MIDAZOLAM HCL 2 MG/2 ML INJ ONE (11:07)
[2020-12-05] MEDS ORDERED: KETOROLAC 30 MG/ML INJ ONE (11:08)
[2020-12-05] MEDS ORDERED: dexAMETHasone 10 MG/ML VIAL ONE (11:08)
[2020-12-05] MEDS ORDERED: FENTANYL CITR 100 MCG/2 ML ONE (11:08)
[2020-12-05] MEDS ORDERED: LIDOCAINE 2% MPF 5 ML VIAL ONE (11:08)
[2020-12-05] MEDS ORDERED: ROCURONIUM 50 MG/5 ML VIAL IV ONE (11:08)
[2020-12-05] MEDS ORDERED: ONDANSETRON 4 MG/2 ML VIAL ONE ×2 (11:09→14:46)
[2020-12-05] MEDS ORDERED: CEFOXITIN/SWI 1gm 1 GM/10 ML SYR ONE (12:23)
--- NOTE | 2020-12-05 13:40 | P.BOP ---
Preoperative diagnosis: symptomatic cholelithiasis Postoperative diagnosis: same Primary procedure: Laparoscopic cholecystectomy Market Research Coordinator: JOSEPH FULTON (CERTIFIED [employer]ORTHAND REPORTER) Estimated blood loss: <10cc Specimen: gb Findings: as above Anesthesia: General Complications: None Transferred to: Recovery Room Condition: Good
[2020-12-05] MEDS ORDERED: GLYCOPYRROLATE 0.2 MG/ML SYR ONE (13:53)
[2020-12-05] MEDS ORDERED: NEOSTIGMINE 1 MG/ML -5 ML ONE (13:53)
[2020-12-05] MEDS ORDERED: PROMETHAZINE INJ 25 MG/ML AMP ONE (14:14)
[2020-12-05] MEDS ORDERED: HYDROMORPHONE HCL 1 MG/ML INJ ONE (14:15)
[2020-12-05 14:39] VITALS: O2SAT 98
[2020-12-05 15:03] VITALS: BP 147/85; TEMP 96.8
[2020-12-05] MEDS ORDERED: CODEINE 30MG/APAP 300MG TAB ONE (15:42)
== END 2020-12-05 15:49 | disposition home or self-care (01) ==
LOC: OR 08:47
PROVIDERS: ATTEND Surgery
PROC: 0FT44ZZ Resection of Gallbladder, Percutaneous Endoscopic Approach (ICD-10-PCS; principal; 2020-12-05 12:15)
DX: K80.10 Calculus of gallbladder with chronic cholecystitis without obstruction (principal); Z20.822 Contact with and (suspected) exposure to COVID-19
CPT/HCPCS: 85025; 80048; 36415; 82150; 84703; 80076; 88304; 83690; 47562; U0003; J2704; J2550; J2250; J3010; J1100; J1170; J2710; J7120; J2405 ×2; J0690

== ENCOUNTER → 2023-05-31 | Emergency (ER) | payer SELFPAY ==
--- OUTSIDE RECORDS SUMMARY | 2023-05-31 21:30 | XMS REPORT | Continuity of Care Document ---
Author Name Unknown Address [address] [facility] [address] [place] [address] [facility] thconnect Address [address] [facility] [address] [place] [address] Care Team Providers Care Detective Chief Name Role Phone PCP, PATIENT DOES NOT HAVE A Primary Care Physic camille Unavailable VANNA ANDRADE Attending Clinician UnavailaVnna Travis CNM Attending Clinician [phone] Doctor Unassigned, [place] Attending Clinician U navailable Akinsibetty WHCNPLee Ann Attending Clinician + LEE ANN ALATORRE Attending Clinician Unavail antonio Dawkins NP, Lisa Mendoza Attending Clinician [phone] Sindy Hernandez RN Attending Clinician Unavailable Last Hinton MD, Maricel Attending Clinician + Ultrasound, BessieMfm Attending Clinician Unavailgabbie Celestin MD, Vickey Montgomery Attending Clinician [phone] Juani Alanis Attending Clinician [phone] Remy Puente Attending Clinician [phone] Lab, BessieRmchp Attending Clinician Unavailable Last Hinton MD, Maricel Admitting Clinician + Payers Payer Name Policy Type Policy Number Effective Date Expirati on Date Source FORMERLY [facility] MEDICAID [id number] 2018 00:00:00 MEDICAID PENDING PENDING 2023 00:00:00 Problems Condition Name Condition Details Condition Category Status Onset Date Resolution Date Last Treatment Date Treating Clinician Comments Source AMA (advanced maternal age) multigravi da 35+ AMA (advanced maternal age) multigravi da 35+ Disease Active 3-12 00:00: 00 [facility] Tubal ligation status Tubal ligation status Disease Active 3-12 00:00: 00 [facility] History of miscarriag e History of miscarriag e Disease Active 3-12 00:00: 00 [facility] (spontaneo us vaginal delivery) (spontaneo us vaginal delivery) Disease Active 0 4-02 00:00: 00 [facility] Single live Single live Disease Active 4-02 00:00: 00 [facility] Laceration , obstetrica l, minor Laceration , obstetrica l, minor Disease Active 0 4-02 00:00: 00 [facility] Indication for care in labor or delivery Indication for care in labor or delivery Disease Active 0 4- 00:00: 00 [facility] Indication for care in labor or delivery Indication for care in labor or delivery Disease Active 0 4-01 00:00: 00 [facility] Multiparit y Multiparit y Disease Active 0 3-04 00:00: 00 [facility] Vaginal bleeding in Vaginal bleeding in Disease Active 0 1-27 00:00: 00 [facility] Nausea and vomiting in prior to 22 weeks gestation Nausea and vomiting in prior to 22 weeks gestation Disease Active 2018-03 0-04 00:00: 00 [facility] Abnormal maternal glucose tolerance, antepartum Abnormal maternal glucose tolerance, antepartum Disease Active 12 00:00: 00 [facility] High-risk in third trimester High-risk in third trimester Disease Active 8- 00:00: 00 [facility] Obesity affecting Obesity affecting Disease Active 8- 00:00: 00 [facility] Well woman exam Well woman exam Disease Active 2015-03 2-05 00:00: 00 [facility] Other general counseling and advice for contracept lucia management Other general counseling and advice for contracept lucia management Disease Active 2015-03 00:00: 00 [facility] Obese Obese Disease Active 2015-03 00:00: 00 [facility] Vaginal yeast infection Vaginal yeast infection Disease Active 2015-03 00:00: 00 [facility] 39 weeks gestation of 39 weeks gestation of Disease Active 2015-03 0 00:00: 00 [facility] Declines flu vaccine Declines flu vaccine Disease Active 12-13 00:00: 00 Overview: Formattin g of this note might be different from the original. Received flu vac today [facility] Allergies, Adverse Reactions, Alerts Allergy Name Allergy Type Status Severity Reaction(s) Onset Date Inactive Date Treating Clinician Comments Source NO KNOWN ALLERGIE S Drug Class Active [facility] Social History Social Habit Start Date Stop Date Quantity Comments Source ASSERTION 2023-04-23 00:00:00 [facility] 2023-05-26 00:00:00 2023-05-26 00:00:00 Current non-drinker of alcohol (finding) [facility] Tobacco use and exposure 2023-05-26 00:00:00 2023-05-26 00:00:00 Smokeless tobacco non-user [facility] History of Social function 2023-05-26 00:00:00 2023-05-26 00:00:00 [facility] Sex Assigned At 1985 00:00:00 1985 00:00:00 [facility] Smoking Status Start Date Stop Date Source Never smoked tobacco [facility] Medications Ordered Medication Name Filled Medication Name Start Date Stop Date Current Medication? Ordering Clinician Indication Dosage Frequency Signature (SIG) Comments Components Source vit no.124/iron /folic ( VITAMIN ORAL) 05-25 09:10: 59 Yes Take by mouth. [facility] vit no.124/iron /folic ( VITAMIN ORAL) 05-25 09:10: 59 Yes Take by mouth. [facility] fluconazole (DIFLUCAN) 150 mg tablet 06-19 00:00: 00 06-20 04:59 :00 No [id number] 150mg Take 1 tablet by mouth once now for 1 dose. [facility] fluconazole (DIFLUCAN) 150 mg tablet 06-19 00:00: 00 06-20 04:59 :00 No [id number] 150mg Take 1 tablet by mouth once now for 1 dose. [facility] fluconazole (DIFLUCAN) tablet 150 mg 06-17 11:45: 00 06-17 10:54 :00 No 150mg 150 mg, Oral, ONCE NOW, 1 dose, 06/18/19 at 0645, ZAID
Re ason for Anti-Infec tive: Documented Infection< br>Documen papo Infection Site: Skin / Soft Tissue
Duration of Therapy: 7 days [facility] ketoconazol e 2 % cream 4- 00:00: 00 07-18 04:59 :00 No [id number] Apply to area(s) daily for 30 days. [facility] ketoconazol e 2 % cream 4-04 00:00: 00 07-18 04:59 :00 No [id number] Apply to area(s) daily for 30 days. [facility] ketoconazol e 2 % cream 4-04 00:00: 00 07-18 04:59 :00 No [id number] Apply to area(s) daily for 30 days. [facility] ketoconazol e 2 % cream 4-04 00:00: 00 07-18 04:59 :00 No [id number] Apply to area(s) daily for 30 days. [facility] ketoconazol e 2 % cream 4-04 00:00: 00 07-18 04:59 :00 No [id number] Apply to area(s) daily for 30 days. [facility] ketoconazol e 2 % cream 4-04 00:00: 00 07-18 04:59 :00 No [id number] Apply to area(s) daily for 30 days. [facility] rho(D) immune globulin (RHOGAM) syringe 300 mcg 06-15 05:30: 03 Yes 300ug 300 mcg, Intramuscu lar, ONCE, For 1 dose, Conditiona l, Routine [facility] human papillomav vac,9-alexandro(P F) (GARDASIL-9 ) syringe 0.5 mL 06-15 05:29: 59 Yes .5mL 0.5 mL, Intramuscu lar, ONCE-PRIOR TO DISCHARGE, 1 dose, Starting Rosa Maria 06/16/19 at 0029, Until Discontinu ed, Routine, Give vaccine prior to discharge [facility] ibuprofen (IBU) tablet 600 mg 06-15 05:29: 59 Yes 600mg 600 mg, Oral, Q6HPRN, Starting Rosa Maria 06/16/19 at 0029, Until Discontinu ed, Routine, Pain (scale 4-6) [facility] acetaminoph en (TYLENOL) tablet 650 mg 06-15 05:29: 59 Yes 650mg 650 mg, Oral, Q6HPRN, Starting Rosa Maria 06/16/19 at 0029, Until Discontinu ed, Routine, Pain (scale 1-3) [facility] diphenhydrA MINE (BENADRYL) tablet 25 mg 06-15 05:29: 59 Yes 25mg 25 mg, Oral, Q6HPRN, Starting Rosa Maria 06/16/19 at 0029, Until Discontinu ed, Routine, Sleep, Itching [facility] diphenhydrA MINE-0.9 % sod.chlr (BENADRYL) 25 mg/50 mL piggyback 25 mg 06-15 05:29: 59 Yes 25mg 25 mg, IV Piggyback, Administer over 30 Minutes, Q6HPRN, Starting Rosa Amria 06/16/19 at 0029, Until Discontinu ed, Routine, Itching [facility] ondansetron (ZOFRAN (PF)) injection 4 mg 06-15 05:29: 59 Yes 4mg 4 mg, Slow IV Push, Q8HPRN, Starting Rosa Maria 06/16/19 at 0029, Until Discontinu ed, Routine, Nausea and Vomiting (N/V) [facility] simethicone (GAS RELIEF (SIMETHICON E)) chewable tablet 160 mg 06-15 05:29: 59 Yes 160mg 160 mg, Oral, PC+HSPRN, Starting Rosa Maria 06/16/19 at 0029, Until Discontinu ed, Routine, Gas [facility] docusate calcium (SURFAK) capsule 240 mg 06-15 05:29: 59 Yes 240mg 240 mg, Oral, QDAILYPRN, Starting Rosa Maria 06/16/19 at 0029, Until Discontinu ed, Routine, Constipati on [facility] magnesium hydroxide (MILK OF MAGNESIA) 400 mg/5 mL suspension 30 mL 06-15 05:29: 59 Yes 30mL 30 mL, Oral, QDAILYPRN, Starting Thu06/16/19 at 002, Until Discontinu ed, Routine, Constipati on [facility] benzocaine- menthol (DERMOPLAST ) 20-0.5 % topical spray 06-15 05:29: 59 Yes Topical, PRN, Starting Thu06/16/19 at 0029, Until Discontinu ed, Routine, Perineum discomfort [facility] acetaminoph en (TYLENOL) tablet 650 mg 06-15 02:49: 10 06-15 05:30 :04 No 650mg 650 mg, Oral, Q6HPRN, Starting Thu06/15/19 at 2149, Until Thu06/16/19 at 0030, Routine, Pain (scale 1-3), Temp > 38.5 C [facility] docusate calcium 240 mg capsule 06-15 00:00: 00 Yes [id number] 240mg Take 1 capsule by mouth once daily as needed for Constipati on. [facility] ibuprofen 600 mg tablet 06-15 00:00: 00 Yes [id number] 600mg Take 1 tablet by mouth every 6 (six) hours as needed (Pain). Take with food or milk. [facility] Iron Fum & P-FA-Vit B & C No.9 (INTEGRA PLUS) 125 mg iron- 1 mg Cap 2020-0 4-02 00:00: 00 Yes [id number] 1{capsu le} Take 1 capsule by mouth daily. [facility] docusate calcium 240 mg capsule 2020-0 4-02 00:00: 00 Yes [id number] 240mg Take 1 capsule by mouth once daily as needed for Constipati on. [facility] ibuprofen 600 mg tablet 2020-0 4-02 00:00: 00 Yes [id number] 600mg Take 1 tablet by mouth every 6 (six) hours as needed (Pain). Take with food or milk. [facility] Iron Fum & P-FA-Vit B & C No.9 (INTEGRA PLUS) 125 mg iron- 1 mg Cap 2020-0 4-02 00:00: 00 Yes [id number] 1{capsu le} Take 1 capsule by mouth daily. [facility] docusate calcium 240 mg capsule 2020-0 4-02 00:00: 00 Yes [id number] 240mg Take 1 capsule by mouth once daily as needed for Constipati on. [facility] ibuprofen 600 mg tablet 2020-0 4-02 00:00: 00 Yes [id number] 600mg Take 1 tablet by mouth every 6 (six) hours as needed (Pain). Take with food or milk. [facility] Iron Fum & P-FA-Vit B & C No.9 (INTEGRA PLUS) 125 mg iron- 1 mg Cap 2020-0 4-02 00:00: 00 Yes [id number] 1{capsu le} Take 1 capsule by mouth daily. [facility] docusate calcium 240 mg capsule 2020-0 4-02 00:00: 00 Yes [id number] 240mg Take 1 capsule by mouth once daily as needed for Constipati on. [facility] ibuprofen 600 mg tablet 2020-0 4-02 00:00: 00 Yes [id number] 600mg Take 1 tablet by mouth every 6 (six) hours as needed (Pain). Take with food or milk. [facility] Iron Fum & P-FA-Vit B & C No.9 (INTEGRA PLUS) 125 mg iron- 1 mg Cap 2020-0 4-02 00:00: 00 Yes [id number] 1{capsu le} Take 1 capsule by mouth daily. [facility] docusate calcium 240 mg capsule 2020-0 4-02 00:00: 00 Yes [id number] 240mg Take 1 capsule by mouth once daily as needed for Constipati on. [facility] ibuprofen 600 mg tablet 2020-0 4-02 00:00: 00 Yes [id number] 600mg Take 1 tablet by mouth every 6 (six) hours as needed (Pain). Take with food or milk. [facility] Iron Fum & P-FA-Vit B & C No.9 (INTEGRA PLUS) 125 mg iron- 1 mg Cap 2020-0 4-02 00:00: 00 Yes [id number] 1{capsu le} Take 1 capsule by mouth daily. [facility] docusate calcium 240 mg capsule 2020-0 4- 00:00: 00 Yes [id number] 240mg Take 1 capsule by mouth once daily as needed for Constipati on. [facility] ibuprofen 600 mg tablet 2020-0 4- 00:00: 00 Yes [id number] 600mg Take 1 tablet by mouth every 6 (six) hours as needed (Pain). Take with food or milk. [facility] Iron Fum & P-FA-Vit B & C No.9 (INTEGRA PLUS) 125 mg iron- 1 mg Cap 2020-0 4-02 00:00: 00 Yes [id number] 1{capsu le} Take 1 capsule by mouth daily. [facility] docusate calcium 240 mg capsule 2020-0 4-02 00:00: 00 Yes [id number] 240mg Take 1 capsule by mouth once daily as needed for Constipati on. [facility] ibuprofen 600 mg tablet 2020-0 4-02 00:00: 00 Yes [id number] 600mg Take 1 tablet by mouth every 6 (six) hours as needed (Pain). Take with food or milk. [facility] Iron Fum & P-FA-Vit B & C No.9 (INTEGRA PLUS) 125 mg iron- 1 mg Cap 2020-0 4-02 00:00: 00 Yes [id number] 1{capsu le} Take 1 capsule by mouth daily. [facility] docusate calcium 240 mg capsule 2019-0 4-02 00:00: 00 Yes [id number] 240mg Take 1 capsule by mouth once daily as needed for Constipati on. [facility] ibuprofen 600 mg tablet 2019-0 4- 00:00: 00 Yes [id number] 600mg Take 1 tablet by mouth every 6 (six) hours as needed (Pain). Take with food or milk. [facility] Iron Fum & P-FA-Vit B & C No.9 (INTEGRA PLUS) 125 mg iron- 1 mg Cap 2020-0 4-02 00:00: 00 Yes [id number] 1{capsu le} Take 1 capsule by mouth daily. [facility] docusate calcium 240 mg capsule 0 4- 00:00: 00 Yes [id number] 240mg Take 1 capsule by mouth once daily as needed for Constipati on. [facility] ibuprofen 600 mg tablet 0 - 00:00: 00 Yes [id number] 600mg Take 1 tablet by mouth every 6 (six) hours as needed (Pain). Take with food or milk. [facility] Iron Fum & P-FA-Vit B & C No.9 (INTEGRA PLUS) 125 mg iron- 1 mg Cap 2019-0 - 00:00: 00 Yes [id number] 1{capsu le} Take 1 capsule by mouth daily. [facility] docusate calcium 240 mg capsule 0 - 00:00: 00 05-25 00:00 :00 No [id number] 240mg Take 1 capsule by mouth once daily as needed for Constipati on. [facility] ibuprofen 600 mg tablet 2019-0 4- 00:00: 00 05-25 00:00 :00 No [id number] 600mg Take 1 tablet by mouth every 6 (six) hours as needed (Pain). Take with food or milk. [facility] Iron Fum & P-FA-Vit B & C No.9 (INTEGRA PLUS) 125 mg iron- 1 mg Cap 2020-0 4- 00:00: 00 05-25 00:00 :00 No [id number] 1{capsu le} Take 1 capsule by mouth daily. [facility] lactated ringers IV infusion 500 mL 06-14 14:00: 00 06-14 22:02 :00 No 500mL at 999 mL/hr, 500 mL, IV Infusion, ONCE, 1 dose, Thu06/15/19 at 0900, Routine [facility] [id number]-LR IV infusion 1,000 mL 06-14 13:00: 00 06-15 05:30 :04 No 1000mL at 125 mL/hr, IV Infusion, CONTINUOUS , Starting Thu06/15/19 at 0800, Until Rosa Maria 06/16/19 at 0030, Routine [facility] LR 1000 mL + oxytocin 20 units IV Solution 06-14 12:48: 50 06-15 05:30 :04 No 2mU/min 2-40 lila-unit s/min (6-120 mL/hr), IV Infusion, TITRATE, Oxytocin Induction / Augmentati on of Labor, Starting Thu06/15/19 at 0748
In fuse IV through a controlled infusion pump at a proximal port on the peripheral IV line.&nbsp ; Sta rt at 2 lila-unit s/min and increase by 2 lila-unit s/min every 20 minutes according to oxytocin policy 7.11.52.&n bsp; Going over 20 lila-unit s/min requires faculty approval.& nbsp;&nbsp ;Max 40 lila-unit s/min.
[facility] sodium citrate-cit jillian acid (BICITRA) 500-334 mg/5 mL solution 30 mL 06-14 12:48: 49 06-14 22:15 :00 No 30mL 30 mL, Oral, PRE-PROCED URE ONCE, 1 dose, Starting Thu06/15/19 at 0748, Until Discontinu ed, Routine, Surgery/Pr ocedure [facility] VIT W-CA,FE,FA, <1 MG, ( VITAMIN ORAL) 11-08 21:41: 59 11-08 00:00 :00 No Take by mouth. [facility] PNV 67-iron ps-folate no.1-dha (VITAFOL ULTRA) 29 mg iron- 1 mg-200 mg Cap 11-08 00:00: 00 Yes [id number] 1{capsu le} Take 1 capsule by mouth daily. [facility] PNV 67-iron ps-folate no.1-dha (VITAFOL ULTRA) 29 mg iron- 1 mg-200 mg Cap 11-08 00:00: 00 Yes [id number] 1{capsu le} Take 1 capsule by mouth daily. [facility] PNV 67-iron ps-folate no.1-dha (VITAFOL ULTRA) 29 mg iron- 1 mg-200 mg Cap 11-08 00:00: 00 Yes [id number] 1{capsu le} Take 1 capsule by mouth daily. [facility] PNV 67-iron ps-folate no.1-dha (VITAFOL ULTRA) 29 mg iron- 1 mg-200 mg Cap 11-08 00:00: 00 Yes [id number] 1{capsu le} Take 1 capsule by mouth daily. [facility] PNV 67-iron ps-folate no.1-dha (VITAFOL ULTRA) 29 mg iron- 1 mg-200 mg Cap 11-08 00:00: 00 Yes [id number] 1{capsu le} Take 1 capsule by mouth daily. [facility] PNV 67-iron ps-folate no.1-dha (VITAFOL ULTRA) 29 mg iron- 1 mg-200 mg Cap 11-08 00:00: 00 Yes [id number] 1{capsu le} Take 1 capsule by mouth daily. [facility] PNV 67-iron ps-folate no.1-dha (VITAFOL ULTRA) 29 mg iron- 1 mg-200 mg Cap 11-08 00:00: 00 Yes [id number] 1{capsu le} Take 1 capsule by mouth daily. [facility] PNV 67-iron ps-folate no.1-dha (VITAFOL ULTRA) 29 mg iron- 1 mg-200 mg Cap 11-08 00:00: 00 Yes [id number] 1{capsu le} Take 1 capsule by mouth daily. [facility] PNV 67-iron ps-folate no.1-dha (VITAFOL ULTRA) 29 mg iron- 1 mg-200 mg Cap 11-08 00:00: 00 Yes [id number] 1{capsu le} Take 1 capsule by mouth daily. [facility] PNV 67-iron ps-folate no.1-dha (VITAFOL ULTRA) 29 mg iron- 1 mg-200 mg Cap 11-08 00:00: 00 Yes [id number] 1{capsu le} Take 1 capsule by mouth daily. [facility] PNV 67-iron ps-folate no.1-dha (VITAFOL ULTRA) 29 mg iron- 1 mg-200 mg Cap 11-08 00:00: 00 Yes [id number] 1{capsu le} Take 1 capsule by mouth daily. [facility] PNV 67-iron ps-folate no.1-dha (VITAFOL ULTRA) 29 mg iron- 1 mg-200 mg Cap 11-08 00:00: 00 Yes [id number] 1{capsu le} Take 1 capsule by mouth daily. [facility] PNV 67-iron ps-folate no.1-dha (VITAFOL ULTRA) 29 mg iron- 1 mg-200 mg Cap 11-08 00:00: 00 Yes [id number] 1{capsu le} Take 1 capsule by mouth daily. [facility] PNV 67-iron ps-folate no.1-dha (VITAFOL ULTRA) 29 mg iron- 1 mg-200 mg Cap 11-08 00:00: 00 Yes [id number] 1{capsu le} Take 1 capsule by mouth daily. [facility] PNV 67-iron ps-folate no.1-dha (VITAFOL ULTRA) 29 mg iron- 1 mg-200 mg Cap 11-08 00:00: 00 Yes [id number] 1{capsu le} Take 1 capsule by mouth daily. [facility] PNV 67-iron ps-folate no.1-dha (VITAFOL ULTRA) 29 mg iron- 1 mg-200 mg Cap 11-08 00:00: 00 Yes [id number] 1{capsu le} Take 1 capsule by mouth daily. [facility] PNV 67-iron ps-folate no.1-dha (VITAFOL ULTRA) 29 mg iron- 1 mg-200 mg Cap 11-08 00:00: 00 Yes [id number] 1{capsu le} Take 1 capsule by mouth daily. [facility] PNV 67-iron ps-folate no.1-dha (VITAFOL ULTRA) 29 mg iron- 1 mg-200 mg Cap 11-08 00:00: 00 Yes [id number] 1{capsu le} Take 1 capsule by mouth daily. [facility] PNV 67-iron ps-folate no.1-dha (VITAFOL ULTRA) 29 mg iron- 1 mg-200 mg Cap 11-08 00:00: 00 06-15 00:00 :00 No [id number] 1{capsu le} Take 1 capsule by mouth daily. [facility] VIT W-CA,FE,FA, <1 MG, ( VITAMIN ORAL) 10-22 14:42: 40 Yes Take by mouth. [facility] VIT W-CA,FE,FA, <1 MG, ( VITAMIN ORAL) 10-22 14:42: 40 Yes Take by mouth. [facility] VIT W-CA,FE,FA, <1 MG, ( VITAMIN ORAL) 10-22 14:42: 40 Yes Take by mouth. [facility] VIT W-CA,FE,FA, <1 MG, ( VITAMIN ORAL) 10-22 14:42: 40 Yes Take by mouth. [facility] VIT W-CA,FE,FA, <1 MG, ( VITAMIN ORAL) 10-22 14:42: 40 Yes Take by mouth. [facility] VIT W-CA,FE,FA, <1 MG, ( VITAMIN ORAL) 10-22 14:42: 40 Yes Take by mouth. [facility] VIT W-CA,FE,FA, <1 MG, ( VITAMIN ORAL) 10-22 14:42: 40 Yes Take by mouth. [facility] terconazole (TERAZOL 3) 0.8 % vaginal cream 2015-03 00:00: 00 Yes [id number] 1{appli cator} Insert 1 Applicator into vagina at bedtime. [facility] terconazole (TERAZOL 3) 0.8 % vaginal cream 2015-03 00:00: 00 10-22 00:00 :00 No [id number] 1{appli cator} Insert 1 Applicator into vagina at bedtime. [facility] VIT W-CA,FE,FA, <1 MG, ( VITAMIN ORAL) 2015-03 17:29: 58 Yes Take by mouth. [facility] ibuprofen (MOTRIN) 600 mg tablet 2015-03 00:00: 00 Yes 600mg Take 1 tablet by mouth every 6 (six) hours as needed for Pain (scale 1-3). Take with food or milk. [facility] ibuprofen (MOTRIN) 600 mg tablet 2015-03 00:00: 00 10-22 00:00 :00 No 600mg Take 1 tablet by mouth every 6 (six) hours as needed for Pain (scale 1-3). Take with food or milk. [facility] Immunizations Ordered Immunization Name Filled Immunization Name Date Status Comments Source Tdap 2019-04-06 00:00:00 Completed [facility] Influenza Virus Vaccine Quad .5 mL IM 6+ MO 2019-04-06 00:00:00 Completed [facility] Tdap 2019-04-06 00:00:00 Completed [facility] Influenza Virus Vaccine Quad .5 mL IM 6+ MO 2019-04-06 00:00:00 Completed [facility] Tdap 2019-04-06 00:00:00 Completed [facility] Influenza Virus Vaccine Quad .5 mL IM 6+ MO 2019-04-06 00:00:00 Completed [facility] Tdap 2019-04-06 00:00:00 Completed [facility] Influenza Virus Vaccine Quad .5 mL IM 6+ MO 2019-04-06 00:00:00 Completed [facility] Tdap 2019-04-06 00:00:00 Completed [facility] Influenza Virus Vaccine Quad .5 mL IM 6+ MO 2019-04-06 00:00:00 Completed [facility] Tdap 2019-04-06 00:00:00 Completed [facility] Influenza Virus Vaccine Quad .5 mL IM 6+ MO 2019-04-06 00:00:00 Completed [facility] Tdap 2019-04-06 00:00:00 Completed [facility] Influenza Virus Vaccine Quad .5 mL IM 6+ MO 2019-04-06 00:00:00 Completed [facility] Tdap 2019-04-06 00:00:00 Completed [facility] Influenza Virus Vaccine Quad .5 mL IM 6+ MO 2019-04-06 00:00:00 Completed [facility] Tdap 2019-04-06 00:00:00 Completed [facility] Influenza Virus Vaccine Quad .5 mL IM 6+ MO 2019-04-06 00:00:00 Completed [facility] Tdap 2019-04-06 00:00:00 Completed [facility] Influenza Virus Vaccine Quad .5 mL IM 6+ MO 2019-04-06 00:00:00 Completed [facility] Tdap 2019-04-06 00:00:00 Completed [facility] Influenza Virus Vaccine Quad .5 mL IM 6+ MO 2019-04-06 00:00:00 Completed [facility] Tdap 2019-04-06 00:00:00 Completed [facility] Influenza Virus Vaccine Quad .5 mL IM 6+ MO 2019-04-06 00:00:00 Completed [facility] Tdap 2019-04-06 00:00:00 Completed [facility] Influenza Virus Vaccine Quad .5 mL IM 6+ MO 2019-04-06 00:00:00 Completed [facility] Tdap 2019-04-06 00:00:00 Completed [facility] Influenza Virus Vaccine Quad .5 mL IM 6+ MO 2019-04-06 00:00:00 Completed [facility] Tdap 2019-04-06 00:00:00 Completed [facility] Influenza Virus Vaccine Quad .5 mL IM 6+ MO 2019-04-06 00:00:00 Completed [facility] Tdap 2019-04-06 00:00:00 Completed [facility] Influenza Virus Vaccine Quad .5 mL IM 6+ MO 2019-04-06 00:00:00 Completed [facility] Tdap 2019-04-06 00:00:00 Completed [facility] Influenza Virus Vaccine Quad .5 mL IM 6+ MO 2019-04-06 00:00:00 Completed [facility] Tdap 2019-04-06 00:00:00 Completed [facility] Influenza Virus Vaccine Quad .5 mL IM 6+ MO 2019-04-06 00:00:00 Completed [facility] Tdap 2019-04-06 00:00:00 Completed [facility] [place] Influenza Virus Vaccine Quad .5 mL IM 6+ MO 2019-04-06 00:00:00 Completed [facility] Tdap 2019-04-06 00:00:00 Completed [facility] Influenza Virus Vaccine Quad .5 mL IM 6+ MO 2019-04-06 00:00:00 Completed [facility] Influenza Virus Vaccine Quad IM 3+ YRS 2015-12-14 00:00:00 Completed [facility] Influenza Virus Vaccine Quad IM 3+ YRS 2015-12-14 00:00:00 Completed [facility] Influenza Virus Vaccine Quad IM 3+ YRS 2015-12-14 00:00:00 Completed [facility] Influenza Virus Vaccine Quad IM 3+ YRS 2015-12-14 00:00:00 Completed [facility] Influenza Virus Vaccine Quad IM 3+ YRS 2015-12-14 00:00:00 Completed [facility] Influenza Virus Vaccine Quad IM 3+ YRS 2015-12-14 00:00:00 Completed [facility] Influenza Virus Vaccine Quad IM 3+ YRS 2015-12-14 00:00:00 Completed [facility] Influenza Virus Vaccine Quad IM 3+ YRS 2015-12-14 00:00:00 Completed [facility] Influenza Virus Vaccine Quad IM 3+ YRS 2015-12-14 00:00:00 Completed [facility] Influenza Virus Vaccine Quad IM 3+ YRS 2015-12-14 00:00:00 Completed [facility] Influenza Virus Vaccine Quad IM 3+ YRS 2015-12-14 00:00:00 Completed [facility] Influenza Virus Vaccine Quad IM 3+ YRS 2015-12-14 00:00:00 Completed [facility] Influenza Virus Vaccine Quad IM 3+ YRS 2015-12-14 00:00:00 Completed [facility] Influenza Virus Vaccine Quad IM 3+ YRS 2015-12-14 00:00:00 Completed [facility] Influenza Virus Vaccine Quad IM 3+ YRS 2015-12-14 00:00:00 Completed [facility] Influenza Virus Vaccine Quad IM 3+ YRS 2015-12-14 00:00:00 Completed [facility] Influenza Virus Vaccine Quad IM 3+ YRS 2015-12-14 00:00:00 Completed [facility] Influenza Virus Vaccine Quad IM 3+ YRS 2015-12-14 00:00:00 Completed [facility] Influenza Virus Vaccine Quad IM 3+ YRS 2015-12-14 00:00:00 Completed [facility] Influenza Virus Vaccine Quad IM 3+ YRS 2015-12-14 00:00:00 Completed [facility] Influenza Virus Vaccine Quad IM 3+ YRS 2015-12-14 00:00:00 Completed [facility] Influenza Virus Vaccine Quad IM 3+ YRS 2015-12-14 00:00:00 Completed [facility] Influenza Virus Vaccine Quad IM 3+ YRS 2015-12-14 00:00:00 Completed [facility] Influenza Virus Vaccine Quad IM 3+ YRS 2015-12-14 00:00:00 Completed [facility] Influenza Virus Vaccine Quad IM 3+ YRS 2015-12-14 00:00:00 Completed [facility] Influenza Virus Vaccine Quad IM 3+ YRS 2015-12-14 00:00:00 Completed [facility] Influenza Virus Vaccine Quad IM 3+ YRS 2015-12-14 00:00:00 Completed [facility] Influenza Virus Vaccine Quad IM 3+ YRS 2015-12-14 00:00:00 Completed [facility] Influenza Virus Vaccine Quad IM 3+ YRS 2015-12-14 00:00:00 Completed [facility] Influenza Virus Vaccine Quad IM 3+ YRS 2015-12-14 00:00:00 Completed [facility] Influenza Virus Vaccine Quad IM 3+ YRS 2015-12-14 00:00:00 Completed [facility] Influenza Virus Vaccine Quad IM 3+ YRS 2015-12-14 00:00:00 Completed [facility] Influenza Virus Vaccine Quad IM 3+ YRS 2015-12-14 00:00:00 Completed [facility] Influenza Virus Vaccine Quad IM 3+ YRS 2015-12-14 00:00:00 Completed [facility] Tdap 2015-10-26 00:00:00 Completed [facility] Tdap 2015-10-26 00:00:00 Completed [facility] Tdap 2015-10-26 00:00:00 Completed [facility] Tdap 2015-10-26 00:00:00 Completed [facility] Tdap 2015-10-26 00:00:00 Completed [facility] Tdap 2015-10-26 00:00:00 Completed [facility] Tdap 2015-10-26 00:00:00 Completed [facility] Tdap 2015-10-26 00:00:00 Completed [facility] Tdap 2015-10-26 00:00:00 Completed [facility] Tdap 2015-10-26 00:00:00 Completed [facility] Tdap 2015-10-26 00:00:00 Completed [facility] Tdap 2015-10-26 00:00:00 Completed [facility] Tdap 2015-10-26 00:00:00 Completed [facility] Tdap 2015-10-26 00:00:00 Completed [facility] Tdap 2015-10-26 00:00:00 Completed [facility] Tdap 2015-10-26 00:00:00 Completed [facility] Tdap 2015-10-26 00:00:00 Completed [facility] Tdap 2015-10-26 00:00:00 Completed [facility] Tdap 2015-10-26 00:00:00 Completed [facility] Tdap 2015-10-26 00:00:00 Completed [facility] Tdap 2015-10-26 00:00:00 Completed [facility] Tdap 2015-10-26 00:00:00 Completed [facility] Tdap 2015-10-26 00:00:00 Completed [facility] Tdap 2015-10-26 00:00:00 Completed [facility] Tdap 2015-10-26 00:00:00 Completed [facility] Tdap 2015-10-26 00:00:00 Completed [facility] Tdap 2015-10-26 00:00:00 Completed [facility] Tdap 2015-10-26 00:00:00 Completed [facility] Tdap 2015-10-26 00:00:00 Completed [facility] Tdap 2015-10-26 00:00:00 Completed [facility] Tdap 2015-10-26 00:00:00 Completed [facility] Tdap 2015-10-26 00:00:00 Completed [facility] Tdap 2015-10-26 00:00:00 Completed [facility] Tdap 2015-10-26 00:00:00 Completed [facility] Influenza Virus Vaccine Quad IM 3+ YRS 2015-05-22 00:00:00 Completed [facility] Influenza Virus Vaccine Quad IM 3+ YRS 2015-05-22 00:00:00 Completed [facility] Influenza Virus Vaccine Quad IM 3+ YRS 2015-05-22 00:00:00 Completed [facility] Influenza Virus Vaccine Quad IM 3+ YRS 2015-05-22 00:00:00 Completed [facility] Influenza Virus Vaccine Quad IM 3+ YRS 2015-05-22 00:00:00 Completed [facility] Influenza Virus Vaccine Quad IM 3+ YRS 2015-05-22 00:00:00 Completed [facility] Influenza Virus Vaccine Quad IM 3+ YRS 2015-05-22 00:00:00 Completed [facility] Influenza Virus Vaccine Quad IM 3+ YRS 2015-05-22 00:00:00 Completed [facility] Influenza Virus Vaccine Quad IM 3+ YRS 2015-05-22 00:00:00 Completed [facility] Influenza Virus Vaccine Quad IM 3+ YRS 2015-05-22 00:00:00 Completed [facility] Influenza Virus Vaccine Quad IM 3+ YRS 2015-05-22 00:00:00 Completed [facility] Influenza Virus Vaccine Quad IM 3+ YRS 2015-05-22 00:00:00 Completed [facility] Influenza Virus Vaccine Quad IM 3+ YRS 2015-05-22 00:00:00 Completed [facility] Influenza Virus Vaccine Quad IM 3+ YRS 2015-05-22 00:00:00 Completed [facility] Influenza Virus Vaccine Quad IM 3+ YRS 2015-05-22 00:00:00 Completed [facility] Influenza Virus Vaccine Quad IM 3+ YRS 2015-05-22 00:00:00 Completed [facility] Influenza Virus Vaccine Quad IM 3+ YRS 2015-05-22 00:00:00 Completed [facility] Influenza Virus Vaccine Quad IM 3+ YRS 2015-05-22 00:00:00 Completed [facility] Influenza Virus Vaccine Quad IM 3+ YRS 2015-05-22 00:00:00 Completed [facility] Influenza Virus Vaccine Quad IM 3+ YRS 2015-05-22 00:00:00 Completed [facility] Influenza Virus Vaccine Quad IM 3+ YRS 2015-05-22 00:00:00 Completed [facility] Influenza Virus Vaccine Quad IM 3+ YRS 2015-05-22 00:00:00 Completed [facility] Influenza Virus Vaccine Quad IM 3+ YRS 2015-05-22 00:00:00 Completed [facility] Influenza Virus Vaccine Quad IM 3+ YRS 2015-05-22 00:00:00 Completed [facility] Influenza Virus Vaccine Quad IM 3+ YRS 2015-05-22 00:00:00 Completed [facility] Influenza Virus Vaccine Quad IM 3+ YRS 2015-05-22 00:00:00 Completed [facility] Influenza Virus Vaccine Quad IM 3+ YRS 2015-05-22 00:00:00 Completed [facility] Influenza Virus Vaccine Quad IM 3+ YRS 2015-05-22 00:00:00 Completed [facility] Influenza Virus Vaccine Quad IM 3+ YRS 2015-05-22 00:00:00 Completed [facility] Influenza Virus Vaccine Quad IM 3+ YRS 2015-05-22 00:00:00 Completed [facility] Influenza Virus Vaccine Quad IM 3+ YRS 2015-05-22 00:00:00 Completed [facility] Influenza Virus Vaccine Quad IM 3+ YRS 2015-05-22 00:00:00 Completed [facility] Influenza Virus Vaccine Quad IM 3+ YRS 2015-05-22 00:00:00 Completed [facility] Influenza Virus Vaccine Quad IM 3+ YRS 2015-05-22 00:00:00 Completed [facility] Influenza Virus Vaccine Quad IM 3+ YRS Unknown Completed [facility] TDAP Unknown Completed [facility] Influenza Virus Vaccine Quad IM 3+ YRS Unknown Completed [facility] TDAP Unknown Completed [facility] Influenza Virus Vaccine Quad .5 mL IM 6+ MO (FLUZONE/FLULAVAL/F LUARIX) Unknown Completed [facility] Influenza Virus Vaccine Quad IM 3+ YRS Unknown Completed [facility] TDAP Unknown Completed [facility] Influenza Virus Vaccine Quad IM 3+ YRS Unknown Completed [facility] TDAP Unknown Completed [facility] Influenza Virus Vaccine Quad .5 mL IM 6+ MO (FLUZONE/FLULAVAL/F LUARIX) Unknown Completed [facility] Influenza Virus Vaccine Quad IM 3+ YRS Unknown Completed [facility] TDAP Unknown Completed [facility] Influenza Virus Vaccine Quad IM 3+ YRS Unknown Completed [facility] TDAP Unknown Completed [facility] Influenza Virus Vaccine Quad .5 mL IM 6+ MO (FLUZONE/FLULAVAL/F LUARIX) Unknown Completed [facility] Vital Signs Vital Name Observation Time Observation Value Comments S ource Systolic blood pressure 2023-05-26 13:48:00 126 mm[Hg] [facility] Diastolic blood pressure 2023-05-26 13:48:00 80 mm[Hg] [facility] Heart rate 2023-05-26 13:48:00 71 /min [facility] Body temperature 2023-05-26 13:48:00 36.39 Beronica [facility] Respiratory rate 2023-05-26 13:48:00 18 /min [facility] Body height 2023-05-26 13:48:00 162.6 cm [facility] Body weight 2023-05-26 13:48:00 99.508 kg [facility] BMI 2023-05-26 13:48:00 37.66 kg/m2 [facility] Systolic blood pressure 2019-06-18 10:23:00 133 mm[Hg] [facility] Diastolic blood pressure 2019-06-18 10:23:00 82 mm[Hg] [facility] Heart rate 2019-06-18 10:23:00 77 /[facility] 2019-06-18 10:23:00 36.72 Beronica [facility] Respiratory rate 2019-06-18 10:23:00 12 /min [facility] Body height 2019-06-18 10:23:00 162.6 cm [facility] Body weight 2019-06-18 10:23:00 90.719 kg [facility] BMI 2019-06-18 10:23:00 34.33 kg/m2 [facility] Oxygen saturation in Arterial blood by Pulse oximetry 2019-06-18 10:23:00 99 /min [facility] Systolic blood pressure 2019-06-17 13:00:00 126 mm[Hg] [facility] Diastolic blood pressure 2019-06-17 13:00:00 74 mm[Hg] [facility] Heart rate 2019-06-17 13:00:00 61 /min [facility] Body temperature 2019-06-17 13:00:00 36.83 Beronica [facility] Respiratory rate 2019-06-17 13:00:00 18 /min [facility] Oxygen saturation in Arterial blood by Pulse oximetry 2019-06-17 13:00:00 100 /min [facility] Body weight 2019-06-15 13:55:00 95 kg [facility] BMI 2019-06-15 13:55:00 35.95 kg/m2 [facility] Body height 2019-06-15 12:21:00 162.6 cm [facility] Systolic blood pressure 2019-06-08 14:31:00 119 mm[Hg] [facility] Diastolic blood pressure 2019-06-08 14:31:00 65 mm[Hg] [facility] Heart rate 2019-06-08 14:31:00 68 /[facility] 2019-06-08 14:31:00 36.78 Beronica [facility] Respiratory rate 2019-06-08 14:31:00 16 /min [facility] Body height 2019-06-08 14:31:00 162[facility]6 [facility] 2019-06-08 14:31:00 94.405 kg [facility] BMI 2019-06-08 14:31:00 35.72 kg/m2 [facility] Systolic blood pressure 2019-06-01 13:36:00 107 mm[Hg] [facility] Diastolic blood pressure 2019-06-01 13:36:00 73 mm[Hg] [facility] Heart rate 2019-06-01 13:36:00 73 /min [facility] Body temperature 2019-06-01 13:36:00 36.56 Beronica [facility] Respiratory rate 2019-06-01 13:36:00 16 /min [facility] Body height 2019-06-01 13:36:00 162.6 cm [facility] Body weight 2019-06-01 13:36:00 94.462 kg [facility] BMI 2019-06-01 13:36:00 35.75 kg/m2 [facility] Systolic blood pressure 2019-05-25 14:29:00 105 mm[Hg] [facility] Diastolic blood pressure 2019-05-25 14:29:00 71 mm[Hg] [facility] Heart rate 2019-05-25 14:29:00 67 /min [facility] Body temperature 2019-05-25 14:29:00 36.83 Beronica [facility] Respiratory rate 2019-05-25 14:29:00 16 /min [facility] Body height 2019-05-25 14:29:00 162.6 cm [facility] Body weight 2019-05-25 14:29:00 94.377 kg [facility] BMI 2019-05-25 14:29:00 35.71 kg/m2 [facility] Systolic blood pressure 2019-05-18 15:39:00 109 mm[Hg] [facility] Diastolic blood pressure 2019-05-18 15:39:00 71 mm[Hg] [facility] Heart rate 2019-05-18 15:39:00 69 /min [facility] Body temperature 2019-05-18 15:39:00 36.22 Beronica [facility] Respiratory rate 2019-05-18 15:39:00 16 /min [facility] Body height 2019-05-18 15:39:00 162.6 cm [facility] Body weight 2019-05-18 15:39:00 94.858 kg [facility] BMI 2019-05-18 15:39:00 35.90 kg/m2 [facility] Systolic blood pressure 2019-05-04 15:27:00 100 mm[Hg] [facility] Diastolic blood pressure 2019-05-04 15:27:00 65 mm[Hg] [facility] Heart rate 2019-05-04 15:27:00 78 /min [facility] Body temperature 2019-05-04 15:27:00 36.28 Beronica [facility] Respiratory rate 2019-05-04 15:27:00 16 /min [facility] Body height 2019-05-04 15:27:00 162.6 cm [facility] Body weight 2019-05-04 15:27:00 93.639 kg [facility] BMI 2019-05-04 15:27:00 35.43 kg/m2 [facility] Systolic blood pressure 2019-04-20 15:37:00 108 mm[Hg] [facility] Diastolic blood pressure 2019-04-20 15:37:00 67 mm[Hg] [facility] Heart rate 2019-04-20 15:37:00 71 /min [facility] Body temperature 2019-04-20 15:37:00 36.33 Beronica [facility] Respiratory rate 2019-04-20 15:37:00 16 /min [facility] Body height 2019-04-20 15:37:00 162.6 cm [facility] Body weight 2019-04-20 15:37:00 92.732 kg [facility] BMI 2019-04-20 15:37:00 35.09 kg/m2 [facility] Systolic blood pressure 2019-04-11 19:52:00 109 mm[Hg] [facility] Diastolic blood pressure 2019-04-11 19:52:00 71 mm[Hg] [facility] Heart rate 2019-04-11 19:52:00 69 /min [facility] Body temperature 2019-04-11 19:52:00 36.83 Beronica [facility] Respiratory rate 2019-04-11 19:52:00 16 /min [facility] Body height 2019-04-11 19:52:00 162.6 cm [facility] Body weight 2019-04-11 19:52:00 92.987 kg [facility] BMI 2019-04-11 19:52:00 35.19 kg/m2 [facility] Systolic blood pressure 2019-04-06 14:49:00 118 mm[Hg] [facility] Diastolic blood pressure 2019-04-06 14:49:00 71 mm[Hg] [facility] Heart rate 2019-04-06 14:49:00 74 /min [facility] Body temperature 2019-04-06 14:49:00 36.17 Beronica [facility] Respiratory rate 2019-04-06 14:49:00 16 /min [facility] Body height 2019-04-06 14:49:00 162.6 cm [facility] Body weight 2019-04-06 14:49:00 92.789 kg [facility] BMI 2019-04-06 14:49:00 35.11 kg/m2 [facility] Body temperature 2018-11-19 14:00:00 36.78 Beronica [facility] Respiratory rate 2018-11-19 14:00:00 16 /min [facility] Body height 2018-11-19 14:00:00 162.6 cm [facility] Body weight 2018-11-19 14:00:00 94.83 kg [facility] BMI 2018-11-19 14:00:00 35.89 kg/m2 [facility] Systolic blood pressure 2018-11-19 14:00:00 128 mm[Hg] [facility] Diastolic blood pressure 2018-11-19 14:00:00 89 mm[Hg] [facility] Heart rate 2018-11-19 14:00:00 64 /min [facility] Systolic blood pressure 2018-10-22 14:35:00 120 mm[Hg] [facility] Diastolic blood pressure 2018-10-22 14:35:00 84 mm[Hg] [facility] Heart rate 2018-10-22 14:35:00 67 /min [facility] Body temperature 2018-10-22 14:35:00 37.22 Beronica [facility] Respiratory rate 2018-10-22 14:35:00 18 /min [facility] Body height 2018-10-22 14:35:00 162.6 cm [facility] Body weight 2018-10-22 14:35:00 97.07 kg [facility] BMI 2018-10-22 14:35:00 36.73 kg/m2 [facility] Procedures Procedure Date / Time Performed Performing Clinician Source POCT TEST 2023-05-26 13:50:00 Laine Andrade [facility] POCT URINALYSIS W/O SPECIFIC GRAVITY 2023-05-26 13:50:00 Vanna Andrade [facility] ASSIGNMENT OF BENEFITS 2023-05-26 13:08:15 Docto r Unassigned, [place] [facility] ASSIGNMENT OF BENEFITS 2019-06-18 10:16:18 Docto r Unassigned, [place] [facility] CBC WITH DIFFERENTIAL 2019-06-16 08:13:00 Batool gordillo [facility] HEPATITIS B SURFACE ANTIGEN 2019-06-15 13:22:00 Karin Jackson [facility] HIV 1/2 AG-AB WITH REFLEX 2019-06-15 13:22:00 Karin Jackson [facility] GALV ONLY - SYPHILIS IGG/IGM 2019-06-15 13:22:00 Karin Jackson [facility] HB ABO GROUPING 2019-06-15 13:20:00 Karin Jackson [facility] RHO (D) IMMUNE GLOBULIN 2019-06-15 13:20[facility]/O SPECIFIC GRAVITY 2019-06-08 15:09:00 Juani Calderon [facility] POCT URINALYSIS W/O SPECIFIC GRAVITY 2019-06-01 14:07:00 Juani Calderon [facility] POCT URINALYSIS W/O SPECIFIC GRAVITY 2019-05-25 14:38:00 Juani Calderon [facility] POCT URINALYSIS W/O SPECIFIC GRAVITY 2019-05-18 17:04:00 Juani Calderon [facility] POCT URINALYSIS W/O SPECIFIC GRAVITY 2019-05-04 17:18:00 Juani Calderon [facility] POCT URINALYSIS W/O SPECIFIC GRAVITY 2019-04-20 15:39:00 Juani Calderon [facility] POCT URINALYSIS W/O SPECIFIC GRAVITY 2019-04-11 20:43:00 Juani Calderon [facility] FLU VACC ([id number]), 6+ MONTHS, IM, QUAD 2019-04-06 15:00:35 Lee Ann Alatorre [facility] POCT URINALYSIS W/O SPECIFIC GRAVITY 2019-04-06 14:51:00 Juani Calderon [facility] TDAP VACCINE, >11 YRS, IM 2019-04-06 14:43:00 Lee Ann Alatorre [facility] POCT URINALYSIS W/O SPECIFIC GRAVITY 2018-11-19 16:31:00 Juani Calderon [facility] POCT TEST 2018-10-22 14:29:00 Logan Calderon [facility] POCT URINALYSIS W/O SPECIFIC GRAVITY 2018-10-22 14:29:00 Juani Calderon [facility] ASSIGNMENT OF BENEFITS 2018-10-22 14:07:02 Docto r Unassigned, [place] [facility] Encounters Start Date/Time End Date/Time Encounter Type Admission Type Attending [facility] Facility Care Department Encounter ID Source 2021-01-10 17:00:59 Emergency [facility] [facility] [id number] [facility] 2021-01-10 16:36:36 Outpatient [facility] [id number] [facility] 2023-06-01 07:45:00 2023-06-01 07:45:00 Outpatient VANNA ROSALES [facility] [id number] [facility] 2023-05-27 00:00:00 2023-05-27 00:00:00 Telephone Vanna Andrade [facility] [employer] TE[employer]ER [facility] & CHILD [facility] 1.2.840.114 350.1.13.10 4.2.7.2.686 [id number] [facility] 2023-05-26 08:15:00 2023-05-26 10:05:32 Outpatient R VANNA ANDRADE [facility] [id number] [facility] 2023-05-26 08:15:00 2023-05-26 10:05:32 Initial Visit Vanna Andrade [facility] 1.2.840.114 350.1.13.10 4.2.7.2.686 [id number] 107 [id number] [facility] 2023-05-26 00:00:00 2023-05-26 00:00:00 Orders Only Doctor Unassigned, [place] [facility] 1.2.840.114 350.1.13.10 4.2.7.2.686 [id number] [facility] 2019-07-14 00:00:00 2019-07-14 00:00:00 Telephone Lee Ann Alatorre [facility] [employer] TE[employer]ILD [facility] 1.2.840.114 350.1.13.10 4.2.7.2.686 [id number] 107 [id number] [facility] 2019-07-14 00:00:00 2019-07-14 00:00:00 Telephone Lee Ann Alatorre [facility] [employer] TE[employer] CHILD [facility] 1.2.840.114 350.1.13.10 4.2.7.2.686 [id number] 107 [id number] 2019-07-06 14:30:00 2019-07-06 14:30:00 Outpatient R LEE ANN ALATORRE [facility] [id number] [facility] 2019-07-06 00:00:00 2019-07-06 00:00:00 Telephone Lee Ann Alatorre [facility] [facility] [employer] TE[employer]ILD [facility] 1.2.840.114 350.1.13.10 4.2.7.2.686 [id number] 107 [id number] [facility] 2019-07-06 00:00:00 2019-07-06 00:00:00 Telephone Lee Ann Alatorre [facility] [facility] [employer]ILD [facility] 1.2.840.114 350.1.13.10 4.2.7.2.686 [id number] 2019-06-20 00:00:00 2019-06-20 00:00:00 Telephone Lee Ann Alatorre [facility] TE[employer]ILD [facility] 1.2.840.114 350.1.13.10 4.2.7.2.686 [id number] [facility] 2019-06-20 00:00:00 2019-06-20 00:00:00 Telephone Lee Ann Alatorre [facility] 1.2.840.114 350.1.13.10 4.2.7.2.686 [id number] 2019-06-19 00:00:00 2019-06-19 00:00:00 Nurse Triage Lee Ann Alatorre [facility] [employer]ILD [facility] 1.2.840.114 350.1.13.10 4.2.7.2.686 [id number] 107 [id number] [facility] 2019-06-18 05:26:05 2019-06-18 06:06:00 Emergency Lisa Dawkins [facility] 1.2.840.114 350.1.13.10 4.2.7.2.686 [id number] [facility] 2019-06-18 00:00:00 2019-06-18 00:00:00 Nurse Triage Jacob Gallegos Sindy [facility] 1.2840.114 350.1.13.10 4.2.7.2.686 [id number] [facility] 2019-06-15 06:48:00 2019-06-17 12:40:00 Hospital Encounter Last richard [facility] 1.2840.114 350.1.13.10 4.2.7.2.686 [id number] [facility] 2019-06-08 09:21:15 2019-06-08 13:44:16 Routine Visit Lee Ann Alatorre [facility] [employer] TE[employer]ILD [facility] 1..114 350.1.13.10 4.2.7.2.686 [id number] 107 [id number] [facility] 2019-06-08 09:30:00 2019-06-08 09:30:00 Outpatient R LEE ANN ALATORRE [facility] [id number] [facility] 2019-06-01 08:19:20 2019-06-01 08:58:49 Routine Visit Lee Ann Alatorre [facility] TE[employer]ILD [facility] 1..114 350.1.13.10 4.2.7.2.686 [id number] 107 [id number] [facility] 2019-06-01 08:15:00 2019-06-01 08:15:00 Outpatient R LEE ANN ALATORRE [facility] [id number] [facility] 2019-05-25 09:19:02 2019-05-25 09:34:02 Routine Visit Lee Ann Alatorre [facility] TE[employer]ILD [facility] 1..114 350.1.13.10 4.2.7.2.686 [id number] 107 [id number] [facility] 2019-05-25 09:15:00 2019-05-25 09:15:00 Outpatient R LEE ANN ALATORRE [facility] [id number] [facility] 2019-05-18 09:31:47 2019-05-18 10:04:24 Routine Visit Lee Ann Alatorre [facility] [employer] TE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 CHILD [facility] 1.2.840.114 350.1.13.10 4.2.7.2.686 [id number] [facility] 2019-05-11 09:30:00 2019-05-11 09:30:00 Outpatient P [facility] [id number] [facility] 2019-05-04 09:10:10 2019-05-04 09:57:34 Routine Visit Lee Ann Alatorre [facility] [employer] TE[employer]ILD [facility] 1.2.840.114 350.1.13.10 4.2.7.2.686 [id number] 107 [id number] [facility] 2019-04-20 09:23:50 2019-04-20 09:57:38 Routine Visit Lee Ann Alatorre [facility] [employer] TE[employer]ILD [facility] 1.2.840.114 350.1.13.10 4.2.7.2.686 [id number] 107 [id number] [facility] 2019-04-11 13:09:21 2019-04-11 14:28:49 Routine Visit EdinazeembettyLee Ann [facility] [employer] C[employer] TEACHER [facility]ILD [facility] 1.2.840.114 350.1.13.10 4.2.7.2.686 [id number] [facility] 2019-04-11 00:00:00 2019-04-11 00:00:00 Telephone Lee Ann Alatorre [facility] [employer] C[employer] TEACHER [facility] CHILD [facility] 1.2.840.114 350.1.13.10 4.2.7.2.686 [id number] 107 [id number] [facility] 2019-04-07 00:00:00 2019-04-07 00:00:00 Telephone Lee Ann Alatorre [facility] [employer] TEACHER [facility] CHILD [facility] 1.2.840.114 350.1.13.10 4.2.7.2.686 [id number] 107 [id number] [facility] 2019-04-06 08:24:02 2019-04-06 09:03:27 Routine Visit Rolando Alatorreola Messi [facility] [employer] C[employer] TE[employer]ER 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 & CHILD [facility] 1.2.840.114 350.1.13.10 4.2.7.2.686 [id number] [facility] 2018-11-23 00:00:00 2018-11-23 00:00:00 Case Management Juani Calderon [facility] [employer] TEACHER [facility] & CHILD [facility] 1.2.840.114 350.1.13.10 4.2.7.2.686 [id number] 107 [id number] [facility] 2018-11-19 08:35:28 2018-11-19 09:11:04 Routine Visit Juani Calderon Ashley [facility] [employer] TE[employer] & CHILD [facility] 1.2.840.114 350.1.13.10 4.2.7.2.686 [id number] 107 [id number] [facility] 2018-11-08 00:00:00 2018-11-08 00:00:00 Telephone Juani Calderon [facility] [employer] TE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 CHILD [facility] 1.2.840.114 350.1.13.10 4.2.7.2.686 [id number] 107 [id number] [facility] 2018-10-22 09:26:07 2018-10-22 10:19:37 Initial Visit KvngJuani Ashley [facility] [employer] C[employer] TE[employer]ER [facility] & CHILD [facility] 1.2.840.114 350.1.13.10 4.2.7.2.686 [id number] [facility] 2018-10-22 00:00:00 2018-10-22 00:00:00 Orders Only Doctor Unassigned, [place] [facility] 1.2.840.114 350.1.13.10 4.2.7.2.686 [id number] [facility] Results Test Description Test Time Test Comments Results Result Co mments Source [facility] w/o Specific Pzrhgvq4000-15-27 13:50:00* Test Item Value Reference Range Interpretation Comme nts POCT PH U (test code = 3254) 5 mg/dl 5-8 POCT U LEUK EST (test code = 3263) 1+ Negative - Negative POCT U NIT (test code = 3262) Neg Negative - Negati ve POCT U PROT (test code = 3259) Trace Negative - Negat lucia POCT U GLU (test code = 3256) Nml Negative - Negati ve POCT U KETONE (test code = 3258) None Negative - Neg ative POCT U BLD (test code = 3257) Trace Negative - Negati ve [facility]ownCBC WITH [id number] 08:52:00* Test Item Value Reference Range Interpretation Comme nts WBC (test code = 6690-2) See_Comment [Automated messa ge] The system which generated this result transmitted reference range: 4.30 - 11.10 10*3/?L. The reference range was not used to interpret this result as normal/abnormal. RBC (test code = 789-8) See_Comment [Automated AppLovina ge] The system which generated this result transmitted reference range: 3.93 - 5.25 10*6/?L. The reference range was not used to interpret this result as normal/abnormal. HGB (test code = 718-7) 10.5 g/dL 11.6-15 L HCT (test code = 4544-3) 33.4 % 35.7-45.2 L MCV (test code = 787-2) 82.5 fL 80.6-95.5 MCH (test code = 785-6) 25.9 pg 25.9-32.8 MCHC (test code = 786-4) 31.4 g/dL 31.6-35.1 L RDW-SD (test code = 43797-5) 43.3 fL 39-49.9 RDW-CV (test code = 788-0) 14.6 % 12-15.5 PLT (test code = 777-3) See_Comment L [Automated messa ge] The system which generated this result transmitted reference range: 166 - 358 10*3/?L. The reference range was not used to interpret this result as normal/abnormal. MPV (test code = 57766-1) 11.4 fL 9.5-12.9 NRBC/100 WBC (test code = 3508978662) See_Comment [Automated me ssage] The system which generated this result transmitted reference range: 0.0 - 10.0 /100 WBCs. The reference range was not used to interpret this result as normal/abnormal. NRBC x10^3 (test code = 8735136868) <0.01 See_Comment [Automated messa ge] The system which generated this result transmitted reference range: 10*3/?L. The reference range was not used to interpret this result as normal/abnormal. GRAN MAT (NEUT) % (test code = 770-8) 82.2 % IMM GRAN % (test code = 7724288864) 0.50 % LYMPH % (test code = 736-9) 12.5 % MONO % (test code = 5905-5) 4.1 % EOS % (test code = 713-8) 0.6 % BASO % (test code = 706-2) 0.1 % GRAN MAT x10^3(ANC) (test code = 4776663673) 8.74 10*3/uL 1.88-7.09 H IMM GRAN x10^3 (test code = 9250640190) 0.05 10*3/uL 0-0.06 LYMPH x10^3 (test code = 731-0) 1.33 10*3/uL 1.32-3.29 MONO x10^3 (test code = 742-7) 0.44 10*3/uL 0.33-0.92 EOS x10^3 (test code = 711-2) 0.06 10*3/uL 0.03-0.39 BASO x10^3 (test code = 704-7) <0.03 0.01-0.07 Lab Interpretation (test code = 16140-5) Abnormal [facility] (D) IMMUNE [id number] 07:12:41* Test Item Value Reference Range Interpretation Comme nts RHIG CANDIDATE? (test code = 5055) No- see comment Patient is not a candidate for RhIg- Patient is Rh Positive.Performed at [facility] Laboratory Services - [facility] Blood [place] [id number] Free: [phone] No. [id number] [facility]GAL[facility] ONLY - SYPHILIS IGG/[id number] 15:26:00* Test Item Value Reference Range Interpretation Comme nts Syphilis IgG/IgM (test code = 50710-1) Non-reactive Non-reactive ANSELMO (test code = ANSELMO) Non-reactive - No serologic evidence of T. pallidum infection. Cannot exclude incubating or early syphilis. Submit a second specimen in 2-4 weeks if syphilis is clinically suspected. Equivocal - Further testing to follow. Reactive - Further testing to follow. Lab Interpretation (test code = 48165-5) Normal [facility]/2 AG-AB WITH [id number] 15:01:00* Test Item Value Reference Range Interpretation Comme nts HIV Semi-quantitative (test code = 92526-6) Negative Negative ANSELMO (test code = ANSELMO) Non-reactive for HIV-1 antigen and HIV-1/HIV-2 antibodies. ?No laboratory evidence of HIV infection. ?Repeat in 2-4 weeks if acute HIV infection is suspected. [facility]ownHepatitis B Surface [id number] 14:52:00 * Test Item Value Reference Range Interpretation Comme nts HBsAg Semi-Quantitative (benjamín t code = 5195-3) Negative Negative [facility]ownType and Screen - ONCE [id number] 14:03:50 * Test Item Value Reference Range Interpretation Comme nts ABO & RH (test code = 20) O POSITIVE Performed at [facility] Laboratory Services - [facility] Blood [address] Free: [phone] No. [id number] IAT (test code = 1185) Negative Performed at [facility] Laboratory Services - [facility] Blood [place] [address]Toll Free: [phone] No. [id number] [facility] URINALYSIS W/O SPECIFIC [id number] 15:09:00* Test Item Value Reference Range Interpretation Comme nts POCT PH U (test code = 3254) . 5-8 POCT U LEUK EST (test code = 3263) . Negative - N egative POCT U NIT (test code = 3262) . Negative - Negati ve POCT U PROT (test code = 3259) Trace Negative - Negat lucia POCT U GLU (test code = 3256) Neg Negative - Negati ve POCT U KETONE (test code = 3258) . Negative - Neg ative POCT U BLD (test code = 3257) . Negative - Negati ve [facility] URINALYSIS W/O SPECIFIC [id number] 15:09:00* Test Item Value Reference Range Interpretation Comme nts POCT PH U (test code = 3254) . 5-8 POCT U LEUK EST (test code = 3263) . Negative - N egative POCT U NIT (test code = 3262) . Negative - Negati ve POCT U PROT (test code = 3259) Trace Negative - Negat lucia POCT U GLU (test code = 3256) Neg Negative - Negati ve POCT U KETONE (test code = 3258) . Negative - Neg ative POCT U BLD (test code = 3257) . Negative - Negati ve [facility] URINALYSIS W/O SPECIFIC [id number] 14:08:00* Test Item Value Reference Range Interpretation Comme nts POCT PH U (test code = 3254) . 5-8 POCT U LEUK EST (test code = 3263) . Negative - N egative POCT U NIT (test code = 3262) . Negative - Negati ve POCT U PROT (test code = 3259) Trace Negative - Negat lucia POCT U GLU (test code = 3256) Neg Negative - Negati ve POCT U KETONE (test code = 3258) . Negative - Neg ative POCT U BLD (test code = 3257) .. Negative - Negati ve [facility] URINALYSIS W/O SPECIFIC [id number] 14:39:00* Test Item Value Reference Range Interpretation Comme nts POCT PH U (test code = 3254) . 5-8 POCT U LEUK EST (test code = 3263) . Negative - N egative POCT U NIT (test code = 3262) . Negative - Negati ve POCT U PROT (test code = 3259) Trace Negative - Negat lucia POCT U GLU (test code = 3256) Neg Negative - Negati ve POCT U KETONE (test code = 3258) . Negative - Neg ative POCT U BLD (test code = 3257) . Negative - Negati ve [facility] URINALYSIS W/O SPECIFIC [id number] 17:04:00* Test Item Value Reference Range Interpretation Comme nts POCT PH U (test code = 3254) . 5-8 POCT U LEUK EST (test code = 3263) . Negative - N egative POCT U NIT (test code = 3262) . Negative - Negati ve POCT U PROT (test code = 3259) Trace Negative - Negat lucia POCT U GLU (test code = 3256) Neg Negative - Negati ve POCT U KETONE (test code = 3258) . Negative - Neg ative POCT U BLD (test code = 3257) . Negative - Negati ve [facility] URINALYSIS W/O SPECIFIC [id number] 17:18:00* Test Item Value Reference Range Interpretation Comme nts POCT PH U (test code = 3254) . 5-8 POCT U LEUK EST (test code = 3263) . Negative - N egative POCT U NIT (test code = 3262) . Negative - Negati ve POCT U PROT (test code = 3259) Trace Negative - Negat lucia POCT U GLU (test code = 3256) Neg Negative - Negati ve POCT U KETONE (test code = 3258) . Negative - Neg ative POCT U BLD (test code = 3257) . Negative - Negati ve [facility] URINALYSIS W/O SPECIFIC [id number] 15:39:00* Test Item Value Reference Range Interpretation Comme nts POCT PH U (test code = 3254) . 5-8 POCT U LEUK EST (test code = 3263) . Negative - N egative POCT U NIT (test code = 3262) . Negative - Negati ve POCT U PROT (test code = 3259) Trace Negative - Negat lucia POCT U GLU (test code = 3256) Neg Negative - Negati ve POCT U KETONE (test code = 3258) . Negative - Neg ative POCT U BLD (test code = 3257) . Negative - Negati ve [facility] URINALYSIS W/O SPECIFIC [id number] 20:43:00* Test Item Value Reference Range Interpretation Comme nts POCT PH U (test code = 3254) . 5-8 POCT U LEUK EST (test code = 3263) . Negative - N egative POCT U NIT (test code = 3262) . Negative - Negati ve POCT U PROT (test code = 3259) Trace Negative - Negat lucia POCT U GLU (test code = 3256) Neg Negative - Negati ve POCT U KETONE (test code = 3258) . Negative - Neg ative POCT U BLD (test code = 3257) . Negative - Negati ve [facility] URINALYSIS W/O SPECIFIC [id number] 14:51:00* Test Item Value Reference Range Interpretation Comme nts POCT PH U (test code = 3254) . 5-8 POCT U LEUK EST (test code = 3263) . Negative - N egative POCT U NIT (test code = 3262) . Negative - Negati ve POCT U PROT (test code = 3259) Trace Negative - Negat lucia POCT U GLU (test code = 3256) Neg Negative - Negati ve POCT U KETONE (test code = 3258) . Negative - Neg ative POCT U BLD (test code = 3257) . Negative - Negati ve [facility] URINALYSIS W/O SPECIFIC [id number] 16:31:00* Test Item Value Reference Range Interpretation Comme nts POCT PH U (test code = 3254) . 5-8 POCT U LEUK EST (test code = 3263) . Negative - N egative POCT U NIT (test code = 3262) . Negative - Negati ve POCT U PROT (test code = 3259) Trace Negative - Negat lucia POCT U GLU (test code = 3256) Neg Negative - Negati ve POCT U KETONE (test code = 3258) . Negative - Neg ative POCT U BLD (test code = 3257) . Negative - Negati ve [facility] URINALYSIS W/O SPECIFIC [id number] 14:30:00* Test Item Value Reference Range Interpretation Comme nts POCT PH U (test code = 3254) 5 mg/dl 5-8 POCT U LEUK EST (test code = 3263) 2+ Negative - Negative POCT U NIT (test code = 3262) neg Negative - Negati ve POCT U PROT (test code = 3259) trace Negative - Negat lucia POCT U GLU (test code = 3256) neg Negative - Negati ve POCT U KETONE (test code = 3258) neg Negative - Neg ative POCT U BLD (test code = 3257) neg Negative - Negati ve [facility]OM[facility] [id number] 14:29:00* Test Item Value Reference Range Interpretation Comme nts POCT PREG (test code = 1605) Positive On board controls acceptable with C Line (test code = 3574) Yes POCT PREG LOT # (test code = 3575) POCT PREG TEST DATE ( test code = 3576) [facility] Notes Date/Time Note Provider Source 2023-05-27 08:14:36 [id number] IFuIhQzwdHp Bg2ma0BlEGwhl9NKitc4UETyLmhCQXN [id number]:14:36 Patient informed of results and need for 3 hr gtt. Lab appt made for 06/01/2023 per pt request, informed to be fasting, verbalized understanding. 67625-3Frpgjyfrw encounter YwsxOX0663-06-49R83:16:39Teleph one encounter NoteTXT1.2.840.842754..13.104. 2.7.2.367982|[id number] ble for patient ijte02045-7SdpoYDHWZHDZDWISujfk tted C-CDA narrative [id number] Garcia [address] 64816NARKDKPGGURWWZIBEQWZBX8491 -03-13T08:16:391.2.840.032401.1 .72.3.15|1.2.840.561496.1.13.10 4.2.7.2.727879_[id number] Dorinda Bernal [facility] 2023-05-27 07:44:00 8zEmUOCgf8geyCWOSa56 NlFq9KgBJ2s /zeWY/kGkrokqGWxSQ9YHMqNh7mwGOS qV5330-89-82L75:44:00 Please call patient and set up 3hr GTT 21676-7Yixkzzwnb encounter GwqnJX5303-31-57I05:44:40Teleph one encounter NoteTXT1.2.840.494041.1.13.104. 2.7.2.360947|[id number] ble for patient erlm00711-0RquuOUIBCUHJRZXZixhi tted C-CDA narrative text[address]TXTX[address] 55788KSDXENSMNTKBODAKNEBGBD3338 -03-13T07:44:401.2.840.126358.1 .72.3.15|1.2.840.353353.1.13.10 4.2.7.2.727879_[id number] [facility]"
[2023-05-31 22:43] LABS: Specific Gravity 1.025 (1.005-1.030)
[2023-05-31 22:52] LABS: Specific Gravity 1.025 (1.005-1.030); Sqamous Epithelial <5 /HPF (None Seen); Urine Bacteria None Seen /HPF (<20); Urine Bilirubin NEGATIVE (Negative); Urine Blood 3+ (Negative); Urine Clarity Turbid (Clear); Urine Color Yellow (Yellow); Urine Culture Reflex Order NOT NEEDED; Urine Glucose NEGATIVE (Negative); Urine Ketones NEGATIVE (Negative); Urine Microscopic Reflex YN ORDER UMIC; Urine Mucus Slight /HPF (None Seen); Urine Nitrite NEGATIVE (Negative); Urine Protein TRACE (Negative); Urine RBC None Seen /HPF (None Seen); Urine Urobilinogen 2+ (Normal); Urine WBC <5 /HPF (<5); Urine pH 6.5 (5.0-7.0)
[2023-06-01 00:09] LABS: Absolute Eosinophils 0.3 K/uL (0-0.5); Absolute Monocytes 0.6 K/uL (0.1-1.3); Absolute Neutrophil 5.3 K/uL (1.8-8.0); Basophils % 0.4 % (0-1.3); Eosinophils % 3.7 % (0-4.4); Hematocrit 38.5 % (36.0-45.0); Hemoglobin 12.7 g/dL (12.0-15.0); MCHC 33.1 g/dL (32.0-36.0); MCV 78.7 fL (80-100); MPV 8.8 fL (7.6-11.3); Monocytes % 6.8 % (3.3-12.3); Neutrophils % 64.1 % (41.7-73.7); Nucleated Red Blood Cells % 0.1 % (0-0); Platelets 251 thou/uL (152-406); Red Cell Distribution Width 15.8 % (12.1-15.2)
[2023-06-01 00:18] LABS: Anion Gap 8.6 mEq/L (5.0-15.0); Potassium 3.6 mEq/L (3.5-5.1)
--- NOTE | 2023-06-01 00:49 | EDPHYS ---
Physician Documentation [facility] Name: Suzanne Edwards Age: 38 yrs Sex: Female : 1985 Arrival Date: 05/31/2023 Time: 21:25 Bed 17 Private MD: ED Physician Bryan Mathis HPI: 05/31 00:11 This 38 yrs old Female presents to ER via Ambulatory with complaints of EST 8 kb WKS GESTATION, Low Back Pain, Vaginal Bleeding, Pelvic Pain. 00:11 Patient is a 38-year-old female who presents for spotting that started today as well as kb lower abdominal cramping and back pain. States she is approximately 8 weeks with LMP of 04/09/2023. G4, . Denies any urinary symptoms.. 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 - Social history:: Smoking status: Patient denies any tobacco usage or history of. ROS: 05/31 00:11 Constitutional: As per HPI kb Exam: 00:11 Constitutional: This is a well developed, well nourished patient who is awake, alert, kb and in no acute distress. Head/Face: Normocephalic, atraumatic. ENT: Moist Mucous membranes Cardiovascular: Regular rate Respiratory: Respirations even and unlabored. No increased work of breathing. Talking in full sentences Abdomen/GI: Soft, non-tender. No distention Back: No spinal tenderness. No costovertebral tenderness. Full range of motion. Skin: Warm, dry with normal turgor. Normal color. MS/ Extremity: Pulses equal, no cyanosis. Neurovascular intact. Full, normal range of motion. Neuro: Awake and alert, GCS 15, oriented to person, place, time, and situation. Moves all extremities. Normal gait. Vital Signs: 05/30 21:46 BP 130 / 74; Pulse 69; Resp 16; Temp 97.1; Pulse Ox 100% on R/A; Weight 97.52 kg (R); cm10 Height 5 ft. 4 in. ; Pain 6/10; 23:30 BP 117 / 62; Pulse 60; Resp 16 S; Pulse Ox 100% on R/A; jw7 21:46 Body Mass Index 36.90 (97.52 kg, 162.56 cm) cm10 21:46 Pain Scale: Adult cm10 MDM: 21:49 Patient medically screened. kb 05/31 00:11 Differential diagnosis: Threatened , subchorionic hemorrhage, spontaneous kb . Data reviewed: vital signs, nurses notes. 00:48 Counseling: I had a detailed discussion with the patient and/or guardian regarding the kb historical points, exam findings, and any diagnostic results supporting the discharge/admit diagnosis, lab results, radiology results, the need for outpatient follow up, an OB/Gyne specialist, to return to the emergency department if symptoms worsen or persist or if there are any questions or concerns that arise at home. 05/30 21:49 Order name: Abo/rh Typing; Complete Time: 00:27 kb 05/30 21:49 Order name: Basic Metabolic Panel; Complete Time: 00:30 kb 05/30 21:49 Order name: CBC with Diff; Complete Time: 00:13 kb 05/30 21:49 Order name: Test, Urine; Complete Time: 22:53 kb 05/30 21:49 Order name: Quantitative Hcg; Complete Time: 00:30 kb 05/30 21:49 Order name: Urinalysis w/ reflexes; Complete Time: 22:53 kb 05/30 21:49 Order name: US Transvaginal Ob kb 05/30 21:49 Order name: IV Saline Lock; Complete Time: 23:49 kb 05/30 21:49 Order name: Labs collected and sent; Complete Time: 23:49 kb 05/30 21:49 Order name: NPO; Complete Time: 22:17 kb Administered Medications: No medications were administered Disposition Summary: 06/01/23 00:49 Discharge Ordered Notes: Location: Home kb Condition: Stable kb Diagnosis - Threatened kb Followup: kb - With: Emergency Department - When: As needed - Reason: Worsening of condition Followup: kb - With: Private Physician - When: 2 - 3 days - Reason: Recheck today's complaints, Continuance of care, Re-evaluation by your physician Discharge Instructions: - Discharge Summary Sheet kb - Subchorionic Hematoma kb - Threatened Miscarriage, [id number] kb - Vaginal Bleeding During , First Trimester, [id number] kb Forms: - Medication Reconciliation Form kb - Thank You Letter kb - Antibiotic Education kb - Prescription Opioid Use kb - Patient Portal Instructions kb - Leadership Thank You Letter kb Signatures: Dispatcher [employer] EDKelly Butterfield FNP-Messi MARTINEZ-Patricia Harris RN RN cm10 Corrections: (The following items were deleted from the chart) 05/30 21:49 21:48 Allergies: No Known Allergies; cm10 cm10 21:49 21:48 Home Meds: None; cm10 cm10 21:49 21:48 PMHx: None; cm10 cm10 21:49 21:48 PSHx: None; cm10 cm10
--- NOTE | 2023-06-01 00:49 | ER ---
Nurse's Notes [facility] Name: Suzanne Edwards Age: 38 yrs Sex: Female : 1985 Arrival Date: 05/31/2023 Time: 21:25 Bed 17 Private MD: Diagnosis: Threatened Presentation: 05/30 21:46 Chief complaint: Patient states: Approximately 8 weeks and started spotting cm10 today. Pt states that the bleeding has decreased and now it is only when she wipes. Pt also reports lower abdominal cramping and back pain. LMP 04/09/23. . Coronavirus screen: Client denies travel out of the [place] in the last 14 days. At this time, the client does not indicate any symptoms associated with coronavirus-19. Ebola Screen: Patient denies travel to an Ebola-affected area in the 21 days before illness onset. No symptoms or risks identified at this time. Initial Sepsis Screen: Does the patient meet any 2 criteria? No. Patient's initial sepsis screen is negative. Does the patient have a suspected source of infection? No. Patient's initial sepsis screen is negative. Risk Assessment: Do you want to hurt yourself or someone else? Patient reports no desire to harm self or others. Onset of symptoms was May 31, 2023. 21:46 Method Of Arrival: Ambulatory cm10 21:46 Acuity: BING 3 cm10 Triage Assessment: 21:49 General: Appears in no apparent distress. comfortable, Behavior is calm, cooperative. cm10 Pain: Complains of pain in back, right lower quadrant and left lower quadrant. Neuro: No deficits noted. Level of Consciousness is awake, alert, obeys commands, Oriented to person, place, time, situation. Respiratory: No deficits noted. Airway is patent Respiratory effort is even, unlabored, Respiratory pattern is regular, symmetrical. 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 - Social history:: Smoking status: Patient denies any tobacco usage or history of. Screenin:18 [facility] ED Fall Risk Assessment (Adult) History of falling in the last 3 months, jw7 including since admission No falls in past 3 months (0 pts) Confusion or Disorientation No (0 pts) Intoxicated or Sedated No (0 pts) Impaired Gait No (0 pts) Mobility Assist Device Used No (0 pt) Altered Elimination No (0 pt) Score/Fall Risk Level 0 - 2 = Low Risk Oriented to surroundings, Maintained a safe environment, Educated pt \T\ family on fall prevention, incl call for assistance when getting out of bed. Abuse screen: Denies threats or abuse. Denies injuries from another. Nutritional screening: No deficits noted. Tuberculosis screening: No symptoms or risk factors identified. Assessment: 22:30 General: Appears in no apparent distress. uncomfortable, Behavior is calm, cooperative. jw7 Pain: Complains of pain in abdomen and back Pain does not radiate. Pain currently is 7 out of 10 on a pain scale. Quality of pain is described as crampy, Pain began suddenly, Is continuous. Neuro: Level of Consciousness is awake, alert, obeys commands, Oriented to person, place, time, situation. Cardiovascular: Heart tones S1 S2 present Capillary refill < 3 seconds Clubbing of nail beds is absent JVD is absent Patient's skin is warm and dry. Respiratory: Airway is patent Trachea midline Respiratory effort is even, unlabored, Respiratory pattern is regular, symmetrical, Breath sounds are clear bilaterally. GI: Abdomen is round non-distended, Bowel sounds present X 4 quads. Abd is soft X 4 quads Abdomen is tender to palpation in right lower quadrant and left lower quadrant Reports lower abdominal pain. : Urine is cloudy, Reports vaginal bleeding that is bright red, spotty. EENT: No deficits noted. No signs and/or symptoms were reported regarding the EENT system. Derm: Skin is intact, is healthy with good turgor, Skin is dry, Skin is normal, Skin temperature is warm. Musculoskeletal: Circulation, motion, and sensation intact. Range of motion: intact in all extremities. 23:30 Reassessment: Patient appears in no apparent distress at this time. No changes from jw7 previously documented assessment. Patient and/or family updated on plan of care and expected duration. Pain level reassessed. Patient is alert, oriented x 3, equal unlabored respirations, skin warm/dry/pink. 05/31 01:11 Reassessment: Patient appears in no apparent distress at this time. Patient and/or jb4 family updated on plan of care and expected duration. Pain level reassessed. Patient is alert, oriented x 3, equal unlabored respirations, skin warm/dry/pink. Vital Signs: 05/30 21:46 BP 130 / 74; Pulse 69; Resp 16; Temp 97.1; Pulse Ox 100% on R/A; Weight 97.52 kg (R); cm10 Height 5 ft. 4 in. ; Pain 6/10; 23:30 BP 117 / 62; Pulse 60; Resp 16 S; Pulse Ox 100% on R/A; jw7 21:46 Body Mass Index 36.90 (97.52 kg, 162.56 cm) cm10 21:46 Pain Scale: Adult cm10 ED Course: 21:27 Patient arrived in ED. jj6 21:48 Triage completed. cm10 21:48 Kelly Miranda FNP-C is PHCP. kb 21:48 Bryan Mathis is Attending Physician. kb 21:49 Arm band placed on Patient placed in waiting room. cm10 22:17 Savana Rojo, RN is Primary Nurse. jw7 22:17 Urine collected: clean catch specimen, cloudy. jw7 22:17 Test, Urine Sent. jw7 22:17 Urinalysis w/ reflexes Sent. jw7 22:18 Patient has correct armband on for positive identification. Bed in low position. Call [facility] light in reach. Provided Education on: Use of Call Light. 22:47 US Transvaginal Ob In Process Unspecified. EDMS 23:48 Initial lab(s) drawn, by pa, sent to lab. Inserted saline lock: 22 gauge in left jw7 antecubital area, using aseptic technique. Blood collected. 05/31 01:11 No provider procedures requiring assistance completed. IV discontinued, intact, jb4 bleeding controlled, No redness/swelling at site. Pressure dressing applied. Administered Medications: No medications were administered Medication: 01:11 VIS not applicable for this client. jb4 Outcome: 00:49 Discharge ordered by . kb 01:11 Discharged to home ambulatory, jb4 01:11 Condition: stable 01:11 Discharge instructions given to patient, Instructed on discharge instructions, follow up and referral plans. Demonstrated understanding of instructions, follow-up care, 01:15 Patient left the ED. jb4 Signatures: Dispatcher [employer] EDMS Kelly Miranda, TOUCH UP PAINTER-C TOUCH UP PAINTER-Seth Domínguez RN RN jb4 Lalita [id number] Savana Rojo RN RN jw7 Patricia Roland RN RN cm10 Corrections: (The following items were deleted from the chart) 05/30 21:49 21:48 Allergies: No Known Allergies; cm10 cm10 21:49 21:48 Home Meds: None; cm10 cm10 21:49 21:48 PMHx: None; cm10 cm10 21:49 21:48 PSHx: None; cm10 cm10 :47 23:00 General: Appears in no apparent distress. uncomfortable, Behavior is calm, [facility] cooperative, [facility] : 23:00 Pain: Complains of pain in abdomen and back Pain does not radiate. Pain currently [facility] is 7 out of 10 on a pain scale. Quality of pain is described as crampy, Pain began suddenly, Is continuous, [facility] 23:00 Neuro: Level of Consciousness is awake, alert, obeys commands, Oriented to [facility] person, place, time, situation, [facility] : 23:00 Cardiovascular: Heart tones S1 S2 present Capillary refill < 3 seconds Clubbing jw of nail beds is absent JVD is absent Patient's skin is warm and dry. [facility] : 23:00 Respiratory: Airway is patent Trachea midline Respiratory effort is even, jw7 unlabored, Respiratory pattern is regular, symmetrical, Breath sounds are clear bilaterally. [facility] : 23:00 GI: Abdomen is round non-distended, Bowel sounds present X 4 quads. Abd is soft X [facility] 4 quads Abdomen is tender to palpation in right lower quadrant and left lower quadrant Reports lower abdominal pain, [facility] : 23:00 EENT: No deficits noted. No signs and/or symptoms were reported regarding the [facility] EENT system. [facility] : 23:00 Derm: Skin is intact, is healthy with good turgor, Skin is dry, Skin is normal, jw7 Skin temperature is warm jw7 :47 23:00 Musculoskeletal: Circulation, motion, and sensation intact. Range of motion: jw7 intact in all extremities, jw7 : 23:00 : Urine is cloudy, Reports vaginal bleeding that is bright red, spotty, jw7 7
[2023-06-01 01:48] VITALS: BP 117/62; TEMP 97.1; O2SAT 100
--- NOTE | 2023-06-01 13:04 | RAD REPORT ---
EXAM DESCRIPTION: US - Transvaginal OB - 05/31/2023 10:45 pm CLINICAL HISTORY: 38 years Female, ABD PAIN TECHNIQUE: Real-time transvaginal sonographic imaging of the pelvis was performed. COMPARISON: None. FINDINGS: Number of intrauterine gestational sacs identified: 1 Gestational sac (size/shape): 1.50 cm. Ovoid and regular. Hardwick-rump length: 0.37 cm. heart rate: 167 Beats per minute. Yolk sac: Visualized. Ultrasound age is 6 weeks 1 day , and ultrasound VAL is 01/23/2024. LMP age is 7 weeks 3 days , and LMP VAL is 01/14/2024. Subchorionic hemorrhage: None. Amnionic fluid: Qualitatively normal. Uterus: 8.5 x 5.7 x 6.5 cm. Adnexa: Normal bilateral ovaries with physiologic follicles. Right ovary measures 2.6 x 1.4 x 1.3 cm; left ovary measures 3.4 x 2.0 x 1.8 cm. Probable corpus luteal cyst within the left ovary, no furthe r workup is warranted. Doppler color flow with normal arterial and venous waveforms are seen within b ilateral ovaries. No adnexal masses. Cul-de-sac: No free fluid. IMPRESSION: 1. Single live intrauterine with gestational age of 6 weeks 1 day with VAL o f 01/23/2024. Electronically signed by: Johnathan Barragan MD 06/01/2023 01:09 AM CDT Due to temporary technical issues with the PACS/Fluency reporting system, reports are being signed by the in house radiologist without review as a courtesy to ensure prompt reporting. The interpreting r adiologist is fully responsible for the content of the report.
== END ==
LOC: ER 21:25
DX: O20.0 Threatened abortion (principal); Z3A.01 Less than 8 weeks gestation of pregnancy
CPT/HCPCS: 36415; 76817; 80048; 81001; 81025; 84702; 85025; 86900; 86901

== ENCOUNTER → 2023-06-01 | Emergency (ER) | payer SELFPAY ==
[~2023-06-01] MED LIST: NA CHLORIDE 0.9% 1,000 ML ONE; POTASSIUM 25 MEQ EFFERV TAB ONE
--- OUTSIDE RECORDS SUMMARY | 2023-06-01 20:25 | XMS REPORT | Continuity of Care Document ---
Author Name Unknown Address [address] [facility] [address] [place] [address] [facility] Address [address] 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 Name Role Phone PCP, PATIENT DOES NOT HAVE A Primary Care Physic camille Unavailable LEE ANN ALATORRE Attending Clinician Unavail able VANNA ANDRADE Attending Clinician UnavailBessie GatesRmchp Attending Clinician Unavailable Vanna Andrade CNM Attending Clinician [phone] Celi WHLee Ann VANEGAS Attending Clinician + Doctor Unassigned, Center Line Attending Clinician U dominique Dawkins NP, Lisa Mendoza Attending Clinician [phone] Sindy Hernandez RN Attending Clinician Unavailable Last Hinton MD, Maricel Attending Clinician + Ultrasound, Yair-Mfm Attending Clinician UnavailVickey Penny MD Attending Clinician [phone] Juani Alanis Attending Clinician [phone] Remy Puente Attending Clinician [phone] Last Hinton MD, Maricel Admitting Clinician + Payers Payer Name Policy Type Policy Number Effective Date Expirati on Date Source [employer] [id number] 2018 00:00:00 Problems Condition Name Condition Details Condition Category Status Onset Date Resolution Date Last Treatment Date Treating Clinician Comments Source AMA (advanced maternal age) multigravi da 35+ AMA (advanced maternal age) multigravi da 35+ Disease Active 3-12 00:00: 00 [facility] Tubal ligation status Tubal ligation status Disease Active 3-12 00:00: 00 [facility] History of miscarriag e History of miscarriag e Disease Active 3-12 00:00: 00 [facility] (spontaneo us vaginal delivery) (spontaneo us vaginal delivery) Disease Active 0 4-02 00:00: 00 [facility] Single live Single live Disease Active 0 4-02 00:00: 00 [facility] Laceration , obstetrica l, minor Laceration , obstetrica l, minor Disease Active 0 4-02 00:00: 00 [facility] Indication for care in labor or delivery Indication for care in labor or delivery Disease Active 0 4- 00:00: 00 [facility] Indication for care in labor or delivery Indication for care in labor or delivery Disease Active 0 4-01 00:00: 00 [facility] Multiparit y Multiparit y Disease Active 0 3-04 00:00: 00 [facility] Vaginal bleeding in Vaginal bleeding in Disease Active 0 1-27 00:00: 00 [facility] Nausea and vomiting in prior to 22 weeks gestation Nausea and vomiting in prior to 22 weeks gestation Disease Active 2018-03 0-04 00:00: 00 [facility] Abnormal maternal glucose tolerance, antepartum Abnormal maternal glucose tolerance, antepartum Disease Active 8- 00:00: 00 [facility] High-risk in third trimester High-risk in third trimester Disease Active 8- 00:00: 00 [facility] Obesity affecting Obesity affecting Disease Active 8- 00:00: 00 [facility] Well woman exam Well woman exam Disease Active 2015-03 2-05 00:00: 00 [facility] Other general counseling and advice for contracept lucia management Other general counseling and advice for contracept lucia management Disease Active 2015-03 00:00: 00 [facility] Obese Obese Disease Active 2015-03 00:00: 00 [facility] Vaginal yeast infection Vaginal yeast infection Disease Active 2015-03 00:00: 00 [facility] 39 weeks gestation of 39 weeks gestation of Disease Active 2015-03 0 00:00: 00 [facility] Declines flu vaccine Declines flu vaccine Disease Active 12-13 00:00: 00 Overview: Formattin g of this note might be different from the original. Received flu vac today [facility] Allergies, Adverse Reactions, Alerts Allergy Name Allergy Type Status Severity Reaction(s) Onset Date Inactive Date Treating Clinician Comments Source NO KNOWN ALLERGIE S Drug Class Active [facility] Social History Social Habit Start Date Stop Date Quantity Comments Source ASSERTION 2023-04-23 00:00:00 [facility] 2023-05-26 00:00:00 2023-05-26 00:00:00 Current non-drinker of alcohol (finding) [facility] Tobacco use and exposure 2023-05-26 00:00:00 2023-05-26 00:00:00 Smokeless tobacco non-user [facility] History of Social function 2023-05-26 00:00:00 2023-05-26 00:00:00 [facility] Sex Assigned At 1985 00:00:00 1985 00:00:00 [facility] Smoking Status Start Date Stop Date Source Never smoked tobacco [facility] Medications Ordered Medication Name Filled Medication Name Start Date Stop Date Current Medication? Ordering Clinician Indication Dosage Frequency Signature (SIG) Comments Components Source vit no.124/iron /folic ( VITAMIN ORAL) 05-25 09:10: 59 Yes Take by mouth. [facility] vit no.124/iron /folic ( VITAMIN ORAL) 05-25 09:10: 59 Yes Take by mouth. [facility] vit no.124/iron /folic ( VITAMIN ORAL) 3-12 09:10: 59 Yes Take by mouth. [facility] vit no.124/iron /folic ( VITAMIN ORAL) 12 09:10: 59 Yes Take by mouth. [facility] vit no.124/iron /folic ( VITAMIN ORAL) 05-25 09:10: 59 Yes Take by mouth. [facility] fluconazole (DIFLUCAN) 150 mg tablet 06-19 00:00: 00 06-20 04:59 :00 No [id number] 150mg Take 1 tablet by mouth once now for 1 dose. [facility] fluconazole (DIFLUCAN) 150 mg tablet 06-19 00:00: 00 06-20 04:59 :00 No [id number] 150mg Take 1 tablet by mouth once now for 1 dose. [facility] fluconazole (DIFLUCAN) tablet 150 mg 06-17 11:45: 00 06-17 10:54 :00 No 150mg 150 mg, Oral, ONCE NOW, 1 dose, 06/18/19 at 0645, ZAID
Re ason for Anti-Infec tive: Documented Infection< br>Documen papo Infection Site: Skin / Soft Tissue
Duration of Therapy: 7 days [facility] ketoconazol e 2 % cream 06-17 00:00: 00 07-18 04:59 :00 No [id number] Apply to area(s) daily for 30 days. [facility] ketoconazol e 2 % cream 06-17 00:00: 00 07-18 04:59 :00 No [id number] Apply to area(s) daily for 30 days. [facility] ketoconazol e 2 % cream 06-17 00:00: 00 07-18 04:59 :00 No [id number] Apply to area(s) daily for 30 days. [facility] ketoconazol e 2 % cream 06-17 00:00: 07-18 04:59 :00 No [id number] Apply to area(s) daily for 30 days. [facility] ketoconazol e 2 % cream 06-17 00:00: 00 07-18 04:59 :00 No [id number] Apply to area(s) daily for 30 days. [facility] ketoconazol e 2 % cream 06-17 00:00: 07-18 04:59 :00 No [id number] Apply to area(s) daily for 30 days. [facility] rho(D) immune globulin (RHOGAM) syringe 300 mcg 06-15 05:30: 03 Yes 300ug 300 mcg, Intramuscu lar, ONCE, For 1 dose, Conditiona l, Routine [facility] human papillomav vac,9-alexandro(P F) (GARDASIL-9 ) syringe 0.5 mL 06-15 05:29: 59 Yes .5mL 0.5 mL, Intramuscu lar, ONCE-PRIOR TO DISCHARGE, 1 dose, Starting Rosa Maria 06/16/19 at 0029, Until Discontinu ed, Routine, Give vaccine prior to discharge [facility] ibuprofen (IBU) tablet 600 mg 06-15 05:29: 59 Yes 600mg 600 mg, Oral, Q6HPRN, Starting Rosa Maria 06/16/19 at 0029, Until Discontinu ed, Routine, Pain (scale 4-6) [facility] acetaminoph en (TYLENOL) tablet 650 mg 06-15 05:29: 59 Yes 650mg 650 mg, Oral, Q6HPRN, Starting Rosa Maria 06/16/19 at 0029, Until Discontinu ed, Routine, Pain (scale 1-3) [facility] diphenhydrA MINE (BENADRYL) tablet 25 mg 06-15 05:29: 59 Yes 25mg 25 mg, Oral, Q6HPRN, Starting Rosa Maria 06/16/19 at 0029, Until Discontinu ed, Routine, Sleep, Itching [facility] diphenhydrA MINE-0.9 % sod.chlr (BENADRYL) 25 mg/50 mL piggyback 25 mg 06-15 05:29: 59 Yes 25mg 25 mg, IV Piggyback, Administer over 30 Minutes, Q6HPRN, Starting Rosa Maria 06/16/19 at 0029, Until Discontinu ed, Routine, Itching [facility] ondansetron (ZOFRAN (PF)) injection 4 mg 06-15 05:29: 59 Yes 4mg 4 mg, Slow IV Push, Q8HPRN, Starting Rosa Maria 06/16/19 at 0029, Until Discontinu ed, Routine, Nausea and Vomiting (N/V) [facility] simethicone (GAS RELIEF (SIMETHICON E)) chewable tablet 160 mg 06-15 05:29: 59 Yes 160mg 160 mg, Oral, PC+HSPRN, Starting Rosa Maria 06/16/19 at 0029, Until Discontinu ed, Routine, Gas [facility] docusate calcium (SURFAK) capsule 240 mg 06-15 05:29: 59 Yes 240mg 240 mg, Oral, QDAILYPRN, Starting Rosa Maria 06/16/19 at 0029, Until Discontinu ed, Routine, Constipati on [facility] magnesium hydroxide (MILK OF MAGNESIA) 400 mg/5 mL suspension 30 mL 06-15 05:29: 59 Yes 30mL 30 mL, Oral, QDAILYPRN, Starting Rosa Maria 06/16/19 at 0029, Until Discontinu ed, Routine, Constipati on [facility] benzocaine- menthol (DERMOPLAST ) 20-0.5 % topical spray 06-15 05:29: 59 Yes Topical, PRN, Starting Rosa Maria 06/16/19 at 0029, Until Discontinu ed, Routine, Perineum discomfort [facility] acetaminoph en (TYLENOL) tablet 650 mg 06-15 02:49: 10 06-15 05:30 :04 No 650mg 650 mg, Oral, Q6HPRN, Starting 06/15/19 at 2149, Until Rosa Maria 06/16/19 at 0030, Routine, Pain (scale 1-3), Temp > 38.5 C [facility] docusate calcium 240 mg capsule 2020-0 4- 00:00: 00 Yes [id number] 240mg Take 1 capsule by mouth once daily as needed for Constipati on. [facility] ibuprofen 600 mg tablet 2019-0 4- 00:00: 00 Yes [id number] 600mg Take 1 tablet by mouth every 6 (six) hours as needed (Pain). Take with food or milk. [facility] Iron Fum & P-FA-Vit B & C No.9 (INTEGRA PLUS) 125 mg iron- 1 mg Cap 2020-0 4-02 00:00: 00 Yes [id number] 1{capsu le} Take 1 capsule by mouth daily. [facility] docusate calcium 240 mg capsule 2019-0 - 00:00: 00 Yes [id number] 240mg Take 1 capsule by mouth once daily as needed for Constipati on. [facility] ibuprofen 600 mg tablet 2019-0 06-15 00:00: 00 Yes [id number] 600mg Take 1 tablet by mouth every 6 (six) hours as needed (Pain). Take with food or milk. [facility] Iron Fum & P-FA-Vit B & C No.9 (INTEGRA PLUS) 125 mg iron- 1 mg Cap 2019-0 06-15 00:00: 00 Yes [id number] 1{capsu le} Take 1 capsule by mouth daily. [facility] docusate calcium 240 mg capsule 0 06-15 00:00: 00 Yes [id number] 240mg Take 1 capsule by mouth once daily as needed for Constipati on. [facility] ibuprofen 600 mg tablet 0 06-15 00:00: 00 Yes [id number] 600mg Take 1 tablet by mouth every 6 (six) hours as needed (Pain). Take with food or milk. [facility] Iron Fum & P-FA-Vit B & C No.9 (INTEGRA PLUS) 125 mg iron- 1 mg Cap 2020-0 - 00:00: 00 Yes [id number] 1{capsu le} Take 1 capsule by mouth daily. [facility] docusate calcium 240 mg capsule 2020-0 4- 00:00: 00 Yes [id number] 240mg Take 1 capsule by mouth once daily as needed for Constipati on. [facility] ibuprofen 600 mg tablet 2019-0 - 00:00: 00 Yes [id number] 600mg Take 1 tablet by mouth every 6 (six) hours as needed (Pain). Take with food or milk. [facility] Iron Fum & P-FA-Vit B & C No.9 (INTEGRA PLUS) 125 mg iron- 1 mg Cap 2020-0 - 00:00: 00 Yes [id number] 1{capsu le} Take 1 capsule by mouth daily. [facility] docusate calcium 240 mg capsule 2019-0 - 00:00: 00 Yes [id number] 240mg Take 1 capsule by mouth once daily as needed for Constipati on. [facility] ibuprofen 600 mg tablet 0 06-15 00:00: 00 Yes [id number] 600mg Take 1 tablet by mouth every 6 (six) hours as needed (Pain). Take with food or milk. [facility] Iron Fum & P-FA-Vit B & C No.9 (INTEGRA PLUS) 125 mg iron- 1 mg Cap 2020-0 - 00:00: 00 Yes [id number] 1{capsu le} Take 1 capsule by mouth daily. [facility] docusate calcium 240 mg capsule 2019-0 06-15 00:00: 00 Yes [id number] 240mg Take 1 capsule by mouth once daily as needed for Constipati on. [facility] ibuprofen 600 mg tablet 0 06-15 00:00: 00 Yes [id number] 600mg Take 1 tablet by mouth every 6 (six) hours as needed (Pain). Take with food or milk. [facility] Iron Fum & P-FA-Vit B & C No.9 (INTEGRA PLUS) 125 mg iron- 1 mg Cap 2020-0 - 00:00: 00 Yes [id number] 1{capsu le} Take 1 capsule by mouth daily. [facility] docusate calcium 240 mg capsule 2019-0 -02 00:00: 00 Yes [id number] 240mg Take 1 capsule by mouth once daily as needed for Constipati on. [facility] ibuprofen 600 mg tablet 2019-0 - 00:00: 00 Yes [id number] 600mg Take 1 tablet by mouth every 6 (six) hours as needed (Pain). Take with food or milk. [facility] Iron Fum & P-FA-Vit B & C No.9 (INTEGRA PLUS) 125 mg iron- 1 mg Cap 2020-0 4-02 00:00: 00 Yes [id number] 1{capsu le} Take 1 capsule by mouth daily. [facility] docusate calcium 240 mg capsule 2019-0 - 00:00: 00 Yes [id number] 240mg Take 1 capsule by mouth once daily as needed for Constipati on. [facility] ibuprofen 600 mg tablet 0 06-15 00:00: 00 Yes [id number] 600mg Take 1 tablet by mouth every 6 (six) hours as needed (Pain). Take with food or milk. [facility] Iron Fum & P-FA-Vit B & C No.9 (INTEGRA PLUS) 125 mg iron- 1 mg Cap 2019-0 - 00:00: 00 Yes [id number] 1{capsu le} Take 1 capsule by mouth daily. [facility] docusate calcium 240 mg capsule 0 06-15 00:00: 00 Yes [id number] 240mg Take 1 capsule by mouth once daily as needed for Constipati on. [facility] ibuprofen 600 mg tablet 0 06-15 00:00: 00 Yes [id number] 600mg Take 1 tablet by mouth every 6 (six) hours as needed (Pain). Take with food or milk. [facility] Iron Fum & P-FA-Vit B & C No.9 (INTEGRA PLUS) 125 mg iron- 1 mg Cap 2020-0 -02 00:00: 00 Yes [id number] 1{capsu le} Take 1 capsule by mouth daily. [facility] docusate calcium 240 mg capsule 2019-0 02 00:00: 00 05-25 00:00 :00 No [id number] 240mg Take 1 capsule by mouth once daily as needed for Constipati on. [facility] ibuprofen 600 mg tablet 06-15 00:00: 00 05-25 00:00 :00 No [id number] 600mg Take 1 tablet by mouth every 6 (six) hours as needed (Pain). Take with food or milk. [facility] Iron Fum & P-FA-Vit B & C No.9 (INTEGRA PLUS) 125 mg iron- 1 mg Cap 06-15 00:00: 00 05-25 00:00 :00 No [id number] 1{capsu le} Take 1 capsule by mouth daily. [facility] lactated ringers IV infusion 500 mL 06-14 14:00: 00 06-14 22:02 :00 No 500mL at 999 mL/hr, 500 mL, IV Infusion, ONCE, 1 dose, Thu06/15/19 at 0900, Routine [facility] D5W-LR IV infusion 1,000 mL 06-14 13:00: 00 06-15 05:30 :04 No 1000mL at 125 mL/hr, IV Infusion, CONTINUOUS , Starting Thu06/15/19 at 0800, Until Rosa Maria 06/16/19 at 0030, Routine [facility] LR 1000 mL + oxytocin 20 units [...] faculty approval.& nbsp;&nbsp ;Max 40 lila-unit s/min.
[facility] sodium citrate-cit jillian acid (BICITRA) 500-334 mg/5 mL solution 30 mL 06-14 12:48: 49 06-14 22:15 :00 No 30mL 30 mL, Oral, PRE-PROCED URE ONCE, 1 dose, Starting Thu06/15/19 at 0748, Until Discontinu ed, Routine, Surgery/Pr ocedure [facility] VIT W-CA,FE,FA, <1 MG, ( VITAMIN ORAL) 11-08 21:41: 59 11-08 00:00 :00 No Take by mouth. [facility] PNV 67-iron ps-folate no.1-dha (VITAFOL ULTRA) 29 mg iron- 1 mg-200 mg Cap 11-08 00:00: 00 Yes [id number] 1{capsu le} Take 1 capsule by mouth daily. [facility] PNV 67-iron ps-folate no.1-dha (VITAFOL ULTRA) 29 mg iron- 1 mg-200 mg Cap 11-08 00:00: 00 Yes [id number] 1{capsu le} Take 1 capsule by mouth daily. [facility] PNV 67-iron ps-folate no.1-dha (VITAFOL ULTRA) 29 mg iron- 1 mg-200 mg Cap 11-08 00:00: 00 Yes [id number] 1{capsu le} Take 1 capsule by mouth daily. [facility] PNV 67-iron ps-folate no.1-dha (VITAFOL ULTRA) 29 mg iron- 1 mg-200 mg Cap 11-08 00:00: 00 Yes [id number] 1{capsu le} Take 1 capsule by mouth daily. [facility] PNV 67-iron ps-folate no.1-dha (VITAFOL ULTRA) 29 mg iron- 1 mg-200 mg Cap 11-08 00:00: 00 Yes [id number] 1{capsu le} Take 1 capsule by mouth daily. [facility] PNV 67-iron ps-folate no.1-dha (VITAFOL ULTRA) 29 mg iron- 1 mg-200 mg Cap 11-08 00:00: 00 Yes [id number] 1{capsu le} Take 1 capsule by mouth daily. [facility] PNV 67-iron ps-folate no.1-dha (VITAFOL ULTRA) 29 mg iron- 1 mg-200 mg Cap 11-08 00:00: 00 Yes [id number] 1{capsu le} Take 1 capsule by mouth daily. [facility] PNV 67-iron ps-folate no.1-dha (VITAFOL ULTRA) 29 mg iron- 1 mg-200 mg Cap 11-08 00:00: 00 Yes [id number] 1{capsu le} Take 1 capsule by mouth daily. [facility] PNV 67-iron ps-folate no.1-dha (VITAFOL ULTRA) 29 mg iron- 1 mg-200 mg Cap 11-08 00:00: 00 Yes [id number] 1{capsu le} Take 1 capsule by mouth daily. [facility] PNV 67-iron ps-folate no.1-dha (VITAFOL ULTRA) 29 mg iron- 1 mg-200 mg Cap 11-08 00:00: 00 Yes [id number] 1{capsu le} Take 1 capsule by mouth daily. [facility] PNV 67-iron ps-folate no.1-dha (VITAFOL ULTRA) 29 mg iron- 1 mg-200 mg Cap 11-08 00:00: 00 Yes [id number] 1{capsu le} Take 1 capsule by mouth daily. [facility] PNV 67-iron ps-folate no.1-dha (VITAFOL ULTRA) 29 mg iron- 1 mg-200 mg Cap 11-08 00:00: 00 Yes [id number] 1{capsu le} Take 1 capsule by mouth daily. [facility] PNV 67-iron ps-folate no.1-dha (VITAFOL ULTRA) 29 mg iron- 1 mg-200 mg Cap 11-08 00:00: 00 Yes [id number] 1{capsu le} Take 1 capsule by mouth daily. [facility] PNV 67-iron ps-folate no.1-dha (VITAFOL ULTRA) 29 mg iron- 1 mg-200 mg Cap 11-08 00:00: 00 Yes [id number] 1{capsu le} Take 1 capsule by mouth daily. [facility] PNV 67-iron ps-folate no.1-dha (VITAFOL ULTRA) 29 mg iron- 1 mg-200 mg Cap 11-08 00:00: 00 Yes [id number] 1{capsu le} Take 1 capsule by mouth daily. [facility] PNV 67-iron ps-folate no.1-dha (VITAFOL ULTRA) 29 mg iron- 1 mg-200 mg Cap 11-08 00:00: 00 Yes [id number] 1{capsu le} Take 1 capsule by mouth daily. [facility] PNV 67-iron ps-folate no.1-dha (VITAFOL ULTRA) 29 mg iron- 1 mg-200 mg Cap 11-08 00:00: 00 Yes [id number] 1{capsu le} Take 1 capsule by mouth daily. [facility] PNV 67-iron ps-folate no.1-dha (VITAFOL ULTRA) 29 mg iron- 1 mg-200 mg Cap 11-08 00:00: 00 Yes [id number] 1{capsu le} Take 1 capsule by mouth daily. [facility] PNV 67-iron ps-folate no.1-dha (VITAFOL ULTRA) 29 mg iron- 1 mg-200 mg Cap 11-08 00:00: 00 06-15 00:00 :00 No [id number] 1{capsu le} Take 1 capsule by mouth daily. [facility] VIT W-CA,FE,FA, <1 MG, ( VITAMIN ORAL) 10-22 14:42: 40 Yes Take by mouth. [facility] VIT W-CA,FE,FA, <1 MG, ( VITAMIN ORAL) 10-22 14:42: 40 Yes Take by mouth. [facility] VIT W-CA,FE,FA, <1 MG, ( VITAMIN ORAL) 10-22 14:42: 40 Yes Take by mouth. [facility] VIT W-CA,FE,FA, <1 MG, ( VITAMIN ORAL) 10-22 14:42: 40 Yes Take by mouth. [facility] VIT W-CA,FE,FA, <1 MG, ( VITAMIN ORAL) 10-22 14:42: 40 Yes Take by mouth. [facility] VIT W-CA,FE,FA, <1 MG, ( VITAMIN ORAL) 10-22 14:42: 40 Yes Take by mouth. [facility] VIT W-CA,FE,FA, <1 MG, ( VITAMIN ORAL) 10-22 14:42: 40 Yes Take by mouth. [facility] terconazole (TERAZOL 3) 0.8 % vaginal cream 2015-03 00:00: 00 Yes [id number] 1{appli cator} Insert 1 Applicator into vagina at bedtime. [facility] terconazole (TERAZOL 3) 0.8 % vaginal cream 2015-03 00:00: 00 10-22 00:00 :00 No [id number] 1{appli cator} Insert 1 Applicator into vagina at bedtime. [facility] VIT W-CA,FE,FA, <1 MG, ( VITAMIN ORAL) 2015-03 17:29: 58 Yes Take by mouth. [facility] ibuprofen (MOTRIN) 600 mg tablet 2015-03 00:00: 00 Yes 600mg Take 1 tablet by mouth every 6 (six) hours as needed for Pain (scale 1-3). Take with food or milk. [facility] ibuprofen (MOTRIN) 600 mg tablet 2015-03 00:00: 00 10-22 00:00 :00 No 600mg Take 1 tablet by mouth every 6 (six) hours as needed for Pain (scale 1-3). Take with food or milk. [facility] Immunizations Ordered Immunization Name Filled Immunization Name Date Status Comments Source Tdap 2019-04-06 00:00:00 Completed [facility] Influenza Virus Vaccine Quad .5 mL IM 6+ MO 2019-04-06 00:00:00 Completed [facility] Tdap 2019-04-06 00:00:00 Completed [facility] Influenza Virus Vaccine Quad .5 mL IM 6+ MO 2019-04-06 00:00:00 Completed [facility] Tdap 2019-04-06 00:00:00 Completed [facility] Influenza Virus Vaccine Quad .5 mL IM 6+ MO 2019-04-06 00:00:00 Completed [facility] Tdap 2019-04-06 00:00:00 Completed [facility] Influenza Virus Vaccine Quad .5 mL IM 6+ MO 2019-04-06 00:00:00 Completed [facility] Tdap 2019-04-06 00:00:00 Completed [facility] Influenza Virus Vaccine Quad .5 mL IM 6+ MO 2019-04-06 00:00:00 Completed [facility] Tdap 2019-04-06 00:00:00 Completed [facility] Influenza Virus Vaccine Quad .5 mL IM 6+ MO 2019-04-06 00:00:00 Completed [facility] Tdap 2019-04-06 00:00:00 Completed [facility] Influenza Virus Vaccine Quad .5 mL IM 6+ MO 2019-04-06 00:00:00 Completed [facility] Tdap 2019-04-06 00:00:00 Completed [facility] Influenza Virus Vaccine Quad .5 mL IM 6+ MO 2019-04-06 00:00:00 Completed [facility] Tdap 2019-04-06 00:00:00 Completed [facility] Influenza Virus Vaccine Quad .5 mL IM 6+ MO 2019-04-06 00:00:00 Completed [facility] Tdap 2019-04-06 00:00:00 Completed [facility] Influenza Virus Vaccine Quad .5 mL IM 6+ MO 2019-04-06 00:00:00 Completed [facility] Tdap 2019-04-06 00:00:00 Completed [facility] Influenza Virus Vaccine Quad .5 mL IM 6+ MO 2019-04-06 00:00:00 Completed [facility] Tdap 2019-04-06 00:00:00 Completed [facility] Influenza Virus Vaccine Quad .5 mL IM 6+ MO 2019-04-06 00:00:00 Completed [facility] Tdap 2019-04-06 00:00:00 Completed [facility] Influenza Virus Vaccine Quad .5 mL IM 6+ MO 2019-04-06 00:00:00 Completed [facility] Tdap 2019-04-06 00:00:00 Completed [facility] Influenza Virus Vaccine Quad .5 mL IM 6+ MO 2019-04-06 00:00:00 Completed [facility] Tdap 2019-04-06 00:00:00 Completed [facility] Influenza Virus Vaccine Quad .5 mL IM 6+ MO 2019-04-06 00:00:00 Completed [facility] Tdap 2019-04-06 00:00:00 Completed [facility] Influenza Virus Vaccine Quad .5 mL IM 6+ MO 2019-04-06 00:00:00 Completed [facility] Tdap 2019-04-06 00:00:00 Completed [facility] Influenza Virus Vaccine Quad .5 mL IM 6+ MO 2019-04-06 00:00:00 Completed [facility] Tdap 2019-04-06 00:00:00 Completed [facility] Influenza Virus Vaccine Quad .5 mL IM 6+ MO 2019-04-06 00:00:00 Completed [facility] Tdap 2019-04-06 00:00:00 Completed [facility] Influenza Virus Vaccine Quad .5 mL IM 6+ MO 2019-04-06 00:00:00 Completed [facility] Tdap 2019-04-06 00:00:00 Completed [facility] Influenza Virus Vaccine Quad .5 mL IM 6+ MO 2019-04-06 00:00:00 Completed [facility] Influenza Virus Vaccine Quad IM 3+ YRS 2015-12-14 00:00:00 Completed [facility] Influenza Virus Vaccine Quad IM 3+ YRS 2015-12-14 00:00:00 Completed [facility] Influenza Virus Vaccine Quad IM 3+ YRS 2015-12-14 00:00:00 Completed [facility] Influenza Virus Vaccine Quad IM 3+ YRS 2015-12-14 00:00:00 Completed [facility] Influenza Virus Vaccine Quad IM 3+ YRS 2015-12-14 00:00:00 Completed [facility] Influenza Virus Vaccine Quad IM 3+ YRS 2015-12-14 00:00:00 Completed [facility] Influenza Virus Vaccine Quad IM 3+ YRS 2015-12-14 00:00:00 Completed [facility] Influenza Virus Vaccine Quad IM 3+ YRS 2015-12-14 00:00:00 Completed [facility] Influenza Virus Vaccine Quad IM 3+ YRS 2015-12-14 00:00:00 Completed [facility] Influenza Virus Vaccine Quad IM 3+ YRS 2015-12-14 00:00:00 Completed [facility] Influenza Virus Vaccine Quad IM 3+ YRS 2015-12-14 00:00:00 Completed [facility] Influenza Virus Vaccine Quad IM 3+ YRS 2015-12-14 00:00:00 Completed [facility] Influenza Virus Vaccine Quad IM 3+ YRS 2015-12-14 00:00:00 Completed [facility] Influenza Virus Vaccine Quad IM 3+ YRS 2015-12-14 00:00:00 Completed [facility] Influenza Virus Vaccine Quad IM 3+ YRS 2015-12-14 00:00:00 Completed [facility] Influenza Virus Vaccine Quad IM 3+ YRS 2015-12-14 00:00:00 Completed [facility] Influenza Virus Vaccine Quad IM 3+ YRS 2015-12-14 00:00:00 Completed [facility] Influenza Virus Vaccine Quad IM 3+ YRS 2015-12-14 00:00:00 Completed [facility] Influenza Virus Vaccine Quad IM 3+ YRS 2015-12-14 00:00:00 Completed [facility] Influenza Virus Vaccine Quad IM 3+ YRS 2015-12-14 00:00:00 Completed [facility] Influenza Virus Vaccine Quad IM 3+ YRS 2015-12-14 00:00:00 Completed [facility] Influenza Virus Vaccine Quad IM 3+ YRS 2015-12-14 00:00:00 Completed [facility] Influenza Virus Vaccine Quad IM 3+ YRS 2015-12-14 00:00:00 Completed [facility] Influenza Virus Vaccine Quad IM 3+ YRS 2015-12-14 00:00:00 Completed [facility] Influenza Virus Vaccine Quad IM 3+ YRS 2015-12-14 00:00:00 Completed [facility] Influenza Virus Vaccine Quad IM 3+ YRS 2015-12-14 00:00:00 Completed [facility] Influenza Virus Vaccine Quad IM 3+ YRS 2015-12-14 00:00:00 Completed [facility] Influenza Virus Vaccine Quad IM 3+ YRS 2015-12-14 00:00:00 Completed [facility] Influenza Virus Vaccine Quad IM 3+ YRS 2015-12-14 00:00:00 Completed [facility] Influenza Virus Vaccine Quad IM 3+ YRS 2015-12-14 00:00:00 Completed [facility] Influenza Virus Vaccine Quad IM 3+ YRS 2015-12-14 00:00:00 Completed [facility] Influenza Virus Vaccine Quad IM 3+ YRS 2015-12-14 00:00:00 Completed [facility] Influenza Virus Vaccine Quad IM 3+ YRS 2015-12-14 00:00:00 Completed [facility] Influenza Virus Vaccine Quad IM 3+ YRS 2015-12-14 00:00:00 Completed [facility] Tdap 2015-10-26 00:00:00 Completed [facility] Tdap 2015-10-26 00:00:00 Completed [facility] Tdap 2015-10-26 00:00:00 Completed [facility] Tdap 2015-10-26 00:00:00 Completed [facility] Tdap 2015-10-26 00:00:00 Completed [facility] Tdap 2015-10-26 00:00:00 Completed [facility] Tdap 2015-10-26 00:00:00 Completed [facility] Tdap 2015-10-26 00:00:00 Completed [facility] Tdap 2015-10-26 00:00:00 Completed [facility] Tdap 2015-10-26 00:00:00 Completed [facility] Tdap 2015-10-26 00:00:00 Completed [facility] Tdap 2015-10-26 00:00:00 Completed [facility] Tdap 2015-10-26 00:00:00 Completed [facility] Tdap 2015-10-26 00:00:00 Completed [facility] Tdap 2015-10-26 00:00:00 Completed [facility] Tdap 2015-10-26 00:00:00 Completed [facility] Tdap 2015-10-26 00:00:00 Completed [facility] Tdap 2015-10-26 00:00:00 Completed [facility] Tdap 2015-10-26 00:00:00 Completed [facility] Tdap 2015-10-26 00:00:00 Completed [facility] Tdap 2015-10-26 00:00:00 Completed [facility] Tdap 2015-10-26 00:00:00 Completed [facility] Tdap 2015-10-26 00:00:00 Completed [facility] Tdap 2015-10-26 00:00:00 Completed [facility] Tdap 2015-10-26 00:00:00 Completed [facility] Tdap 2015-10-26 00:00:00 Completed [facility] Tdap 2015-10-26 00:00:00 Completed [facility] Tdap 2015-10-26 00:00:00 Completed [facility] Tdap 2015-10-26 00:00:00 Completed [facility] Tdap 2015-10-26 00:00:00 Completed [facility] Tdap 2015-10-26 00:00:00 Completed [facility] Tdap 2015-10-26 00:00:00 Completed [facility] Tdap 2015-10-26 00:00:00 Completed [facility] Tdap 2015-10-26 00:00:00 Completed [facility] Influenza Virus Vaccine Quad IM 3+ YRS 2015-05-22 00:00:00 Completed [facility] Influenza Virus Vaccine Quad IM 3+ YRS 2015-05-22 00:00:00 Completed [facility] Influenza Virus Vaccine Quad IM 3+ YRS 2015-05-22 00:00:00 Completed [facility] Influenza Virus Vaccine Quad IM 3+ YRS 2015-05-22 00:00:00 Completed [facility] Influenza Virus Vaccine Quad IM 3+ YRS 2015-05-22 00:00:00 Completed [facility] Influenza Virus Vaccine Quad IM 3+ YRS 2015-05-22 00:00:00 Completed [facility] Influenza Virus Vaccine Quad IM 3+ YRS 2015-05-22 00:00:00 Completed [facility] Influenza Virus Vaccine Quad IM 3+ YRS 2015-05-22 00:00:00 Completed [facility] Influenza Virus Vaccine Quad IM 3+ YRS 2015-05-22 00:00:00 Completed [facility] Influenza Virus Vaccine Quad IM 3+ YRS 2015-05-22 00:00:00 Completed [facility] Influenza Virus Vaccine Quad IM 3+ YRS 2015-05-22 00:00:00 Completed [facility] Influenza Virus Vaccine Quad IM 3+ YRS 2015-05-22 00:00:00 Completed [facility] Influenza Virus Vaccine Quad IM 3+ YRS 2015-05-22 00:00:[address] [facility] Influenza Virus Vaccine Quad IM 3+ YRS 2015-05-22 00:00:00 Completed [facility] Influenza Virus Vaccine Quad IM 3+ YRS 2015-05-22 00:00:00 Completed [facility] Influenza Virus Vaccine Quad IM 3+ YRS 2015-05-22 00:00:00 Completed [facility] Influenza Virus Vaccine Quad IM 3+ YRS 2015-05-22 00:00:00 Completed [facility] Influenza Virus Vaccine Quad IM 3+ YRS 2015-05-22 00:00:00 Completed [facility] Influenza Virus Vaccine Quad IM 3+ YRS 2015-05-22 00:00:00 Completed [facility] Influenza Virus Vaccine Quad IM 3+ YRS 2015-05-22 00:00:00 Completed [facility] Influenza Virus Vaccine Quad IM 3+ YRS 2015-05-22 00:00:00 Completed [facility] Influenza Virus Vaccine Quad IM 3+ YRS 2015-05-22 00:00:00 Completed [facility] Influenza Virus Vaccine Quad IM 3+ YRS 2015-05-22 00:00:00 Completed [facility] Influenza Virus Vaccine Quad IM 3+ YRS 2015-05-22 00:00:00 Completed [facility] Influenza Virus Vaccine Quad IM 3+ YRS 2015-05-22 00:00:00 Completed [facility] Influenza Virus Vaccine Quad IM 3+ YRS 2015-05-22 00:00:00 Completed [facility] Influenza Virus Vaccine Quad IM 3+ YRS 2015-05-22 00:00:00 Completed [facility] Influenza Virus Vaccine Quad IM 3+ YRS 2015-05-22 00:00:00 Completed [facility] Influenza Virus Vaccine Quad IM 3+ YRS 2015-05-22 00:00:00 Completed [facility] Influenza Virus Vaccine Quad IM 3+ YRS 2015-05-22 00:00:00 Completed [facility] Influenza Virus Vaccine Quad IM 3+ YRS 2015-05-22 00:00:00 Completed [facility] Influenza Virus Vaccine Quad IM 3+ YRS 2015-05-22 00:00:00 Completed [facility] Influenza Virus Vaccine Quad IM 3+ YRS 2015-05-22 00:00:00 Completed [facility] Influenza Virus Vaccine Quad IM 3+ YRS 2015-05-22 00:00:00 Completed [facility] Influenza Virus Vaccine Quad IM 3+ YRS Unknown Completed [facility] TDAP Unknown Completed [facility] Influenza Virus Vaccine Quad IM 3+ YRS Unknown Completed [facility] TDAP Unknown Completed [facility] Influenza Virus Vaccine Quad .5 mL IM 6+ MO (FLUZONE/FLULAVAL/F LUARIX) Unknown Completed [facility] Influenza Virus Vaccine Quad IM 3+ YRS Unknown Completed [facility] TDAP Unknown Completed [facility] Influenza Virus Vaccine Quad IM 3+ YRS Unknown Completed [facility] TDAP Unknown Completed [facility] Influenza Virus Vaccine Quad .5 mL IM 6+ MO (FLUZONE/FLULAVAL/F LUARIX) Unknown Completed [facility] Influenza Virus Vaccine Quad IM 3+ YRS Unknown Completed [facility] TDAP Unknown Completed [facility] Influenza Virus Vaccine Quad IM 3+ YRS Unknown Completed [facility] TDAP Unknown Completed [facility] Influenza Virus Vaccine Quad .5 mL IM 6+ MO (FLUZONE/FLULAVAL/F LUARIX) Unknown Completed [facility] Influenza Virus Vaccine Quad IM 3+ YRS Unknown Completed [facility] TDAP Unknown Completed [facility] Influenza Virus Vaccine Quad IM 3+ YRS Unknown Completed [facility] TDAP Unknown Completed [facility] Influenza Virus Vaccine Quad .5 mL IM 6+ MO (FLUZONE/FLULAVAL/F LUARIX) Unknown Completed [facility] Influenza Virus Vaccine Quad IM 3+ YRS Unknown Completed [facility] TDAP Unknown Completed [facility] Influenza Virus Vaccine Quad IM 3+ YRS Unknown Completed [facility] TDAP Unknown Completed [facility] Influenza Virus Vaccine Quad .5 mL IM 6+ MO (FLUZONE/FLULAVAL/F LUARIX) Unknown Completed [facility] Influenza Virus Vaccine Quad IM 3+ YRS Unknown Completed [facility] TDAP Unknown Completed [facility] Influenza Virus Vaccine Quad IM 3+ YRS Unknown Completed [facility] TDAP Unknown Completed [facility] Influenza Virus Vaccine Quad .5 mL IM 6+ MO (FLUZONE/FLULAVAL/F LUARIX) Unknown Completed [facility] Vital Signs Vital Name Observation Time Observation Value Comments S [facility] Systolic blood pressure 2023-05-26 13:48:00 126 mm[Hg] [facility] Diastolic blood pressure 2023-05-26 13:48:00 80 mm[Hg] [facility] Heart rate 2023-05-26 13:48:00 71 /min [facility] Body temperature 2023-05-26 13:48:00 36.39 Beronica [facility] Respiratory rate 2023-05-26 13:48:00 18 /min [facility] Body height 2023-05-26 13:48:00 162.6 cm [facility] Body weight 2023-05-26 13:48:00 99.508 kg [facility] BMI 2023-05-26 13:48:00 37.66 kg/m2 [facility] Systolic blood pressure 2019-06-18 10:23:00 133 mm[Hg] [facility] Diastolic blood pressure 2019-06-18 10:23:00 82 mm[Hg] [facility] Heart rate 2019-06-18 10:23:00 77 /min [facility] Body temperature 2019-06-18 10:23:00 36.72 Beronica [facility] Respiratory rate 2019-06-18 10:23:00 12 /min [facility] Body height 2019-06-18 10:23:00 162.6 cm [facility] Body weight 2019-06-18 10:23:00 90.719 kg [facility] BMI 2019-06-18 10:23:00 34.33 kg/m2 [facility] Oxygen saturation in Arterial blood by Pulse oximetry 2019-06-18 10:23:00 99 /min [facility] Systolic blood pressure 2019-06-17 13:00:00 126 mm[Hg] [facility] Diastolic blood pressure 2019-06-17 13:00:00 74 mm[Hg] [facility] Heart rate 2019-06-17 13:00:00 61 /min [facility] Body temperature 2019-06-17 13:00:00 36.83 Beronica [facility] Respiratory rate 2019-06-17 13:00:00 18 /min [facility] Oxygen saturation in Arterial blood by Pulse oximetry 2019-06-17 13:00:00 100 /min [facility] Body weight 2019-06-15 13:55:00 95 kg [facility] BMI 2019-06-15 13:55:00 35.95 kg/m2 [facility] Body height 2019-06-15 12:21:00 162.6 cm [facility] Systolic blood pressure 2019-06-08 14:31:00 119 mm[Hg] [facility] Diastolic blood pressure 2019-06-08 14:31:00 65 mm[Hg] [facility] Heart rate 2019-06-08 14:31:00 68 /min [facility] Body temperature 2019-06-08 14:31:00 36.78 Beronica [facility] Respiratory rate 2019-06-08 14:31:00 16 /min [facility] Body height 2019-06-08 14:31:00 162.6 cm [facility] Body weight 2019-06-08 14:31:00 94.405 kg [facility] BMI 2019-06-08 14:31:00 35.72 kg/m2 [facility] Systolic blood pressure 2019-06-01 13:36:00 107 mm[Hg] [facility] Diastolic blood pressure 2019-06-01 13:36:00 73 mm[Hg] [facility] Heart rate 2019-06-01 13:36:00 73 /min [facility] Body temperature 2019-06-01 13:36:00 36.56 Beronica [facility] Respiratory rate 2019-06-01 13:36:00 16 /min [facility] Body height 2019-06-01 13:36:00 162.6 cm [facility] Body weight 2019-06-01 13:36:00 94.462 kg [facility] BMI 2019-06-01 13:36:00 35.75 kg/m2 [facility] Systolic blood pressure 2019-05-25 14:29:00 105 mm[Hg] [facility] Diastolic blood pressure 2019-05-25 14:29:00 71 mm[Hg] [facility] Heart rate 2019-05-25 14:29:00 67 /min [facility] Body temperature 2019-05-25 14:29:00 36.83 Beronica [facility] Respiratory rate 2019-05-25 14:29:00 16 /min [facility] Body height 2019-05-25 14:29:00 162.6 cm [facility] Body weight 2019-05-25 14:29:00 94.377 kg [facility] BMI 2019-05-25 14:29:00 35.71 kg/m2 [facility] Systolic blood pressure 2019-05-18 15:39:00 109 mm[Hg] [facility] Diastolic blood pressure 2019-05-18 15:39:00 71 mm[Hg] [facility] Heart rate 2019-05-18 15:39:00 69 /min [facility] Body temperature 2019-05-18 15:39:00 36.22 Beronica [facility] Respiratory rate 2019-05-18 15:39:00 16 /min [facility] Body height 2019-05-18 15:39:00 162.6 cm [facility] Body weight 2019-05-18 15:39:00 94.858 kg [facility] BMI 2019-05-18 15:39:00 35.90 kg/m2 [facility] Systolic blood pressure 2019-05-04 15:27:00 100 mm[Hg] [facility] Diastolic blood pressure 2019-05-04 15:27:00 65 mm[Hg] [facility] Heart rate 2019-05-04 15:27:00 78 /min [facility] Body temperature 2019-05-04 15:27:00 36.28 Beronica [facility] Respiratory rate 2019-05-04 15:27:00 16 /min [facility] Body height 2019-05-04 15:27:00 162.6 cm [facility] 2019-05-04 15:27:00 93.639 kg [facility] BMI 2019-05-04 15:27:00 35.43 kg/m2 [facility] Systolic blood pressure 2019-04-20 15:37:00 108 mm[Hg] [facility] Diastolic blood pressure 2019-04-20 15:37:00 67 mm[Hg] [facility] Heart rate 2019-04-20 15:37:00 71 /min [facility] Body temperature 2019-04-20 15:37:00 36.33 Beronica [facility] Respiratory rate 2019-04-20 15:37:00 16 /min [facility] Body height 2019-04-20 15:37:00 162.6 cm [facility] Body weight 2019-04-20 15:37:00 92.732 kg [facility] BMI 2019-04-20 15:37:00 35.09 kg/m2 [facility] Systolic blood pressure 2019-04-11 19:52:00 109 mm[Hg] [facility] Diastolic blood pressure 2019-04-11 19:52:00 71 mm[Hg] [facility] Heart rate 2019-04-11 19:52:00 69 /min [facility] Body temperature 2019-04-11 19:52:00 36.83 Beronica [facility] Respiratory rate 2019-04-11 19:52:00 16 /min [facility] Body height 2019-04-11 19:52:00 162.6 cm [facility] Body weight 2019-04-11 19:52:00 92.987 kg [facility] BMI 2019-04-11 19:52:00 35.19 kg/m2 [facility] Systolic blood pressure 2019-04-06 14:49:00 118 mm[Hg] [facility] Diastolic blood pressure 2019-04-06 14:49:00 71 mm[Hg] [facility] Heart rate 2019-04-06 14:49:00 74 /min [facility] Body temperature 2019-04-06 14:49:00 36.17 Beronica [facility] Respiratory rate 2019-04-06 14:49:00 16 /min [facility] Body height 2019-04-06 14:49:00 162.6 cm [facility] 2019-04-06 14:49:00 92.789 kg [facility] BMI 2019-04-06 14:49:00 35.11 kg/m2 [facility] Body temperature 2018-11-19 14:00:00 36.78 Beronica [facility] Respiratory rate 2018-11-19 14:00:00 16 /min [facility] Body height 2018-11-19 14:00:00 162.6 cm [facility] Body weight 2018-11-19 14:00:00 94.83 kg [facility] BMI 2018-11-19 14:00:00 35.89 kg/m2 [facility] Systolic blood pressure 2018-11-19 14:00:00 128 mm[Hg] [facility] Diastolic blood pressure 2018-11-19 14:00:00 89 mm[Hg] [facility] Heart rate 2018-11-19 14:00:00 64 /min [facility] Systolic blood pressure 2018-10-22 14:35:00 120 mm[Hg] [facility] Diastolic blood pressure 2018-10-22 14:35:00 84 mm[Hg] [facility] Heart rate 2018-10-22 14:35:00 67 /min [facility] Body temperature 2018-10-22 14:35:00 37.22 Beronica [facility] Respiratory rate 2018-10-22 14:35:00 18 /min [facility] Body height 2018-10-22 14:35:00 162.6 cm [facility] Body weight 2018-10-22 14:35:00 97.07 kg [facility] BMI 2018-10-22 14:35:00 36.73 kg/m2 [facility] Procedures Procedure Date / Time Performed Performing Clinician Source POCT TEST 2023-05-26 13:50:00 Laine Andrade [facility] POCT URINALYSIS W/O SPECIFIC GRAVITY 2023-05-26 13:50:00 Vanna Andrade [facility] ASSIGNMENT OF BENEFITS 2023-05-26 13:08:15 Docto r Unassigned, [facility] ASSIGNMENT OF BENEFITS 2019-06-18 10:16:18 Docto r Unassigned, [facility] CBC WITH DIFFERENTIAL 2019-06-16 08:13:00 Roxi Moran [facility] HEPATITIS B SURFACE ANTIGEN 2019-06-15 13:22:00 Karin Jackson [facility] HIV 1/2 AG-AB WITH REFLEX 2019-06-15 13:22:00 Karin Jackson [facility] GALV ONLY - SYPHILIS IGG/IGM 2019-06-15 13:22:00 Karin Jackson [facility] HB ABO GROUPING 2019-06-15 13:20:00 Karin Jackson [facility] RHO (D) IMMUNE GLOBULIN 2019-06-15 [facility]:20[facility] SPECIFIC GRAVITY 2019-06-08 15:09:00 Juani Calderon [facility] POCT URINALYSIS W/O SPECIFIC GRAVITY 2019-06-01 14:07:00 Juani Calderon [facility] POCT URINALYSIS W/O SPECIFIC GRAVITY 2019-05-25 14:38:00 Juani Calderon [facility] POCT URINALYSIS W/O SPECIFIC GRAVITY 2019-05-18 17:04:00 Juani Calderon [facility] POCT URINALYSIS W/O SPECIFIC GRAVITY 2019-05-04 17:18:00 Juani Calderon [facility] POCT URINALYSIS W/O SPECIFIC GRAVITY 2019-04-20 15:39:00 Juani Calderon [facility] POCT URINALYSIS W/O SPECIFIC GRAVITY 2019-04-11 20:43:00 Juani Calderon [facility] FLU VACC ([id number]), 6+ MONTHS, IM, QUAD 2019-04-06 15:00:35 Lee Ann Alatorre [facility] POCT URINALYSIS W/O SPECIFIC GRAVITY 2019-04-06 14:51:00 Juani Calderon [facility] TDAP VACCINE, >11 YRS, IM 2019-04-06 14:43:00 Lee Ann Alatorre [facility] POCT URINALYSIS W/O SPECIFIC GRAVITY 2018-11-19 16:31:00 Juani Calderon [facility] POCT TEST 2018-10-22 14:29:00 Logan Calderon [facility] POCT URINALYSIS W/O SPECIFIC GRAVITY 2018-10-22 14:29:00 Juani Calderon [facility] ASSIGNMENT OF BENEFITS 2018-10-22 14:07:02 Docto r Unassigned, Center Line [facility] Encounters Start Date/Time End Date/Time Encounter Type Admission Type Attending [facility] Facility Care Department Encounter ID Source 2021-01-10 17:00:59 Emergency [facility] [id number] [facility] 2021-01-10 16:36:36 Outpatient [facility] [id number] [facility] 2023-06-01 07:45:00 2023-06-01 08:00:00 Blender Conveyor Operator Visit Lab, Ang-Rmchp Vanna Andrade Damilola C [facility] DOCUMENT IMAGE TECHNICIAN [facility] ..[id number] [facility] 2023-06-01 07:45:00 2023-06-01 07:45:00 Outpatient R LEE ANN ALATORRE [facility] [id number] [facility] 2023-06-01 00:00:00 2023-06-01 00:00:00 Telephone Lee Ann Alatorre [facility] DOCUMENT IMAGE TECHNICIAN [facility] ..[id number] [facility] 2023-05-27 00:00:00 2023-05-27 00:00:00 Telephone Vanna Andrade [facility] DOCUMENT IMAGE TECHNICIAN [facility] [id number] [facility] 2023-05-26 08:15:00 2023-05-26 10:05:32 Outpatient R VANNA ANDRADE [facility] [id number] [facility] 2023-05-26 08:15:00 2023-05-26 10:05:32 Initial Visit Vanna Andrade [facility] DOCUMENT IMAGE TECHNICIAN [facility] [id number] [facility] 2023-05-26 00:00:00 2023-05-26 00:00:00 Orders Only Doctor Unassigned, Center Line [facility] [id number] [facility] 2019-07-14 00:00:00 2019-07-14 00:00:00 Telephone Lee Ann Alatorre [facility] DOCUMENT IMAGE TECHNICIAN [facility] [id number] [facility] 2019-07-14 00:00:00 2019-07-14 00:00:00 Telephone Lee Ann Alatorre [facility] DOCUMENT IMAGE TECHNICIAN [facility] [facility] 1.2.840.114 350.1.13.10 4.2.7.2.686 [id number] 107 [id number] 2019-07-06 14:30:00 2019-07-06 14:30:00 Outpatient R CELI LEE ANN [facility] [id number] [facility] 2019-07-06 00:00:00 2019-07-06 00:00:00 Telephone Celi Lee Ann Swenson [facility] DOCUMENT IMAGE TECHNICIAN [facility] 1.2.840.114 350.1.13.10 4.2.7.2.686 [id number] 107 [id number] [facility] 2019-07-06 00:00:00 2019-07-06 00:00:00 Telephone GraciejayleneManuelitoLee Ann C [facility] DOCUMENT IMAGE TECHNICIAN [facility] 1.2.840.114 350.1.13.10 4.2.7.2.686 [id number] 107 [id number] 2019-06-20 00:00:00 2019-06-20 00:00:00 Telephone Celi Lee Ann Swenson [facility] DOCUMENT IMAGE TECHNICIAN [facility] 1.2.840.114 350.1.13.10 4.2.7.2.686 [id number] 107 [id number] [facility] 2019-06-20 00:00:00 2019-06-20 00:00:00 Telephone CeliManuelitoLee Ann C [facility] DOCUMENT IMAGE TECHNICIAN [facility] 1.2.840.114 350.1.13.10 4.2.7.2.686 [id number] 107 [id number] 2019-06-19 00:00:00 2019-06-19 00:00:00 Nurse Triage Celi Lee Ann Swenson [facility] DOCUMENT IMAGE TECHNICIAN [facility] 1.2.840.114 350.1.13.10 4.2.7.2.686 [id number] 107 [id number] [facility] 2019-06-18 05:26:05 2019-06-18 06:06:00 Emergency Lisa Dawkins [facility] 1.2.840.114 350.1.13.10 4.2.7.2.686 [id number] [facility] 2019-06-18 00:00:00 2019-06-18 00:00:00 Nurse Triage Jacob Gallegos, [facility] 1.2.840.114 350.1.13.10 4.2.7.2.686 [id number] [facility] 2019-06-15 06:48:00 2019-06-17 12:40:00 Hospital Encounter Last Sanderscolby hilary [facility] 1.2.840.114 350.1.13.10 4.2.7.2.686 [id number] [facility] 2019-06-08 09:21:15 2019-06-08 13:44:16 Routine Visit Lee Ann Alatorre [facility] DOCUMENT IMAGE TECHNICIAN [facility] 1.840.114 350.1.13.10 4.2.7.2.686 [id number] 107 [id number] [facility] 2019-06-08 09:30:00 2019-06-08 09:30:00 Outpatient R LEE ANN ALATORRE [facility] [id number] [facility] 2019-06-01 08:19:20 2019-06-01 08:58:49 Routine Visit Lee Ann Alatorre [facility] DOCUMENT IMAGE TECHNICIAN [facility] 1.0.114 350.1.13.10 4.2.7.2.686 [id number] 107 [id number] [facility] 2019-06-01 08:15:00 2019-06-01 08:15:00 Outpatient R LEE ANN ALATORRE [facility] [id number] [facility] 2019-05-25 09:19:02 2019-05-25 09:34:02 Routine Visit Lee Ann Alatorre [facility] DOCUMENT IMAGE TECHNICIAN [facility] 1.2840.114 350.1.13.10 4.2.7.2.686 [id number] 107 [id number] [facility] 2019-05-25 09:15:00 2019-05-25 09:15:00 Outpatient R GRACIELEE ANN MARIEE [facility] [id number] [facility] 2019-05-18 09:31:47 2019-05-18 10:04:24 Routine Visit Lee Ann Alatorre [facility] DOCUMENT IMAGE TECHNICIAN [facility] 1.2840.114 350.1.13.10 4.2.7.2.686 [id number] 107 [id number] [facility] 2019-05-18 09:30:00 2019-05-18 09:30:00 Outpatient R MARY ANNPHONGJAYLENE LEE ANN [facility] [id number] [facility] 2019-05-11 09:36:56 2019-05-11 10:06:56 Blender Conveyor Operator Visit Ultrasound, Vickey Hendricks [facility] DOCUMENT IMAGE TECHNICIAN [facility] 1.84.114 350.1.13.10 4.2.7.2.686 [id number] [facility] 2019-05-11 09:30:00 2019-05-11 09:30:00 Outpatient P [facility] [id number] [facility] 2019-05-04 09:10:10 2019-05-04 09:57:34 Routine Visit Lee Ann Alatorre [facility] DOCUMENT IMAGE TECHNICIAN [facility] 1.0.114 350.1.13.10 4.2.7.2.686 [id number] 107 [id number] [facility] 2019-04-20 09:23:50 2019-04-20 09:57:38 Routine Visit Lee Ann Alatorre [facility] DOCUMENT IMAGE TECHNICIAN [facility] 1.2840.114 350.1.13.10 4.2.7.2.686 [id number] 107 [id number] [facility] 2019-04-11 13:09:21 2019-04-11 14:28:49 Routine Visit Lee Ann Alatorre [facility] DOCUMENT IMAGE TECHNICIAN [facility] 1.2.840.114 350.1.13.10 4.2.7.2.686 [id number] 107 [id number] [facility] 2019-04-11 00:00:00 2019-04-11 00:00:00 Telephone Lee Ann Alatorre [facility] DOCUMENT IMAGE TECHNICIAN [facility] 1.2.840.114 350.1.13.10 4.2.7.2.686 [id number] 107 [id number] [facility] 2019-04-07 00:00:00 2019-04-07 00:00:00 Telephone Lee Ann Alatorre [facility] DOCUMENT IMAGE TECHNICIAN [facility] 1.2.840.114 350.1.13.10 4.2.7.2.686 [id number] 107 [id number] [facility] 2019-04-06 08:24:02 2019-04-06 09:03:27 Routine Visit Lee Ann Alatorre [facility] DOCUMENT IMAGE TECHNICIAN [facility] 1.2.840.114 350.1.13.10 4.2.7.2.686 [id number] 107 [id number] [facility] 2018-11-30 00:00:00 2018-11-30 00:00:00 Telephone Juani Calderon [facility] DOCUMENT IMAGE TECHNICIAN [facility] 1.2.840.114 350.1.13.10 4.2.7.2.686 [id number] 107 [id number] [facility] 2018-11-23 11:20:08 2018-11-23 12:00:51 Blender Conveyor Operator Visit Ultrasound, Remy Chavira [facility] DOCUMENT IMAGE TECHNICIAN [facility] 1.2.840.114 350.1.13.10 4.2.7.2.686 [id number] [facility] 2018-11-23 00:00:00 2018-11-23 00:00:00 Case Management Juani Calderon [facility] DOCUMENT IMAGE TECHNICIAN [facility] 1.2.840.114 350.1.13.10 4.2.7.2.686 [id number] [facility] 2018-11-19 08:35:28 2018-11-19 09:11:04 Routine Visit Juani Calderon [facility] DOCUMENT IMAGE TECHNICIAN [facility] CHILD [facility] 1.2.840.114 350.1.13.10 4.2.7.2.686 [id number] [facility] 2018-11-08 00:00:00 2018-11-08 00:00:00 Telephone Juani Calderon [facility] DOCUMENT IMAGE TECHNICIAN [facility] CHILD [facility] 1.2.840.114 350.1.13.10 4.2.7.2.686 [id number] [facility] 2018-10-27 07:50:03 2018-10-27 07:56:24 Blender Conveyor Operator Visit Lab, Ang-Rmchp Juani Calderon [facility] DOCUMENT IMAGE TECHNICIAN [facility] CHILD [facility] 1.2.840.114 350.1.13.10 4.2.7.2.686 [id number] 107 [id number] [facility] 2018-10-25 00:00:00 2018-10-25 00:00:00 Telephone Juani Calderon [facility] DOCUMENT IMAGE TECHNICIAN [facility] CHILD [facility] 1.2.840.114 350.1.13.10 4.2.7.2.686 [id number] 107 [id number] [facility] 2018-10-22 09:26:07 2018-10-22 10:19:37 Initial Visit Juani Calderon [facility] DOCUMENT IMAGE TECHNICIAN [facility] 1.2.840.114 350.1.13.10 4.2.7.2.686 [id number] [facility] 2018-10-22 00:00:00 2018-10-22 00:00:00 Orders Only Doctor Unassigned, Center Line [facility] 1.2.840.114 350.1.13.10 4.2.7.2.686 [id number] [facility] Results Test Description Test Time Test Comments Results Result Co mments Source [facility] w/o Specific Tdqnkfj2374-08-75 13:50:00* Test Item Value Reference Range Interpretation [...] = 3257) Trace Negative - Negati ve [facility]CBC WITH VAXGMLUJMXJD7973-32-06 08:52:00* Test Item Value Reference Range Interpretation Comme nts WBC (test code = 6690-2) See_Comment [Automated [employer] ge] The system which generated this result transmitted reference range: 4.30 - 11.10 10*3/?L. The reference range was not used to interpret this result as normal/abnormal. RBC (test code = 789-8) See_Comment [Automated [employer] ge] The system which generated this result [...] g/dL 31.6-35.1 L RDW-SD (test code = 85191-7) 43.3 fL 39-49.9 RDW-CV (test code = 788-0) 14.6 % 12-15.5 PLT (test code = 777-3) See_Comment L [Automated messa ge] The system which generated this result transmitted reference range: 166 - 358 10*3/?L. The reference range was not used to interpret this result as normal/abnormal. MPV (test code = 55634-4) 11.4 fL 9.5-12.9 NRBC/100 WBC (test code = 9567635587) See_Comment [Automated me ssage] The system which generated this result transmitted reference range: 0.0 - 10.0 /100 WBCs. The reference range was not used to interpret this result as normal/abnormal. NRBC x10^3 (test code = 6336164694) <0.01 See_Comment [Automated messa ge] The system which generated this result transmitted reference range: 10*3/?L. The reference range was not used to interpret this result as normal/abnormal. GRAN MAT (NEUT) % (test code = 770-8) 82.2 % IMM GRAN % (test code = 9579822667) 0.50 % LYMPH % (test code = 736-9) 12.5 % MONO % (test code = 5905-5) 4.1 % EOS % (test code = 713-8) 0.6 % BASO % (test code = 706-2) 0.1 % GRAN MAT x10^3(ANC) (test code = 0941166208) 8.74 10*3/uL 1.88-7.09 H IMM GRAN x10^3 (test code = 6742640235) 0.05 10*3/uL 0-0.06 LYMPH x10^3 (test code = 731-0) 1.33 10*3/uL 1.32-3.29 MONO x10^3 (test code = 742-7) 0.44 10*3/uL 0.33-0.92 EOS x10^3 (test code = 711-2) 0.06 10*3/uL 0.03-0.39 BASO x10^3 (test code = 704-7) <0.03 0.01-0.07 Lab Interpretation (test code = 68086-1) Abnormal [facility] (D) IMMUNE WPDEJWAY6151-04-18 07:12:41* Test Item Value Reference Range Interpretation Comme nts RHIG CANDIDATE? (test code = 5055) No- see comment Patient is not a candidate for RhIg- Patient is Rh Positive.Performed at [facility] Laboratory Services - [facility] Blood [address] Free: [phone] No. [id number] [facility]GALV ONLY - SYPHILIS IGG/GYS6322-75-55 15:26:00* Test Item Value Reference Range Interpretation Comme nts Syphilis IgG/IgM (test code = 41589-6) Non-reactive Non-reactive ANSELMO (test code = ANSELMO) Non-reactive - No serologic evidence of T. pallidum infection. Cannot exclude incubating or early syphilis. Submit a second specimen in 2-4 weeks if syphilis is clinically suspected. Equivocal - Further testing to follow. Reactive - Further testing to follow. Lab Interpretation (test code = 15030-0) Normal [facility] 1/2 AG-AB WITH OPQPZO7727-03-11 15:01:00* Test Item Value Reference Range Interpretation Comme nts HIV Semi-quantitative (test code = 47783-1) Negative Negative ANSELMO (test code = ANSELMO) Non-reactive for HIV-1 antigen and HIV-1/HIV-2 antibodies. ?No laboratory evidence of HIV infection. ?Repeat in 2-4 weeks if acute HIV infection is suspected. [facility] West[facility]atitis B Surface Difkbvw7817-18-05 14:52:00 * Test Item Value Reference Range Interpretation Comme nts HBsAg Semi-Quantitative (benjamín t code = 5195-3) Negative Negative [facility] WestType and Screen - ONCE KSFQ4020-08-87 14:03:50 * Test Item Value Reference Range Interpretation Comme nts ABO & RH (test code = 20) O POSITIVE Performed at [facility] Laboratory Services - [facility] Blood [address] Free: [phone] No. [id number] IAT (test code = 1185) Negative Performed at [facility] Laboratory Services - [facility] Blood [address] [place] [address]Svbr Free: [phone] No. [id number] [facility] URINALYSIS W/O SPECIFIC EPNVCHV2058-06-47 15:09:00* Test Item Value Reference Range Interpretation [...] = 3257) . Negative - Negati ve [facility] URINALYSIS W/O SPECIFIC WYXHSFK3297-71-09 15:09:00* Test Item Value Reference Range Interpretation [...] = 3257) . Negative - Negati ve [facility] URINALYSIS W/O SPECIFIC QNZJDPU1164-90-08 14:08:00* Test Item Value Reference Range Interpretation [...] = 3257) .. Negative - Negati ve [facility] URINALYSIS W/O SPECIFIC UZRPEYT3966-60-56 14:39:00* Test Item Value Reference Range Interpretation [...] = 3257) . Negative - Negati ve [facility] URINALYSIS W/O SPECIFIC TQTNYQB8761-38-25 17:04:00* Test Item Value Reference Range Interpretation [...] = 3257) . Negative - Negati ve [facility] URINALYSIS W/O SPECIFIC HSTSLJE5990-97-34 17:18:00* Test Item Value Reference Range Interpretation [...] = 3257) . Negative - Negati ve [facility] URINALYSIS W/O SPECIFIC JQRPOWH9292-47-01 15:39:00* Test Item Value Reference Range Interpretation [...] = 3257) . Negative - Negati ve [facility] URINALYSIS W/O SPECIFIC EMSZJBD3063-67-68 20:43:00* Test Item Value Reference Range Interpretation [...] = 3257) . Negative - Negati ve [facility] URINALYSIS W/O SPECIFIC TQULTGF8181-28-48 14:51:00* Test Item Value Reference Range Interpretation [...] = 3257) . Negative - Negati ve [facility] URINALYSIS W/O SPECIFIC KUQRRQQ9636-51-19 16:31:00* Test Item Value Reference Range Interpretation [...] = 3257) . Negative - Negati ve [facility]D URINALYSIS W/O SPECIFIC CNNZCIS6969-13-66 14:30:00* Test Item Value Reference Range Interpretation [...] = 3257) neg Negative - Negati ve [facility] WestPOCT APNT4172-22-80 14:29:00* Test Item Value Reference Range Interpretation Comme nts POCT PREG (test code = 1605) Positive On board controls acceptable with C Line (test code = 3574) Yes POCT PREG LOT # (test code = 3575) POCT PREG TEST DATE ( test code = 3576) [facility] Notes Date/Time Note Provider Source 2023-06-01 15:45:44 n59nxQReMtNYTINSQ5i/ ZkBtC0fDKWuSsT TbVSw0wna7bPPt+PSk3IYMmfLX77iK8587 -03-18T15:45:44 Patient informed of recommendations, appt scheduled for 06/02 at 745, ER warnings given, verbalized understanding. 94279-9Igbakkooz encounter AudiNF6032-73-30M53:47:09Telephone encounter NoteTXT1.2.840.871890.1.13.104.2.7 .2.920452|[id number] for patient dyxv28518-2AempLMKXOTMYRBDZeuvvvon d C-CDA narrative cqak547039171Kwnrbkqx Garcia [address] 02GLIYIKAHRVPOTXRSMQRFPQ5519-78-13 T15:47:091.2.840.192022.1.72.3.15| 1.2.840.004371.1.13.104.2.7.2.7278 [id number] Dorinda Bernal [facility] 2023-06-01 15:41:37 Gla6xRMKd/kz1Za5CULQ PrgSVWsQtR3g4D nDtT5OH2uuOgEMy9pDTjXVD/rUoI+66582 T15:41:37 Have her come in on thu for repeat beta labs, give her ER warning KARON Watson 06/01/2023 3:42 PM 34519-1Qbhuuckyh encounter OpkvVI2986-70-36Q16:42:41Telephone encounter NoteTXT1.2.840.046717.1.13.104.2.7 .2.346003|1891682118HXAvufwtcec for patient jtuk22845-1PpfkTOAIQPOPENJWewutcpv d C-CDA narrative text[address]TXTX[address] 64JFDOVSDQVGVKYLKEZREQOG8584-39-54 T15:42:411.2.840.124990.1.72.3.15| 1.2.840.218618.1.13.104.2.7.2.7278 [id number] [facility] 2023-06-01 10:20:57 qyltFNyTkKwJKC//[facility]inity P9c5XbmGF3e59l W9Qm0PLvuPXGnPsiOeHaTAUbuCi+SZ02762023T10:20:57 Patient stated she was seen in ER yesterday for vaginal bleeding and cramping. Stated she was told she was having implantation bleeding and labs and USG were done. Beta lab shows 11,338 for today 05/31 at 0038, pt does not have USG report with her. Stated she is still having vaginal bleeding and cramping rated 4-5/10. Denies any heavy bleeding, has not taken Tylenol and has not had any fluids since she is doing her 3 hour gtt today. Pt reports last intercourse was 3-4 weeks ago. ROR signed for USG today, pt would like to follow up for bleeding. Informed will route to provider for recommendations. ER warnings given, verbalized understanding. 86352-0Vuzxkdpkz encounter CiykAV2599-57-26S44:25:21Telephone encounter NoteTXT1.2.840.007234.1.13.104.2.7 .2.607834|6343470745ZSDiqniuaem for patient qrpg24107-5BiddKPGDSKDUPRRQoonahog d C-CDA narrative [id number] Garcia [address] KekiEqlbcnlfuAuyrlnbghZFOQ42300622 96QFUMSIOFBUQSFRXCGRGLEH8134-21-48 T10:25:211.2.840.491397.1.72.3.15| 1.2.840.779343.1.13.104.2.7.2.7278 [id number] Dorinda Bernal LVN [facility] 2023-06-01 10:04:34 ZpcEla65g1m8iByxdy3x roKnObHe6FCjcd 1u0ScubCIVPsAI1/Pz2uZGnedQTQtT1666 -03-18T10:04:34 Patient is here for her 3 hr gtt labs , states she was seen at the ER over the weekend for vaginal bleeding.Patient would like to speak with a nurse , states she is still bleeding very little but still concerned. Asked should she be worried.Will have nurse triage. Please call. 95109-7Ykbuzumra encounter RjobTN9020-71-77U80:07:28Telephone encounter NoteTXT1.2.840.011808.1.13.104.2.7 .2.464568|[id number] for patient gykw30352-7IceyEPHBVAWIGOANgichzan d C-CDA narrative ijnj28298731Dmmuxqsjfyovanny Davis[address] PfevDhnvgqsknHoiedrlneTDQN40907677 78XBYPYRQCKARDGBSKVRGUJW1613-63-19 T10:07:281.2.840.621931.1.72.3.15| 1.2.840.777227.1.13.104.2.7.2.7278 [id number] Ketty Davis [facility] 2023-06-01 07:45:00 mQ2K1s1KOYeCym+tmTC2 H/Yjqct8Hjn/xJ fZsMgxvDLdrSK1aUoex/5r6H1ozjKc1632 -03-18T07:45:00 Images from the original note were not included.Venipuncture collection performed by clean technique on the both anticubitus. Total of 4 attempts were made. Slight pressure and a bandage/dressing were applied to the site(s). The patient experienced no complications. The following specimens were processed according to instructions and sent to [facility] laboratories per lab order on 06/01/23:LT BLUESST 4REDLAVPPTDK GREEN (LiHep)DK GREEN (SodH)GRAYDK BLUE (K2)DK BLUE (S)ACDBlood CultureNIPT/NTD 41322-0Obdvy LbadTI2937-20-27U66:55:22Nurse NoteTXT1.2.840.177864.1.13.104.2.7 .2.863748|[id number] for patient zmht52466-1Dvvac NoteLNNARRATIVEFormatted C-CDA narrative text[address]TXTX[address] 74EREJSCKZQJCMCYJYAVJEGK9253-29-04 T10:55:221.2.840.811523.1.72.3.15| 1.2.840.947777.1.13.104.2.7.2.7278 [id number] [facility] 2023-05-27 08:14:36 jXeml9Mzv+HQ86Nymsb5 IFuIhQzwdHpCu9 td0QeLAosa4MBgiw8LSHhCcpLAUO5i1327 -03-13T08:14:36 Patient informed of results and need for 3 hr gtt. Lab appt made for 06/01/2023 per pt request, informed to be fasting, verbalized understanding. 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
[2023-06-01 20:58] LABS: Absolute Basophils 0.1 K/uL (0-0.5); Absolute Eosinophils 0.3 K/uL (0-0.5); Absolute Lymphocytes (CBC) 1.7 K/uL (0.7-4.9); Absolute Monocytes 0.5 K/uL (0.1-1.3); Absolute Neutrophil 8.4 K/uL (1.8-8.0); Basophils % 0.5 % (0-1.3); Eosinophils % 2.7 % (0-4.4); Hematocrit 36.8 % (36.0-45.0); Hemoglobin 12.2 g/dL (12.0-15.0); Lymphocytes % 15.5 % (15.3-44.8); MCHC 33.1 g/dL (32.0-36.0); MCV 78.5 fL (80-100); MPV 8.8 fL (7.6-11.3); Monocytes % 4.6 % (3.3-12.3); Neutrophils % 76.7 % (41.7-73.7); Nucleated Red Blood Cells % 0.1 % (0-0); Platelets 260 thou/uL (152-406); RBC Red Blood Cell Count 4.69 M/uL (3.86-4.86); Red Cell Distribution Width 15.3 % (12.1-15.2)
[2023-06-01 21:27] LABS: Anion Gap 9.2 mEq/L (5.0-15.0); Potassium 3.2 mEq/L (3.5-5.1)
--- NOTE | 2023-06-01 21:59 | RAD REPORT ---
EXAM DESCRIPTION: US - Transvaginal OB - 06/01/2023 9:23 pm CLINICAL HISTORY: ABD CRAMPING, COMPARISON: Transvaginal OB dated 05/31/2023 TECHNIQUE: Sonographic grayscale and color flow images of the pelvis were obtained through transvag inal approach. FINDINGS: Prominence of the endometrial again seen. The gestational sac seen on the prior exam dated 05/31/2023 is no longer visualized. Some mobile fluid in the endometrial cavity, suggesting blood pr oducts. No pole appreciated. Bilateral ovaries were visualized. Left ovary demonstrates hypoechoic small lesion with ring of fire vascularity suggestive of a corpus luteum. No free fluid. IMPRESSION: 1. For gestational sacs in the prior ultrasound is no longer visualized suggesting abort ion. 2. Corpus luteum again seen on the left. The findings were communicated to Peng Triana on 06/01/2023 at 21:55 hours.
[2023-06-01 22:04] LABS: Band Neutrophils 5 % (0-1); Differential Total Cells Count 100; Eosinophils 2 % (0-3); Lymphocytes 13 % (15-42); Monocytes 3 % (0-10); Segmented Neutrophils 77 % (40-80)
[2023-06-01 22:05] LABS: Blood Morphology Comment NOT SEEN (NOT SEEN); Platelet Estimate ADEQ
--- NOTE | 2023-06-01 22:53 | EDPHYS ---
Physician Documentation [facility] Name: Suzanne Edwards Age: 38 yrs Sex: Female : 1985 Arrival Date: 06/01/2023 Time: 20:21 Bed 20 Private MD: ED Physician Peng Triana HPI: 05/31 22:10 This 38 yrs old Female presents to ER via Ambulatory with complaints of steffany Vaginal Bleeding, + Preg <12wks, Abdominal Cramping. 22:10 The patient presents to the emergency department with possible uterine contractions, steffany just prior to arrival. The estimated gestational age is 6 weeks. course: care: at a clinic. Previous pregnancies: in previous pregnancies patient has had vaginal delivery. Associated signs and symptoms: The patient has no apparent associated signs or symptoms. The patient has not experienced similar symptoms in the past. 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 - Social history:: Smoking status: Patient denies any tobacco usage or history of. Patient/guardian denies using alcohol, street drugs, IV drugs. - Family history:: not pertinent. ROS: 22:10 Constitutional: Negative for fever, chills, and weight loss, Eyes: Negative for injury, steffany pain, redness, and discharge, ENT: Negative for injury, pain, and discharge, Neck: Negative for injury, pain, and swelling, Cardiovascular: Negative for chest pain, palpitations, and edema, Respiratory: Negative for shortness of breath, cough, wheezing, and pleuritic chest pain, Abdomen/GI: Negative for abdominal pain, nausea, vomiting, diarrhea, and constipation, Back: Negative for injury and pain, MS/Extremity: Negative for injury and deformity, Skin: Negative for injury, rash, and discoloration, Neuro: Negative for headache, weakness, numbness, tingling, and seizure, Psych: Negative for depression, anxiety, suicide ideation, homicidal ideation, and hallucinations, Allergy/Immunology: Negative for hives, rash, and allergies, Endocrine: Negative for neck swelling, polydipsia, polyuria, polyphagia, and marked weight changes, Hematologic/Lymphatic: Negative for swollen nodes, abnormal bleeding, and unusual bruising, 22:10 : Positive for pelvic pain, vaginal bleeding, Exam: 22:10 Constitutional: This is a well developed, well nourished patient who is awake, alert, steffany and in no acute distress. Head/Face: Normocephalic, atraumatic. Eyes: Pupils equal round and reactive to light, extra-ocular motions intact. Lids and lashes normal. Conjunctiva and sclera are non-icteric and not injected. Cornea within normal limits. Periorbital areas with no swelling, redness, or edema. ENT: Nares patent. No nasal discharge, no septal abnormalities noted. Tympanic membranes are normal and external auditory canals are clear. Oropharynx with no redness, swelling, or masses, exudates, or evidence of obstruction, uvula midline. Mucous membranes moist. Neck: Trachea midline, no thyromegaly or masses palpated, and no cervical lymphadenopathy. Supple, full range of motion without nuchal rigidity, or vertebral point tenderness. No Meningismus. Chest/axilla: Normal chest wall appearance and motion. Nontender with no deformity. No lesions are appreciated. Cardiovascular: Regular rate and rhythm with a normal S1 and S2. No gallops, murmurs, or rubs. Normal PMI, no JVD. No pulse deficits. Respiratory: Lungs have equal breath sounds bilaterally, clear to auscultation and percussion. No rales, rhonchi or wheezes noted. No increased work of breathing, no retractions or nasal flaring. Abdomen/GI: Soft, non-tender, with normal bowel sounds. No distension or tympany. No guarding or rebound. No evidence of tenderness throughout. Back: No spinal tenderness. No costovertebral tenderness. Full range of motion. Skin: Warm, dry with normal turgor. Normal color with no rashes, no lesions, and no evidence of cellulitis. MS/ Extremity: Pulses equal, no cyanosis. Neurovascular intact. Full, normal range of motion. Neuro: Awake and alert, GCS 15, oriented to person, place, time, and situation. Cranial nerves II-XII grossly intact. Motor strength 5/5 in all extremities. Sensory grossly intact. Cerebellar exam normal. Normal gait. Psych: Awake, alert, with orientation to person, place and time. Behavior, mood, and affect are within normal limits. 22:50 : Pelvic Exam: External exam: is normal, Speculum exam: scant bleeding, os that is steffany closed, bimanual exam reveals no cervical motion tenderness, os that is closed, Sexual behavior: the patient is sexually active, and reports a single partner, Vital Signs: 20:30 BP 150 / 83; Pulse 84; Resp 16; Temp 98.2; Pulse Ox 97% ; Weight 97.52 kg; Height 5 ft. jj7 4 in. ; Pain 8/10; 21:30 BP 122 / 77; Pulse 87; Resp 18; Pulse Ox 100% ; cp4 22:30 BP 119 / 65; Pulse 72; Resp 17; Pulse Ox 100% ; jj7 23:13 BP 123 / 69; Pulse 80; Resp 19; Pulse Ox 99% ; Pain 0/10; jj7 20:30 Body Mass Index 36.90 (97.52 kg, 162.56 cm) j7 20:30 Pain Scale: Adult jj7 23:13 Pain Scale: Adult jj7 MDM: 20:29 Patient medically screened. [facility] 22:15 Differential diagnosis: complete Ab. Data reviewed: vital signs, nurses notes, lab test [facility] result(s), radiologic studies, ultrasound. Consideration of Admission/Observation Escalation of care including admission/observation considered. I considered the following discharge prescriptions or medication management in the emergency department Medications were administered in the Emergency Department. See MAR. Historians other than the Patient: Spouse/Significant Other: significant other. Care significantly affected by the following chronic conditions: none. 05/31 20:30 Order name: Abo/rh Typing; Complete Time: 21:20 steffany 05/31 20:30 Order name: Basic Metabolic Panel; Complete Time: 21:41 steffany 05/31 20:30 Order name: CBC with Diff; Complete Time: 22:17 steffany 05/31 20:30 Order name: Quantitative Hcg; Complete Time: 21:41 steffany 05/31 21:21 Order name: Manual Differential; Complete Time: 22:17 EDMS 05/31 20:30 Order name: US Transvaginal Ob; Complete Time: 22:17 steffany 05/31 20:30 Order name: IV Saline Lock; Complete Time: 20:46 [facility] 05/31 20:30 Order name: Labs collected and sent; Complete Time: 20:46 [facility] 05/31 20:30 Order name: NPO; Complete Time: 20:46 [facility] 05/31 22:17 Order name: Pelvic Exam Setup; Complete Time: 22:35 steffany Administered Medications: 21:03 Drug: NS 0.9% IV 1000 ml IV at 1 bolus Per protocol; 1000 mL bolus Route: IV; Rate: 1 cp4 bolus; Site: right antecubital; 22:53 Follow up: IV Status: Completed infusion; IV Intake: 700ml jj7 22:35 Drug: Potassium PO Effervescent Tablet 25 mEq PO once; dissolve in 4 ounces of water or jj7 juice Route: PO; 22:53 Follow up: Response: No adverse reaction jj7 Disposition Summary: 06/01/23 22:52 Discharge Ordered Notes: Location: Home steffany Problem: new steffany Symptoms: have improved steffany Condition: Stable steffany Diagnosis - Complete or unspecified spontaneous with other complications - bleeding steffany - Hypokalemia steffany Followup: steffany - With: Private Physician - When: 2 - 3 days - Reason: Recheck today's complaints, Continuance of care, Re-evaluation by your physician Discharge Instructions: - Discharge Summary Sheet [facility] - Potassium Content of Foods steffany - Miscarriage stfefany - Miscarriage, [id number] [facility] Forms: - Medication Reconciliation Form [facility] - Thank You Letter [facility] - Antibiotic Education steffany - Prescription Opioid Use steffany - Patient Portal Instructions [facility] - Leadership Thank You Letter [facility] Prescriptions: - Tylenol 325 mg Oral tablet - take 2 tablets ORAL route every 6 hours as needed; 60 tablet; Refills: 0, steffany Product Selection Permitted Signatures: Dispatcher [employer] EDPeng Solares MD MD cha Johnson, Juwairiyah RN RN Ketty Travis cp4 Corrections: (The following items were deleted from the chart) 22:52 22:10 : CVA tenderness, is absent, Pelvic Exam: is not necessary for this patient, steffany Sexual behavior: the patient is sexually active, and reports a single partner, steffany
--- NOTE | 2023-06-01 22:53 | ER ---
Nurse's Notes [facility] Name: Suzanne Edwards Age: 38 yrs Sex: Female : 1985 Arrival Date: 06/01/2023 Time: 20:21 Bed 20 Private MD: Diagnosis: Complete or unspecified spontaneous with other complications-bleeding;Hypokalemia Presentation: 05/31 20:30 Chief complaint: Patient states: WAS SEEN IN THIS ER YESTERDAY FOR SPOTTING. TOLD SHE jj7 WAS 6 WKS AND WAS SPOTTING DUE TO IMPLANTATION. STARTING HAVING VAGINAL BLEEDING PASSING CLOTS 1 HR AGO. Coronavirus screen: At this time, the client does not indicate any symptoms associated with coronavirus-19. Ebola Screen: No symptoms or risks identified at this time. Initial Sepsis Screen: Does the patient meet any 2 criteria? No. Patient's initial sepsis screen is negative. Does the patient have a suspected source of infection? No. Patient's initial sepsis screen is negative. Risk Assessment: Do you want to hurt yourself or someone else? Patient reports no desire to harm self or others. Onset of symptoms was June 01, 2023. 20:30 Method Of Arrival: [facility] 20:30 Acuity: BING 3 jj7 Triage Assessment: 20:39 General: Appears in no apparent distress. comfortable, Behavior is cooperative, jj7 appropriate for age, crying. Pain: Complains of pain in pelvis Pain currently is 8 out of 10 on a pain scale. : Reports vaginal bleeding that is with clots. 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 - Social history:: Smoking status: Patient denies any tobacco usage or history of. Patient/guardian denies using alcohol, street drugs, IV drugs. - Family history:: not pertinent. Screenin:41 [facility] ED Fall Risk Assessment (Adult) History of falling in the last 3 months, jj7 including since admission No falls in past 3 months (0 pts) Confusion or Disorientation No (0 pts) Intoxicated or Sedated No (0 pts) Impaired Gait No (0 pts) Mobility Assist Device Used No (0 pt) Altered Elimination No (0 pt) Score/Fall Risk Level 0 - 2 = Low Risk Oriented to surroundings, Maintained a safe environment, Educated pt \T\ family on fall prevention, incl call for assistance when getting out of bed. Abuse screen: Denies threats or abuse. Nutritional screening: No deficits noted. Tuberculosis screening: No symptoms or risk factors identified. Assessment: 21:32 Obstetrical Assessment: General assessment: awake and alert, Rupture of membranes cp4 noted. Patient reports abdominal cramping. Vital Signs: 20:30 BP 150 / 83; Pulse 84; Resp 16; Temp 98.2; Pulse Ox 97% ; Weight 97.52 kg; Height 5 ft. jj7 4 in. ; Pain 8/10; 21:30 BP 122 / 77; Pulse 87; Resp 18; Pulse Ox 100% ; cp4 22:30 BP 119 / 65; Pulse 72; Resp 17; Pulse Ox 100% ; jj7 23:13 BP 123 / 69; Pulse 80; Resp 19; Pulse Ox 99% ; Pain 0/10; jj7 20:30 Body Mass Index 36.90 (97.52 kg, 162.56 cm) jj7 20:30 Pain Scale: Adult jj7 23:13 Pain Scale: Adult jj7 ED Course: 20:23 Patient arrived in ED. im 20:29 Peng Triana MD is Attending Physician. steffany 20:31 Ketty Rosales is Primary Nurse. cp4 20:39 Triage completed. jj7 20:39 Arm band placed on right wrist. jj7 20:41 Patient has correct armband on for positive identification. Placed in gown. Adult w/ jj7 patient. 20:45 No provider procedures requiring assistance completed. Inserted saline lock: 20 gauge cp4 in right antecubital area, using aseptic technique. Blood collected. 20:46 Abo/rh Typing Sent. cp4 20:46 Basic Metabolic Panel Sent. cp4 20:46 CBC with Diff Sent. cp4 20:47 Quantitative Hcg Sent. cp4 21:24 US Transvaginal Ob In Process Unspecified. EDMS 22:45 Provided Education on: ON PELVIC EXAM. jj7 22:45 Assist provider with pelvic exam: Set up pelvic tray. Performed by Peng Triana MD jj7 Patient tolerated well. 23:13 IV discontinued, intact, bleeding controlled, No redness/swelling at site. Pressure jj7 dressing applied. Administered Medications: 21:03 Drug: NS 0.9% IV 1000 ml IV at 1 bolus Per protocol; 1000 mL bolus Route: IV; Rate: 1 cp4 bolus; Site: right antecubital; 22:53 Follow up: IV Status: Completed infusion; IV Intake: 700ml rayj7 22:35 Drug: Potassium PO Effervescent Tablet 25 mEq PO once; dissolve in 4 ounces of water or jleta juice Route: PO; 22:53 Follow up: Response: No adverse reaction rayj7 Medication: 21:32 VIS not applicable for this client. cp4 Intake: 22:53 IV: 700ml; Total: 700ml. jj7 Outcome: 22:52 Discharge ordered by MD. jeter 23:13 Discharged to home ambulatory, with significant other, juan carlos 23:13 Condition: improved 23:13 Discharge instructions given to patient, Instructed on discharge instructions, follow up and referral plans. Demonstrated understanding of instructions, follow-up care, medications, Prescriptions given X 1, 23:13 Patient left the ED. jj7 Signatures: Dispatcher [employer] EDPeng Solares MD MD cha Johnson, Juwairiyah RN RN jjMl Maharaj Christina cp4 Corrections: (The following items were deleted from the chart) 23:33 23:32 Patient left the ED. jj7 jj7
[2023-06-01 23:44] VITALS: BP 123/69; TEMP 98.2; O2SAT 99
== END ==
LOC: ER 20:21
DX: O03.89 Complete or unspecified spontaneous abortion with other complications (principal); E87.6 Hypokalemia
CPT/HCPCS: 36415; 76817; 80048; 84702; 85025; 86900; 86901; 96360; 96361; 99284; J7030

== ENCOUNTER 2023-12-25 10:16 | Emergency (ER) | payer OTHER ==
--- OUTSIDE RECORDS SUMMARY | 2023-12-25 10:21 | XMS REPORT | Continuity of Care Document ---
Author Name Unknown Address [address] [place] [address] [facility] Address [address] [place] [address] Care Team Providers Care Supervisor Operations Name Role Phone Pcp, Patient Does Not Have A Primary Care Physic camille VALERIE PALMER Attending Clinician Unavailable [facility] Resident Attending Clinician U ROBERT Leary Attending Clinician Unavailable Miles KONG, Robert Attending Clinician [phone] Valerie Palmer MD Attending Clinician [phone] LEE ANN ALATORRE Attending Clinician Unavail able VANNA ANDRADE Attending Clinician UnavailHSIELA Duval Attending Clinician Unavailable [facility] Attending Clinician Unavailable Celi Lee Ann VANEGAS Attending Clinician + [facility] Unavailable Vanna Andrade CNM Attending Clinician [phone] Doctor Unassigned, [place] Attending Clinician U dominique Dawkins FIELD DIRECTOR, Lisa Mendoza Attending Clinician [phone] Jacob Gallegos RN, Sindy Attending Clinician Unavailable Last Hinton MD, Maricel Attending Clinician + Ultrasound, [facility] Attending Clinician Unavailgabbie Celestin MD, Vickey Montgomery Attending Clinician [phone] Juani Alanis Attending Clinician [phone] Remy Puente Attending Clinician VALERIE PALMER Admitting Clinician Unavailable Spencer KONG, Valerie Nicole Admitting Clinician Last Hinton MD, Connelly Admitting Clinician + Payers Payer Name Policy Type Policy Number Effective Date Expirati on Date Source [facility] [id number] 2023 00:00:00 Problems Condition Name Condition Details Condition Category Status Onset Date Resolution Date Last Treatment Date Treating Clinician Comments Source Tubal ligation status Tubal ligation status Disease Active 05-25 00:00: 00 [facility] History of miscarriag e History of miscarriag e Disease Active 05-25 00:00: 00 [facility] Indication for care in labor or delivery Indication for care in labor or delivery Disease Active 06-14 00:00: 00 [facility] Obesity affecting Obesity affecting Disease Active 10-22 00:00: 00 [facility] Well woman exam Well woman exam Disease Active 2015-03 2 00:00: 00 [facility] Declines flu vaccine Declines flu vaccine Disease Active 12-13 00:00: 00 Overview: Formattin g of this note might be different from the original. Received flu vac today [facility] AMA (advanced maternal age) multigravi da 35+ AMA (advanced maternal age) multigravi da 35+ Disease Resolve d 05-25 00:00: 00 2023-06-17 00:00:00 2023-06-17 11:15:01 [facility] Abnormal maternal glucose tolerance, antepartum Abnormal maternal glucose tolerance, antepartum Disease Resolve d 8 00:00: 00 2023-06-17 00:00:00 2023-06-17 11:15:03 [facility] (spontaneo us vaginal delivery) (spontaneo us vaginal delivery) Disease Resolve d 4 00:00: 00 2023-05-26 00:00:00 2023-05-26 08:53:14 [facility] Single live Single live Disease Resolve d 2020-0 4-02 00:00: 00 2023-05-26 00:00:00 2023-05-26 08:53:13 [facility] Laceration , obstetrica l, minor Laceration , obstetrica l, minor Disease Resolve d 2020-0 4-02 00:00: 00 2023-05-26 00:00:00 2023-05-26 08:52:38 [facility] Indication for care in labor or delivery Indication for care in labor or delivery Disease Resolve d 2019-0 4-01 00:00: 00 2023-05-26 00:00:00 2023-05-26 08:52:37 [facility] Multiparit y Multiparit y Disease Resolve d 2019-0 3-04 00:00: 00 2023-05-26 00:00:00 2023-05-26 08:52:41 [facility] Vaginal bleeding in Vaginal bleeding in Disease Resolve d 2019-0 1-27 00:00: 00 2023-05-26 00:00:00 2023-05-26 08:53:15 [facility] Nausea and vomiting in prior to 22 weeks gestation Nausea and vomiting in prior to 22 weeks gestation Disease Resolve d 2018-1 0-04 00:00: 00 2023-05-26 00:00:00 2023-05-26 08:52:38 [facility] High-risk in third trimester High-risk in third trimester Disease Resolve d 2018-0 8-09 00:00: 00 2023-05-26 00:00:00 2023-05-26 08:52:36 [facility] 39 weeks gestation of 39 weeks gestation of Disease Resolve d 2015-1 0-21 00:00: 00 2023-05-26 00:00:00 2023-05-26 08:52:34 [facility] Other general counseling and advice for contracept lucia management Other general counseling and advice for contracept lucia management Disease Resolve d 2015-1 2-05 00:00: 00 2018-10-22 00:00:00 2018-10-22 09:39:43 [facility] Obese Obese Disease Resolve d 2015-03 2-05 00:00: 00 2018-10-22 00:00:00 2018-10-22 09:39:45 [facility] Vaginal yeast infection Vaginal yeast infection Disease Resolve d 2015-03 2-05 00:00: 00 2018-10-22 00:00:00 2018-10-22 09:39:42 [facility] Routine follow-up Routine follow-up Disease Resolve d 2015-0314 00:00: 00 2016-02-18 00:00:00 2016-02-18 13:02:04 [facility] Obstetrica l laceration , second degree Obstetrica l laceration , second degree Disease Resolve d 2015-03 0-23 00:00: 00 2016-01-28 00:00:00 2016-01-28 11:29:03 [facility] Labor and delivery indication for care or interventi on Labor and delivery indication for care or interventi on Disease Resolve d 2015-03 0-21 00:00: 00 2016-01-28 00:00:00 2016-01-28 11:29:07 [facility] Round ligament pain Round ligament pain Disease Resolve d 9 00:00: 00 2016-01-28 00:00:00 2016-01-28 11:29:01 [facility] Nausea and vomiting during prior to 22 weeks gestation Nausea and vomiting during prior to 22 weeks gestation Disease Resolve d 05 00:00: 00 2016-01-28 00:00:00 2016-01-28 11:29:05 [facility] History of miscarriag e, currently History of miscarriag e, currently Disease Resolve d 05-21 00:00: 00 2016-01-28 00:00:00 2016-01-28 11:29:08 [facility] Supervisio n of high risk , antepartum Supervisio n of high risk , antepartum Disease Resolve d 05-21 00:00: 00 2016-01-28 00:00:00 2021-09-29 00:39:48 [facility] Obesity affecting Obesity affecting Disease Resolve d 10-11 00:00: 00 2016-01-28 00:00:00 2021-09-29 00:37:02 [facility] Vaginal bleeding during , antepartum Vaginal bleeding during , antepartum Disease Resolve d 10-11 00:00: 00 2015-05-22 00:00:00 2015-05-22 10:34:16 [facility] Allergies, Adverse Reactions, Alerts Allergy Name Allergy Type Status Severity Reaction(s) Onset Date Inactive Date Treating Clinician Comments Source NO KNOWN ALLERGIE S Drug Class Active [facility] Social History Social Habit Start Date Stop Date Quantity Comments Source ASSERTION 2023-05-02 00:00:00 [facility] Alcoholic beverage intake 2023-08-03 00:00:00 2023-08-03 00:00:00 Current non-drinker of alcohol (finding) [facility] Alcohol intake 2023-06-17 00:00:00 2023-06-17 00:00:00 Current non-drinker of alcohol (finding) [facility] Tobacco use and exposure 2023-05-26 00:00:00 2023-05-26 00:00:00 Smokeless tobacco non-user [facility] History of Social function 2023-05-26 00:00:00 2023-05-26 00:00:00 [facility] Sex assigned at 1985 00:00:00 1985 00:00:00 [facility] Smoking Status Start Date Stop Date Source Never smoked tobacco [facility] Medications Ordered Medication Name Filled Medication Name Start Date Stop Date Current Medication? Ordering Clinician Indication Dosage Frequency Signature (SIG) Comments Components Source HYDROcodone -acetaminop hen (NORCO 5) 5-325 mg tablet 1 tablet 07-20 14:15: 00 07-20 14:50 :00 No 1{tbl} 1 tablet, Oral, ONCE, 1 dose, On Thu07/21/23 at 0915, Routine, PACU [facility] ibuprofen (IBU) tablet 800 mg 07-20 14:07: 04 07-20 17:46 :25 No 800mg [facility] acetaminoph en (TYLENOL) tablet 650 mg 07-20 14:07: 04 07-20 17:46 :25 No 650mg [facility] HYDROmorpho ne (DILAUDID) injection 0.2 mg 07-20 14:07: 04 07-20 17:46 :25 No .2mg 0.2 mg, Slow IV Push, Q5MIN PRN, 10 doses, Starting on Thu07/21/23 at 0907, Until Thu07/21/23 at 1246, Routine, Pain (scale 7-10), PACU, Use approved by (Faculty): PACU USE -ANESTHESI A SERVICE-HY DROMORPHON E INJECTIONS [facility] FENTanyl PF (SUBLIMAZE (PF)) injection 25 mcg 07-20 14:07: 04 07-20 17:46 :25 No 25ug 25 mcg, Slow IV Push, Q5MIN PRN, 4 doses, Starting on Thu07/21/23 at 0907, Until Thu07/21/23 at 1246, Routine, Pain (scale 4-6), PACU [facility] ondansetron (ZOFRAN (PF)) injection 4 mg 07-20 14:07: 04 07-20 14:49 :00 No 4mg 4 mg, Slow IV Push, PRN, 1 dose, Starting on Thu07/21/23 at 0907, Until Thu07/21/23 at 0949, Routine, Nausea and Vomiting (N/V), PACU [facility] bupivacaine (preserv free) (SENSORCAIN E MPF) 0.25 % (2.5 mg/mL) injection 07-20 13:53: 00 07-20 14:23 :17 No PRN, Starting on Thu07/21/23 at 0853, Until Thu07/21/23 at 0923, Routine, Intra-op [facility] acetaminoph en (TYLENOL EXTRA STRENGTH) 500 mg tablet 07-20 00:00: 00 Yes [id number] 500mg Take 1 tablet by mouth every 6 (six) hours as needed for Pain. [facility] ibuprofen 800 mg tablet 07-20 00:00: 00 Yes [id number] 800mg Take 1 tablet by mouth every 6 (six) hours as needed for Pain (scale 1-3) or Pain (scale 4-6). [facility] HYDROcodone -acetaminop hen 5-325 mg tablet 07-20 00:00: 00 07-28 04:59 :00 No [id number] 1{tbl} Take 1 tablet by mouth every 6 (six) hours as needed for Pain (scale 4-6) or Pain (scale 7-10) for up to 7 days. Indication s: acute pain [facility] vit no.124/iron /folic ( VITAMIN ORAL) -12 09:10: 59 07-20 00:00 :00 No Take by mouth. [facility] fluconazole (DIFLUCAN) 150 mg tablet 06-19 00:00: 00 06-20 04:59 :00 No [id number] 150mg Take 1 tablet by mouth once now for 1 dose. [facility] fluconazole (DIFLUCAN) tablet 150 mg 06-17 11:45: 00 06-17 10:54 :00 No 150mg 150 mg, Oral, ONCE NOW, 1 dose, 06/18/19 at 0645, ZAID
Re ason for Anti-Infec tive: Documented Infection< br>Documen papo Infection Site: Skin / Soft Tissue
Duration of Therapy: 7 days [facility] ketoconazol e 2 % cream 06-17 00:00: 00 07-18 04:59 :00 No [id number] Apply to area(s) daily for 30 days. [facility] rho(D) immune globulin (RHOGAM) syringe 300 mcg 06-15 05:30: 03 Yes 300ug 300 mcg, Intramuscu lar, ONCE, For 1 dose, Conditiona l, Routine [facility] human papillomav vac,9-alexandro(P F) (GARDASIL-9 ) syringe 0.5 mL 06-15 05:29: 59 Yes .5mL 0.5 mL, Intramuscu lar, ONCE-PRIOR TO DISCHARGE, 1 dose, Starting Rosa Maria 06/16/19 at 0029, Until Discontinu ed, Routine, Give vaccine prior to discharge [facility] ibuprofen (IBU) tablet 600 mg 06-15 05:29: 59 Yes 600mg 600 mg, Oral, Q6HPRN, Starting Rosa Maria 06/16/19 at 0029, Until Discontinu ed, Routine, Pain (scale 4-6) [facility] acetaminoph en (TYLENOL) tablet 650 mg 06-15 05:29: 59 Yes 650mg 650 mg, Oral, Q6HPRN, Starting Rosa Maria 06/16/19 at 0029, Until Discontinu ed, Routine, Pain (scale 1-3) [facility] diphenhydrA MINE (BENADRYL) tablet 25 mg 06-15 05:29: 59 Yes 25mg 25 mg, Oral, Q6HPRN, Starting Rosa Maria 06/16/19 at 0029, Until Discontinu ed, Routine, Sleep, Itching [facility] diphenhydrA MINE-0.9 % sod.chlr (BENADRYL) 25 mg/50 mL piggyback 25 mg 06-15 05:29: 59 Yes 25mg 25 mg, IV Piggyback, Administer over 30 Minutes, Q6HPRN, Starting Rosa Maria 06/16/19 at 0029, Until Discontinu ed, Routine, Itching [facility] ondansetron (ZOFRAN (PF)) injection 4 mg 06-15 05:29: 59 Yes 4mg 4 mg, Slow IV Push, Q8HPRN, Starting Rosa Maria 06/16/19 at 0029, Until Discontinu ed, Routine, Nausea and Vomiting (N/V) [facility] simethicone (GAS RELIEF (SIMETHICON E)) chewable tablet 160 mg 06-15 05:29: 59 Yes 160mg 160 mg, Oral, PC+HSPRN, Starting Rosa Maria 06/16/19 at 0029, Until Discontinu ed, Routine, Gas [facility] docusate calcium (SURFAK) capsule 240 mg 06-15 05:29: 59 Yes 240mg 240 mg, Oral, QDAILYPRN, Starting Rosa Maria 06/16/19 at 0029, Until Discontinu ed, Routine, Constipati on [facility] magnesium hydroxide (MILK OF MAGNESIA) 400 mg/5 mL suspension 30 mL 06-15 05:29: 59 Yes 30mL 30 mL, Oral, QDAILYPRN, Starting Rosa Maria 06/16/19 at 0029, Until Discontinu ed, Routine, Constipati on [facility] benzocaine- menthol (DERMOPLAST ) 20-0.5 % topical spray 06-15 05:29: 59 Yes Topical, PRN, Starting Rosa Maria 06/16/19 at 0029, Until Discontinu ed, Routine, Perineum discomfort [facility] acetaminoph en (TYLENOL) tablet 650 mg 06-15 02:49: 10 06-15 05:30 :04 No 650mg 650 mg, Oral, Q6HPRN, Starting 06/15/19 at 2149, Until Rosa Maria 06/16/19 at 0030, Routine, Pain (scale 1-3), Temp > 38.5 C [facility] Iron Fum & P-FA-Vit B & C No.9 (INTEGRA PLUS) 125 mg iron- 1 mg Cap 06-15 00:00: 00 Yes [id number] 1{capsu le} Take 1 capsule by mouth daily. [facility] Iron Fum & P-FA-Vit B & C No.9 (INTEGRA PLUS) 125 mg iron- 1 mg Cap 06-15 00:00: 00 Yes [id number] 1{capsu le} Take 1 capsule by mouth daily. [facility] docusate calcium 240 mg capsule 06-15 00:00: 00 05-25 00:00 :00 No [id number] 240mg Take 1 capsule by mouth once daily as needed for Constipati on. [facility] ibuprofen 600 mg tablet 06-15 00:00: 00 05-25 00:00 :00 No [id number] 600mg Take 1 tablet by mouth every 6 (six) hours as needed (Pain). Take with food or milk. [facility] lactated ringers IV infusion 500 mL 06-14 14:00: 00 06-14 22:02 :00 No 500mL at 999 mL/hr, 500 mL, IV Infusion, ONCE, 1 dose, Thu06/15/19 at 0900, Routine [facility] D5W-LR IV infusion 1,000 mL 06-14 13:00: 00 06-15 05:30 :04 No 1000mL at 125 mL/hr, IV Infusion, CONTINUOUS , Starting Thu06/15/19 at 0800, Until Rosa Maria 06/16/19 at 0030, Routine [facility] LR 1000 mL + oxytocin 20 [...] faculty approval.& nbsp;&nbsp ;Max 40 lila-unit s/min.
[facility] sodium citrate-cit jillian acid (BICITRA) 500-334 mg/5 mL solution 30 mL 06-14 12:48: 49 06-14 22:15 :00 No 30mL 30 mL, Oral, PRE-PROCED URE ONCE, 1 dose, Starting Thu06/15/19 at 0748, Until Discontinu ed, Routine, Surgery/Pr ocedure [facility] VIT W-CA,FE,FA, <1 MG, ( VITAMIN ORAL) 11-08 21:41: 59 11-08 00:00 :00 No Take by mouth. [facility] PNV 67-iron ps-folate no.1-dha (VITAFOL ULTRA) 29 mg iron- 1 mg-200 mg Cap 11-08 00:00: 00 06-15 00:00 :00 No [id number] 1{capsu le} Take 1 capsule by mouth daily. [facility] VIT W-CA,FE,FA, <1 MG, ( VITAMIN ORAL) 10-22 14:42: 40 Yes Take by mouth. [facility] terconazole (TERAZOL 3) 0.8 % vaginal cream 2015-03 00:00: 00 Yes [id number] 1{appli cator} Insert 1 Applicator into vagina at bedtime. [facility] VIT W-CA,FE,FA, <1 MG, ( VITAMIN ORAL) 2015-03 17:29: 58 Yes Take by mouth. [facility] ibuprofen (MOTRIN) 600 mg tablet 2015-03 00:00: 00 Yes 600mg Take 1 tablet by mouth every 6 (six) hours as needed for Pain (scale 1-3). Take with food or milk. [facility] Immunizations Ordered Immunization Name Filled Immunization Name Date Status Comments Source Tdap 2019-04-06 00:00:00 Completed [facility] Influenza Virus Vaccine Quad .5 mL IM 6+ MO 2019-04-06 00:00:00 Completed [facility] Tdap 2019-04-06 00:00:00 Completed [facility] Influenza Virus Vaccine Quad .5 mL IM 6+ MO 2019-04-06 00:00:00 Completed [facility] Tdap 2019-04-06 00:00:00 Completed [facility] Influenza Virus Vaccine Quad .5 mL IM 6+ MO 2019-04-06 00:00:00 Completed [facility] Tdap 2019-04-06 00:00:00 Completed [facility] Influenza Virus Vaccine Quad .5 mL IM 6+ MO 2019-04-06 00:00:00 Completed [facility] Tdap 2019-04-06 00:00:00 Completed [facility] Influenza Virus Vaccine Quad .5 mL IM 6+ MO 2019-04-06 00:00:00 Completed [facility] Tdap 2019-04-06 00:00:00 Completed [facility] Influenza Virus Vaccine Quad .5 mL IM 6+ MO 2019-04-06 00:00:00 Completed [facility] Tdap 2019-04-06 00:00:00 Completed [facility] Influenza Virus Vaccine Quad .5 mL IM 6+ MO 2019-04-06 00:00:00 Completed [facility] Tdap 2019-04-06 00:00:00 Completed [facility] Influenza Virus Vaccine Quad .5 mL IM 6+ MO 2019-04-06 00:00:00 Completed [facility] Tdap 2019-04-06 00:00:00 Completed [facility] Influenza Virus Vaccine Quad .5 mL IM 6+ MO 2019-04-06 00:00:00 Completed [facility] Tdap 2019-04-06 00:00:00 Completed [facility] Influenza Virus Vaccine Quad .5 mL IM 6+ MO 2019-04-06 00:00:00 Completed [facility] Tdap 2019-04-06 00:00:00 Completed [facility] Influenza Virus Vaccine Quad .5 mL IM 6+ MO 2019-04-06 00:00:00 Completed [facility] Tdap 2019-04-06 00:00:00 Completed [facility] Influenza Virus Vaccine Quad .5 mL IM 6+ MO 2019-04-06 00:00:00 Completed [facility] Tdap 2019-04-06 00:00:00 Completed [facility] Influenza Virus Vaccine Quad .5 mL IM 6+ MO 2019-04-06 00:00:00 Completed [facility] Tdap 2019-04-06 00:00:00 Completed [facility] Influenza Virus Vaccine Quad .5 mL IM 6+ MO 2019-04-06 00:00:00 Completed [facility] Tdap 2019-04-06 00:00:00 Completed [facility] Influenza Virus Vaccine Quad .5 mL IM 6+ MO 2019-04-06 00:00:00 Completed [facility] Tdap 2019-04-06 00:00:00 Completed [facility] Influenza Virus Vaccine Quad .5 mL IM 6+ MO 2019-04-06 00:00:00 Completed [facility] Tdap 2019-04-06 00:00:00 Completed [facility] Influenza Virus Vaccine Quad .5 mL IM 6+ MO 2019-04-06 00:00:00 Completed [facility] Tdap 2019-04-06 00:00:00 Completed [facility] Influenza Virus Vaccine Quad .5 mL IM 6+ MO 2019-04-06 00:00:00 Completed [facility] Influenza Virus Vaccine Quad IM 3+ YRS 2015-12-14 00:00:00 Completed [facility] Influenza Virus Vaccine Quad IM 3+ YRS 2015-12-14 00:00:00 Completed [facility] Influenza Virus Vaccine Quad IM 3+ YRS 2015-12-14 00:00:00 Completed [facility] Influenza Virus Vaccine Quad IM 3+ YRS 2015-12-14 00:00:00 Completed [facility] Influenza Virus Vaccine Quad IM 3+ YRS 2015-12-14 00:00:00 Completed [facility] Influenza Virus Vaccine Quad IM 3+ YRS 2015-12-14 00:00:00 Completed [facility] Influenza Virus Vaccine Quad IM 3+ YRS 2015-12-14 00:00:00 Completed [facility] Influenza Virus Vaccine Quad IM 3+ YRS 2015-12-14 00:00:00 Completed [facility] Influenza Virus Vaccine Quad IM 3+ YRS 2015-12-14 00:00:00 Completed [facility] Influenza Virus Vaccine Quad IM 3+ YRS 2015-12-14 00:00:00 Completed [facility] Influenza Virus Vaccine Quad IM 3+ YRS 2015-12-14 00:00:00 Completed [facility] Influenza Virus Vaccine Quad IM 3+ YRS 2015-12-14 00:00:00 Completed [facility] Influenza Virus Vaccine Quad IM 3+ YRS 2015-12-14 00:00:00 Completed [facility] Influenza Virus Vaccine Quad IM 3+ YRS 2015-12-14 00:00:00 Completed [facility] Influenza Virus Vaccine Quad IM 3+ YRS 2015-12-14 00:00:00 Completed [facility] Influenza Virus Vaccine Quad IM 3+ YRS 2015-12-14 00:00:00 Completed [facility] Influenza Virus Vaccine Quad IM 3+ YRS 2015-12-14 00:00:00 Completed [facility] Influenza Virus Vaccine Quad IM 3+ YRS 2015-12-14 00:00:00 Completed [facility] Influenza Virus Vaccine Quad IM 3+ YRS 2015-12-14 00:00:00 Completed [facility] Influenza Virus Vaccine Quad IM 3+ YRS 2015-12-14 00:00:00 Completed [facility] Influenza Virus Vaccine Quad IM 3+ YRS 2015-12-14 00:00:00 Completed [facility] Influenza Virus Vaccine Quad IM 3+ YRS 2015-12-14 00:00:00 Completed [facility] Influenza Virus Vaccine Quad IM 3+ YRS 2015-12-14 00:00:00 Completed [facility] Influenza Virus Vaccine Quad IM 3+ YRS 2015-12-14 00:00:00 Completed [facility] Influenza Virus Vaccine Quad IM 3+ YRS 2015-12-14 00:00:00 Completed [facility] Influenza Virus Vaccine Quad IM 3+ YRS 2015-12-14 00:00:00 Completed [facility] Influenza Virus Vaccine Quad IM 3+ YRS 2015-12-14 00:00:00 Completed [facility] Tdap 2015-10-26 00:00:00 Completed [facility] Tdap 2015-10-26 00:00:00 Completed [facility] Tdap 2015-10-26 00:00:00 Completed [facility] Tdap 2015-10-26 00:00:00 Completed [facility] Tdap 2015-10-26 00:00:00 Completed [facility] Tdap 2015-10-26 00:00:00 Completed [facility] Tdap 2015-10-26 00:00:00 Completed [facility] Tdap 2015-10-26 00:00:00 Completed [facility] Tdap 2015-10-26 00:00:00 Completed [facility] Tdap 2015-10-26 00:00:00 Completed [facility] Tdap 2015-10-26 00:00:00 Completed [facility] Tdap 2015-10-26 00:00:00 Completed [facility] Tdap 2015-10-26 00:00:00 Completed [facility] Tdap 2015-10-26 00:00:00 Completed [facility] Tdap 2015-10-26 00:00:00 Completed [facility] Tdap 2015-10-26 00:00:00 Completed [facility] Tdap 2015-10-26 00:00:00 Completed [facility] Tdap 2015-10-26 00:00:00 Completed [facility] Tdap 2015-10-26 00:00:00 Completed [facility] Tdap 2015-10-26 00:00:00 Completed [facility] Tdap 2015-10-26 00:00:00 Completed [facility] Tdap 2015-10-26 00:00:00 Completed [facility] Tdap 2015-10-26 00:00:00 Completed [facility] Tdap 2015-10-26 00:00:00 Completed [facility] Tdap 2015-10-26 00:00:00 Completed [facility] Tdap 2015-10-26 00:00:00 Completed [facility] Tdap 2015-10-26 00:00:00 Completed [facility] Influenza Virus Vaccine Quad IM 3+ YRS 2015-05-22 00:00:00 [facility] [facility] Influenza Virus Vaccine Quad IM 3+ YRS 2015-05-22 00:00:00 Completed [facility] Influenza Virus Vaccine Quad IM 3+ YRS 2015-05-22 00:00:00 Completed [facility] Influenza Virus Vaccine Quad IM 3+ YRS 2015-05-22 00:00:00 Completed [facility] Influenza Virus Vaccine Quad IM 3+ YRS 2015-05-22 00:00:00 Completed [facility] Influenza Virus Vaccine Quad IM 3+ YRS 2015-05-22 00:00:00 Completed [facility] Influenza Virus Vaccine Quad IM 3+ YRS 2015-05-22 00:00:00 Completed [facility] Influenza Virus Vaccine Quad IM 3+ YRS 2015-05-22 00:00:00 Completed [facility] Influenza Virus Vaccine Quad IM 3+ YRS 2015-05-22 00:00:00 Completed [facility] Influenza Virus Vaccine Quad IM 3+ YRS 2015-05-22 00:00:00 Completed [facility] Influenza Virus Vaccine Quad IM 3+ YRS 2015-05-22 00:00:00 Completed [facility] Influenza Virus Vaccine Quad IM 3+ YRS 2015-05-22 00:00:00 Completed [facility] Influenza Virus Vaccine Quad IM 3+ YRS 2015-05-22 00:00:00 Completed [facility] Influenza Virus Vaccine Quad IM 3+ YRS 2015-05-22 00:00:00 Completed [facility] Influenza Virus Vaccine Quad IM 3+ YRS 2015-05-22 00:00:00 Completed [facility] Influenza Virus Vaccine Quad IM 3+ YRS 2015-05-22 00:00:00 Completed [facility] Influenza Virus Vaccine Quad IM 3+ YRS 2015-05-22 00:00:00 Completed [facility] Influenza Virus Vaccine Quad IM 3+ YRS 2015-05-22 00:00:00 Completed [facility] Influenza Virus Vaccine Quad IM 3+ YRS 2015-05-22 00:00:00 Completed [facility] Influenza Virus Vaccine Quad IM 3+ YRS 2015-05-22 00:00:00 Completed [facility] Influenza Virus Vaccine Quad IM 3+ YRS 2015-05-22 00:00:00 Completed [facility] Influenza Virus Vaccine Quad IM 3+ YRS 2015-05-22 00:00:00 Completed [facility] Influenza Virus Vaccine Quad IM 3+ YRS 2015-05-22 00:00:00 Completed [facility] Influenza Virus Vaccine Quad IM 3+ YRS 2015-05-22 00:00:00 Completed [facility] Influenza Virus Vaccine Quad IM 3+ YRS 2015-05-22 00:00:00 Completed [facility] Influenza Virus Vaccine Quad IM 3+ YRS 2015-05-22 00:00:00 Completed [facility] Influenza Virus Vaccine Quad IM 3+ YRS 2015-05-22 00:00:00 Completed [facility] Influenza Virus Vaccine Quad IM 3+ YRS Unknown Completed [facility] TDAP Unknown Completed [facility] Influenza Virus Vaccine Quad IM 3+ YRS Unknown Completed [facility] TDAP Unknown Completed [facility] Influenza Virus Vaccine Quad IM 3+ YRS Unknown Completed [facility] TDAP Unknown Completed [facility] Influenza Virus Vaccine Quad IM 3+ YRS Unknown Completed [facility] TDAP Unknown Completed [facility] Influenza Virus Vaccine Quad IM 3+ YRS Unknown Completed [facility] TDAP Unknown Completed [facility] Influenza Virus Vaccine Quad IM 3+ YRS Unknown Completed [facility] TDAP Unknown Completed [facility] Influenza Virus Vaccine Quad IM 3+ YRS Unknown Completed [facility] TDAP Unknown Completed [facility] Influenza Virus Vaccine Quad IM 3+ YRS Unknown Completed [facility] TDAP Unknown Completed [facility] TDAP Unknown Completed [facility] Influenza Virus Vaccine Quad IM 3+ YRS Unknown Completed [facility] Influenza Virus Vaccine Quad IM 3+ YRS Unknown Completed [facility] TDAP Unknown Completed [facility] Influenza Virus Vaccine Quad IM 3+ YRS Unknown Completed [facility] TDAP Unknown Completed [facility] Influenza Virus Vaccine Quad IM 3+ YRS Unknown Completed [facility] TDAP Unknown Completed [facility] Influenza Virus Vaccine Quad IM 3+ YRS Unknown Completed [facility] TDAP Unknown Completed [facility] Vital Signs Vital Name Observation Time Observation Value Comments S ource Systolic blood pressure 2023-08-03 18:13:00 133 mm[Hg] [facility] Diastolic blood pressure 2023-08-03 18:13:00 81 mm[Hg] [facility] Heart rate 2023-08-03 18:13:00 81 /min [facility] Body temperature 2023-08-03 18:13:00 36.28 Beronica [facility] Respiratory rate 2023-08-03 18:13:00 18 /min [facility] Body height 2023-08-03 18:13:00 162.6 cm [facility] Body weight 2023-08-03 18:13:00 99.247 kg [facility] BMI 2023-08-03 18:13:00 37.56 kg/m2 [facility] Systolic blood pressure 2023-07-21 15:15:00 119 mm[Hg] [facility] Diastolic blood pressure 2023-07-21 15:15:00 71 mm[Hg] [facility] Heart rate 2023-07-21 15:15:00 53 /min [facility] Respiratory rate 2023-07-21 15:15:00 15 /min [facility] Oxygen saturation in Arterial blood by Pulse oximetry 2023-07-21 15:15:00 97 /min [facility] Body temperature 2023-07-21 14:20:00 36 Beronica [facility] Body height 2023-07-21 10:23:00 162.6 cm [facility] Body weight 2023-07-21 10:23:00 99 kg [facility] BMI 2023-07-21 10:23:00 37.46 kg/m2 [facility] Systolic blood pressure 2023-07-21 10:23:00 122 mm[Hg] [place] [facility] [place] [place] Diastolic blood pressure 2023-07-21 10:23:00 83 mm[Hg] [facility] Heart rate 2023-07-21 10:23:00 71 /min [facility] Body temperature 2023-07-21 10:23:00 36.39 Beronica [facility] Respiratory rate 2023-07-21 10:23:00 18 /min [facility] Body height 2023-07-21 10:23:00 162.6 cm [facility] Body weight 2023-07-21 10:23:00 99 kg [facility] BMI 2023-07-21 10:23:00 37.46 kg/m2 [facility] Oxygen saturation in Arterial blood by Pulse oximetry 2023-07-21 10:23:00 100 /min [facility] Systolic blood pressure 2023-06-19 18:57:00 125 mm[Hg] [facility] [place] [place] Diastolic blood pressure 2023-06-19 18:57:00 75 mm[Hg] [facility] Heart rate 2023-06-19 18:57:00 72 /min [facility] Body temperature 2023-06-19 18:57:00 36.28 Beronica [facility] Body height 2023-06-19 18:57:00 162.6 cm [facility] Body weight 2023-06-19 18:57:00 97.659 kg [facility] BMI 2023-06-19 18:57:00 36.96 kg/m2 [facility] Systolic blood pressure 2023-06-17 15:20:00 124 mm[Hg] [facility] Diastolic blood pressure 2023-06-17 15:20:00 80 mm[Hg] [facility] Heart rate 2023-06-17 15:20:00 61 /min [facility] Body temperature 2023-06-17 15:20:00 36.39 Beronica [facility] Respiratory rate 2023-06-17 15:20:00 18 /min [facility] Body height 2023-06-17 15:20:00 162.6 cm [facility] Body weight 2023-06-17 15:20:00 97.705 kg [facility] BMI 2023-06-17 15:20:00 36.97 kg/m2 [facility] Systolic blood pressure 2023-05-26 13:48:00 126 mm[Hg] [facility] Diastolic blood pressure 2023-05-26 13:48:00 80 mm[Hg] [facility] Heart rate 2023-05-26 13:48:00 71 /min [facility] Body temperature 2023-05-26 13:48:00 36.39 Beronica [facility] Respiratory rate 2023-05-26 13:48:00 18 /min [facility] Body height 2023-05-26 13:48:00 162.6 cm [facility] Body weight 2023-05-26 13:48:00 99.508 kg [facility] BMI 2023-05-26 13:48:00 37.66 kg/m2 [facility] Systolic blood pressure 2019-06-18 10:23:00 133 mm[Hg] [facility] Diastolic blood pressure 2019-06-18 10:23:00 82 mm[Hg] [facility] Heart rate 2019-06-18 10:23:00 77 /min [facility] Body temperature 2019-06-18 10:23:00 36.72 Beronica [facility] Respiratory rate 2019-06-18 10:23:00 12 /min [facility] Body height 2019-06-18 10:23:00 162.6 cm [facility] Body weight 2019-06-18 10:23:00 90.719 kg [facility] BMI 2019-06-18 10:23:00 34.33 kg/m2 [facility] Oxygen saturation in Arterial blood by Pulse oximetry 2019-06-18 10:23:00 99 /min [facility] Systolic blood pressure 2019-06-17 13:00:00 126 mm[Hg] [facility] Diastolic blood pressure 2019-06-17 13:00:00 74 mm[Hg] [facility] Heart rate 2019-06-17 13:00:00 61 /min [facility] Body temperature 2019-06-17 13:00:00 36.83 [facility] Respiratory rate 2019-06-17 13:00:00 18 /min [facility] Oxygen saturation in Arterial blood by Pulse oximetry 2019-06-17 13:00:00 100 /min [facility] Body weight 2019-06-15 13:55:00 95 kg [facility] BMI 2019-06-15 13:55:00 35.95 kg/m2 [facility] Body height 2019-06-15 12:21:00 162.6 cm [facility] Systolic blood pressure 2019-06-08 14:31:00 119 mm[Hg] [facility] Diastolic blood pressure 2019-06-08 14:31:00 65 mm[Hg] [facility] Heart rate 2019-06-08 14:31:00 68 /min [facility] Body temperature 2019-06-08 14:31:00 36.78 Beronica [facility] Respiratory rate 2019-06-08 14:31:00 16 /min [facility] Body height 2019-06-08 14:31:00 162.6 cm [facility] Body weight 2019-06-08 14:31:00 94.405 kg [facility] BMI 2019-06-08 14:31:00 35.72 kg/m2 [facility] Systolic blood pressure 2019-06-01 13:36:00 107 mm[Hg] [facility] Diastolic blood pressure 2019-06-01 13:36:00 73 mm[Hg] [facility] Heart rate 2019-06-01 13:36:00 73 /min [facility] Body temperature 2019-06-01 13:36:00 36.56 Beronica [facility] Respiratory rate 2019-06-01 13:36:00 16 /min [facility] Body height 2019-06-01 13:36:00 162.6 cm [facility] Body weight 2019-06-01 13:36:00 94.462 kg [facility] BMI 2019-06-01 13:36:00 35.75 kg/m2 [facility] Systolic blood pressure 2019-05-25 14:29:00 105 mm[Hg] [facility] Diastolic blood pressure 2019-05-25 14:29:00 71 mm[Hg] [facility] Heart rate 2019-05-25 14:29:00 67 /min [facility] Body temperature 2019-05-25 14:29:00 36.83 Beronica [facility] Respiratory rate 2019-05-25 14:29:00 16 /min [facility] Body height 2019-05-25 14:29:00 162.6 cm [facility] Body weight 2019-05-25 14:29:00 94.377 kg [facility] BMI 2019-05-25 14:29:00 35.71 kg/m2 [facility] Systolic blood pressure 2019-05-18 15:39:00 109 mm[Hg] [facility] Diastolic blood pressure 2019-05-18 15:39:00 71 mm[Hg] [facility] Heart rate 2019-05-18 15:39:00 69 /min [facility] Body temperature 2019-05-18 15:39:00 36.22 Beronica [facility] Respiratory rate 2019-05-18 15:39:00 16 /min [facility] Body height 2019-05-18 15:39:00 162.6 cm [facility] Body weight 2019-05-18 15:39:00 94.858 kg [facility] BMI 2019-05-18 15:39:00 35.90 kg/m2 [facility] Systolic blood pressure 2019-05-04 15:27:00 100 mm[Hg] [facility] Diastolic blood pressure 2019-05-04 15:27:00 65 mm[Hg] [facility] Heart rate 2019-05-04 15:27:00 78 /min [facility] Body temperature 2019-05-04 15:27:00 36.28 Beronica [facility] Respiratory rate 2019-05-04 15:27:00 16 /min [facility] Body height 2019-05-04 15:27:00 162.6 cm [facility] Body weight 2019-05-04 15:27:00 93.639 kg [facility] BMI 2019-05-04 15:27:00 35.43 kg/m2 [facility] Systolic blood pressure 2019-04-20 15:37:00 108 mm[Hg] [facility] Diastolic blood pressure 2019-04-20 15:37:00 67 mm[Hg] [facility] Heart rate 2019-04-20 15:37:00 71 /min [facility] Body temperature 2019-04-20 15:37:00 36.33 Beronica [facility] Respiratory rate 2019-04-20 15:37:00 16 /min [facility] Body height 2019-04-20 15:37:00 162.6 cm [facility] Body weight 2019-04-20 15:37:00 92.732 kg [facility] BMI 2019-04-20 15:37:00 35.09 kg/m2 [facility] Systolic blood pressure 2019-04-11 19:52:00 109 mm[Hg] [facility] Diastolic blood pressure 2019-04-11 19:52:00 71 mm[Hg] [facility] Heart rate 2019-04-11 19:52:00 69 /min [facility] Body temperature 2019-04-11 19:52:00 36.83 Beronica [facility] Respiratory rate 2019-04-11 19:52:00 16 /min [facility] Body height 2019-04-11 19:52:00 162.6 cm [facility] Body weight 2019-04-11 19:52:00 92.987 kg [facility] BMI 2019-04-11 19:52:00 35.19 kg/m2 [facility] Systolic blood pressure 2019-04-06 14:49:00 118 mm[Hg] [facility] Diastolic blood pressure 2019-04-06 14:49:00 71 mm[Hg] [facility] Heart rate 2019-04-06 14:49:00 74 /min [facility] Body temperature 2019-04-06 14:49:00 36.17 Beronica [facility] Respiratory rate 2019-04-06 14:49:00 16 /min [facility] Body height 2019-04-06 14:49:00 162.6 cm [facility] Body weight 2019-04-06 14:49:00 92.789 kg [facility] BMI 2019-04-06 14:49:00 35.11 kg/m2 [facility] Body temperature 2018-11-19 14:00:00 36.78 Beronica [facility] Respiratory rate 2018-11-19 14:00:00 16 /min [facility] Body height 2018-11-19 14:00:00 162.6 cm [facility] Body weight 2018-11-19 14:00:00 94.83 kg [facility] BMI 2018-11-19 14:00:00 35.89 kg/m2 [facility] Systolic blood pressure 2018-11-19 14:00:00 128 mm[Hg] [facility] Diastolic blood pressure 2018-11-19 14:00:00 89 mm[Hg] [facility] Heart rate 2018-11-19 14:00:00 64 /min [facility] Systolic blood pressure 2018-10-22 14:35:00 120 mm[Hg] [facility] Diastolic blood pressure 2018-10-22 14:35:00 84 mm[Hg] [facility] Heart rate 2018-10-22 14:35:00 67 /min [facility] Body temperature 2018-10-22 14:35:00 37.22 Beronica [facility] Respiratory rate 2018-10-22 14:35:00 18 /min [facility] Body height 2018-10-22 14:35:00 162.6 cm [facility] Body weight 2018-10-22 14:35:00 97.07 kg [facility] BMI 2018-10-22 14:35:00 36.73 kg/m2 [facility] Procedures Procedure Date / Time Performed Performing Clinician Source [id number] - ME LAPAROSCOPY W/RMVL ADNEXAL STRUCTURES 2023-07-21 12:00:00 Valerie Palmer [facility] POCT TEST 2023-07-21 10:15:00 Herber Mcclendon [facility] POCT TEST 2023-07-21 10:15:00 Herber Mcclendon [facility] POCT TEST 2023-06-19 19:49:00 Shiela Bello [facility] POCT TEST 2023-06-17 16:11:00 Cleveland Alatorre [facility] POCT URINALYSIS 2023-06-17 15:24:00 Vanna Andrade [facility] 3 HR GLUCOSE TOLERANCE TEST 2023-06-01 15:50:00 Vanna Andrade [facility] 2 HR GLUCOSE TOLERANCE TEST 2023-06-01 14:50:00 Vanna Andrade [facility] 1 HR GLUCOSE TOLERANCE TEST 2023-06-01 13:50:00 Vanna Andrade [facility] GLUCOSE FASTING 2023-06-01 12:48:00 Vanna Andrade [facility] 3 HR GLUCOSE TOLERANCE PANEL 2023-06-01 12:48:00 Vanna Andrade [facility] POCT TEST 2023-05-26 13:50:00 Laine Andrade [facility] POCT URINALYSIS W/O SPECIFIC GRAVITY 2023-05-26 13:50:00 Vanna Andrade [facility] ASSIGNMENT OF BENEFITS 2023-05-26 13:08:15 Docto r Unassigned, [place] [facility] ASSIGNMENT OF BENEFITS 2019-06-18 10:16:18 Docto r Unassigned, [place] [facility] CBC WITH DIFFERENTIAL 2019-06-16 08:13:00 Batool gordillo [facility] HEPATITIS B SURFACE ANTIGEN 2019-06-15 13:22:00 Karin Jackson [facility] HIV 1/2 AG-AB WITH REFLEX 2019-06-15 13:22:00 Karin Jackson [facility] GALV ONLY - SYPHILIS IGG/IGM 2019-06-15 13:22:00 Karin Jackson [facility] HB ABO GROUPING 2019-06-15 13:20:00 Karin Jackson [facility] RHO (D) IMMUNE GLOBULIN 2019-06-15 13:20:00 Shant waldrop [facility] POCT URINALYSIS W/O SPECIFIC GRAVITY 2019-06-08 15:09:00 Juani Bello [facility] POCT URINALYSIS W/O SPECIFIC GRAVITY 2019-06-01 14:07:00 Juani Bello [facility] POCT URINALYSIS W/O SPECIFIC GRAVITY 2019-05-25 14:38:00 Juani Bello [facility] POCT URINALYSIS W/O SPECIFIC GRAVITY 2019-05-18 17:04:00 Juani Bello [facility] POCT URINALYSIS W/O SPECIFIC GRAVITY 2019-05-04 17:18:00 Juani Bello [facility] POCT URINALYSIS W/O SPECIFIC GRAVITY 2019-04-20 15:39:00 Juani Bello [facility] POCT URINALYSIS W/O SPECIFIC GRAVITY 2019-04-11 20:43:00 Juani Bello [facility] FLU VACC ([id number]), 6+ MONTHS, IM, QUAD 2019-04-06 15:00:35 Lee Ann Alatorre [facility] POCT URINALYSIS W/O SPECIFIC GRAVITY 2019-04-06 14:51:00 Juani Bello [facility] TDAP VACCINE, >11 YRS, IM 2019-04-06 14:43:00 Lee Ann Alatorre [facility] POCT URINALYSIS W/O SPECIFIC GRAVITY 2018-11-19 16:31:00 Juani Bello [facility] POCT TEST 2018-10-22 14:29:00 Logan Bello [facility] POCT URINALYSIS W/O SPECIFIC GRAVITY 2018-10-22 14:29:00 Juani Bello [facility] ASSIGNMENT OF BENEFITS 2018-10-22 14:07:02 Docto r Unassigned, [place] [facility] Encounters Start Date/Time End Date/Time Encounter Type Admission Type Attending [facility] Facility Care Department Encounter ID Source 2023-06-19 16:09:18 Outpatient R VALERIE PALMER [facility] 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 CREDIT REVIEWER [id number] [facility] 2021-01-10 17:00:59 Emergency [facility] [id number] [facility] 2021-01-10 16:36:36 Outpatient [facility] [id number] [facility] 2023-08-03 00:00:00 2023-09-18 08:14:03 Telephone Clinic, [facility] Resident [facility] .[id number] [facility] 2023-08-03 13:00:00 2023-08-03 13:24:49 Outpatient R ROBERT AQUINO [facility] [id number] [facility] 2023-08-03 13:00:00 2023-08-03 13:24:49 Office Visit Clinic, [facility] Resident Robert Aquino [facility] .[id number] [id number] [facility] 2023-07-21 05:11:00 2023-07-21 10:40:00 Outpatient R VALERIE PALMER [facility] COMMERCIAL CREDIT REVIEWER [id number] [facility] 2023-07-21 05:11:00 2023-07-21 10:40:00 Hospital Encounter [facility] [id number] [facility] 2023-07-21 07:00:00 2023-07-21 09:15:00 Surgery [facility] [id number] [id number] [facility] 2023-07-15 09:45:00 2023-07-15 09:45:00 Outpatient R LEE ANN ALATORRE [facility] [id number] [facility] 2023-06-19 14:45:00 2023-06-19 15:28:18 Outpatient R SHIELA BELLO [facility] [id number] [facility] 2023-06-19 14:45:00 2023-06-19 15:28:18 Office Visit Pgy4 Shiela Bello [facility] [id number] [id number] [id number] [facility] 2023-06-17 10:00:00 2023-06-17 13:31:18 Outpatient R LEE ANN ALATORRE [facility] [id number] [facility] 2023-06-17 10:00:00 2023-06-17 10:15:00 Routine Visit Lee Ann Alatorre [facility] SALVAGE WORKER [facility] [id number] [facility] 2023-06-11 00:00:00 2023-06-11 00:00:00 Telephone Lee Ann Alatorre [facility] SALVAGE WORKER [facility]ILD [facility] [id number] [facility] 2023-06-02 00:00:00 2023-06-02 00:00:00 Abstract Lee Ann Alatorre [facility] SALVAGE WORKER [facility] CHILD [facility] [id number] [facility] 2023-06-01 07:45:00 2023-06-01 12:03:53 Outpatient R LEE ANN ALATORRE [facility] [id number] [facility] 2023-06-01 07:45:00 2023-06-01 12:03:53 [facility] Visit Lab, Ang-Rmchp Vanna Andrade Damilola C [facility] [employer] [facility] CHILD [facility] 1.2.840.114 350.1.13.10 4.2.7.2.686 [id number] [facility] 2023-06-01 00:00:00 2023-06-01 00:00:00 Telephone Lee Ann Alatorre [facility] [employer] WORK[employer] [facility] & CHILD [facility] 1.2.840.114 350.1.13.10 4.2.7.2.686 [id number] 107 [id number] [facility] 2023-05-27 00:00:00 2023-05-27 00:00:00 Telephone Vanna Andrade [facility] [employer] [facility] CHILD [facility] 1.2.840.114 350.1.13.10 4.2.7.2.686 [id number] [facility] 2023-05-26 08:15:00 2023-05-26 10:05:32 Outpatient R VANNA ANDRADE [facility] [id number] [facility] 2023-05-26 08:15:00 2023-05-26 10:05:32 Initial Visit Vanna Andrade [place] [employer] [facility] & CHILD [facility] 1.2.840.114 350.1.13.10 4.2.7.2.686 [id number] [facility] 2023-05-26 00:00:00 2023-05-26 00:00:00 Orders Only Doctor Unassigned, [place] [facility] 1.2.840.114 350.1.13.10 4.2.7.2.686 [id number] [facility] 2019-07-14 00:00:00 2019-07-14 00:00:00 Telephone Lee Ann Alatorre [facility] [employer] [facility] & CHILD [facility] 1.2.840.114 350.1.13.10 4.2.7.2.686 [id number] 107 [id number] 2019-07-14 00:00:00 2019-07-14 00:00:00 Telephone Lee Ann Alatorre [facility] [employer] [facility] & CHILD [facility] 1.2.840.114 350.1.13.10 4.2.7.2.686 [id number] [facility] 2019-07-06 14:30:00 2019-07-06 14:30:00 Outpatient R LEE ANN ALATORRE [facility] [id number] [facility] 2019-07-06 00:00:00 2019-07-06 00:00:00 Telephone Lee Ann Alatorre [facility] [employer] [facility] & CHILD [facility] 1.2.840.114 350.1.13.10 4.2.7.2.686 [id number] [facility] 2019-07-06 00:00:00 2019-07-06 00:00:00 Telephone Lee Ann Alatorre [facility] [employer] [facility] CHILD [facility] 1.2.840.114 350.1.13.10 4.2.7.2.686 [id number] 107 [id number] 2019-06-20 00:00:00 2019-06-20 00:00:00 Telephone Lee Ann Alatorre [facility] [employer] [facility] CHILD [facility] 1.2.840.114 350.1.13.10 4.2.7.2.686 [id number] [facility] 2019-06-20 00:00:00 2019-06-20 00:00:00 Telephone Lee Ann Alatorre [facility] [employer] WORK[employer] [facility] 1.2.840.114 350.1.13.10 4.2.7.2.686 [id number] 2019-06-19 00:00:00 2019-06-19 00:00:00 Nurse Triage Lee Ann Alatorre [facility] [employer] [facility] CHILD [facility] 1.2.840.114 350.1.13.10 4.2.7.2.686 [id number] [facility] 2019-06-18 05:26:05 2019-06-18 06:06:00 Emergency Lisa Dawkins [facility] 1.2.840.114 350.1.13.10 4.2.7.2.686 [id number] [facility] 2019-06-18 00:00:00 2019-06-18 00:00:00 Nurse Triage Sindy Hernandez [facility] 1.2.840.114 350.1.13.10 4.2.7.2.686 [id number] [facility] 2019-06-15 06:48:00 2019-06-17 12:40:00 Hospital Encounter Maricel Simpson [facility] 1.84.114 350.1.13.10 4.2.7.2.686 [id number] [facility] 2019-06-08 09:21:15 2019-06-08 13:44:16 Routine Visit Lee Ann Alatorre [facility] [employer] WORK[employer] [facility] & CHILD [facility] 1.2840.114 350.1.13.10 4.2.7.2.686 [id number] [facility] 2019-06-08 09:30:00 2019-06-08 09:30:00 Outpatient R LEE ANN ALATORRE [facility] [id number] [facility] 2019-06-01 08:19:20 2019-06-01 08:58:49 Routine Visit Lee Ann Alatorre [facility] 1.840.114 350.1.13.10 4.2.7.2.686 [id number] [facility] 2019-06-01 08:15:00 2019-06-01 08:15:00 Outpatient R LEE ANN ALATORRE [facility] [id number] [facility] 2019-05-25 09:19:02 2019-05-25 09:34:02 Routine Visit Lee Ann Alatorre [facility] 1.840.114 350.1.13.10 4.2.7.2.686 [id number] 107 [id number] [facility] 2019-05-25 09:15:00 2019-05-25 09:15:00 Outpatient R LEE ANN ALATORRE [facility] [id number] [facility] 2019-05-18 09:31:47 2019-05-18 10:04:24 Routine Visit Lee Ann Alatorre [facility] [employer] WORK[employer] [facility] & CHILD [facility] 1.2.840.114 350.1.13.10 4.2.7.2.686 [id number] [facility] 2019-05-18 09:30:00 2019-05-18 09:30:00 Outpatient R MARY ANNPHONGJAYLENE LEE ANN [facility] [id number] [facility] 2019-05-11 09:36:56 2019-05-11 10:06:56 [employer] Visit Ultrasound, Vickey Hendricks [facility] SAL[employer]AGE WORKER [facility] & CHILD [facility] 1.2.840.114 350.1.13.10 4.2.7.2.686 [id number] [facility] 2019-05-11 09:30:00 2019-05-11 09:30:00 Outpatient P [facility] [id number] [facility] 2019-05-04 09:10:10 2019-05-04 09:57:34 Routine Visit Lee Ann Alatorre [facility] [employer] WORKER [facility] & CHILD [facility] 1.2.840.114 350.1.13.10 4.2.7.2.686 [id number] 107 [id number] [facility] 2019-04-20 09:23:50 2019-04-20 09:57:38 Routine Visit Lee Ann Alatorre [facility] [employer] WORKER [facility] & CHILD [facility] 1.2.840.114 350.1.13.10 4.2.7.2.686 [id number] 107 [id number] [facility] 2019-04-11 13:09:21 2019-04-11 14:28:49 Routine Visit Lee Ann Alatorre [facility] [employer] WORK[employer] [facility] & CHILD [facility] 1.2.840.114 350.1.13.10 4.2.7.2.686 [id number] [facility] 2019-04-11 00:00:00 2019-04-11 00:00:00 Telephone Lee Ann Alatorre [facility] [employer]ILD [facility] 1.2.840.114 350.1.13.10 4.2.7.2.686 [id number] [facility] 2019-04-07 00:00:00 2019-04-07 00:00:00 Telephone Lee Ann Alatorre [facility] [employer] WORK[employer] [facility] CHILD [facility] 1.2.840.114 350.1.13.10 4.2.7.2.686 [id number] 107 [id number] [facility] 2019-04-06 08:24:02 2019-04-06 09:03:27 Routine Visit Lee Ann Alatorre [facility] [employer] WORK[employer] [facility] CHILD [facility] 1.2.840.114 350.1.13.10 4.2.7.2.686 [id number] [facility] 2018-11-30 00:00:00 2018-11-30 00:00:00 Telephone Juani Bello [facility] [employer] [facility] CHILD [facility] 1.2.840.114 350.1.13.10 4.2.7.2.686 [id number] [facility] 2018-11-23 11:20:08 2018-11-23 12:00:51 [employer] Visit Ultrasound, Remy Chavira [facility] [employer] WORKER [facility] & CHILD [facility] 1.2.840.114 350.1.13.10 4.2.7.2.686 [id number] [facility] 2018-11-23 00:00:00 2018-11-23 00:00:00 Case Management Juani Bello [facility] [employer] WORK[employer] [facility] & CHILD [facility] 1.2.840.114 350.1.13.10 4.2.7.2.686 [id number] [facility] 2018-11-19 08:35:28 2018-11-19 09:11:04 Routine Visit Juani Bello [facility] [employer] WORKER [facility] & CHILD [facility] 1.2.840.114 350.1.13.10 4.2.7.2.686 [id number] [facility] 2018-11-08 00:00:00 2018-11-08 00:00:00 Telephone Juani Bello [facility] [employer] WORKER [facility] & CHILD [facility] 1.2.840.114 350.1.13.10 4.2.7.2.686 [id number] [facility] 2018-10-27 07:50:03 2018-10-27 07:56:24 [employer] Visit Lab, Yair-Rmp Juani Bello [facility] [employer] WORK[employer] [facility] CHILD [facility] 1.2.840.114 350.1.13.10 4.2.7.2.686 [id number] [facility] 2018-10-25 00:00:00 2018-10-25 00:00:00 Telephone Juani Bello [facility] [employer] WORK[employer] [facility] CHILD [facility] 1.2.840.114 350.1.13.10 4.2.7.2.686 [id number] [facility] 2018-10-22 09:26:07 2018-10-22 10:19:37 Initial Visit Juani Bello [facility] 1.2.840.114 350.1.13.10 4.2.7.2.686 [id number] [facility] 2018-10-22 00:00:00 2018-10-22 00:00:00 Orders Only Doctor Unassigned, [place] [facility] 1.2.840.114 350.1.13.10 4.2.7.2.686 [id number] [facility] Results Test Description Test Time Test Comments Results Result Co mments Source [facility] [id number] 10:41:00* Test Item Value Reference Range Interpretation Comme nts POCT PREG (test code = 1605) Negative On board controls acceptable with C Line (test code = 3574) Yes POCT PREG LOT # (test code = 3575) [id number] POCT PREG TEST DATE ( test code = 3576) 05/24/2024 Lab Interpretation (test cod e = 94358-5) Normal [facility] [id number] 19:50:00* Test Item Value Reference Range Interpretation Comme nts POCT PREG (test code = 1605) Negative On board controls acceptable with C Line (test code = 3574) Yes POCT PREG LOT # (test code = 3575) POCT PREG TEST DATE ( test code = 3576) Lab Interpretation (test cod e = 93294-8) Normal [facility] [id number] 19:50:00* Test Item Value Reference Range Interpretation Comme nts POCT PREG (test code = 1605) Negative On board controls acceptable with C Line (test code = 3574) Yes POCT PREG LOT # (test code = 3575) POCT PREG TEST DATE ( test code = 3576) Lab Interpretation (test cod e = 14407-0) Normal [facility] [id number] 16:11:00* Test Item Value Reference Range Interpretation Comme nts POCT PREG (test code = 1605) Negative On board controls acceptable with C Line (test code = 3574) Yes POCT PREG LOT # (test code = 3575) POCT PREG TEST DATE ( test code = 3576) [facility] URINALYSIS W SPECIFIC [id number] 15:24:00* Test Item Value Reference Range Interpretation Comme nts POCT U SP GRAV (test code = 3255) . 1.005-1.025 POCT PH U (test code = 3254) . 5-8 POCT U LEUK EST (test code = 3263) . Negative - N egative POCT U NIT (test code = 3262) . Negative - Negati ve POCT U PROT (test code = 3259) neg Negative - Negat lucia POCT U GLU (test code = 3256) neg Negative - Negati ve POCT U KETONE (test code = 3258) . Negative - Neg ative POCT U UROBILI (test code = 3260) . 0.2-1 POCT U BILI (test code = 3261) . Negative - Negat lucia POCT U BLD (test code = 3257) . Negative - Negati ve POCT U COLOR (test code = 3266) . POCT U APPEAR (test code = 3267) . [facility] [id number] 13:50:00* Test Item Value Reference Range Interpretation Comme nts POCT PREG (test code = 1605) Positive On board controls acceptable with C Line (test code = 3574) Yes POCT PREG LOT # (test code = 3575) POCT PREG TEST DATE ( test code = 3576) [facility] Urinalysis w/o Specific [id number] 13:50:00* Test Item Value Reference Range Interpretation [...] = 3257) Trace Negative - Negati ve [facility] WITH [id number] 08:52:00* Test Item Value Reference Range Interpretation Comme nts WBC (test code = 6690-2) See_Comment [Automated RetSKUa ge] The system which generated this result transmitted reference range: 4.30 - 11.10 10*3/?L. The reference range was not used to interpret this result as normal/abnormal. RBC (test code = 789-8) See_Comment [Automated RetSKUa ge] The system which generated this result [...] g/dL 31.6-35.1 L RDW-SD (test code = 89966-3) 43.3 fL 39-49.9 RDW-CV (test code = 788-0) 14.6 % 12-15.5 PLT (test code = 777-3) See_Comment L [Automated messa ge] The system which generated this result transmitted reference range: 166 - 358 10*3/?L. The reference range was not used to interpret this result as normal/abnormal. MPV (test code = 63932-6) 11.4 fL 9.5-12.9 NRBC/100 WBC (test code = 8872434551) See_Comment [Automated [employer] ssage] The system which generated this result transmitted reference range: 0.0 - 10.0 /100 WBCs. The reference range was not used to interpret this result as normal/abnormal. NRBC x10^3 (test code = 7562045599) <0.01 See_Comment [Automated messa ge] The system which generated this result transmitted reference range: 10*3/?L. The reference range was not used to interpret this result as normal/abnormal. GRAN MAT (NEUT) % (test code = 770-8) 82.2 % IMM GRAN % (test code = 1640294538) 0.50 % LYMPH % (test code = 736-9) 12.5 % MONO % (test code = 5905-5) 4.1 % EOS % (test code = 713-8) 0.6 % BASO % (test code = 706-2) 0.1 % GRAN MAT x10^3(ANC) (test code = 8363915773) 8.74 10*3/uL 1.88-7.09 H IMM GRAN x10^3 (test code = 7865405485) 0.05 10*3/uL 0-0.06 LYMPH x10^3 (test code = 731-0) 1.33 10*3/uL 1.32-3.29 MONO x10^3 (test code = 742-7) 0.44 10*3/uL 0.33-0.92 EOS x10^3 (test code = 711-2) 0.06 10*3/uL 0.03-0.39 BASO x10^3 (test code = 704-7) <0.03 0.01-0.07 Lab Interpretation (test code = 93671-3) Abnormal [facility] IMMUNE [id number] 07:12:41* Test Item Value Reference Range Interpretation Comme nts RHIG CANDIDATE? (test code = 5055) No- see comment Patient is not a candidate for RhIg- Patient is Rh Positive.Performed at [facility] Laboratory Services - [facility] Blood [address] [place] [address]Wcxi Free: [phone] No. [id number] [facility] HospitalGALV ONLY - SYPHILIS [id number] 15:26:00* Test Item Value Reference Range Interpretation Comme [facility] Syphilis IgG/IgM (test code = 78310-5) Non-reactive Non-reactive ANSELMO (test code = ANSELMO) Non-reactive - No serologic evidence of T. pallidum infection. Cannot exclude incubating or early syphilis. Submit a second specimen in 2-4 weeks if syphilis is clinically suspected. Equivocal - Further testing to follow. Reactive - Further testing to follow. Lab Interpretation (test code = 73360-6) Normal [facility]/2 AG-AB WITH [id number] 15:01:00* Test Item Value Reference Range Interpretation Comme nts HIV Semi-quantitative (test code = 69689-9) Negative Negative ANSELMO (test code = ANSELMO) Non-reactive for HIV-1 antigen and HIV-1/HIV-2 antibodies. ?No laboratory evidence of HIV infection. ?Repeat in 2-4 weeks if acute HIV infection is suspected. [facility] HospitalHepatitis B Surface [id number] 14:52:00 * Test Item Value Reference Range Interpretation Comme [facility] HBsAg Semi-Quantitative (benjamín t code = 5195-3) Negative Negative [facility] HospitalType and Screen - ONCE [id number] 14:03:50 * Test Item Value Reference Range Interpretation Comme nts ABO & RH (test code = 20) O POSITIVE Performed at [facility] Laboratory Services - [facility] Blood [address] [address]Fhtf Free: [phone] No. [id number] IAT (test code = 1185) Negative Performed at [facility] Laboratory Services - [facility] Blood [place] [id number] Free: [phone] No. [id number] [facility]PO[facility] URINALYSIS W/O SPECIFIC [id number] 15:09:00* Test Item Value Reference Range Interpretation [...] = 3257) . Negative - Negati ve [facility] URINALYSIS W/O SPECIFIC [id number] 15:09:00* Test Item Value Reference Range Interpretation [...] = 3257) . Negative - [facility] [id number] 14:08:00* Test Item Value Reference Range Interpretation [...] = 3257) .. Negative - Negati ve [facility] URINALYSIS W/O SPECIFIC [id number] 14:39:00* Test Item Value Reference Range Interpretation [...] = 3257) . Negative - Negati ve [facility] URINALYSIS W/O SPECIFIC [id number] 17:04:00* Test Item Value Reference Range Interpretation [...] = 3257) . Negative - Negati ve [facility] URINALYSIS W/O SPECIFIC [id number] 17:18:00* Test Item Value Reference Range Interpretation [...] = 3257) . Negative - Negati ve [facility] URINALYSIS W/O SPECIFIC [id number] 15:39:00* Test Item Value Reference Range Interpretation [...] = 3257) . Negative - Negati ve [facility] URINALYSIS W/O SPECIFIC [id number] 20:43:00* Test Item Value Reference Range Interpretation [...] = 3257) . Negative - Negati ve [facility] URINALYSIS W/O SPECIFIC [id number] 14:51:00* Test Item Value Reference Range Interpretation [...] = 3257) . Negative - Negati ve [facility] W/O SPECIFIC [id number] 16:31:00* Test Item Value Reference Range Interpretation [...] = 3257) . Negative - Negati ve [facility]PO[facility] URIN[facility] W/O SPECIFIC [id number] 14:30:00* Test Item Value Reference Range Interpretation [...] = 3257) neg Negative - Negati ve [facility]PO[facility] [id number] 14:29:00* Test Item Value Reference Range Interpretation Comme nts POCT PREG (test code = 1605) Positive On board controls acceptable with C Line (test code = 3574) Yes POCT PREG LOT # (test code = 3575) POCT PREG TEST DATE ( test code = 3576) [facility] History and Physical Notes Date/Time Note Provider Source 2023-07-21 06:38:08 GYNECOLOGY HISTORY AND PHYSICAL Date of Service: 07/21/2023 KARMEN Tadeo is a 38 year old female presenting for bilateral laparoscopic salpingectomy due to desired permanent sterilization. Patient has a past history of a laparoscopic cholecystectomy. Patient denies changes in medical history since pre-operative evaluation on 06/18. Sexual History: Social History Substance and Sexual Activity Sexual Activity Yes control/protection: None Comment: last intercourse:05/14/2023 Current Medications: No current facility-administered medications for this encounter. Current Outpatient Medications Medication Sig Dispense Refill vit no.124/iron/folic ( VITAMIN ORAL) Take by mouth. Allergies: Patient has no known allergies. History: Past Medical History: Diagnosis Date Abnormal maternal glucose tolerance, antepartum 10/25/2018 Vaginal yeast infection 02/18/2016 Surgical History: Past Surgical History: Procedure Laterality Date CHOLECYSTECTOMY 2020 gallbladder removed ROS: General: negative Constitutional: negative Eyes: negative ENT/Mouth: negative Cardiovascular: negative Respiratory: negative Gastrointestinal:negative Genitourinary: negative Musculoskeletal: negative Skin/breast: negative Neurological: negative Psychiatric: negative Endocrine: negative Hemat/Lymph: negative Allergic/Immuno:none Physical Exam: Vitals: Vitals: 07/21/23 0523 BP: 122/83 Pulse: 71 Resp: 18 Temp: 36.4 ?C (97.5 ?F) SpO2: 100% Constitutional: alert, no apparent distress, appearing age appropriate CV: peripheral pulses intact Respiratory: unlabored respirations on RA Abdomen: soft, nontender, nondistended, no rebound/guarding Extremities: no edema or calf tenderness bilaterally Labs: CBC WBC (10*3/?L) Date Value 05/26/2023 7.06 RBC (10*6/?L) Date Value 05/26/2023 4.69 PLT (10*3/?L) Date Value 05/26/2023 225 HGB (g/dL) Date Value 05/26/2023 12.0 HCT (%) Date Value 05/26/2023 38.1 Assessment/Plan: Suzanne Tadeo is a 38 year old female presenting for scheduled bilateral laparoscopic salpingectomy due to desired permanent sterilization. Bilateral laparoscopic salpingectomy - Preop abx: Not indicated - Preop Hgb 12.0 on 05/26/2023 - Blood type O+, current type and screen ordered, pending - UPT negative on admission - DVT ppx: SCDs - Risks/benefits/alternatives discussed, consents signed and in chart - Proceed to OR for above listed procedures - Discharge from [facility] postop Jyoti Yvonne Keita MD Associated attestation - Valerie Palmer MD - 07/21/2023 7:06 AM CDT I have seen patient ans confirmed her understanding of the planned procedure.She is sure of her desire for permanent sterilization. I agree with the H&P by Dr Moses. We will proceed as planned. OG-OBSTETRICS & GYNECOLOGY [facility] - [facility] Notes Date/Time Note Provider Source 2023-08-03 13:38:40 Suzanne Tadeo is a 38 year old female Pt states that during the office visit,that she failed to inquire about how long should she continues to resume for sexual intercourse, please call to discuss. Thanks Beatriz King [facility] 2023-06-12 10:03:54 Contacted patient to schedule, patient is aware of date and time. Kaitlynn Esteban [facility] 2023-06-11 16:32:27 Patient stated she went to ER on 06/01/2023 for vaginal bleeding and was told she had a miscarriage. Stated she stopped having bleeding yesterday and wants to know when she needs to follow up. Stated she is wanting to start control and last intercourse was 1 month ago. Informed patient can come next week for 2 week f/u and can discuss control start, advised to stay abstinent until appt. Dorinda Bernal LVN [facility] 2023-06-11 16:27:42 Copied from [facility] #[id number]. Topic: Clinical - Medical Advice >> Jun 11, 2023 4:24 PM Patient Compensation Adjuster wrote: Suzanne Tadeo is a 38 year old female requesting speak to nurse states she had a miscarriage a week ago and would like to know if she should keep appt she has with ob or how long she should wait to f/u after. Please advise Marie Roland [facility] 2023-06-01 15:45:44 Patient informed of recommendations, appt scheduled for 06/02 at 745, ER warnings given, verbalized understanding. Dorinda Bernal MOBILE MANAGER [facility] 2023-06-01 15:41:37 Have her come in on thu for repeat beta labs, give her ER warning precautions KARON Pruitt 06/01/2023 3:42 PM [facility] 2023-06-01 10:20:57 Patient stated she was seen in ER [...] for recommendations. ER warnings given, verbalized understanding. Dorinda Bernal MOBILE MANAGER [facility] 2023-06-01 10:04:34 Patient is here for her 3 hr gtt labs , states she was seen at the ER over the weekend for vaginal bleeding. Patient would like to speak with a nurse , states she is still bleeding very little but still concerned. Asked should she be worried. Will have nurse triage. Please call. Ketty Davis [facility] 2023-06-01 07:45:00 Images from the original note were not included. Venipuncture collection performed by clean technique on the both anticubitus. Total of 4 attempts were made. Slight pressure and a bandage/dressing were applied to the site(s). The patient experienced no complications. The following specimens were processed according to instructions and sent to [facility] laboratories per lab order on 06/01/23: LT BLUE SST 4 RED LAV PPT DK GREEN (LiHep) DK GREEN (SodH) FELICIANO DK BLUE (K2) DK BLUE (S) ACD Blood Culture NIPT/NTD T [facility] 2023-05-27 08:14:36 Patient informed of results and need for 3 hr gtt. Lab appt made for 06/01/2023 per pt request, informed to be fasting, verbalized understanding. Dorinda Bernal LVN [facility] 2023-05-27 07:44:00 Please call patient and set up 3hr GTT T [facility]
[2023-12-25] MEDS ORDERED: KETOROLAC 30 MG/ML INJ ONE (11:07)
[2023-12-25] MEDS ORDERED: ONDANSETRON 4 MG/2 ML VIAL ONE (11:07)
[2023-12-25] MEDS ORDERED: MORPHINE 4 MG/ML SYR ONE (11:08)
[2023-12-25 11:29] LABS: Specific Gravity 1.023 (1.005-1.030)
[2023-12-25 11:29] LABS: Absolute Eosinophils 0.3 K/uL (0-0.5); Absolute Lymphocytes (CBC) 1.7 K/uL (0.7-4.9); Absolute Monocytes 0.4 K/uL (0.1-1.3); Absolute Neutrophil 4.5 K/uL (1.8-8.0); Basophils % 0.6 % (0-1.3); Eosinophils % 3.8 % (0-4.4); Hematocrit 38.8 % (36.0-45.0); Hemoglobin 12.4 g/dL (12.0-15.0); Lymphocytes % 24.8 % (15.3-44.8); MCV 81.1 fL (80-100); MPV 9.5 fL (7.6-11.3); Neutrophils % 64.8 % (41.7-73.7); Platelets 238 thou/uL (152-406); RBC Red Blood Cell Count 4.78 M/uL (3.86-4.86); Red Cell Distribution Width 14.3 % (12.1-15.2)
[2023-12-25 11:30] LABS: Specific Gravity 1.023 (1.005-1.030); Sqamous Epithelial <5 /HPF (None Seen); Urine Bacteria None Seen /HPF (<20); Urine Bilirubin NEGATIVE (Negative); Urine Blood Negative (Negative); Urine Clarity Turbid (Clear); Urine Color Light-Yellow (Yellow); Urine Culture Reflex Order NOT NEEDED; Urine Glucose NEGATIVE (Negative); Urine Ketones NEGATIVE (Negative); Urine Microscopic Reflex YN ORDER UMIC; Urine Mucus Slight /HPF (None Seen); Urine Nitrite NEGATIVE (Negative); Urine Protein NEGATIVE (Negative); Urine RBC <5 /HPF (None Seen); Urine Urobilinogen 1+ (Normal); Urine WBC <5 /HPF (<5)
[2023-12-25 11:39] LABS: Albumin 3.5 g/dL (3.4-5.0); Albumin/Globulin Ratio 0.9 (1.1-1.8); Anion Gap 7.5 mEq/L (5.0-15.0); Bilirubin Total 0.4 mg/dL (0.2-1.0); Potassium 3.5 mEq/L (3.5-5.1); Protein, Total 7.5 g/dL (6.4-8.2)
--- NOTE | 2023-12-25 11:59 | RAD REPORT ---
EXAMINATION: CT ABDOMEN AND PELVIS WITHOUT CONTRAST CLINICAL INDICATION: ABD PAIN TECHNIQUE: CT abdomen and pelvis was performed, without IV contrast, as per department protocol. Axia l, sagittal and coronal reconstructions were obtained. One or more of the following dose reduction techniques were used: Automated exposure control, adjustment of the mA and kV according to the patien t size, and iterative reconstruction. Unless otherwise specified, incidental findings do not require dedicated imaging follow-up. COMPARISON: No prior exam. FINDINGS: The lack of intravenous contrast limits the sensitivity of this exam for evaluation of solid visceral organs, vascular structures, and retroperitoneum. LOWER CHEST: The visualized lung bases are clear. LIVER: Normal in size and contour. No focal lesion. Cholecystomy clips SPLEEN: Normal size. No focal lesion. PANCREAS: No mass, ductal dilation, or bhakti-pancreatic fluid. ADRENALS: Normal; no mass. KIDNEYS AND URETERS: Normal size and contour. No hydronephrosis. URINARY BLADDER: Normal contour. GASTROINTESTINAL TRACT: No evidence of bowel obstruction, significant free fluid, free air or abscess . APPENDIX: Normal appendix. LYMPH NODES: No lymphadenopathy. MUSCULOSKELETAL: No acute or suspicious osseous abnormality. ADDITIONAL FINDINGS: None. IMPRESSION: No acute or concerning abnormalities in the abdomen or pelvis, with evaluation limited by lack of IV contrast.
--- NOTE | 2023-12-25 12:09 | EDPHYS ---
Physician Documentation [facility] Name: Suzanne Edwards Age: 38 yrs Sex: Female : 1985 Arrival Date: 12/25/2023 Time: 10:16 Bed 2 Private MD: ED Physician Pito Hernandez HPI: 12/24 11:04 This 38 yrs old Female presents to ER via Ambulatory with complaints of Flank ec2 Pain - right. 11:04 Patient arrives today for evaluation of right-sided abdominal pain. Patient reports ec2 that she has been having right-sided abdominal pain ongoing for the past 3 days. Reports associated nausea and vomiting. Reports decreased p.o. intake. Reports history of gallstones and cholecystectomy. Denies any urinary complaints. Reports also history of tubal ligation.. 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 - Infectious Disease History:: Denies. - Social history:: Smoking status: Patient denies any tobacco usage or history of. Patient uses alcohol, only on a social basis. ROS: 11:04 Constitutional: as per hpi ec2 Exam: 11:04 Constitutional: GEN: NAD Head: atraumatic Eyes: EOMI Ears: External ears are ec2 normal. CV: regular rate LUNGS: no respiratory distress ABD: non-distended, soft, tender in the epigastrium and right upper quadrant. SKIN: no evidence of rashes MSK: no evidence of trauma Vital Signs: 10:43 Temp 98.7(O); Weight 99.79 kg; Height 5 ft. 4 in. ; Pain 5/10; tm6 10:44 BP 126 / 80; Pulse 64; Resp 17; Pulse Ox 100% on R/A; MAP 92 mmHg; tm6 12:19 BP 114 / 71; Pulse 68; Resp 15; Pulse Ox 99% ; ko1 10:43 Body Mass Index 37.76 (99.79 kg, 162.56 cm) tm6 10:43 Pain Scale: Adult tm6 MDM: 11:04 Data reviewed: vital signs. ED course: Patient arrives today for evaluation of ec2 right-sided abdominal pain. Examination remarkable for abdominal findings as above. Will obtain lab work, CT imaging, urine studies. Differential includes pancreatitis, UTI, pyelonephritis, ureteral stone. 11:37 ED course: Unremarkable, urineCBC is noninfectious appearing. test CBC is ec2 unremarkable. Urine is noninfectious appearing. Negative . . 11:45 ED course: Metabolic profile shows liver enzyme abnormalities, lipase within normal ec2 ranges. . 11:45 ED course: Patient with history of fatty liver. ec2 12:08 ED course: CT abdomen pelvis shows no acute intra-abdominal process. No ureteral stone, ec2 no evidence of infection. Will discharge home. Return precautions given. . 12:08 Patient medically screened. ec2 12/24 10:54 Order name: CBC with Diff; Complete Time: 11:36 ec2 12/24 10:54 Order name: CMP; Complete Time: 11:45 ec2 12/24 10:54 Order name: Lipase; Complete Time: 11:45 ec2 12/24 10:54 Order name: Test, Urine; Complete Time: 11:36 ec2 12/24 10:54 Order name: Urinalysis w/ reflexes; Complete Time: 11:36 ec2 12/24 10:54 Order name: CT Abd/Pelvis - Without Contrast; Complete Time: 12:08 ec2 12/24 10:54 Order name: IV Saline Lock; Complete Time: 11:16 ec2 12/24 10:54 Order name: Labs collected and sent; Complete Time: 11:16 ec2 Administered Medications: 11:23 Drug: Ondansetron IVP 4 mg IVP once; over 2 minutes Route: IVP; Site: left wrist; ko1 11:28 Follow up: Response: No adverse reaction ko1 11:32 Drug: TORadol - Ketorolac IVP 15 mg IVP once Route: IVP; Site: left wrist; ko1 11:47 Follow up: Response: No adverse reaction ko1 11:32 Drug: morphine IVP or IV 4 mg IVP once over 4 mins Route: IVP; Infused Over: 4 mins; ko1 Site: left wrist; 11:47 Follow up: Response: No adverse reaction; Pain is decreased; RASS: Alert and Calm (0) ko1 Disposition Summary: 12/25/23 12:08 Discharge Ordered Notes: Location: Home ec2 Condition: Stable ec2 Diagnosis - Abnormal results of liver function studies ec2 - Upper abdominal pain, unspecified ec2 Followup: ec2 - With: Lanre López MD - When: - Reason: Recheck today's complaints Discharge Instructions: - Discharge Summary Sheet ec2 - Abdominal Pain, Adult ec2 Forms: - Medication Reconciliation Form ec2 - Antibiotic Education ec2 - Prescription Opioid Use ec2 - Patient Portal Instructions ec2 - Leadership Thank You Letter ec2 Signatures: Dispatcher [employer] Tatianna Oropeza RN RN ko1 Pito Hernandez MD MD ec2 Dylan Kim RN RN tm6
--- NOTE | 2023-12-25 12:09 | ER ---
Nurse's Notes [facility] Name: Suzanne Edwards Age: 38 yrs Sex: Female : 1985 Arrival Date: 12/25/2023 Time: 10:16 Bed 2 Private MD: Diagnosis: Abnormal results of liver function studies;Upper abdominal pain, unspecified Presentation: 12/24 10:44 Chief complaint: Patient states: 3 days RUQ pain. Nausea, no vomiting. Some diarrhea. tm6 It feels inflamed. No urinary problems. 10:48 Ebola Screen: Patient negative for fever greater than or equal to 101.5 degrees tm6 Fahrenheit, and additional compatible Ebola Virus Disease symptoms Patient denies exposure to infectious person. Patient denies travel to an Ebola-affected area in the 21 days before illness onset. No symptoms or risks identified at this time. Initial Sepsis Screen: Does the patient meet any 2 criteria? No. Patient's initial sepsis screen is negative. Does the patient have a suspected source of infection? No. Patient's initial sepsis screen is negative. Risk Assessment: Do you want to hurt yourself or someone else? Patient reports no desire to harm self or others. Onset of symptoms was December 22, 2023. 10:48 Acuity: BING 3 tm6 10:48 Method Of Arrival: Ambulatory tm6 10:49 Coronavirus screen: Client denies travel out of the [place] in the last 14 days. tm6 Triage Assessment: 10:46 General: Appears in no apparent distress. Behavior is calm, cooperative. Pain: tm6 Complains of pain in right upper quadrant. 10:48 EENT: No signs and/or symptoms were reported regarding the EENT system. Neuro: Level of tm6 Consciousness is awake, alert, obeys commands, Oriented to person, place, time, situation. Cardiovascular: Patient's skin is warm and dry. Respiratory: Airway is patent Respiratory effort is even, unlabored, Respiratory pattern is regular, symmetrical. GI: Abdomen is round Reports upper abdominal pain. : No signs and/or symptoms were reported regarding the genitourinary system. Derm: No signs and/or symptoms reported regarding the dermatologic system. Musculoskeletal: No signs and/or symptoms reported regarding the musculoskeletal system. 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 - Infectious Disease History:: Denies. - Social history:: Smoking status: Patient denies any tobacco usage or history of. Patient uses alcohol, only on a social basis. Screenin:[facility] ED Fall Risk Assessment (Adult) History of falling in the last 3 months, ko1 including since admission No falls in past 3 months (0 pts) Confusion or Disorientation No (0 pts) Intoxicated or Sedated No (0 pts) Impaired Gait No (0 pts) Mobility Assist Device Used No (0 pt) Altered Elimination No (0 pt) Score/Fall Risk Level 0 - 2 = Low Risk Oriented to surroundings, Maintained a safe environment, Educated pt \T\ family on fall prevention, incl call for assistance when getting out of bed, Hourly rounding (assess needs \T\ fall precautionary measures) done. Abuse screen: Denies threats or abuse. Denies injuries from another. Nutritional screening: No deficits noted. Tuberculosis screening: No symptoms or risk factors identified. Assessment: 11:15 General: Appears in no apparent distress. uncomfortable, Behavior is calm, cooperative, ko1 appropriate for age. Pain: Complains of pain in right upper quadrant. Neuro: No deficits noted. Cardiovascular: No deficits noted. Respiratory: No deficits noted. GI: Reports lower abdominal pain. : No deficits noted. EENT: No deficits noted. Derm: No deficits noted. Musculoskeletal: No deficits noted. Vital Signs: 10:43 Temp 98.7(O); Weight 99.79 kg; Height 5 ft. 4 in. ; Pain 5/10; tm6 10:44 BP 126 / 80; Pulse 64; Resp 17; Pulse Ox 100% on R/A; MAP 92 mmHg; tm6 12:19 BP 114 / 71; Pulse 68; Resp 15; Pulse Ox 99% ; ko1 10:43 Body Mass Index 37.76 (99.79 kg, 162.56 cm) tm6 10:43 Pain Scale: Adult tm6 ED Course: 10:18 Patient arrived in ED. ra3 10:19 Pito Hernandez MD is Attending Physician. ec2 10:44 Arm band placed on right wrist. tm6 10:48 Triage completed. tm6 11:05 Tatianna Calderon, VIJAY is Primary Nurse. ko1 11:16 CBC with Diff Sent. em1 11:16 CMP Sent. em1 11:16 Lipase Sent. em1 11:16 Initial lab(s) drawn, by me, sent to lab. Inserted saline lock: 22 gauge in left em1 antecubital area, using aseptic technique. Blood collected. Flushed with 10 mL NS Missed attempt(s): 20 gauge in right forearm. Bleeding controlled, band aid applied, catheter tip intact. 11:22 Test, Urine Sent. ko1 11:22 Urinalysis w/ reflexes Sent. ko1 11:29 CT Abd/Pelvis - Without Contrast In Process Unspecified. EDMS 11:30 Pulse ox on. NIBP on. Door closed. Noise minimized. Lights dimmed. ko1 11:30 No provider procedures requiring assistance completed. ko1 12:11 Lanre López MD is Referral Physician. ec2 12:19 Patient has correct armband on for positive identification. Bed in low position. Call ko1 light in reach. Side rails up X 1. Provided Education on: discharge. 12:20 IV discontinued, intact, bleeding controlled, No redness/swelling at site. Pressure ko1 dressing applied. Administered Medications: 11:23 Drug: Ondansetron IVP 4 mg IVP once; over 2 minutes Route: IVP; Site: left wrist; ko1 11:28 Follow up: Response: No adverse reaction ko1 11:32 Drug: TORadol - Ketorolac IVP 15 mg IVP once Route: IVP; Site: left wrist; ko1 11:47 Follow up: Response: No adverse reaction ko1 11:32 Drug: morphine IVP or IV 4 mg IVP once over 4 mins Route: IVP; Infused Over: 4 mins; ko1 Site: left wrist; 11:47 Follow up: Response: No adverse reaction; Pain is decreased; RASS: Alert and Calm (0) ko1 Medication: 12:19 VIS not applicable for this client. ko1 Outcome: 12:08 Discharge ordered by . ec2 12:20 Discharged to home ambulatory, ko1 12:20 Condition: stable 12:20 Discharge instructions given to patient, Instructed on discharge instructions, follow up and referral plans. Demonstrated understanding of instructions, follow-up care, 12:21 Patient left the ED. ko1 Signatures: Dispatcher [employer] Guilherme Tam em1 Tatianna Calderon, RN RN ko1 Pito Hernandez MD MD ec2 Dylan Kim RN RN tm6 Rena Henning 3
[2023-12-25 12:42] VITALS: TEMP 98.7
[2023-12-25 12:47] VITALS: BP 114/71; O2SAT 99
== END 2023-12-25 12:21 | disposition home or self-care (01) ==
LOC: ER 10:16
DX: R94.5 Abnormal results of liver function studies (principal)
CPT/HCPCS: 85025; 81001; 36415; 81025; 83690; 80053; 74176; J2405; 96374; 96375; 99284